=== PATIENT | male | born 1940 | race Caucasian/White ===

== ENCOUNTER 2024-01-08 09:10 | Inpatient (IN) | payer MEDICARE, SELFPAY ==
[2024-01-07] VITALS (9 sets, daily range): BP systolic 142–157; BP diastolic 58–81; BMI 20.1
[2024-01-07 18:37] LABS: % Basophils 0.2 % (0-2); % Eosinophils 1.5 % (0-6); % Immature Granulocytes 0.7 % (0-0.5); % Lymphocytes 7.7 % (20.5-51.1); % Monocytes 11.6 % (1.7-9.3); % Neutrophils 78.4 % (42.2-75.2); Absolute Eosinophils 0.1 10^3/uL (0-0.7); Absolute Immature Granulocytes 0.1 10^3/uL (0-0.05); Absolute Lymphocytes 0.8 10^3/uL (1.2-3.4); Absolute Monocytes 1.1 10^3/uL (0.1-0.6); Absolute Neutrophils 7.3 10^3/uL (1.4-6.5); Hematocrit 19.8 % (39.0-52.0); Hemoglobin 6.7 g/dL (13.0-18.0); Mean Corp Hgb Conc. 33.3 g/dL (33.0-37.0); Mean Corpuscular Hgb 31.6 pg (27.0-31.0); Mean Corpuscular Volume 94.7 fL (80.0-94.0); Mean Platelet Volume 10.1 fL (7.4-10.4); Nucleated Red Blood Cells % 0 % (-); Platelet Count 130 10^3/uL (130-400); Red Blood Cell Count 2.09 10^6/uL (4.70-6.10); Red Cell Dist. Width 14.8 % (11.5-14.5); White Blood Cell Count 9.3 10^3/uL (4.8-10.8)
[2024-01-07 18:43] LABS: ALT (SGPT) 14 U/L (0-50); AST (SGOT) 21 U/L (17-59); Albumin 2.9 g/dl (3.5-5.0); Alkaline Phosphatase 41 U/L (38-126); Blood Urea Nitrogen 87 mg/dl (9-20); Calcium 7.7 mg/dl (8.4-10.2); Carbon Dioxide 29 mmol/L (22-30); Chloride 90 mmol/L (98-107); Glucose 73 mg/dl (70-99); Potassium 4.1 mmol/L (3.5-5.1); Sodium 131 mmol/L (135-145); Total Bilirubin 0.3 mg/dl (0.2-1.3); Total Protein 4.8 g/dl (6.3-8.2); eGFR 5.31
--- NOTE | 2024-01-07 20:04 | ED.GENMED ---
History of Present Illness
General
Chief Complaint: Abnormal Lab Value
Time Seen by Provider: 01/07/24 19:42
History of Present Illness
History of Present Illness:
Patient is a 83-year-old male with history of peritoneal dialysis, CAD with stent, hypertension, hyperlipidemia presenting to the emergency department with low hemoglobin. Patient had routine blood work completed last week which showed a hemoglobin
of 6.6. 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 Patient denies any melena or hematochezia or hematemesis or hemoptysis. He does state that he had colon polyps 15 years ago seen on a colonoscopy. Last year he
had a Cologuard which was normal. He is only symptom has been more tired and he has been sleeping a lot more per his family. He has been taking all his medications as prescribed. He was recently at [facility] for pneumonia and syncope. He does
state that he has not syncopized since then. No lightheadedness dizziness. No nausea or vomiting. No abdominal pain.
Phy Exam
Physical Exam
Physical Exam:
GENERAL: in no acute distress
HEENT: normocephalic, extraocular movements intact, moist oral mucosa
NECK: normal inspection
RESPIRATORY: no respiratory distress, clear to auscultation bilaterally
CARDIOVASCULAR: regular rate and rhythm
ABDOMEN/: soft, non-distended, non-tender to palpation, no rebound or guarding
EXTREMITIES: non-tender, no edema/swelling
NEUROLOGIC: awake and alert, moves all extremities
SKIN: warm
Course
Orders/Labs/Results
Orders:
Orders
01/07/24 18:11
Electrocardiogram (*1) Urgent
Reason for Study: Other
Other Reason for Exam: low hgb
EKG- Treatment ONCE
01/07/24 18:15
Type+Screen Urgent
Complete Blood Count/With Diff Urgent
Comprehensive Metabolic Panel Urgent
01/07/24 19:06
ABO2 Urgent
BBK Wristband Number:
Associate notified that ABO2 has been ordered: [id number]
Date: 01/07/24
Time: 18:22
Head Resident ID: [id number]
01/07/24 20:02
* Blood Bank Products Urgent
Blood Bank Products: *Packed RBC Leuko(PRBC's)
Quantity: 1
Transfuse Today: Yes
Reason: Anemia
Abnormal Lab Results
01/07/24
18:15
RBC 2.09 L 10^6/uL
(4.70-6.10)
Hgb 6.7 L* g/dL
(13.0-18.0)
Hct 19.8 L* %
(39.0-52.0)
MCV 94.7 H fL
(80.0-94.0)
MCH 31.6 H pg
(27.0-31.0)
RDW 14.8 H %
(11.5-14.5)
Abs Immat Gran (auto) 0.1 H 10^3/uL
(0-0.05)
Absolute Neuts (auto) 7.3 H 10^3/uL
(1.4-6.5)
Absolute Lymphs (auto) 0.8 L 10^3/uL
(1.2-3.4)
Absolute Monos (auto) 1.1 H 10^3/uL
(0.1-0.6)
Immature Gran % 0.7 H %
(0-0.5)
Neutrophils % 78.4 H %
(42.2-75.2)
Lymphocytes % 7.7 L %
(20.5-51.1)
Monocytes % 11.6 H %
(1.7-9.3)
Sodium 131 L mmol/L
(135-145)
Chloride 90 L mmol/L
(98-107)
BUN 87 H mg/dl
(9-20)
Creatinine 9.0 H* mg/dL
(0.7-1.3)
Calcium 7.7 L mg/dl
(8.4-10.2)
Total Protein 4.8 L g/dl
(6.3-8.2)
Albumin 2.9 L g/dl
(3.5-5.0)
01/07/24 18:15
01/07/24 18:15
Vital Signs
Initial and Last Documented VS:
Initial Vital Signs
Temp Pulse Resp Pulse Ox
98.1 F 55 16 98
01/07/24 18:07 01/07/24 18:07 01/07/24 18:07 01/07/24 18:07
Last Documented Vital Signs
Temp Pulse Resp BP Pulse Ox
98.1 F 53 13 146/59 98
01/07/24 18:07 01/07/24 18:46 01/07/24 18:46 01/07/24 18:46 01/07/24 18:07
MDM/Problems Addressed
Differential Diagnosis Includes:
Patient is a 83-year-old male with history of peritoneal dialysis CAD with stents, hypertension, hyperlipidemia presenting to the emergency department with a low hemoglobin. Vitals unremarkable exam is reassuring. Unclear etiology of his anemia
however he does have chronic kidney disease as well as a prior history of polyps. His MCV is close to normal. Given his history of CAD his goal should be greater than 8. Will transfuse 1 unit while he is in the emergency department. Patient will
need admission for further evaluation. Discussed with hospitalist who accepted patient to their service.
*Critical Care Note
Total Time (30-74mins, 75-104mins- exclusive of procedures): Not Applicable
ED Attending Note
-
Portions of this chart may have been created with voice recognition software.� Occasional wrong word or��sound alike� substitutions may have occurred due to the inherent limitations of voice recognition software.
Discharge Plan
Departure
Patient Disposition: Admit
Date of Disposition: 01/07/24
Time of Disposition: 20:07
Presentation/result/management discussed w/ accepting MD/DO: Hospitalist
Discharge Problem:
Anemia
Prescriptions:
No Action
losartan 50 mg Tablet
50 mg PO BID
atenolol 100 mg tablet
100 mg PO DAILY
famotidine [Pepcid] 40 mg Tablet
40 mg PO QPM
Theragen Tablet
1 tab PO DAILY
aspirin 81 mg Tablet,Delayed Release (Dr/Ec)
81 mg PO DAILY
tamsulosin [Flomax] 0.4 mg Capsule
0.4 mg PO QPM
sodium bicarbonate 650 mg Tablet
650 mg PO TID
amlodipine 10 mg tablet
10 mg PO DAILY
docusate sodium [Colace] 100 mg Capsule
100 mg PO BID
hydralazine 50 mg Tablet
50 mg PO TID
calcitriol 0.25 mcg Capsule
0.25 mcg PO DAILY
finasteride 5 mg Tablet
5 mg PO QPM
Memory Formula Tablet
1 tab PO DAILY
melatonin 5 mg Tablet
5 mg PO HS PRN (Reason: sleep)
omega 2-qwz-zsb-fish oil [Fish Oil] 1,200 (144-216) mg Capsule
2 cap PO BID
coQ10 (ubiquinol) 200 mg Capsule
200 mg PO DAILY
Hair, Skin and Nails Advanced 3.3 mg iron-25 mcg Tablet
1 tab PO DAILY
Veltassa 8.4 gram Powder In Packet
8.4 g PO BID
atorvastatin [Lipitor] 40 mg Tablet
40 mg PO HS
sevelamer HCl 800 mg Tablet
2,400 mg PO MEALS
hydralazine 25 mg Tablet
25 mg PO DAILY
Referrals:
Pasha Manzanares MD [Family Provider] -
Interventions
Interventions:
*Risk Screen - Suicide Last Done: 01/07/24 18:07
*General Assessment Last Done: 01/07/24 18:57
*Neglect/Abuse Screening Last Done: 01/07/24 18:07
ED- Fall Risk Assessment Last Done: 01/07/24 18:57
*ED COVID-19 Vaccine History Last Done: 01/07/24 18:57
Discharge Date and Time
Print Language: ROMANIAN
--- NOTE | 2024-01-07 20:13 | HPS.HSE ---
Family Physician
-
Family Physician: Pasha Manzanares
Chief Complaint
-
abnormal labs
History of Present Illness
Patient is a 83-year-old male with past medical history significant for chronic kidney disease with peritoneal dialysis, hypertension, hyperlipidemia, CAD with stent and anemia who presented to [facility] for evaluation after abnormal blood work
outpatient. Patient had routine blood work last Sunday with [facility] Sadn[facility] and [facility], Dr. Shea Hernández , called today to follow up and requested patient present to ED for evaluation
of Hgb 6.6. Patient Hgb in ED 6.7, denies any melena, hematochezia, hematemesis or hemoptysis. He did recently have an episode of syncope and was admitted at [facility] following for PNA. Only complaint currently is feeling more tired and has
increased weakness.
Medical History
Past Medical History
Past Medical History: Reports Other
Additional Past Medical History:
chronic kidney disease with peritoneal
hypertension
hyperlipidemia
CAD with stent
anemia
BPH
Past Surgical History: Reports Other
Additional Past Surgical History:
right shoulder repair
hernia repair
dialysis port placement
Social History
Tobacco: Non-smoker
Alcohol: None
Drug: None
Personal:
Living: With Family
Employment: Retired
Family History
Family History: Not pertinent
Allergies / Home Medications
Allergies reflects when Allergies were last updated in [employer].
Home Medications with original date entered in [employer]
Allergy/Medication List:
Allergies
Allergy/AdvReac Type Severity Reaction Status Date / Time
Penicillins Allergy Unknown Verified 01/07/24 18:10
Sulfa (Sulfonamide Allergy Unknown Verified 01/07/24 18:10
Antibiotics)
Home Medications
amlodipine 10 mg tablet 10 mg PO HS 11/03/22
aspirin 81 mg tablet,delayed release 81 mg PO DAILY 12/29/21
atenolol 100 mg tablet 50 mg PO HS 12/29/21
atorvastatin 40 mg tablet (Lipitor) 40 mg PO MOTUWETHFR@2200 12/29/21
coQ10 (ubiquinol) 200 mg capsule 200 mg PO NOON 12/29/21
docusate sodium 100 mg capsule (Colace) 100 mg PO DAILY 12/29/21
famotidine 40 mg tablet (Pepcid) 20 mg PO DAILY 12/29/21
finasteride 5 mg tablet 5 mg PO HS 12/29/21
hydralazine 25 mg tablet 25 mg PO DAILY taken w/ 50mg = 75mg 12/29/21
hydralazine 50 mg tablet 50 mg PO DAILY taken w/ 25mg = 75mg 12/29/21
omega 8-nwd-qbg-fish oil 1,200 mg (144 mg-216 mg) capsule (Fish Oil) 1 cap PO NOON 12/29/21
sevelamer HCl 800 mg tablet 1,600 mg PO MEALS 12/29/21
tamsulosin 0.4 mg capsule (Flomax) 0.4 mg PO HS 12/29/21
cholecalciferol (vitamin D3) 25 mcg (1,000 unit) tablet 25 mcg PO NOON 01/07/24
losartan 100 mg tablet 100 mg PO DAILY@1000 01/07/24
vitamin B complex-vitamin C-folic acid 0.8 mg tablet (Shivani-Aminata) 1 tab PO DAILY 01/07/24
Review of Systems
-
History Source: Patient
Constitutional: Reports Fatigue and Other (generalized weakness)
EENT: Reports No Symptoms
Respiratory: Reports No Symptoms
Cardiac: Reports No Symptoms
Abdomen/GI: Reports No Symptoms
: Reports No Symptoms
Musculoskeletal: Reports No Symptoms
Skin: Reports No Symptoms
Neurological: Reports No Symptoms
Endocrine: Reports No Symptoms
Hematologic/Lymphatic: Reports No Symptoms
Psych: Reports No Symptoms
Physical Exam
Vital Signs
Vital Signs
Temp Pulse Resp BP Pulse Ox
98.1 F 53 13 146/59 98
01/07/24 18:07 01/07/24 18:46 01/07/24 18:46 01/07/24 18:46 01/07/24 18:07
Physical Exam
General: Well Developed, Well Nourished, No Apparent Distress, Comfortable and Conversant
HEENT: NormoCephalic, Moist mucous membranes, Atraumatic, PERRLA, Nose Appears Normal and Ears Appear Normal
Respiratory: Clear and Non Labored Respirations; No Wheezes, Rales, Rhonchi or Crackles
Cardiac: S1/S2 and Regular Rhythm; No Murmur, Rub or Gallop
Breast: Deferred by me
GI: Soft, Non Tender, Non Distended and Normal Bowel Sounds; No Organomegaly
Rectal: Deferred by Provider
Genito-urinary: Deferred by me
Musculoskeletal: No Clubbing, No Cyanosis and No Edema
Skin: Warm, Dry and IV/Catheter Site; No Rash
Neuro: Awake, Alert, AO x 3 and Nonfocal/grossly intact
Hematologic/Lymphatic: No Lymphadenopathy
Psych: Calm and Intact Judgment/Insight
Laboratory Results
-
01/07/24 18:15
01/07/24 18:15
Laboratory Results
Total Bilirubin 0.3 mg/dl (0.2-1.3) 01/07/24 18:15
AST 21 U/L (17-59) 01/07/24 18:15
ALT 14 U/L (0-50) 01/07/24 18:15
Alkaline Phosphatase 41 U/L (38-126) 01/07/24 18:15
Data Reviewed
-
Medical Tests (Nuc Med, Echo, EKG etc): Report Reviewed by me (EKG: SINUS BRADYCARDIA WITH 1ST DEGREE A-V BLOCK RIGHT BUNDLE BRANCH BLOCK)
Lab Data: Labs Reviewed by me (Hgb 6.7, Hct 19.8, Creat 9.0)
Impression/Plan
-
IMPRESSION/PLAN:
#Anemia/GI Bleed?
- Hgb 6.7/Hct 19.8
- hemetest stool: pending
- Admit to IMU for observation
- check B12, folate, ferritin and TSH
- Blood consent signed and
- T&S with 1 unit PRBCs
- monitor H/H
- obtain recent records from [facility]
#chronic kidney disease with peritoneal
- Consult Nephrology
- peritoneal dialysis nightly
#hypertension
- continue amlodipine, atenolol, losartan and hydralazine
#hyperlipidemia
- continue atorvastatin
#CAD with stent
- continue ASA
#BPH
- continue finasteride and tamsulosin
Full Code
DVT Px: Heparin Sq
--- NOTE | 2024-01-07 20:41 | W.PN.UPDATE ---
Update Note
Progress Note Update
This note serves as an addendum to the H&P by respiratory therapy assistant BEBETO Freda Fraga
HPI
83M HX ESRD on home peritoneal dialysis, CAD with stents, hypertension, hyperlipidemia seen at ER:
- Primary Learning Support Specialist sent to ER for evaluation of monthly routine blood work completed last week which showed a hemoglobin of 6.6.
- BM this AM - dark brown stool - no melena or hematochezia or hematemesis or hemoptysis.
- HX colon polyps 15 years ago seen on a colonoscopy.
- Last year Cologuard was reported normal.
- Per family : more tired and sleeping a lot more
Compliance with OP medications as prescribed.
Recently at [facility] for pneumonia and syncope for 1week
ROS:
No lightheadedness dizziness.
No nausea or vomiting.
No abdominal pain.
PHX; as above
Reviewed VS: Bradycardia low 50s BP 145/60
PE
Gen: thin , NAD
HEENT: Ione anicteric
Neck: supple
Lungs: CTA
Cor: RRR S1 S2
Abdomen: soft BS POS
HEAD OPERATOR SULFIDE: AAO3, NFND
MS: no edema
Psych: appropriate
Data
12/29/21 01/07/24
Hgb 10.8 L 6.7 L*
MCV 94.7 H
Sodium 131 L
Potassium 4.1
Chloride 90 L
Carbon Dioxide 29
BUN 87 H
Creatinine 9.0 H*
Glucose 73
Calcium 7.7 L
Albumin 2.9 L
ASSESSMENT & PLAN
Severe anemia with macrocytosis - somewhat symptomatic
HX ACDz with prior Hgb hi 10s as of Dec 2021
Stable HD status
P Learning Support Specialist @ [facility]
- check B12, Folate, TSH, Ferritin
- Stool for HoB
- T &S, blood consented
- agree with 1 unit of PRBC
- c/w FINANCIAL SERVICES ASSISTANT Famotidine
ESRD on Home PD
- cont. FINANCIAL SERVICES ASSISTANT calcidiol, Veltassa , Sevelamer and Na HCO3
- Renal consult
Benign HTN
- cont FINANCIAL SERVICES ASSISTANT Atenolol,Losartan and Hydralazine
BPH
- c/w Finasteride and Flomax
DVT Px: SQH
Full code
Obs TLM
[2024-01-07] MEDS: TENORMIN 50 MG PO (23:18)
[2024-01-07] MEDS: NORVASC 10 MG PO (23:19)
[2024-01-07] MEDS: PROSCAR 5 MG PO (23:19)
[2024-01-07] MEDS: FLOMAX 0.4 MG PO (23:19)
[2024-01-07] MEDS: HEPARIN 5000 UNITS SC (23:19)
[2024-01-07] MEDS: LIPITOR 40 MG PO (23:21)
[2024-01-08] VITALS (16 sets, daily range): BP systolic 126–169; BP diastolic 51–98; PULSE 49–50; O2SAT 96; BMI 18.8
[2024-01-08 04:37] LABS: % Basophils 0.6 % (0-2); % Eosinophils 2.3 % (0-6); % Immature Granulocytes 0.7 % (0-0.5); % Monocytes 14.5 % (1.7-9.3); % Neutrophils 70.9 % (42.2-75.2); Absolute Eosinophils 0.2 10^3/uL (0-0.7); Absolute Immature Granulocytes 0.1 10^3/uL (0-0.05); Absolute Lymphocytes 0.8 10^3/uL (1.2-3.4); Absolute Neutrophils 5.1 10^3/uL (1.4-6.5); Hematocrit 21.7 % (39.0-52.0); Hemoglobin 7.5 g/dL (13.0-18.0); Mean Corp Hgb Conc. 34.6 g/dL (33.0-37.0); Mean Corpuscular Hgb 31.5 pg (27.0-31.0); Mean Corpuscular Volume 91.2 fL (80.0-94.0); Mean Platelet Volume 9.9 fL (7.4-10.4); Nucleated Red Blood Cells % 0 % (-); Platelet Count 101 10^3/uL (130-400); Red Blood Cell Count 2.38 10^6/uL (4.70-6.10); White Blood Cell Count 7.1 10^3/uL (4.8-10.8)
[2024-01-08 04:51] LABS: Blood Urea Nitrogen 87 mg/dl (9-20); Calcium 7.5 mg/dl (8.4-10.2); Carbon Dioxide 27 mmol/L (22-30); Chloride 91 mmol/L (98-107); Estimated Creatinine Clearance 5 ml/min; Glucose 118 mg/dl (70-99); Iron 155 ug/dl (49-181); Potassium 3.6 mmol/L (3.5-5.1); Sodium 131 mmol/L (135-145); eGFR 5.31
[2024-01-08 05:00] LABS: Percent Saturation 77 % (20-50); Total Iron Binding Capacity 199 ug/dl (261-462)
[2024-01-08 05:21] LABS: TSH 0.33 uIU/ml (0.47-4.68)
[2024-01-08 05:40] LABS: Vitamin B12 > 1000 pg/ml (239-931)
--- NOTE | 2024-01-08 05:58 | PTCARENOTE ---
Received patient from the ED overnight. One unit PRBCs transfused. Am hgb 7.5. No signs of bleeding.
--- NOTE | 2024-01-08 06:19 | PTCARENOTE ---
Patient with positive heme test. AM hgb up to 7.5 from 6.7 post transfusion. wax blender provider made aware.
[2024-01-08] MEDS: COLACE 100 MG PO (07:52)
[2024-01-08] MEDS: ASPIR LOW (ENTERIC COATED) 81 MG PO (07:53)
[2024-01-08] MEDS: RENVELA 1600 MG PO ×3 (07:53→17:46)
[2024-01-08] MEDS: APRESOLINE 25 MG PO (07:53)
[2024-01-08] MEDS: HEPARIN 5000 UNITS SC ×3 (07:54→23:39)
[2024-01-08] MEDS: APRESOLINE 50 MG PO (07:54)
[2024-01-08] MEDS: NEPHROCAP 1 CAPSULE PO (08:07)
--- NOTE | 2024-01-08 09:37 | W.PN.HOSP.TC ---
Addendum entered and electronically signed by Kevyn Oconnor MD 01/08/24 16:24:
Patient in need of a Lightweight wheelchair due to ambulatory dysfunction
Original Note:
Today's Communication/Plan
-
see note
Assessment / Plan
Assessment / Plan
1. Normocytic anemia suspected of chronic renal disease
-Baseline hemoglobin unknown, obtain records request sent to [facility]
-Heme test stool pending
-Further 600, saturation 77%. B12 WNL.
-Some superficial bruising around periumbilical area, likely from DVT prophylaxis short. No blood draining from peritoneal dialysis catheter
-CT abdomen pelvis without IV contrast ordered to rule out any retroperitoneal bleed, clinically less likely
2. ESRD on peritoneal dialysis
-Nephrology following and will continue to do peritoneal dialysis
-No concern of peritonitis
3. Hyponatremia
-2/2 renal faliure. monitor.
4. Thrombocytopenia
-Minimal with platelet of 101. Continue monitor
-Okay to provide DVT prophylaxis
5. Sinus bradycardia
-On atenolol for hypertension, continue with holding parameter
6. Essential hypertension
- continue amlodipine, atenolol, losartan and hydralazine
7. yperlipidemia
- continue atorvastatin
8. CAD with stent
- continue ASA
9. BPH
- continue finasteride and tamsulosin
Full Code
DVT Px: Heparin Sq
Discussed with nephrology
Transfer to Telemetry
Total time spent : 54 mins
I personally saw and examined the patient.
I have reviewed all diagnostic interpretations and treatment plans as written.
Time includes patient management by me, time spent at the patients bedside, time to review lab and imaging results, discussing patient care, documentation in the medical record, and time spent with the family or caregiver and discussing care plan
with RN/Consultants.
Anticipated Discharge: 24 - 48 hours
Subjective/Interval History
-
Date of Service: January 08, 2024
Resting comfortably in chair
Denies any abdominal pain/nausea/vomiting
no other issues reported
Objective Data
-
Labs:
Laboratory Results
01/08/24
04:16
WBC 7.1
Hgb 7.5 L
Hct 21.7 L
Plt Count 101 L D
Sodium 131 L
Potassium 3.6
Chloride 91 L
Carbon Dioxide 27
BUN 87 H
Creatinine 9.0 H*
Glucose 118 H
Calcium 7.5 L
Vital Signs:
Vital Signs
Temp Pulse Resp BP Pulse Ox
97.7 F 50 13 126/98 94
01/08/24 03:14 01/08/24 08:52 01/08/24 08:52 01/08/24 08:52 01/08/24 04:00
I&O
01/07/24 01/08/24 01/09/24
06:59 06:59 06:59
Intake Total 750 / 750
Balance 750 / 750
Review of Systems
-
Respiratory: Reports No Symptoms
Cardiac: Reports No Symptoms
Abdomen/GI: Reports No Symptoms
Physical Exam
-
General: No Apparent Distress and Comfortable
HEENT: Negative Oxygen
Respiratory: Clear to Auscultation
Cardiac: Regular Rhythm and S1/S2; Negative Murmur or Rub
GI: Soft, Nontender, Nondistended, Normal Bowel Sounds and Other (Ecchymosis on periumbilical area. no drainage around peritoneal dialysis catheter)
Musculoskeletal: No Edema
Neuro: Awake, Alert, Oriented, No Motor Deficits and Nonfocal/Grossly Intact
Psych: Calm
--- NOTE | 2024-01-08 10:00 | W.CON.NEPH ---
Consultation
-
Date/Time Consultation Requested: 01/07/24 07
Date/Time Consultation Performed: 01/07/24 09
Requesting Provider: Dr Thornton
Performing Provider: Dr Rogers
Reason for Consultation: ESRD
Medical History
-
Chief Complaint: anemia
History of Present Illness:
This is an 83-year-old gentleman who has end-stage renal disease for the last 2 and half years now on peritoneal dialysis. He dialyzes through [facility] at [place]. He says that he does receive injections for anemia on a
monthly basis. He denies having any issues with peritoneal dialysis at home which is managed by him and his . It appears that he alternates solutions of 1.5 and a 2.5% with a 9-hour treatment time with exchanges every 1 hour 40 minutes. He
was sent to the emergency room because blood work had shown a hemoglobin of 6.6. This was confirmed in the emergency room. We are asked to assist in management of his peritoneal dialysis. He does have hypertension which is generally controlled
with a multidrug regimen as well as hyperlipidemia controlled with statin therapy.
Past Medical History
ESRD cause unknown according to the patient, hypertension, hyperlipidemia, coronary disease with 2 stents, anemia, BPH, right shoulder surgery, hernia repair, PD catheter placement
Social History
Tobacco: Non-Smoker
Alcohol: None
Family History
No known CKD
Allergies / Home Medications
Allergy/AdvReac Type Severity Reaction Status Date / Time
Penicillins Allergy Unknown Verified 01/07/24 18:10
Sulfa (Sulfonamide Allergy Unknown Verified 01/07/24 18:10
Antibiotics)
�Medication �Instructions �Recorded �Confirmed �Type
amlodipine 10 mg tablet 10 mg PO HS Blood Pressure 12/29/21 01/07/24 History
aspirin 81 mg tablet,delayed 81 mg PO DAILY Blood Clot 12/29/21 01/07/24 History
release Prevention/Tx
atenolol 100 mg tablet 50 mg PO HS Blood Pressure 12/29/21 01/07/24 History
atorvastatin 40 mg tablet (Lipitor) 40 mg PO MOTUWETHFR@2200 High 12/29/21 01/07/24 History
Cholesterol
coQ10 (ubiquinol) 200 mg capsule 200 mg PO NOON Supplement 12/29/21 01/07/24 History
docusate sodium 100 mg capsule 100 mg PO DAILY STOOL SOFTENER 12/29/21 01/07/24 History
(Colace)
famotidine 40 mg tablet (Pepcid) 20 mg PO DAILY Gastrointestinal 12/29/21 01/07/24 History
Issue
finasteride 5 mg tablet 5 mg PO HS BPH 12/29/21 01/07/24 History
hydralazine 25 mg tablet 25 mg PO DAILY taken w/ 50mg = 12/29/21 01/07/24 History
75mg/BP
hydralazine 50 mg tablet 50 mg PO DAILY taken w/ 25mg = 12/29/21 01/07/24 History
75mg/BP
omega 8-ujg-zun-fish oil 1,200 mg 1 cap PO NOON Supplement 12/29/21 01/07/24 History
(144 mg-216 mg) capsule (Fish Oil)
sevelamer HCl 800 mg tablet 1,600 mg PO MEALS RENAL 12/29/21 01/07/24 History
tamsulosin 0.4 mg capsule (Flomax) 0.4 mg PO HS Urinary Issue 12/29/21 01/07/24 History
cholecalciferol (vitamin D3) 25 25 mcg PO NOON Supplement 01/07/24 01/07/24 History
mcg (1,000 unit) tablet
losartan 100 mg tablet 100 mg PO DAILY@1000 Blood Pressure 01/07/24 01/07/24 History
vitamin B complex-vitamin C-folic 1 tab PO DAILY Supplement 01/07/24 01/07/24 History
acid 0.8 mg tablet (Shivani-Aminata)
Review of Systems
-
No chest pain or shortness of breath. No bright red blood per rectum. No issues with PD. Increased weakness only.
All other systems: Negative unless noted
Physical Exam
Vital Signs
Vital Signs
Temp Pulse Resp BP Pulse Ox
97.7 F 50 13 126/98 94
01/08/24 03:14 01/08/24 08:52 01/08/24 08:52 01/08/24 08:52 01/08/24 04:00
Lab Results
WBC 7.1 10^3/uL (4.8-10.8) 01/08/24 04:16
RBC 2.38 10^6/uL (4.70-6.10) L 01/08/24 04:16
Hgb 7.5 g/dL (13.0-18.0) L 01/08/24 04:16
Hct 21.7 % (39.0-52.0) L 01/08/24 04:16
Plt Count 101 10^3/uL (130-400) L D 01/08/24 04:16
Sodium 131 mmol/L (135-145) L 01/08/24 04:16
Potassium 3.6 mmol/L (3.5-5.1) 01/08/24 04:16
Chloride 91 mmol/L (98-107) L 01/08/24 04:16
Carbon Dioxide 27 mmol/L (22-30) 01/08/24 04:16
BUN 87 mg/dl (9-20) H 01/08/24 04:16
Creatinine 9.0 mg/dL (0.7-1.3) H* 01/08/24 04:16
eGFR 5.31 01/08/24 04:16
Glucose 118 mg/dl (70-99) H 01/08/24 04:16
Calcium 7.5 mg/dl (8.4-10.2) L 01/08/24 04:16
Albumin 2.9 g/dl (3.5-5.0) L 01/07/24 18:15
Laboratory Tests
12/29/21
14:15
Hgb 10.8 L
Physical Exam
Patient is awake alert oriented and in no distress. Mood and affect were pleasant, insight and judgment were good. Pupils are equal round and reactive to light, extraocular movements are intact, sclera were anicteric. Hearing was normal, ears and
nose are intact. Oropharynx was clear. Neck was supple with trachea midline and no thyromegaly. Heart was regular rate and rhythm without rubs. Lower extremities without edema. Lungs were clear to auscultation bilaterally and with normal
excursion. Abdomen was soft, nontender, with normal active bowel sounds, and no hepatosplenomegaly. Skin was without rash and with normal turgor. Ecchymosis was noted around the umbilicus. No flank ecchymosis noted PD catheter was clean dry and
intact
Data Reviewed
-
Medical Tests (Nuc Med, Echo etc): Image Personally Visualized and interpreted (EKG on 01/07/2024 by my reading shows sinus bradycardia first-degree AV block right bundle branch block)
Labs: Labs Reviewed by me
Old Records: Requested
Assessment/Plan
-
Assessment
ESRD on PD
Acute anemia
Hypertension
Hyperlipidemia
Coronary artery disease
Plan
PD will be continued, orders provided
Workup of anemia
CT abdomen and pelvis
Check iron studies
Will try and obtain old records particularly for last JORY dose
Outpatient medications may otherwise be continued from a renal perspective
[2024-01-08] MEDS: OMNIPAQUE 50 ML PO (11:22)
[2024-01-08] MEDS: COZAAR 100 MG PO (11:23)
--- NOTE | 2024-01-08 14:11 | PTCARENOTE ---
Assumed care of patient during the day, received report via RN. Pt AAOx3 drowsy at times. Pt NSR on tele with first degree heart block and BBB. Pt 96% on RA. PD performed as ordered see worklist. Moderate bruising on the abdomen present on
admission, no complaints of pain. PT/OT walked with pt in the hallway with rolling walker. Pt up into the chair for breakfast. Pt had CT of abdomen with oral contrast. Pt has call blair within reach. Spouse at the bedside.
--- NOTE | 2024-01-08 15:51 | CM ---
Patient with Hx ESRD on PD. Room air. PT/OT recommend HH.
Met with patient, Carla and daughter Janny;
the patient resides with his , daughter and 3 grandsons in a 2 story house with 2 + 1 BRIANNE, and chair lift to 2nd floor.
The patient has been assisted with ADLs by his .
He has only been able to ambulate short distances with supervision since early Nov 2023, and he is unsteady on his feet
assists with doing peritoneal dialysis.
No housing/food/utility/transport insecurity.
DME - RW, shower chair, PD supplies
VN - current with [facility] for SN/PT/OT - and daughter wish to resume service at d/c.
SNF - none
PCP - Pasha Manzanares
Pharmacy - [facility]
Discussed if feels she has enough caregiver help at home - she is considering. Provided DH Caregiver list.
Discussed possible need for w/c and feels lightweight w/c would be best ---> message to Dr Oconnor who agrees.
wants w/c delivered to patient's hospital room.
Referral to [facility] for resumption of service.
Spoke with Tracie Pulido; agree to fax referral. She will deliver to patient's room tomorrow.
Plan home with resumption [facility], with lightweight w/c.
[2024-01-08] MEDS: FLOMAX 0.4 MG PO (20:15)
[2024-01-08] MEDS: PROSCAR 5 MG PO (20:15)
[2024-01-08] MEDS: TENORMIN 50 MG PO (20:15)
[2024-01-08] MEDS: NORVASC 10 MG PO (20:15)
[2024-01-08] MEDS: LIPITOR 40 MG PO (20:17)
[2024-01-09] VITALS (13 sets, daily range): BP systolic 127–176; BP diastolic 55–100; BMI 19.3
[2024-01-09 04:13] LABS: % Basophils 0.4 % (0-2); % Immature Granulocytes 0.4 % (0-0.5); % Lymphocytes 11.7 % (20.5-51.1); % Monocytes 12.5 % (1.7-9.3); Absolute Eosinophils 0.2 10^3/uL (0-0.7); Absolute Lymphocytes 0.9 10^3/uL (1.2-3.4); Absolute Neutrophils 5.6 10^3/uL (1.4-6.5); Hemoglobin 8.2 g/dL (13.0-18.0); Mean Corp Hgb Conc. 34.2 g/dL (33.0-37.0); Mean Corpuscular Hgb 32.2 pg (27.0-31.0); Mean Corpuscular Volume 94.1 fL (80.0-94.0); Mean Platelet Volume 9.8 fL (7.4-10.4); Nucleated Red Blood Cells % 0 % (-); Platelet Count 128 10^3/uL (130-400); Red Blood Cell Count 2.55 10^6/uL (4.70-6.10); Red Cell Dist. Width 15.2 % (11.5-14.5); White Blood Cell Count 7.8 10^3/uL (4.8-10.8)
[2024-01-09 04:27] LABS: Blood Urea Nitrogen 73 mg/dl (9-20); Calcium 7.7 mg/dl (8.4-10.2); Carbon Dioxide 29 mmol/L (22-30); Chloride 90 mmol/L (98-107); Estimated Creatinine Clearance 6 ml/min; Glucose 102 mg/dl (70-99); Potassium 3.6 mmol/L (3.5-5.1); Sodium 130 mmol/L (135-145); eGFR 6.03
--- NOTE | 2024-01-09 06:33 | PTCARENOTE ---
NO acute events overnight. Confused at times. Assist x1 to the BR with rolling walker. PD completed every 4 hours.
--- NOTE | 2024-01-09 07:45 | PTCARENOTE ---
Pt with prolonged OR interval of 0.36, BBC, and prolonged QT of 0.[address] Oconnor notified; no further orders received.
[2024-01-09] MEDS: HEPARIN 5000 UNITS SC ×2 (08:19→17:28)
[2024-01-09] MEDS: APRESOLINE PO ×4 (08:19→09:59)
[2024-01-09] MEDS: ASPIR LOW (ENTERIC COATED) PO ×2 (08:20→09:59)
[2024-01-09] MEDS: RENVELA PO ×3 (08:20→13:05)
[2024-01-09] MEDS: PEPCID PO ×2 (08:20→10:00)
[2024-01-09] MEDS: COLACE PO ×2 (08:20→10:00)
[2024-01-09] MEDS: NEPHROCAP PO ×2 (08:20→10:00)
--- NOTE | 2024-01-09 08:28 | W.PN.NEPH.PH ---
Today's Communication / Plan
-
PD orders provided
Assessment/Plan
-
Assessment
ESRD on PD
Acute anemia
Hypertension
Hyperlipidemia
Coronary artery disease
Plan
PD will be continued, orders provided
Workup of anemia
CT abdomen and pelvis: concerning for omental caking in LUQ, moderate ascities, bilateral renal cystic disease
Check iron studies
Will try and obtain old records particularly for last JORY dose
Outpatient medications may otherwise be continued from a renal perspective
PD :
sbp 160
1.5% q4hr exchanges of 2L
-
-
Date of Service: January 09, 2024
CC / HPI / ROS
-
Chief Complaint:
ESRD/PD
History of Present Illness:
hemodynamically stable
hemoglobin up to 8.2 following transfusion
Review of Systems:
weight up
no fevers
lethargic
Labs
-
Labs:
WBC 7.8 10^3/uL (4.8-10.8) 01/09/24 03:50
RBC 2.55 10^6/uL (4.70-6.10) L 01/09/24 03:50
Hgb 8.2 g/dL (13.0-18.0) L 01/09/24 03:50
Hct 24.0 % (39.0-52.0) L 01/09/24 03:50
Plt Count 128 10^3/uL (130-400) L D 01/09/24 03:50
Sodium 130 mmol/L (135-145) L 01/09/24 03:50
Potassium 3.6 mmol/L (3.5-5.1) 01/09/24 03:50
Chloride 90 mmol/L (98-107) L 01/09/24 03:50
Carbon Dioxide 29 mmol/L (22-30) 01/09/24 03:50
BUN 73 mg/dl (9-20) H 01/09/24 03:50
Creatinine 8.1 mg/dL (0.7-1.3) H* 01/09/24 03:50
eGFR 6.03 01/09/24 03:50
Glucose 102 mg/dl (70-99) H 01/09/24 03:50
Calcium 7.7 mg/dl (8.4-10.2) L 01/09/24 03:50
Albumin 2.9 g/dl (3.5-5.0) L 01/07/24 18:15
Physical Exam
-
Vital Signs:
Vital Signs
Temp Pulse Resp BP Pulse Ox
97.4 F 59 16 153/87 97
01/09/24 07:55 01/09/24 06:00 01/09/24 06:00 01/09/24 06:00 01/09/24 00:00
Cardiovascular:: Regular rate and rhythm
Respiratory:: Bilateral: CTA
Lung Excursion:: Normal
Abdomen:: Nontender and Soft
Bowel Sounds:: Decreased
Rojas Catheter: No
--- NOTE | 2024-01-09 09:08 | W.PN.HOSP.TC ---
Today's Communication/Plan
-
see note
Assessment / Plan
Assessment / Plan
CT a/p
Possible omental caking in left upper quadrant and therefore metastatic disease. This could further be evaluated by PET scan if indicated clinically. Moderate a abdominopelvic ascites.
Findings concerning for mild postinflammatory/postinfectious change of both lower lobes. Age-indeterminate mild T12 compression fracture. Splenic calcifications suggesting prior benign granulomatous disease.
Cholesterol gallstones. Benign right adrenal adenoma. Bilateral simple renal cysts. Bilateral benign complex renal cysts. Nonobstructing renal stones. Diverticulosis. Mild extraluminal air in the abdomen probably due to the percutaneous drainage
catheter.
Severe prostate hypertrophy. Probable right hydrocele

1. Normocytic anemia suspected of chronic renal disease
-Baseline hemoglobin unknown, obtain records request sent to [facility]
-Ferritin 600, saturation 77%. B12 WNL.
-Some superficial bruising around periumbilical area, likely from DVT prophylaxis short. No blood draining from peritoneal dialysis catheter
-CT abdomen pelvis without IV contrast ruled out any retroperitoneal bleed
2. 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
-CT a/p incidentally showing omental caking, suspicious for metastatic disease
-Hemato/oncology consulted for further evaluation
3. Acute toxic metabolic encephalopathy
-Patient had apparent episodes of confusion/encephalopathy at [facility] as well.
-Neurologgy work-up at [place] was negative and was felt to be related to sertraline, which was discontinued
-Currently patient not on any sedative medication
-No clinical signs of any ongoing active infection. COVID neg.
-Required soft restraint and upper extremity
-Continue supportive care and will do re-evaluation if clinically not improved.
3. ESRD on peritoneal dialysis
-Nephrology following and will continue to do peritoneal dialysis
-No concern of peritonitis
4. Hyponatremia
-2/2 renal faliure. monitor.
5. Thrombocytopenia
-Fluctuating and was low as well during [facility] hospitalization
-Okay to provide DVT prophylaxis
6. Essential hypertension -Uncontrolled
-Patient declining to take oral medication, providing IV hydralazine for SBP greater than 160
7. Hyperlipidemia
- continue atorvastatin
8. CAD with stent
- continue ASA
9. BPH
- continue finasteride and tamsulosin
10. Sinus bradycardia
-On atenolol for hypertension, continue with holding parameter
Full Code
DVT Px: Heparin Sq
Care plan discussed with spouse/nephrology/RN
Total time spent : 52 mins
I personally saw and examined the patient.
I have reviewed all diagnostic interpretations and treatment plans as written.
Time includes patient management by me, time spent at the patients bedside, time to review lab and imaging results, discussing patient care, documentation in the medical record, and time spent with the family or caregiver and discussing care plan
with RN/Consultants.
Anticipated Discharge: > 48 hours
Subjective/Interval History
-
Date of Service: January 09, 2024
Patient confused/encephalopathic in the morning
Reported hallucination by RN
Patient agitated and was pulling of things
Objective Data
-
Labs:
Laboratory Results
01/09/24
03:50
WBC 7.8
Hgb 8.2 L
Hct 24.0 L
Plt Count 128 L D
Sodium 130 L
Potassium 3.6
Chloride 90 L
Carbon Dioxide 29
BUN 73 H
Creatinine 8.1 H*
Glucose 102 H
Calcium 7.7 L
Vital Signs:
Vital Signs
Temp Pulse Resp BP Pulse Ox
97.4 F 58 16 160/91 94
01/09/24 07:55 01/09/24 08:00 01/09/24 08:00 01/09/24 08:00 01/09/24 08:41
I&O
01/08/24 01/09/24 01/10/24
06:59 06:59 06:59
Intake Total 750 / 750 1000 / 1000
Output Total 2325 / 2325
Balance 750 / 750 -1325 / -1325
Review of Systems
-
Unable to obtain full review of systems at this time due to: Acuity
Physical Exam
-
General: Comfortable and Cachectic
HEENT: Negative Oxygen
Respiratory: Clear to Auscultation
Cardiac: Regular Rhythm and S1/S2; Negative Murmur or Rub
GI: Soft, Nontender and Nondistended
Musculoskeletal: No Edema
Neuro: Awake and Nonfocal/Grossly Intact; Negative Alert or Oriented
Psych: Calm
[2024-01-09] MEDS: COZAAR PO (10:04)
--- NOTE | 2024-01-09 10:04 | PTCARENOTE ---
Pt drowsy and uncooperative, refusing to take medications despite several attempts. Puling off monitor equipment and ripped out IV. Reports he sees '2 footballs on the ground.' Dr. Oconnor notified via TT.
[2024-01-09] MEDS: RISPERDAL M-TAB (ORALLY DISINTEGRATING) 0.5 MG PO (11:31)
--- NOTE | 2024-01-09 11:37 | CON.ONC ---
Impression
Impression
83-year-old male with history of ESRD on peritoneal dialysis, hypertension, hyperlipidemia presenting with anemia
# Anemia
- Likely chronic in the setting of chronic kidney disease, nephrology following
- Iron studies normal
- Vitamin B12 normal
- s/p 1 u PRBC, transfuse if hemoglobin less than 7
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
- CT abdomen showed omental caking suggestive of metastatic disease and moderate ascites
- IR consult appreciated for diagnostic paracentesis and if possible, biospy of omental thickening
- Check tumor markers CEA, CA 19-9
- Will follow along
# ESRD on PD - nephrology following
# Hypertension - continue home meds
# Hyperlipidemia - continue home meds
# BPH - continue home meds
Patient History
History of Present Illness
83-year-old male with past medical history of chronic kidney disease on peritoneal dialysis, hypertension, hyperlipidemia, BPH, coronary artery disease who presented with abnormal hemoglobin of 6.6 on outpatient blood work and increased weakness and
fatigue. On admission, hemoglobin was found to be 6.7 with MCV of 94 and creatinine 9.0. Iron studies are not suggestive of iron deficiency anemia and vitamin B12 is normal.
CT abdomen:
Possible omental caking in left upper quadrant which can be suggestive of metastatic disease, moderate abdominal pelvic ascites, mild postinfectious/postinflammatory changes of both lower lobes, splenic calcifications likely due to benign
granulomatous disease, benign right adrenal adenoma, severe prostate hypertrophy and right hydrocele.
Past-Medical/Surgical History
Past medical history:
ESRD on PD
Hypertension
Hyperlipidemia
BPH
Coronary artery disease
Past surgical history:
Right humeral fracture 2021
Patient Medication
�Medication �Instructions �Recorded �Confirmed �Last Taken �Type
amlodipine 10 mg tablet 10 mg PO HS Blood Pressure 12/29/21 01/07/24 01/06/24 History
aspirin 81 mg tablet,delayed 81 mg PO DAILY Blood Clot 12/29/21 01/07/24 01/07/24 History
release Prevention/Tx
atenolol 100 mg tablet 50 mg PO HS Blood Pressure 12/29/21 01/07/24 01/06/24 History
atorvastatin 40 mg tablet (Lipitor) 40 mg PO MOTUWETHFR@2200 High 12/29/21 01/07/24 01/04/24 History
Cholesterol
coQ10 (ubiquinol) 200 mg capsule 200 mg PO NOON Supplement 12/29/21 01/07/24 01/06/24 History
docusate sodium 100 mg capsule 100 mg PO DAILY STOOL SOFTENER 12/29/21 01/07/24 01/07/24 History
(Colace)
famotidine 40 mg tablet (Pepcid) 20 mg PO DAILY Gastrointestinal 12/29/21 01/07/24 01/07/24 History
Issue
finasteride 5 mg tablet 5 mg PO HS BPH 12/29/21 01/07/24 01/06/24 History
hydralazine 25 mg tablet 25 mg PO DAILY taken w/ 50mg = 12/29/21 01/07/24 01/07/24 History
75mg/BP
hydralazine 50 mg tablet 50 mg PO DAILY taken w/ 25mg = 12/29/21 01/07/24 01/07/24 History
75mg/BP
omega 9-qpo-bqo-fish oil 1,200 mg 1 cap PO NOON Supplement 12/29/21 01/07/24 01/06/24 History
(144 mg-216 mg) capsule (Fish Oil)
sevelamer HCl 800 mg tablet 1,600 mg PO MEALS RENAL 12/29/21 01/07/24 01/07/24 12:00 History
tamsulosin 0.4 mg capsule (Flomax) 0.4 mg PO HS Urinary Issue 12/29/21 01/07/24 01/06/24 History
cholecalciferol (vitamin D3) 25 25 mcg PO NOON Supplement 01/07/24 01/07/24 01/06/24 History
mcg (1,000 unit) tablet
losartan 100 mg tablet 100 mg PO DAILY@1000 Blood Pressure 01/07/24 01/07/24 01/07/24 History
vitamin B complex-vitamin C-folic 1 tab PO DAILY Supplement 01/07/24 01/07/24 01/07/24 History
acid 0.8 mg tablet (Shivani-Aminata)
Active Medications
Generic Name Dose Route Start Last Admin
Trade Name Freq PRN Reason Stop Dose Admin
Acetaminophen 650 mg 01/07/24 22:38
Acetaminophen 325 Mg Tablet PO 02/04/24 22:37
Q4HPRN PRN
mild pain/PAEZ/temp> 100.4F
Amlodipine Besylate 10 mg 01/07/24 22:38 01/08/24 20:15
Amlodipine 10 Mg Tablet PO 02/04/24 22:37 10 mg
HS EMMIE Administration
Aspirin 81 mg 01/08/24 08:00 01/09/24 09:59
Aspirin 81 Mg (Enteric Coated) Tablet PO 02/05/24 07:59 Not Given
DAILY EMMIE
Atenolol 50 mg 01/07/24 23:00 01/08/24 20:15
Atenolol 50 Mg Tablet PO 02/04/24 22:59 50 mg
HS EMMIE Administration
Atorvastatin Calcium 40 mg 01/07/24 22:38 01/08/24 20:17
Atorvastatin (Lipitor) 40 Mg Tablet PO 02/04/24 22:37 40 mg
MOTUWETHFR@2200 EMMIE Administration
Docusate Sodium 100 mg 01/08/24 08:00 01/09/24 10:00
Docusate Sodium 100 Mg Capsule PO 02/05/24 07:59 Not Given
DAILY EMMIE
Famotidine 20 mg 01/09/24 08:00 01/09/24 10:00
Famotidine 20 Mg Tablet PO 02/06/24 07:59 Not Given
Q48H EMMIE
Finasteride 5 mg 01/07/24 22:38 01/08/24 20:15
Finasteride 5 Mg Tablet PO 02/04/24 22:37 5 mg
HS EMMIE Administration
Heparin Sodium 5,000 units 01/08/24 00:00 01/09/24 08:19
Heparin 5,000 Units/Ml 1 Ml Vial SC 02/05/24 00:00 5,000 units
Q8 EMMIE Administration
Hydralazine HCl 25 mg 01/08/24 08:00 01/09/24 09:59
Hydralazine 25 Mg Tablet PO 02/05/24 07:59 Not Given
DAILY EMMIE
Hydralazine HCl 50 mg 01/08/24 08:00 01/09/24 09:59
Hydralazine 50 Mg Tablet PO 02/05/24 07:59 Not Given
DAILY EMMIE
Losartan Potassium 100 mg 01/08/24 10:00 01/09/24 10:04
Losartan 100 Mg Tablet PO 02/05/24 09:59 Not Given
DAILY@1000 EMMIE
Risperidone 0.5 mg 01/09/24 10:08 01/09/24 11:31
Risperidone 0.5 Mg Orally Disintegrating Tablet PO 02/06/24 19:59 0.5 mg
BID PRN Administration
Agitation
Sevelamer Carbonate 1,600 mg 01/08/24 08:00 01/09/24 10:00
Sevelamer Carbonate (Renvela) 800 Mg Tablet PO 02/05/24 07:59 Not Given
MEALS EMMIE
Sodium Chloride 0 flush 01/07/24 23:00
Sodium Chloride 0.9% (Flush) Syringe IV 02/04/24 22:59
PER PROTOCOL EMMIE
Tamsulosin HCl 0.4 mg 01/07/24 22:38 01/08/24 20:15
Tamsulosin 0.4 Mg Capsule PO 02/04/24 22:37 0.4 mg
HS EMMIE Administration
Vitamin B Complex/Vit C/Folic Acid 1 capsule 01/08/24 08:00 01/09/24 10:00
Renal Cap (Nephrocap) Capsule PO 02/05/24 07:59 Not Given
DAILY EMMIE
Review of Systems
-
Unable to obtain full review of systems at this time due to: Other (Patient does not communicate well)
History Source: Patient and Records
Constitutional: Reports No Symptoms
Physical Exam
-
General: Cachetic
Cardiology: Normal Sinus Rhythm, S1 and S2
GI: Other (PD catheter)
Musculoskeletal: No Clubbing, No Cyanosis and No Edema
Skin: Other (Ecchymosis on upper extremities and periumbilical)
Labs
Lab Results
WBC 7.8 10^3/uL (4.8-10.8) 01/09/24 03:50
RBC 2.55 10^6/uL (4.70-6.10) L 01/09/24 03:50
Hgb 8.2 g/dL (13.0-18.0) L 01/09/24 03:50
Hct 24.0 % (39.0-52.0) L 01/09/24 03:50
MCV 94.1 fL (80.0-94.0) H 01/09/24 03:50
MCH 32.2 pg (27.0-31.0) H 01/09/24 03:50
MCHC 34.2 g/dL (33.0-37.0) 01/09/24 03:50
RDW 15.2 % (11.5-14.5) H 01/09/24 03:50
Plt Count 128 10^3/uL (130-400) L D 01/09/24 03:50
MPV 9.8 fL (7.4-10.4) 01/09/24 03:50
Abs Immat Gran (auto) 0.0 10^3/uL (0-0.05) 01/09/24 03:50
Absolute Neuts (auto) 5.6 10^3/uL (1.4-6.5) 01/09/24 03:50
Absolute Lymphs (auto) 0.9 10^3/uL (1.2-3.4) L 01/09/24 03:50
Absolute Monos (auto) 1.0 10^3/uL (0.1-0.6) H 01/09/24 03:50
Absolute Eos (auto) 0.2 10^3/uL (0-0.7) 01/09/24 03:50
Absolute Basos (auto) 0.0 10^3/uL (0-0.2) 01/09/24 03:50
Immature Gran % 0.4 % (0-0.5) 01/09/24 03:50
Neutrophils % 72.0 % (42.2-75.2) 01/09/24 03:50
Lymphocytes % 11.7 % (20.5-51.1) L 01/09/24 03:50
Monocytes % 12.5 % (1.7-9.3) H 01/09/24 03:50
Eosinophils % 3.0 % (0-6) 01/09/24 03:50
Basophils % 0.4 % (0-2) 01/09/24 03:50
Creatinine 8.1 mg/dL (0.7-1.3) H* 01/09/24 03:50
Vital Signs
Vital Signs
Temp Pulse Resp BP Pulse Ox
97.4 F 53 18 160/91 94
01/09/24 07:55 01/09/24 10:00 01/09/24 10:00 01/09/24 08:00 01/09/24 08:41
--- NOTE | 2024-01-09 11:52 | PTCARENOTE ---
Pt with increasing agitation. Pulling off monitor equipment, attempting to climb OOB. Reaching for PD cath multiple times and requiring frequent reorientation. Dr. Oconnor notified via TT. Attempt at b/l mitts immediately unsuccessful, order received
for b/l soft wrist restraints- see intervention. PRN Risperdal administered, see APR.
--- NOTE | 2024-01-09 12:00 | PTCARENOTE ---
Day placed in pt's room.
[2024-01-09 13:27] LABS: COVID-19 Antigen Negative (Negative)
--- NOTE | 2024-01-09 14:06 | W.PN.UPDATE ---
Update Note
Progress Note Update
Attempted to call who wanted to speak with me about his peritoneal dialysis
No answer
[2024-01-09] MEDS: RENVELA 1600 MG PO ×2 (14:09→17:29)
[2024-01-09 15:45] LABS: CEA 2.23 ng/ml
--- NOTE | 2024-01-09 15:45 | PTCARENOTE ---
Addendum entered by Dianne Reyes 01/09/24 17:41:
Pt becoming increasingly uncooperative; at bedside. Pt reoriented to reality.
Original Note:
Pt's family at bedside, much calmer at this time. Restraints removed at this time. Medsitter and bed alarm remains in place.
--- NOTE | 2024-01-09 19:23 | W.PN.UPDATE ---
Update Note
Progress Note Update
I saw and examined the patient.
The resident's note was reviewed and I agree with the note.
Comment:
83-year-old male with history of ESRD on peritoneal dialysis, hypertension, hyperlipidemia presenting with anemia found to have ascites and peritoneal caking on CT
CT abdomen:
Possible omental caking in left upper quadrant which can be suggestive of metastatic disease, moderate abdominal pelvic ascites, mild postinfectious/postinflammatory changes of both lower lobes, splenic calcifications likely due to benign
granulomatous disease, benign right adrenal adenoma, severe prostate hypertrophy and right hydrocele.
Past-Medical/Surgical History
Past medical history:
ESRD on PD
Hypertension
Hyperlipidemia
BPH
Coronary artery disease
Past surgical history:
Right humeral fracture 2021
PE:
Confused, not answering questions
RRR
Clear
Distended, soft
IMP
# Anemia of chronic kidney disease,
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
# ESRD on PD - nephrology following
PLAN:
Transfuse PRBC for HgB 6.7
Per IR, no mass amenable to biopsy. For diagnostic paracentesis for cytology. Check tumor markers (CEA, & CA 19/9)
Await cytology
--- NOTE | 2024-01-09 21:09 | CON.MD ---
Consultation - Medical
-
83 yr old M w/ PMH of ESRD on peritoneal dialysis, thrombocytopenia, HTN, HLD, CAD w/ stent & BPH. Presenting initially with anemia and found on CT to have signs suspicious for possible metastatic disease. Psychiatry was consulted due to likely TME
with agitation.
Pt unable to participate in meaningful interview - is confused and mumbling to self at times. Intermittently becomes confused and tries to get out of bed, though was redirectable at the time.
Spoke to pts son via phone, he reported that this is not pts baseline at all and that this is a recent change in his mentation. Discussed delirium and provided psychoed. Discussed use of low dose risperidone to manage more acute agitation (when pt
may inadvertently hurt himself or others & is not redirectable) - discussed associated risks, including risk of sudden in this population and discontinuing use once mentation improves.
Pt does not have any significant psychiatric history.
Lives at home with his , daughter & son in law. Close relationship with son as well.
TME/delirium with intermittent agitation
MSE: no eye contact, unable to cooperate,speech is mute at times, mumbling to self quietly other times, affect is sleepy/confused/blunted. Unable to assess mood, thought process/content. Disoriented. Memory not formally tested. Insight poor.
Judgement poor
Trial of risperidone 0.5mg TIDPRN acute agitation, limit use to when agitation is not redirectable and can pose risk to pt and/or others
Psychiatry will follow
[2024-01-09] MEDS: TENORMIN 50 MG PO (22:25)
[2024-01-09] MEDS: NORVASC 10 MG PO (22:27)
[2024-01-09] MEDS: PROSCAR 5 MG PO (22:27)
[2024-01-09] MEDS: FLOMAX 0.4 MG PO (22:27)
[2024-01-09] MEDS: LIPITOR 40 MG PO (22:34)
[2024-01-10] VITALS (19 sets, daily range): BP systolic 52–173; BP diastolic 47–104; BMI 18.9
[2024-01-10] MEDS: HEPARIN 5000 UNITS SC ×4 (00:39→23:27)
[2024-01-10 01:07] LABS: Urine Albumin 2+ (Neg - Trace); Urine Bilirubin Negative (Negative); Urine Character Clear (Clear); Urine Color Yellow; Urine Glucose Negative (Negative); Urine Ketone Negative (Negative); Urine Leukocyte Negative (Negative); Urine Nitrite Negative (Negative); Urine Occult Blood 3+ (Negative); Urine Specific Gravity 1.005 (<1.030); Urine Urobilinogen Negative (Neg - 1+)
[2024-01-10 01:36] LABS: Urine Amorphous Seen
[2024-01-10 01:37] LABS: Urine Bacteria Many (Negative)
[2024-01-10 01:38] LABS: Urine Granular Cast 0-2 /LPF (0); Urine Red Blood Cell 70-80 /HPF (0-2)
[2024-01-10] MEDS: RISPERDAL M-TAB (ORALLY DISINTEGRATING) 0.5 MG PO (05:01)
[2024-01-10 05:41] LABS: Blood Urea Nitrogen 69 mg/dl (9-20); Calcium 7.9 mg/dl (8.4-10.2); Carbon Dioxide 34 mmol/L (22-30); Chloride 89 mmol/L (98-107); Estimated Creatinine Clearance 7 ml/min; Glucose 111 mg/dl (70-99); Potassium 3.7 mmol/L (3.5-5.1); Sodium 131 mmol/L (135-145); eGFR 6.95
--- NOTE | 2024-01-10 08:11 | W.PN.NEPH.PH ---
Today's Communication / Plan
-
PD orders provided
Assessment/Plan
-
Assessment
ESRD on PD
confusion
Acute anemia
Hypertension
Hyperlipidemia
Coronary artery disease
CT findings note omental massess
Plan
hgb up s/p blood products
remains withdrawn
PD will be continued, orders provided
Workup of anemia
CT abdomen and pelvis: concerning for omental caking in LUQ, moderate ascities, bilateral renal cystic disease
Checked iron studies: replete
Outpatient medications may otherwise be continued from a renal perspective
PD :
sbp 155
maintain 1.5% q4hr exchanges of 2L
weights stable
PD flow sheets reviewed
if weights increase and or i/o drain remains predominantly positive will then change to 2.5 and 1.5%
-
-
Date of Service: January 10, 2024
CC / HPI / ROS
-
Chief Complaint:
ESRD/PD
History of Present Illness:
hemodynamically stable
hemoglobin up to 8.2 following transfusion
Review of Systems:
weight stable
remains withdrawn and confused
no fevers
lethargic
Labs
-
Labs:
WBC 7.8 10^3/uL (4.8-10.8) 01/09/24 03:50
RBC 2.55 10^6/uL (4.70-6.10) L 01/09/24 03:50
Hgb 8.2 g/dL (13.0-18.0) L 01/09/24 03:50
Hct 24.0 % (39.0-52.0) L 01/09/24 03:50
Plt Count 128 10^3/uL (130-400) L D 01/09/24 03:50
Sodium 131 mmol/L (135-145) L 01/10/24 04:50
Potassium 3.7 mmol/L (3.5-5.1) 01/10/24 04:50
Chloride 89 mmol/L (98-107) L 01/10/24 04:50
Carbon Dioxide 34 mmol/L (22-30) H 01/10/24 04:50
BUN 69 mg/dl (9-20) H 01/10/24 04:50
Creatinine 7.2 mg/dL (0.7-1.3) H* 01/10/24 04:50
eGFR 6.95 01/10/24 04:50
Glucose 111 mg/dl (70-99) H 01/10/24 04:50
Calcium 7.9 mg/dl (8.4-10.2) L 01/10/24 04:50
Albumin 2.9 g/dl (3.5-5.0) L 01/07/24 18:15
Physical Exam
-
Vital Signs:
Vital Signs
Temp Pulse Resp BP Pulse Ox
98.1 F 65 16 155/53 99
01/10/24 07:33 01/10/24 06:00 01/10/24 06:00 01/10/24 06:00 01/10/24 04:11
--- NOTE | 2024-01-10 09:00 | W.PN.HOSP.TC ---
Today's Communication/Plan
-
f/u CBC in morning
PT/OT evaluation
peritoneal cytopathology collected
Assessment / Plan
Assessment / Plan
CT a/p
Possible omental caking in left upper quadrant and therefore metastatic disease. This could further be evaluated by PET scan if indicated clinically. Moderate a abdominopelvic ascites.
Findings concerning for mild postinflammatory/postinfectious change of both lower lobes. Age-indeterminate mild T12 compression fracture. Splenic calcifications suggesting prior benign granulomatous disease.
Cholesterol gallstones. Benign right adrenal adenoma. Bilateral simple renal cysts. Bilateral benign complex renal cysts. Nonobstructing renal stones. Diverticulosis. Mild extraluminal air in the abdomen probably due to the percutaneous drainage
catheter.
Severe prostate hypertrophy. Probable right hydrocele

1. Normocytic anemia suspected of chronic renal disease
-Baseline hemoglobin unknown, obtain records request sent to [facility]
-Ferritin 600, saturation 77%. B12 WNL.
-Some superficial bruising around periumbilical area, likely from DVT prophylaxis short. No blood draining from peritoneal dialysis catheter
-CT abdomen pelvis without IV contrast ruled out any retroperitoneal bleed
2. 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
-CT a/p incidentally showing omental caking, suspicious for metastatic disease
-CEA normal. CA 19-9 pending
-Hemato/oncology consulted and patient getting peritoneal fluid cytology evaluation today
3. Acute toxic metabolic encephalopathy - Improved
-Patient had apparent episodes of confusion/encephalopathy at [facility] as well.
-Neurologgy work-up at [place] was negative and was felt to be related to sertraline, which was discontinued
-Currently patient not on any sedative medication
-No clinical signs of any ongoing active infection. COVID neg.
-Required soft restraint and upper extremity yeseterday
-Continue supportive care
3. ESRD on peritoneal dialysis
-Nephrology following and will continue to do peritoneal dialysis
-No concern of peritonitis
4. Hyponatremia
-2/2 renal faliure. monitor.
5. Thrombocytopenia
-Fluctuating and was low as well during [facility] hospitalization
-Okay to provide DVT prophylaxis
6. Essential hypertension -Uncontrolled
-adjusting BP medication
7. Hyperlipidemia
- continue atorvastatin
8. CAD with stent
- continue ASA
9. BPH
- continue finasteride and tamsulosin
10. Sinus bradycardia
-On atenolol for hypertension, continue with holding parameter
Full Code
DVT Px: Heparin Sq
Care plan discussed with spouse at bedside
Anticipated Discharge: 24 - 48 hours
Subjective/Interval History
-
Date of Service: January 10, 2024
patient somnolent in morning.
more awake in afternoon
some reported abd pain to RN
Objective Data
-
Labs:
Laboratory Results
01/10/24
04:50
Sodium 131 L
Potassium 3.7
Chloride 89 L
Carbon Dioxide 34 H
BUN 69 H
Creatinine 7.2 H*
Glucose 111 H
Calcium 7.9 L
Vital Signs:
Vital Signs
Temp Pulse Resp BP Pulse Ox
98.1 F 65 16 155/53 99
01/10/24 07:33 01/10/24 06:00 01/10/24 06:00 01/10/24 06:00 01/10/24 04:11
I&O
01/09/24 01/10/24 01/11/24
06:59 06:59 06:59
Intake Total 1000 / 1000 600 / 600
Output Total 2325 / 2325 850 / 850
Balance -1325 / -1325 -250 / -250
Review of Systems
-
Respiratory: Reports No Symptoms
Cardiac: Reports No Symptoms
Abdomen/GI: Reports No Symptoms
Physical Exam
-
General: Comfortable and Cachectic
HEENT: Negative Oxygen
Respiratory: Clear to Auscultation
Cardiac: Regular Rhythm and S1/S2; Negative Murmur or Rub
GI: Soft, Nontender and Nondistended
Musculoskeletal: No Edema
Neuro: Awake, Alert, Oriented and Nonfocal/Grossly Intact
Psych: Calm
[2024-01-10] MEDS: APRESOLINE 25 MG PO (09:04)
[2024-01-10] MEDS: APRESOLINE 50 MG PO (09:04)
[2024-01-10] MEDS: ASPIR LOW (ENTERIC COATED) 81 MG PO (09:05)
[2024-01-10] MEDS: NEPHROCAP 1 CAPSULE PO (09:05)
[2024-01-10] MEDS: COLACE 100 MG PO (09:05)
[2024-01-10] MEDS: RENVELA 1600 MG PO ×3 (09:05→17:05)
--- NOTE | 2024-01-10 10:22 | W.PN.ONC ---
Today's Communication / Plan
-
Scheduled for diagnostic paracentesis by IR
Await cytology
Impression
Impression
83-year-old male with history of ESRD on peritoneal dialysis, hypertension, hyperlipidemia presenting with anemia
# Anemia
- Likely chronic in the setting of chronic kidney disease, nephrology following
- Iron studies normal
- Vitamin B12 normal
- s/p 1 u PRBC, transfuse if hemoglobin less than 7
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
- CT abdomen showed omental caking suggestive of metastatic disease and moderate ascites
- IR consult appreciated for diagnostic paracentesis and if possible, biopsy of omental thickening
- per IR, no mass amenable to biopsy, scheduled for diagnostic paracentesis and cytology later today after PD
- CEA negative
- CA 19-9 pending
- Will follow along
# ESRD on PD - nephrology following
# Hypertension - continue home meds
# Hyperlipidemia - continue home meds
# BPH - continue home meds
Subjective/Objective
Subjective/Objective
Vital Signs:
Vital Signs
Temp Pulse Resp BP Pulse Ox
98.1 F 50 16 120/47 99
01/10/24 07:33 01/10/24 09:04 01/10/24 06:00 01/10/24 09:04 01/10/24 04:11
Lab Results:
Laboratory Data
WBC 7.8 10^3/uL (4.8-10.8) 01/09/24 03:50
Hgb 8.2 g/dL (13.0-18.0) L 01/09/24 03:50
Plt Count 128 10^3/uL (130-400) L D 01/09/24 03:50
eGFR 6.95 01/10/24 04:50
Orders
Orders
Orders From Last 24 Hours
01/09/24 12:02
[facility] CONSULT Routine
01/09/24 12:08
[facility] Cytology Routine
01/09/24 12:56
CA 19-9 [S] Routine
CEA Routine
[2024-01-10] MEDS: COZAAR 100 MG PO (10:54)
[2024-01-10] MEDS: TYLENOL 325 MG PO (12:31)
[2024-01-10] MEDS: TYLENOL PO (12:31)
--- NOTE | 2024-01-10 14:37 | PTCARENOTE ---
Received report from nightshift RN. Pt AAOx3, but drowsy and lethargic. Pt sleeping most of the day. 98% on RA. Normal sinus on tele with first degree and BBB. Pt went down to [facility] for paracentesis see reports. Samples sent for analysis. Pt
currently sleeping. Bed alarm is on due to previous confusion and agitation. Medsitter remains. Call blair is within reach.
--- NOTE | 2024-01-10 14:44 | CM ---
Patient with Hx ESRD on PD. Paracentesis today. Room air. Restraints removed yesterday. Medsitter in place. PT/OT 01/07 recommend HH.
Spoke with patient's Carla; she confirms receipt of lightweight w/c in patient's room. She says she had a phone call from another [employer] company about delivering a transport chair to patient's home- order was placed by Earl Dickerson CM - she is
declining transport chair. aware patient is setup to resume [facility].
expressed concerns about patient's mobility and whether he is strong enough to transport home in their car. She is concerned about the stairs that he would have to do at any entrance to the house. Offered that patient can be set up with
private pay w/c van transport and she declines this for now, saying son will assist him with ride home or she will decide on w/c van tomorrow. Informed her that there are no w/c van transports on Sunday. Reviewed PT notes from 01/07 with her
indicating he ambulated 15 + 200 feet with supervision and she is still concerned - suggested she observe PT/OT working with him and she would like to do this ---> message sent to PT/OT in an effort to coordinate- he will not be seen today as he is
receiving PD at this time. He can be seen by PT/OT tomorrow after 11am - made aware and will come in for next therapy session.
Message from Dr Oconnor; possible d/c home Sat 01/11.
Spoke with Jw [employer] Analyst; there are no w/c vans on Sunday however they could possibly use ambulance as w/c van private pay. Provided patient's name and room #. Jw asks CM to contact her on Sunday to arrange w/c van.
Plan contact [facility] 01/10 to request w/c van for possible d/c Sat.
Plan follow up with tomorrow after patient seen by PT/OT, re; car vs w/c van transport home.
Plan home possibly Sat 01/11 with resumption [facility], with lightweight w/c, possibly with w/c van transport.
--- NOTE | 2024-01-10 17:30 | PTCARENOTE ---
Patient and patients spouse expresses anxiety surrounding discharge and planning. Case management on board and made aware.
[2024-01-10] MEDS: PROCARDIA XL (EXTENDED RELEASE) 30 MG PO (19:54)
--- NOTE | 2024-01-10 20:23 | PTCARENOTE ---
Pt received from previous RN. Pt AAOx3, with drowsiness and is frequently forgetful needing reorienting. Pt cooperative with care this evening. Awake watching the [employer] game told me he's been a birds fan 'since 1940'. Medsitter remains in use, bed
alarm on. Call light in reach. PD maintained per orders. NSR on monitor with BB and 1st degree, HR 55. Son at bedside.
[2024-01-10] MEDS: TENORMIN 50 MG PO (21:14)
[2024-01-10] MEDS: FLOMAX 0.4 MG PO (21:14)
[2024-01-10] MEDS: PROSCAR 5 MG PO (21:16)
[2024-01-10] MEDS: LIPITOR 40 MG PO (21:20)
--- NOTE | 2024-01-10 23:59 | W.PN.UPDATE ---
Update Note
Progress Note Update
Pt seen at bedside, chart reviewed. Remains confused and disoriented, unable to participate in meaningful interview. Spoke to pts who was present, she reported that although still delirious pt has had some more lucid moments and has been less
agitated since the day prior. Received one dose of PRN risperidone 0.5mg. She expressed anxiety about his going home and falling, reassured her that these concerns will be addressed when he is more clear and close to discharge.
Continue risperidone 0.5mg prn, no changes indicated at this time
Psychiatry will follow
[2024-01-11] VITALS (13 sets, daily range): BP systolic 121–158; BP diastolic 49–81; BMI 19.1
[2024-01-11 06:08] LABS: Hematocrit 23.3 % (39.0-52.0); Hemoglobin 7.8 g/dL (13.0-18.0); Mean Corp Hgb Conc. 33.5 g/dL (33.0-37.0); Mean Corpuscular Hgb 31.8 pg (27.0-31.0); Mean Corpuscular Volume 95.1 fL (80.0-94.0); Mean Platelet Volume 8.9 fL (7.4-10.4); Platelet Count 132 10^3/uL (130-400); Red Blood Cell Count 2.45 10^6/uL (4.70-6.10); Red Cell Dist. Width 15.2 % (11.5-14.5); White Blood Cell Count 7.6 10^3/uL (4.8-10.8)
[2024-01-11 06:27] LABS: Blood Urea Nitrogen 56 mg/dl (9-20); Calcium 7.7 mg/dl (8.4-10.2); Carbon Dioxide 32 mmol/L (22-30); Chloride 90 mmol/L (98-107); Estimated Creatinine Clearance 7 ml/min; Glucose 111 mg/dl (70-99); Potassium 3.1 mmol/L (3.5-5.1); Sodium 129 mmol/L (135-145); eGFR 8.15
[2024-01-11] MEDS: COLACE 100 MG PO (07:34)
[2024-01-11] MEDS: APRESOLINE 50 MG PO (07:34)
[2024-01-11] MEDS: RENVELA 1600 MG PO ×3 (07:34→16:52)
[2024-01-11] MEDS: PROCARDIA XL (EXTENDED RELEASE) 30 MG PO ×2 (07:35→22:22)
[2024-01-11] MEDS: PEPCID 20 MG PO (07:35)
[2024-01-11] MEDS: HEPARIN 5000 UNITS SC ×3 (07:35→23:12)
[2024-01-11] MEDS: NEPHROCAP 1 CAPSULE PO (07:35)
[2024-01-11] MEDS: ASPIR LOW (ENTERIC COATED) 81 MG PO (07:35)
[2024-01-11] MEDS: APRESOLINE 25 MG PO (07:35)
--- NOTE | 2024-01-11 08:45 | PTCARENOTE ---
Patient received from shift mgr. Patient resting comfortably in bed. AAO mostly to self and place, VSS. No events noted overnight. No complaints of pain at this time. Currently on Room Air and doing well. Patient did take out another IV
overnight. Continuing with 1.5% PD. No test scheduled for today. Call blair in reach.
--- NOTE | 2024-01-11 09:01 | W.PN.NEPH.PH ---
Today's Communication / Plan
-
PD ordered
Assessment/Plan
-
Assessment
ESRD on PD
confusion
Acute anemia
Hypertension
Hyperlipidemia
Coronary artery disease
CT findings note omental massess
Plan
transfuse prn
PD ordered. all 1.5% solution, 2L dwell, 4hrs each
ascites is likely PD FLUID/dialysate, yield on diagnostic paracentesis will be low
drainage catheter on CT was PD CATHETER (should not be misconstrued as a drainage catheter for persistent ascites)
-
-
Date of Service: January 11, 2024
CC / HPI / ROS
-
Chief Complaint:
ESRD/PD
History of Present Illness:
hemodynamically stable
hemoglobin low stable at 7.8
PD in progress
Review of Systems:
weight stable
no fevers
thinks he is going home today
Labs
-
Labs:
WBC 7.6 10^3/uL (4.8-10.8) 01/11/24 05:51
RBC 2.45 10^6/uL (4.70-6.10) L 01/11/24 05:51
Hgb 7.8 g/dL (13.0-18.0) L 01/11/24 05:51
Hct 23.3 % (39.0-52.0) L 01/11/24 05:51
Plt Count 132 10^3/uL (130-400) 01/11/24 05:51
Sodium 129 mmol/L (135-145) L 01/11/24 05:51
Potassium 3.1 mmol/L (3.5-5.1) L 01/11/24 05:51
Chloride 90 mmol/L (98-107) L 01/11/24 05:51
Carbon Dioxide 32 mmol/L (22-30) H 01/11/24 05:51
BUN 56 mg/dl (9-20) H 01/11/24 05:51
Creatinine 6.3 mg/dL (0.7-1.3) H* 01/11/24 05:51
eGFR 8.15 01/11/24 05:51
Glucose 111 mg/dl (70-99) H 01/11/24 05:51
Calcium 7.7 mg/dl (8.4-10.2) L 01/11/24 05:51
Albumin 2.9 g/dl (3.5-5.0) L 01/07/24 18:15
Physical Exam
-
Vital Signs:
Vital Signs
Temp Pulse Resp BP Pulse Ox
97.8 F 58 19 155/72 93
01/11/24 07:30 01/11/24 07:34 01/11/24 06:00 01/11/24 07:34 01/11/24 06:00
Cardiovascular:: Regular rate and rhythm
Respiratory:: Bilateral: Coarse
Lung Excursion:: Normal
Abdomen:: Nontender and Soft
Bowel Sounds:: Normal
Extremity Edema:: None: Bilateral:
--- NOTE | 2024-01-11 09:43 | W.PN.ONC ---
Documented by User: Tiana Bhatt MD, Resident 01/11/24 13:45
Today's Communication / Plan
-
Await fluid analysis and cytology results
Outpatient f/u with oncology office for discussing treatment plans
Impression
Impression
83-year-old male with history of ESRD on peritoneal dialysis, hypertension, hyperlipidemia presenting with anemia. Patient is less confused than the past two days
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
- CT abdomen showed omental caking suggestive of metastatic disease and moderate ascites
- s/p diagnostic and therapeutic paracentesis by IR - 600 cc clear, pale yellow ascitic fluid evacuated
- Awaiting fluid analysis and cytology
- Outpatient f/u with oncology office after discharge
- CEA negative
- CA 19-9 pending
- Will follow along
# Anemia
- Likely chronic in the setting of chronic kidney disease, nephrology following
- Iron studies normal
- Vitamin B12 normal
- s/p 1 unit PRBC, transfuse if hemoglobin less than 7
# ESRD on PD - nephrology following
# Hypertension - continue home meds
# Hyperlipidemia - continue home meds
# BPH - continue home meds
Subjective/Objective
Subjective/Objective
Vital Signs:
Vital Signs
Temp Pulse Resp BP Pulse Ox
97.8 F 58 19 155/72 93
01/11/24 07:30 01/11/24 07:34 01/11/24 06:00 01/11/24 07:34 01/11/24 06:00
Lab Results:
Laboratory Data
WBC 7.6 10^3/uL (4.8-10.8) 01/11/24 05:51
Hgb 7.8 g/dL (13.0-18.0) L 01/11/24 05:51
Plt Count 132 10^3/uL (130-400) 01/11/24 05:51
eGFR 8.15 01/11/24 05:51

Documented by User: Eusebio Powell MD 01/11/24 15:03
Plan
Plan
Oncology Addendum:
Patient seen and evaluated w/ resident
-concern for peritoneal malignancy w/ omental caking
-await cytology from paracentesis
will continue to follow with you
[2024-01-11] MEDS: COZAAR 100 MG PO (09:56)
[2024-01-11] MEDS: POLYSPORIN OINTMENT 1 APPLIC TOPICAL (11:41)
--- NOTE | 2024-01-11 15:26 | CM ---
Addendum entered by Sarah Rich 01/11/24 15:39:
Transport scheduled for 11:00 a.m. for Sunday.
Original Note:
Patient seen bedside, on medsitter. , daughter, and son in law present. CM discussed discharge plan over weekend, plan for discharge home on Sunday with Reena MALDONADO. reports her daughter and son in law will be home on Sunday and available to
assist with patient discharging home, concerned about transporting patient home self. CM discussed with Jw from [facility], can schedule ambulance for Friday 01/12 but honor wheel chair van cost as no wheel chair vans are available
over weekend- information provided to transport, transport forms placed on chart. CM will update Reena MALDONADO in [facility]. CM will continue to follow for all discharge planning needs.
Plan; home with family, Reena MALDONADO, Friday 01/12 by ambulance (as no wheelchair van over weekend)
Please fax
Reena MALDONADO: [phone]
--- NOTE | 2024-01-11 16:32 | W.PN.HOSP.TC ---
Today's Communication/Plan
-
d/c planning
Assessment / Plan
Assessment / Plan
CT a/p
Possible omental caking in left upper quadrant and therefore metastatic disease. This could further be evaluated by PET scan if indicated clinically. Moderate a abdominopelvic ascites.
Findings concerning for mild postinflammatory/postinfectious change of both lower lobes. Age-indeterminate mild T12 compression fracture. Splenic calcifications suggesting prior benign granulomatous disease.
Cholesterol gallstones. Benign right adrenal adenoma. Bilateral simple renal cysts. Bilateral benign complex renal cysts. Nonobstructing renal stones. Diverticulosis. Mild extraluminal air in the abdomen probably due to the percutaneous drainage
catheter.
Severe prostate hypertrophy. Probable right hydrocele

1. Normocytic anemia suspected of chronic renal disease
-Baseline hemoglobin unknown, obtain records request sent to [facility]
-Ferritin 600, saturation 77%. B12 WNL.
-Some superficial bruising around periumbilical area, likely from DVT prophylaxis short. No blood draining from peritoneal dialysis catheter
-CT abdomen pelvis without IV contrast ruled out any retroperitoneal bleed
2. 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
-CT a/p incidentally showing omental caking, suspicious for metastatic disease
-CEA normal. CA 19-9 pending
-Hemato/oncology evaluated. Peritoneal fluid cytology pending.
3. Acute toxic metabolic encephalopathy - Improved
-Patient had apparent episodes of confusion/encephalopathy at [facility] as well.
-Neurology work-up at [facility] was negative and was felt to be related to sertraline, which was discontinued
-Currently patient not on any sedative medication
-No clinical signs of any ongoing active infection. COVID neg.
-Required soft restraint and upper extremity yeseterday
-Continue supportive care
3. ESRD on peritoneal dialysis
-Nephrology following and will continue to do peritoneal dialysis
-No concern of peritonitis
4. Hyponatremia
-2/2 renal faliure. monitor.
5. Thrombocytopenia
-Fluctuating and was low as well during [facility] hospitalization
-Okay to provide DVT prophylaxis
6. Essential hypertension -Uncontrolled
-adjusting BP medication
7. Hyperlipidemia
- continue atorvastatin
8. CAD with stent
- continue ASA
9. BPH
- continue finasteride and tamsulosin
10. Sinus bradycardia
-On atenolol for hypertension, continue with holding parameter
Full Code
DVT Px: Heparin Sq
Care plan discussed with spouse at bedside
Anticipated Discharge: 24 - 48 hours
Subjective/Interval History
-
Date of Service: January 11, 2024
No issues overnight
mentation better
Objective Data
-
Labs:
Laboratory Results
01/11/24
05:51
WBC 7.6
Hgb 7.8 L
Hct 23.3 L
Plt Count 132
Sodium 129 L
Potassium 3.1 L
Chloride 90 L
Carbon Dioxide 32 H
BUN 56 H
Creatinine 6.3 H*
Glucose 111 H
Calcium 7.7 L
Vital Signs:
Vital Signs
Temp Pulse Resp BP Pulse Ox
97.6 F 55 19 137/59 95
01/11/24 15:09 01/11/24 09:56 01/11/24 06:00 01/11/24 09:56 01/11/24 11:18
I&O
01/10/24 01/11/24 01/12/24
06:59 06:59 06:59
Intake Total 600 / 600 1550 / 1550 250 / 250
Output Total 850 / 850 100 / 100 100 / 100
Balance -250 / -250 1450 / 1450 150 / 150
Review of Systems
-
Respiratory: Reports No Symptoms
Cardiac: Reports No Symptoms
Abdomen/GI: Reports No Symptoms
Physical Exam
-
General: Comfortable and Cachectic
HEENT: Negative Oxygen
Respiratory: Clear to Auscultation
Cardiac: Regular Rhythm and S1/S2; Negative Murmur or Rub
GI: Soft, Nontender and Nondistended
Musculoskeletal: No Edema
Neuro: Awake, Alert, Oriented and Nonfocal/Grossly Intact
Psych: Calm
[2024-01-11] MEDS: FLOMAX 0.4 MG PO (23:08)
[2024-01-11] MEDS: PROSCAR 5 MG PO (23:09)
[2024-01-11] MEDS: TENORMIN 50 MG PO (23:11)
[2024-01-11] MEDS: LIPITOR 40 MG PO (23:11)
--- NOTE | 2024-01-12 02:59 | PTCARENOTE ---
Pt received from previous RN. Pt pleasant, awake, however still remains confused to time and situation. Pt attempts to exit bed independently frequently. when asked where he is says 'in the basement'. Pt can answer questions about his past and
family. this RN attempts to reorient Pt to situation. Medsitter in use. bed alarm on. Pt med surg level of care. VSS. PD maintained as ordered. Safe environment maintained.
[2024-01-12 07:30] VITALS: BP 155/106
[2024-01-12 08:02] VITALS: BP 155/106
[2024-01-12] MEDS: HEPARIN 5000 UNITS SC ×3 (08:12→23:22)
[2024-01-12] MEDS: APRESOLINE 50 MG PO (08:13)
[2024-01-12] MEDS: APRESOLINE 25 MG PO (08:13)
[2024-01-12] MEDS: COLACE 100 MG PO (08:13)
[2024-01-12] MEDS: RENVELA 1600 MG PO ×3 (08:13→17:18)
[2024-01-12] MEDS: NEPHROCAP 1 CAPSULE PO (08:13)
[2024-01-12] MEDS: PROCARDIA XL (EXTENDED RELEASE) 30 MG PO ×2 (08:13→19:58)
[2024-01-12] MEDS: ASPIR LOW (ENTERIC COATED) 81 MG PO (08:13)
[2024-01-12 08:31] VITALS: BMI 19.5
--- NOTE | 2024-01-12 09:15 | W.PN.HOSP.TC ---
Today's Communication/Plan
-
recheck hbg
possible transfusion if needed
discharge tomorrow
Assessment / Plan
Assessment / Plan
CT a/p
Possible omental caking in left upper quadrant and therefore metastatic disease. This could further be evaluated by PET scan if indicated clinically. Moderate a abdominopelvic ascites.
Findings concerning for mild postinflammatory/postinfectious change of both lower lobes. Age-indeterminate mild T12 compression fracture. Splenic calcifications suggesting prior benign granulomatous disease.
Cholesterol gallstones. Benign right adrenal adenoma. Bilateral simple renal cysts. Bilateral benign complex renal cysts. Nonobstructing renal stones. Diverticulosis. Mild extraluminal air in the abdomen probably due to the percutaneous drainage
catheter.
Severe prostate hypertrophy. Probable right hydrocele

1. Normocytic anemia suspected of chronic renal disease
-Baseline hemoglobin unknown, obtain records request sent to [facility]
-Ferritin 600, saturation 77%. B12 WNL.
-Some superficial bruising around periumbilical area, likely from DVT prophylaxis short. No blood draining from peritoneal dialysis catheter
-CT abdomen pelvis without IV contrast ruled out any retroperitoneal bleed
-Repeat hemoglobin check and possible transfusion if hemoglobin close to 7
2. 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
-CT a/p incidentally showing omental caking, suspicious for metastatic disease
-CEA normal. CA 19-9 pending
-Hemato/oncology evaluated. Peritoneal fluid cytology pending.
3. Acute toxic metabolic encephalopathy - Improved
-Patient had apparent episodes of confusion/encephalopathy at [facility] as well.
-Neurology work-up at [facility] was negative and was felt to be related to sertraline, which was discontinued
-Currently patient not on any sedative medication
-No clinical signs of any ongoing active infection. COVID neg.
-Required soft restraint and upper extremity yesterday
-Continue supportive care
3. ESRD on peritoneal dialysis
-Nephrology following and will continue to do peritoneal dialysis
-No concern of peritonitis
4. Hyponatremia
-2/2 renal failure. monitor.
5. Thrombocytopenia
-Fluctuating and was low as well during [facility] hospitalization
-Okay to provide DVT prophylaxis
6. Essential hypertension - Uncontrolled
-adjusting BP medication
7. Hyperlipidemia
- continue atorvastatin
8. CAD with stent
- continue ASA
9. BPH
- continue finasteride and tamsulosin
10. Sinus bradycardia
-On atenolol for hypertension, continue with holding parameter
Full Code
DVT Px: Heparin Sq
01/09 15 Care plan discussed with spouse at bedside
Anticipated Discharge: Within 24 hours
Subjective/Interval History
-
Date of Service: January 12, 2024
seen and examined
Resting comfortably in bed
Denies of having any issues overnight
Objective Data
-
Labs:
Laboratory Results
01/12/24
08:48
WBC Pending
Hgb Pending
Hct Pending
Plt Count Pending
Sodium Pending
Potassium Pending
Chloride Pending
Carbon Dioxide Pending
BUN Pending
Creatinine Pending
Glucose Pending
Calcium Pending
Vital Signs:
Vital Signs
Temp Pulse Resp BP Pulse Ox
97.6 F 62 16 155/106 96
01/12/24 07:30 01/12/24 07:30 01/12/24 07:30 01/12/24 08:02 01/12/24 08:41
I&O
01/11/24 01/12/24 01/13/24
06:59 06:59 06:59
Intake Total 1550 / 1550 750 / 750
Output Total 100 / 100 600 / 600 200 / 200
Balance 1450 / 1450 150 / 150 -200 / -200
Review of Systems
-
Respiratory: Reports No Symptoms
Cardiac: Reports No Symptoms
Abdomen/GI: Reports No Symptoms
Physical Exam
-
General: Comfortable and Cachectic
HEENT: Negative Oxygen
Respiratory: Clear to Auscultation
Cardiac: Regular Rhythm and S1/S2; Negative Murmur or Rub
GI: Soft, Nontender and Nondistended
Musculoskeletal: No Edema
Neuro: Awake, Alert, Oriented and Nonfocal/Grossly Intact
Psych: Calm
--- NOTE | 2024-01-12 11:05 | W.PN.NEPH.PH ---
Today's Communication / Plan
-
retacrit
Assessment/Plan
-
Assessment
ESRD on PD
confusion
Acute anemia
Hypertension
Hyperlipidemia
Coronary artery disease
CT findings note omental massess
Plan
transfuse prn
PD ordered. all 1.5% solution, 2L dwell, 4hrs each
ascites is likely PD FLUID/dialysate, yield on diagnostic paracentesis will be low
drainage catheter on CT was PD CATHETER (should not be misconstrued as a drainage catheter for persistent ascites)
retacrit today
-
-
Date of Service: January 12, 2024
CC / HPI / ROS
-
Chief Complaint:
ESRD/PD
History of Present Illness:
hemodynamically stable
hemoglobin low stable at 7.8 yesterday
PD in progress
Review of Systems:
weight stable
no fevers
Labs
-
Labs:
eGFR 8.15 01/11/24 05:51
Albumin 2.9 g/dl (3.5-5.0) L 01/07/24 18:15
Physical Exam
-
Vital Signs:
Vital Signs
Temp Pulse Resp BP Pulse Ox
97.6 F 62 16 155/106 96
01/12/24 07:30 01/12/24 07:30 01/12/24 07:30 01/12/24 08:02 01/12/24 08:41
Cardiovascular:: Regular rate and rhythm
Respiratory:: Bilateral: Coarse
Lung Excursion:: Normal
Abdomen:: Nontender and Soft
Bowel Sounds:: Normal
Extremity Edema:: None: Bilateral:
[2024-01-12 11:28] LABS: Hematocrit 25.9 % (39.0-52.0); Hemoglobin 8.4 g/dL (13.0-18.0); Mean Corp Hgb Conc. 32.4 g/dL (33.0-37.0); Mean Corpuscular Hgb 31.7 pg (27.0-31.0); Mean Corpuscular Volume 97.7 fL (80.0-94.0); Mean Platelet Volume 9.1 fL (7.4-10.4); Platelet Count 129 10^3/uL (130-400); Red Blood Cell Count 2.65 10^6/uL (4.70-6.10); Red Cell Dist. Width 15.6 % (11.5-14.5); White Blood Cell Count 7.6 10^3/uL (4.8-10.8)
[2024-01-12] MEDS: COZAAR 100 MG PO (11:33)
[2024-01-12] MEDS: RETACRIT 20000 UNITS SC (12:47)
--- NOTE | 2024-01-12 13:21 | PTCARENOTE ---
Pt presents assessed. Able to correctly answer orientation questions but remains confused to situation. Pt setting off bed alarm multiple times, requiring redirection and reorientation. Medsitter and bed alarm in place for safety.
[2024-01-12 13:58] VITALS: BP 107/61
[2024-01-12 14:01] LABS: Blood Urea Nitrogen 49 mg/dl (9-20); Carbon Dioxide 33 mmol/L (22-30); Chloride 89 mmol/L (98-107); Estimated Creatinine Clearance 8 ml/min; Glucose 102 mg/dl (70-99); Potassium 3.2 mmol/L (3.5-5.1); Sodium 129 mmol/L (135-145); eGFR 8.64
[2024-01-12 15:26] VITALS: BP 107/61
--- NOTE | 2024-01-12 16:20 | CM ---
Chart reviewed and telephonic nurse case manager spoke with patient's spouse several times today, plan is for patient to return to home with spouse and continue with PD in home, patient just got a delivery on Sunday, patient has been set up with a w./c and Reena
ERICA. W/c van transport will be $110 at discharge. Patient's spouse is aware.
Plan; Home with Reena MALDONADO
Please fax
Reena VN: [phone]
[2024-01-12] MEDS: TENORMIN 50 MG PO (19:59)
[2024-01-12] MEDS: PROSCAR 5 MG PO (19:59)
[2024-01-12] MEDS: FLOMAX 0.4 MG PO (19:59)
[2024-01-12 20:00] VITALS: BP 152/56
[2024-01-12 21:18] LABS: CA 19-9 4 U/mL (<=35)
[2024-01-13] VITALS (15 sets, daily range): BP systolic 67–155; BP diastolic 42–89; BMI 19.8
[2024-01-13 04:33] LABS: Hemoglobin 8.4 g/dL (13.0-18.0); Mean Corp Hgb Conc. 33.6 g/dL (33.0-37.0); Mean Corpuscular Hgb 32.8 pg (27.0-31.0); Mean Corpuscular Volume 97.7 fL (80.0-94.0); Mean Platelet Volume 8.8 fL (7.4-10.4); Platelet Count 124 10^3/uL (130-400); Red Blood Cell Count 2.56 10^6/uL (4.70-6.10); Red Cell Dist. Width 15.9 % (11.5-14.5); White Blood Cell Count 8.4 10^3/uL (4.8-10.8)
[2024-01-13 05:01] LABS: Blood Urea Nitrogen 47 mg/dl (9-20); Calcium 7.8 mg/dl (8.4-10.2); Carbon Dioxide 33 mmol/L (22-30); Chloride 90 mmol/L (98-107); Estimated Creatinine Clearance 9 ml/min; Glucose 179 mg/dl (70-99); Potassium 2.9 mmol/L (3.5-5.1); Sodium 132 mmol/L (135-145); eGFR 9.39
--- NOTE | 2024-01-13 05:23 | PTCARENOTE ---
Patient is very forgetful but pleasant and able to be re-oriented. Tolerating PD Q4 hours per PD orders. PD dressing changed using sterile technique; site cleansed with ChloraPrep. Voided x1 in urinal. Turns self while in bed. Med-sitter at bedside
for safety. Pt woke up hungry and asking for breakfast. Bed alarm set. Call blair within reach. Re-enforced the use of calling for assistance prior to attempting to get OOB.
Low potassium this AM; Reported to AGUILA Batista.
[2024-01-13] MEDS: KCL 40 MEQ PO (06:01)
[2024-01-13] MEDS: TYLENOL 650 MG PO (07:49)
[2024-01-13] MEDS: PEPCID 20 MG PO (07:51)
[2024-01-13] MEDS: NEPHROCAP 1 CAPSULE PO (07:51)
[2024-01-13] MEDS: APRESOLINE 25 MG PO (07:51)
[2024-01-13] MEDS: RENVELA 1600 MG PO (07:51)
[2024-01-13] MEDS: COLACE 100 MG PO (07:54)
[2024-01-13] MEDS: APRESOLINE 50 MG PO (07:54)
[2024-01-13] MEDS: PROCARDIA XL (EXTENDED RELEASE) 30 MG PO (07:54)
[2024-01-13] MEDS: ASPIR LOW (ENTERIC COATED) 81 MG PO (07:54)
[2024-01-13] MEDS: HEPARIN 5000 UNITS SC (07:54)
--- NOTE | 2024-01-13 09:11 | W.PN.HOSP.TC ---
Today's Communication/Plan
-
d/c home
Assessment / Plan
Assessment / Plan
CT a/p
Possible omental caking in left upper quadrant and therefore metastatic disease. This could further be evaluated by PET scan if indicated clinically. Moderate a abdominopelvic ascites.
Findings concerning for mild postinflammatory/postinfectious change of both lower lobes. Age-indeterminate mild T12 compression fracture. Splenic calcifications suggesting prior benign granulomatous disease.
Cholesterol gallstones. Benign right adrenal adenoma. Bilateral simple renal cysts. Bilateral benign complex renal cysts. Nonobstructing renal stones. Diverticulosis. Mild extraluminal air in the abdomen probably due to the percutaneous drainage
catheter.
Severe prostate hypertrophy. Probable right hydrocele

1. Normocytic anemia suspected of chronic renal disease
-Baseline hemoglobin unknown, obtain records request sent to [facility]
-Ferritin 600, saturation 77%. B12 WNL.
-Some superficial bruising around periumbilical area, likely from DVT prophylaxis short. No blood draining from peritoneal dialysis catheter
-CT abdomen pelvis without IV contrast ruled out any retroperitoneal bleed
-Patient got dose of EPO yesterday
-Hbg stable around 8.5
2. 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
-CT a/p incidentally showing omental caking, suspicious for metastatic disease
-CEA normal. CA 19-9 pending
-Hemato/oncology evaluated. Peritoneal fluid cytology pending.
3. Acute toxic metabolic encephalopathy - Improved
-Patient had apparent episodes of confusion/encephalopathy at [facility] as well.
-Neurology work-up at [place] was negative and was felt to be related to sertraline, which was discontinued
-Currently patient not on any sedative medication
-No clinical signs of any ongoing active infection. COVID neg.
-Required soft restraint and upper extremity yesterday
-Continue supportive care
3. ESRD on peritoneal dialysis
-Nephrology following and will continue to do peritoneal dialysis
-No concern of peritonitis
4. Hyponatremia
-2/2 renal failure. monitor.
5. Thrombocytopenia
-Fluctuating and was low as well during [place] hospitalization
-Okay to provide DVT prophylaxis
6. Essential hypertension - Uncontrolled
-adjusting BP medication
7. Hyperlipidemia
- continue atorvastatin
8. CAD with stent
- continue ASA
9. BPH
-CT abdomen pelvis showing very large prostatomegaly
-Patient to follow-up with urology in office
-continue finasteride and tamsulosin
10. Sinus bradycardia
-On atenolol for hypertension, continue with holding parameter
Full Code
DVT Px: Heparin Sq
01/09 15 Care plan discussed with spouse at bedside
Anticipated Discharge: Today
Subjective/Interval History
-
Date of Service: January 13, 2024
Complaining of some reflux symptoms
No abdominal pain/nausea/vomiting overnight
No other issues reported
Objective Data
-
Labs:
Laboratory Results
01/13/24
04:21
WBC 8.4
Hgb 8.4 L
Hct 25.0 L
Plt Count 124 L
Sodium 132 L
Potassium 2.9 L
Chloride 90 L
Carbon Dioxide 33 H
BUN 47 H
Creatinine 5.6 H*
Glucose 179 H
Calcium 7.8 L
Vital Signs:
Vital Signs
Temp Pulse Resp BP Pulse Ox
97.4 F 60 18 119/54 95
01/13/24 07:20 01/13/24 07:51 01/13/24 03:15 01/13/24 07:51 01/13/24 03:15
I&O
01/12/24 01/13/24 01/14/24
06:59 06:59 06:59
Intake Total 750 / 750 240 / 240
Output Total 600 / 600 1025 / 1025
Balance 150 / 150 -785 / -785
Review of Systems
-
Respiratory: Reports No Symptoms
Cardiac: Reports No Symptoms
Abdomen/GI: Reports GERD and Indigestion; Denies Nausea or Vomiting
Physical Exam
-
General: Comfortable and Cachectic
HEENT: Negative Oxygen
Respiratory: Clear to Auscultation
Cardiac: Regular Rhythm and S1/S2; Negative Murmur or Rub
GI: Soft, Nontender, Nondistended and Other (PD catheter in place)
Musculoskeletal: No Edema
Neuro: Awake, Alert, Oriented and Nonfocal/Grossly Intact
Psych: Calm
[2024-01-13] MEDS: COZAAR 100 MG PO (09:25)
[2024-01-13] MEDS: TUMS CHEWABLE TABLET 400 MG PO ×2 (09:25→13:36)
--- NOTE | 2024-01-13 10:09 | PTCARENOTE ---
Addendum entered by Tye Joe RN 01/13/24 14:51:
Upon review of medications with family, medication question relayed to MD. New med ordered. DC packet reprinted out and reviewed in detail with , patient and children. All questions answered. VSS. EKG and troponin reviewed by doctor. Heartburn
resolving. Patient resting. Ambulance took patient by stretcher. Patient drained at scheduled time and sent home empty so family can continue PD at home, okayed with Dr. Rogers.
Addendum entered by Tye Joe RN 01/13/24 11:35:
Pickup time moved to 1430. Changes made by MD to DC meds. New packet printed, will review in detail with and patient. Will closely monitor until DC.
Addendum entered by Tye Joe RN 01/13/24 10:38:
Manual BP 90/50, reported to MD. Full set of VS entered for DC. at bedside. Reviewing DC packet now. MD at bedside to talk to and daughter.
Original Note:
Patient AAOx3, occasional forgetfulness. C/o indigestion, given tums with relief. VSS. DC pickup time 1100. Patient currently dwelling, patient notified of time dwell began so he can continue his PD at home. DC packet reviewed with patient. Will
continue to monitor.
--- NOTE | 2024-01-13 10:42 | CM ---
Chart reviewed and patient is for discharge today, home with spouse and [facility]. client development manager spoke with Zeyad at [facility] and they have referral on patient and will follow with patient at home. Patient will return to home by w/c cost will
be $110 spouse is aware of cost and has number to pay bill.
[facility]
[phone]
--- NOTE | 2024-01-13 10:43 | W.PN.NEPH.PH ---
Today's Communication / Plan
-
Replete potassium
Assessment/Plan
-
Assessment
ESRD on PD
confusion
Acute anemia
Hypertension
Hyperlipidemia
Coronary artery disease
CT findings note omental massess
Plan
transfuse prn
PD ordered. all 1.5% solution, 2L dwell, 4hrs each
ascites is likely PD FLUID/dialysate, yield on diagnostic paracentesis will be low
drainage catheter on CT was PD CATHETER (should not be misconstrued as a drainage catheter for persistent ascites)
retacrit 20,000 units given 01/12/2024
For discharge, additional potassium prior to leaving
-
-
Date of Service: January 13, 2024
CC / HPI / ROS
-
Chief Complaint:
ESRD/PD
History of Present Illness:
hemodynamically stable
hemoglobin low stable at 8.4
PD in progress
Sodium low 132
potassium low 2.9
Review of Systems:
weight stable
no fevers
Labs
-
Labs:
WBC 8.4 10^3/uL (4.8-10.8) 01/13/24 04:21
RBC 2.56 10^6/uL (4.70-6.10) L 01/13/24 04:21
Hgb 8.4 g/dL (13.0-18.0) L 01/13/24 04:21
Hct 25.0 % (39.0-52.0) L 01/13/24 04:21
Plt Count 124 10^3/uL (130-400) L 01/13/24 04:21
Sodium 132 mmol/L (135-145) L 01/13/24 04:21
Potassium 2.9 mmol/L (3.5-5.1) L 01/13/24 04:21
Chloride 90 mmol/L (98-107) L 01/13/24 04:21
Carbon Dioxide 33 mmol/L (22-30) H 01/13/24 04:21
BUN 47 mg/dl (9-20) H 01/13/24 04:21
Creatinine 5.6 mg/dL (0.7-1.3) H* 01/13/24 04:21
eGFR 9.39 01/13/24 04:21
Glucose 179 mg/dl (70-99) H 01/13/24 04:21
Calcium 7.8 mg/dl (8.4-10.2) L 01/13/24 04:21
Albumin 2.9 g/dl (3.5-5.0) L 01/07/24 18:15
Physical Exam
-
Vital Signs:
Vital Signs
Temp Pulse Resp BP Pulse Ox
97.4 F 69 20 90/50 99
01/13/24 07:20 01/13/24 09:35 01/13/24 09:35 01/13/24 10:36 01/13/24 09:35
Cardiovascular:: Regular rate and rhythm
Respiratory:: Bilateral: Coarse
Lung Excursion:: Normal
Abdomen:: Nontender and Soft
Bowel Sounds:: Normal
Extremity Edema:: None: Bilateral:
[2024-01-13] MEDS: KCL 20 MEQ PO (10:54)
[2024-01-13] MEDS: MAALOX 30 ML PO (10:54)
[2024-01-13 13:00] LABS: Troponin I < 0.012 ng/ml
[2024-01-13] MEDS: RENVELA PO (13:24)
--- NOTE | 2024-01-15 08:08 | W.DCSUMMARY ---
Discharge Summary
Discharge Data
Date of Admission: 01/08/24
Date of Discharge: 01/13/24
-
Pending Results: Yes
Additional Pending Results:
Peritoneal fluid cytopathology
Hospital Course
Discharging Physician : Dr Kevyn Oconnor
Disposition : Home with home care
Primary care physician : Dr Pasha Manzanares
Principal Discharge diagnosis :
Normocytic anemia suspected of chronic renal disease
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
Acute toxic metabolic encephalopathy/delirium
End-stage renal disease on peritoneal dialysis
Hyponatremia
Massive prostatomegaly
Thrombocytopenia
Chronic Discharge diagnosis :
Coronary artery disease with history of stent
Sinus bradycardia
Hyperlipidemia
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
Hospital Course :
Patient is 83-year-old male with worsening past medical history who was sent to [facility] after noted to having abnormal blood work on outpatient basis. At admission patient was denying any acute symptoms.
Patient was noted to having normocytic anemia with hemoglobin of 6.7. Patient required 1 unit of blood transfusion with which patient had appropriate response. Patient did not have any occult GI blood loss. Further Workup pointing toward likely
anemia of chronic renal disease. Patient was given injection of Procrit and would benefit with further dosing as needed by primary nephrology.
Patient had a CT abdomen pelvis as part of workup and was incidentally noted to having left upper quadrant omental caking. Tumor markers CEA/CA 19-9 were within normal limit. Patient noted to having significantly enlarged prostate on imaging, a
PSA was elevated at 11.2. Patient ended up getting a peritoneal fluid cytopathology evaluation result of which is pending at discharge. Patient was evaluated by oncology as well and plan to be followed by urology and oncology postdischarge.
Patient also had episode of acute delirium and requiring restraints/support of Risperdal. Patient have already undergone extensive workup at [facility] for similar episodes of delirium/encephalopathy was felt to be related to sertraline.
Patient in [place] was not on any psychoactive/sedating medication. Patient had spontaneous recovery without any recurrence of further issues. On family request patient was provided a prescription of as needed Risperdal to be used at home.
Post medical stabilization patient was discharged to home.
Important imaging findings :
None
Procedure findings :
None
Discharge Plan
-
Patient Disposition: Home with Home Care
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
Condition: Fair
Diet: 2 Gram Sodium
Activity: As tolerated
Driving Restrictions: No driving
Bathing Restrictions: OK to Shower
Activity Restrictions/Additional Instructions:
Follow up with Dr Hernandez's office to discuss peritoneal fluid cytology report and abnormal findings of CT abdomen.
Follow up with Dr Kaplan to discuss enlarged prostate found on CT abdomen.
Follow up with Dr Hernández to continue getting care regarding Peritoneal dialysis and further management of anemia related to kidney disease.
Referrals:
Pasha Manzanares MD [Family Provider] - in one week
Bonifacio Hernández MD [Non-Admitting Privileges] -
Brody Kaplan Jr., MD [Active] - in two to four weeks
Bhavin Hernandez MD [Active] - in one to two weeks
Additional Discharge Medication Instructions: STOP amlodpine, changed to procardia XL
Prescriptions:
New
acetaminophen 325 mg Tablet
650 mg PO Q4HPRN PRN (Reason: mild pain/PAEZ/temp> 100.4F) Qty: 30 0RF
nifedipine 30 mg Tablet Extended Release
30 mg PO BID Qty: 30 2RF
pantoprazole [Protonix] 40 mg tablet,delayed release (DR/EC)
40 mg PO BID Qty: 45 0RF
Rx Instructions:
Take 1 tablet twice daily for 14 days THEN
Take 1 tablet once daily
risperidone 0.5 mg tablet,disintegrating
0.5 mg PO BID Qty: 30 0RF
Continued
atenolol 100 mg tablet
50 mg PO HS
aspirin 81 mg Tablet,Delayed Release (Dr/Ec)
81 mg PO DAILY
tamsulosin [Flomax] 0.4 mg Capsule
0.4 mg PO HS
docusate sodium [Colace] 100 mg Capsule
100 mg PO DAILY
hydralazine 50 mg Tablet
50 mg PO DAILY
finasteride 5 mg Tablet
5 mg PO HS
omega 1-hnn-pdp-fish oil [Fish Oil] 1,200 (144-216) mg Capsule
1 cap PO NOON
coQ10 (ubiquinol) 200 mg Capsule
200 mg PO NOON
atorvastatin [Lipitor] 40 mg Tablet
40 mg PO MOTUWETHFR@2200
sevelamer HCl 800 mg Tablet
1,600 mg PO MEALS
hydralazine 25 mg Tablet
25 mg PO DAILY
Shivani-Aminata 0.8 mg tablet
1 tab PO DAILY
losartan 100 mg tablet
100 mg PO DAILY@1000
Discontinued
famotidine [Pepcid] 40 mg Tablet
20 mg PO DAILY
amlodipine 10 mg tablet
10 mg PO HS
cholecalciferol (vitamin D3) 25 mcg (1,000 unit) Tablet
25 mcg PO NOON
Discharge Orders:
Discharge Patient (As Directed); Ordered 01/13/24
Ordered By: Kevyn Oconnor
Discharge Date and Time
Discharge Date/Time: 01/13/24 15:00
Print Language: BULGARIAN
== END 2024-01-13 15:00 | disposition home health service (06) | DRG 682 ==
LOC: IMU 09:10
PROVIDERS: Emergency Medicine; Nurse Practitioner Family; Radiology Vascular & Interventional Radiology; Specialist; ADMITTING PHYSICIAN Internal Medicine; ATTENDING PHYSICIAN Hospitalist; CONSULT PHYSICIAN Internal Medicine Hematology & Oncology; CONSULT PHYSICIAN Psychiatry & Neurology Psychiatry; CONSULT PHYSICIAN Specialist; EMERGENCY PHYSICIAN Student in an Organized Health Care Education/Training Program; FAMILY PHYSICIAN Family Medicine
PROC: 30233N1 Transfusion of Nonautologous Red Blood Cells into Peripheral Vein, Percutaneous Approach (ICD-10-PCS; 2024-01-07)
PROC: 0W9G3ZZ Drainage of Peritoneal Cavity, Percutaneous Approach (ICD-10-PCS; 2024-01-10)
DX: I12.0 Hypertensive chronic kidney disease with stage 5 chronic kidney disease or end stage renal disease (principal); G92.8 Other toxic encephalopathy; N18.6 End stage renal disease; E87.1 Hypo-osmolality and hyponatremia; R64 Cachexia; Z68.1 Body mass index [BMI] 19.9 or less, adult; C78.6 Secondary malignant neoplasm of retroperitoneum and peritoneum; R18.8 Other ascites; D63.1 Anemia in chronic kidney disease; N40.0 Benign prostatic hyperplasia without lower urinary tract symptoms; D69.6 Thrombocytopenia, unspecified; I25.10 Atherosclerotic heart disease of native coronary artery without angina pectoris; Z95.5 Presence of coronary angioplasty implant and graft; R00.1 Bradycardia, unspecified; E78.5 Hyperlipidemia, unspecified; R41.0 Disorientation, unspecified; Z99.2 Dependence on renal dialysis; Z88.2 Allergy status to sulfonamides; Z88.0 Allergy status to penicillin; Z79.899 Other long term (current) drug therapy; Z79.82 Long term (current) use of aspirin; Z78.1 Physical restraint status; Z11.52 Encounter for screening for COVID-19
CPT/HCPCS: 88305; 49083; 74176; 80048; 80053; 81003; 81015; 82378; 82607; 82728; 83540; 83550; 84153; 84443; 84484; 85025; 85027; 86301; 86850; 86900; 86901; 86920; 87086; 87811; 88112; 88341; 88342; 93005; 97163; 97166; 97530; 97535; 99285; P9016; Q5106

== ENCOUNTER 2024-03-31 18:20 | Inpatient (IN) | payer MEDICARE, SELFPAY ==
[2024-03-31] VITALS (8 sets, daily range): BP systolic 118–166; BP diastolic 48–75; BMI 21.8; BMI 22.6
--- NOTE | 2024-03-31 13:42 | ED.GENMED ---
History of Present Illness
General
Chief Complaint: Fall
Source: patient, spouse and family
Exam Limitations: none
Time Seen by Provider: 03/31/24 13:34
History of Present Illness
History of Present Illness:
84-year-old male fell backwards yesterday after losing his balance. Hit the back of his head. No LOC. No syncope. Presents today primarily for ecchymosis to the anterior neck that they are concerned about. No trouble breathing or swallowing.
No unusual headache or vomiting. No numbness tingling or weakness. Patient is generally weak however which is chronic. Is on peritoneal dialysis.
Past History
Past History
ED Past Medical History: HTN and Other (Renal failure/peritoneal dialysis)
ED Past Surgical History: Orthopedic and Other (Peritoneal shunt/hernia repair)
Review of Systems
Review of Systems
All Other Systems: Not applicable
Respiratory: Reports no symptoms
Cardiac: Reports no symptoms
ABD/GI: Reports no symptoms
Phy Exam
Physical Exam
Physical Exam:
TRAUMA EXAM:
VITAL SIGNS: Vital signs reviewed, cooperative
DISTRESS: No active disease
EYES: Pupils reactive, no orbital trauma
NOSE: No deformity or epistaxis
FACE AND SCALP: Small area of ecchymosis and hematoma to the superior midline parietal scalp.
NECK: Supple nontender. Areas of ecchymosis fresh to the anterior neck diffusely that radiates slightly into the upper chest. However no clavicle tenderness no upper chest wall tenderness.
BACK: Back nontender, pelvis stable to compression
RESPIRATORY: No distress, breath sounds normal, no tender chest wall
CARDIAC: No murmur, pulses equal and strong
ABDOMEN: Soft nontender bowel sounds normal
SKIN: Skin intact no bleeding, color normal
EXTREMITIES: Nontender
NEUROLOGICAL: Alert, oriented, no motor deficits
PSYCH: Mood affect normal
Course
Orders/Labs/Results
Orders:
Orders
03/31/24 13:41
Electrocardiogram (*1) Urgent
Reason for Study: Other
Other Reason for Exam: trauma
CT Cervical Spine W/o Iv Contr Urgent
Comment:
Reason For Exam: trauma. ant neck ecchymosis
CT Facial Bones W/o Iv Contras Urgent
Comment:
Reason For Exam: trauma
CT Head W/o Iv Contrast Urgent
Comment:
Reason For Exam: trauma
EKG- Treatment ONCE
03/31/24 14:09
Albumin Urgent
Comment: ADD ON
Basic Metabolic Panel Urgent
Complete Blood Count/With Diff Urgent
Free T4 Urgent
Magnesium Urgent
Comment: ADD ON
Phosphorus Urgent
Comment: ADD ON
TSH Reflex To Free T4 Urgent
Comment: ADD ON
03/31/24 Dinner
Cholesterol Lowering
At Your Request: Full Participation
Fluid Restriction: 1200 mL/day (40 oz)
03/31/24 15:38
Add On- LAB Urgent
Tests Added?: tsh reflex t4
03/31/24 16:00
Add On- LAB Urgent
Tests Added?: mag , phos, albumin
03/31/24 17:02
NEPHROLOGY CONSULT Routine
Consulting Provider: Ari Coello V.
Was physician already notified: Yes
Reason for consult: esrd on peritoneal dialysis, plt 46, anemia
03/31/24 17:03
Code Status As Directed
Resuscitation Status: Full Code
Activity As Directed
Activity Level: With Assistance
Comment: uses walker
Intake/ Output As Directed
Frequency: Per unit guidelines
Precautions As Directed
Type of Precautions: Other
Comment: fall secondary to thrombocytopenia
Vital Signs As Directed
Frequency: Per unit guidelines
Weight As Directed
Frequency: Daily
Ot Eval And Treat Routine
Pt Eval And Treat Routine
Activity Level: With Assistance
03/31/24 17:04
Pneumatic Compression Sleeves As Directed
Type: Knee high
DX Deep Vein Thrombosis Video Routine
03/31/24 17:09
Peritoneal Dialysis As Directed
Use same dialysate for all exchanges or alternate dialysate?: Same for all exchanges
Deflex Low Ca/Low Mag for all exchanges % Dextrose:: 1.5% Dextrose
Volume in liters per exchange (liters):: 2
Exchange Dwell time in hours:: 4
03/31/24 17:21
Admit/Transfer Patient As Directed
Co-Sign Provider:
Level of Care: Inpatient admission
Assign to:: Telemetry
Physician / Group: ajit kirk
Diagnosis: Mechan fall neck chest ecchymosis, anemia, ESRD, thrombocytopenia, hypoNa
Reason for Telemetry: Arrhythmia
Date to Stop Telemetry: 04/03/24
Time to Stop Telemetry: 11:00
Reason for Hospitalization: Mechan fall neck chest ecchymosis, anemia, ESRD, thrombocytopenia, hypoNa
Expected length of stay greater than two midnights?: Yes
ELOS- Estimated Length of Stay in days: 4
I certify the patient meets the requirements for IP care: Yes
03/31/24 17:22
PRN Pain Medication Management As Directed
May give lesser potent ordered pain med per pt: Yes
preference::
Protocol:: Medication orders for pain may be administered in a
manner that supports deferring to patient preference
when the pt is:
- Requesting an ordered lesser potent pain medication.
Least to most potent pain medications are defined
as: acetaminophen < NSAID < tramadol < opioids
(morphine, oxycodone, hydromorphone).
- Requesting a lesser dose of the same medication IF
ORDERED.
- Requesting a less intrusive route of administration
if both routes are prescribed by the provider (PO <
IV).
03/31/24 18:52
Type+Screen Urgent
04/01/24 06:00
Complete Blood Count/With Diff IN AM
Comprehensive Metabolic Panel IN AM
04/02/24 06:00
Complete Blood Count/With Diff IN AM
Comprehensive Metabolic Panel IN AM
04/03/24 06:00
Complete Blood Count/With Diff IN AM
Comprehensive Metabolic Panel IN AM
04/03/24 11:00
DC Protocol for Telemetry ONCE
04/04/24 06:00
Complete Blood Count/With Diff IN AM
Comprehensive Metabolic Panel IN AM
Abnormal Lab Results
03/31/24
14:09
WBC 4.2 L 10^3/uL
(4.8-10.8)
RBC 2.42 L 10^6/uL
(4.70-6.10)
Hgb 7.6 L g/dL
(13.0-18.0)
Hct 24.3 L %
(39.0-52.0)
MCV 100.4 H fL
(80.0-94.0)
MCH 31.4 H pg
(27.0-31.0)
MCHC 31.3 L g/dL
(33.0-37.0)
RDW 17.6 H %
(11.5-14.5)
Plt Count 47 L 10^3/uL
(130-400)
MPV 11.0 H fL
(7.4-10.4)
Absolute Lymphs (auto) 0.4 L 10^3/uL
(1.2-3.4)
Lymphocytes % 10.0 L %
(20.5-51.1)
Monocytes % 11.2 H %
(1.7-9.3)
Sodium 124 L mmol/L
(135-145)
Chloride 85 L mmol/L
(98-107)
BUN 75 H mg/dl
(9-20)
Creatinine 7.4 H* mg/dL
(0.7-1.3)
Glucose 135 H mg/dl
(70-99)
Calcium 7.7 L mg/dl
(8.4-10.2)
Phosphorus 7.0 H mg/dl
(2.5-4.5)
Magnesium 2.5 H mg/dl
(1.6-2.3)
Albumin 2.9 L g/dl
(3.5-5.0)
TSH (Reflex) 0.28 L uIU/ml
(0.47-4.68)
03/31/24 14:09
03/31/24 14:09
Vital Signs
Initial and Last Documented VS:
Initial Vital Signs
Temp Pulse Resp BP Pulse Ox
98.0 F 57 16 134/59 98
03/31/24 12:37 03/31/24 12:37 03/31/24 12:37 03/31/24 12:37 03/31/24 12:37
Last Documented Vital Signs
Temp Pulse Resp BP Pulse Ox
98.0 F 58 14 138/50 93
03/31/24 12:37 03/31/24 18:45 03/31/24 18:45 03/31/24 18:44 03/31/24 18:45
MDM/Problems Addressed
Differential Diagnosis Includes:
2 aspects to the patient's current condition. 1 is the general weakness. This based on the patient is unchanged. However given that he has had a fall in 2 days in a row we will check his hemoglobin and electrolyte status potassium etc. Also get
an EKG. Not describing syncope. As for the trauma he has some anterior neck ecchymosis but no posterior spinal tenderness. His teeth are stable. TMJs are stable. No facial trauma. We will CT head facial and cervical spine.
*Radiology
Radiology exam reviewed: radiology read reviewed (Stable CT scans. Thyroid nodule. Copy of report given to family.)
*Pulse Oximetry
Patient hypoxic: no
*EKG
Interpretation: abnormal
Comparison EKG: changes noted
Heart Rate: 55
Rate: bradycardiac
Rhythm: sinus
[place]: normal axis
Interval: normal interval
QRS Pattern: right bundle branch block
Ischemia: T-wave inversion
*Critical Care Note
Total Time (30-74mins, 75-104mins- exclusive of procedures): Not Applicable
Data Reviewed
Review of Other/Old Records Reveals: Labs, Records and Testing
Update Note
Update Note:
Patient with chronic anemia slightly worse. However stable. However his sodium is 124. May explain his weakness frequent falls. Warrants inpatient management.
ED Attending Note
-
Portions of this chart may have been created with voice recognition software.� Occasional wrong word or��sound alike� substitutions may have occurred due to the inherent limitations of voice recognition software.
Discharge Plan
Departure
Patient Disposition: Admit
Date of Disposition: 03/31/24
Time of Disposition: 15:37
Presentation/result/management discussed w/ accepting MD/DO: Hospitalist
Discharge Problem:
Symptomatic hyponatremia, Chronic anemia, Chronic renal failure, thyroid nodule
Interventions
Interventions:
*Risk Screen - Suicide Last Done: 03/31/24 12:37
*General Assessment Last Done: 03/31/24 18:51
*Neglect/Abuse Screening Last Done: 03/31/24 12:37
ED-Musculoskeletal Assessment Last Done: 03/31/24 15:20
ED- Neurological Assessment Last Done: 03/31/24 15:20
ED-Skin Assessment Last Done: 03/31/24 15:20
[2024-03-31 14:35] LABS: % Basophils 0.2 % (0-2); % Monocytes 11.2 % (1.7-9.3); % Neutrophils 74.6 % (42.2-75.2); Absolute Eosinophils 0.2 10^3/uL (0-0.7); Absolute Lymphocytes 0.4 10^3/uL (1.2-3.4); Absolute Monocytes 0.5 10^3/uL (0.1-0.6); Absolute Neutrophils 3.1 10^3/uL (1.4-6.5); Hematocrit 24.3 % (39.0-52.0); Hemoglobin 7.6 g/dL (13.0-18.0); Mean Corp Hgb Conc. 31.3 g/dL (33.0-37.0); Mean Corpuscular Hgb 31.4 pg (27.0-31.0); Mean Corpuscular Volume 100.4 fL (80.0-94.0); Nucleated Red Blood Cells % 0 % (-); Red Blood Cell Count 2.42 10^6/uL (4.70-6.10); Red Cell Dist. Width 17.6 % (11.5-14.5); White Blood Cell Count 4.2 10^3/uL (4.8-10.8)
[2024-03-31 14:42] LABS: Blood Urea Nitrogen 75 mg/dl (9-20); Calcium 7.7 mg/dl (8.4-10.2); Carbon Dioxide 27 mmol/L (22-30); Chloride 85 mmol/L (98-107); Glucose 135 mg/dl (70-99); Potassium 3.5 mmol/L (3.5-5.1); Sodium 124 mmol/L (135-145); eGFR 6.68
[2024-03-31 15:05] LABS: Platelet Count 47 10^3/uL (130-400)
--- NOTE | 2024-03-31 16:03 | HPS.HSE ---
Addendum entered and electronically signed by Sara Talley DO 03/31/24 18:54:
I have seen and examined the patient, with family at bedside. The patient has been feeling more weak and sleepy lately, and fell yesterday after getting out of the tub while his was helping dry him off, and he fell backwards, likely straining
neck. He also fell onto his side today. No LOC, no PAEZ, no CP, no SOB, no n/v/d, no lightlheadedness, nor dizziness. He's been having weakness that is generalized. No fever, no cough, no sputum production.
VSS/AF at this time
Pt is pleasant, NAD
CV RRR, no m/r/g
Lungs CTA b/l
Neuro no focal deficits
Skin-he has hematoma left SCM muscle anterior chest wall, right neck
I agree with assessment and plan of care as per below with following additions:
Falls at home, likely multifactorial, due to anemia and hyponatremia
Hyponatremia -Nephrology consultation appreciated-they wrote PD orders starting tonight, fluid restriction 1200 cc daily, Retacrit prn anemia, monitor for need for blood transfusion, repeat CBC in am and monitor hemoglobin
-Incidental finding on CT of thyroid nodule-discussed OP US with the family, and will get TSH
-Ground glass opacities on CT-- Noted on CT in December 'tree in bud' in the left lower and right lower lobe concerning for post-inflammatory changes; no evidence for acute lung infection at this time, will get CXR 2 V and monitor symptoms
Original Note:
Family Physician
-
Family Physician: Pasha Manzanares
Chief Complaint
-
Fall yesterday, ecchymosis to neck and chest today
History of Present Illness
84-year-old male who lives at home with his Carla who states yesterday she got him out of the stand-up shower she then has him sit on a tile surround wall she was turning around to move the shower chair while he was holding onto a walker. She
reports he fell backwards landing onto his full back. Denies LOC. No headache no neck pain back or buttocks pain, however patient has anterior large neck ecchymosis with ecchymosis to the upper chest wall bilaterally he has no crepitus, no airway
difficulty, he is able to swallow own secretions and eat food he denies any tenderness in the area. He had his peritoneal dialysis port repositioned with local anesthesia by his surgeon Dr. Sapp or at [place] on 03/27/2024 due to weight loss.
He uses a mini Type of catheter that his family will provide the tip in order for him to have dialysis while inpatient here at the hospital. He gets Mircera 300 mcg infusion every 2 weeks with his recent infusion on 03/27. I spoke with the
patient's dialysis nurse who states his hemoglobin is typically around eights with platelets 140s and in the beginning of the month she noticed his sodium starting to drop with a sodium of 128. Patient denies headache, blurred vision, fever,
chills, chest pain, cough, shortness of breath, abdominal pain, nausea, vomiting, diarrhea, urinary symptoms. He still voids approximately 2-3 times a day very scant amounts
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
of delirium that respond to Risperdal, ESRD on peritoneal dialysis, CAD status post stent, sinus bradycardia, HLD, cachexia chronic, chronic ambulatory dysfunction uses walker at baseline.
Medical History
Past Medical History
Past Medical History: Reports Other
Additional Past Medical History:
ESRD on home peritoneal dialysis
hypertension
hyperlipidemia
CAD with stent
Sinus bradycardia
BPH
massive prostatomegaly
normocytic anemia, anemia of chronic renal disease
Chronic thrombocytopenia
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
episode of delirium that respond to Risperdal December 2024 admission,
sinus bradycardia
HLD
cachexia chronic-BMI improved 21.8
chronic ambulatory dysfunction uses walker at baseline.
Past Surgical History: Reports Other
Additional Past Surgical History:
right shoulder repair
hernia repair
dialysis port placement
Social History
Tobacco: Non-smoker
Alcohol: None
Drug: None
Personal:
Living: With Family
Employment: Retired
Family History
Family History: Not pertinent
Allergies / Home Medications
Allergies reflects when Allergies were last updated in [facility].
Home Medications with original date entered in [facility] [facility] [employer]
Allergy/Medication List:
Allergies
Allergy/AdvReac Type Severity Reaction Status Date / Time
Penicillins Allergy Unknown Verified 03/31/24 12:39
Sulfa (Sulfonamide Allergy Unknown Verified 03/31/24 12:39
Antibiotics)
Home Medications
aspirin 81 mg tablet,delayed release 81 mg PO DAILY Blood Clot Prevention/Tx 12/29/21
atorvastatin 40 mg tablet (Lipitor) 40 mg PO MOTUWETHFR@2200 High Cholesterol 12/29/21
coQ10 (ubiquinol) 200 mg capsule 200 mg PO NOON Supplement 12/29/21
docusate sodium 100 mg capsule (Colace) 100 mg PO DAILY STOOL SOFTENER 12/29/21
finasteride 5 mg tablet 5 mg PO QPM BPH 12/29/21
hydralazine 25 mg tablet 25 mg PO DAILY taken w/ 50mg = 75mg/BP 12/29/21
sevelamer HCl 800 mg tablet 1,600 mg PO MEALS RENAL 12/29/21
tamsulosin 0.4 mg capsule (Flomax) 0.4 mg PO QPM Urinary Issue 12/29/21
vitamin B complex-vitamin C-folic acid 0.8 mg tablet (Shivani-Aminata) 1 tab PO DAILY Supplement 01/07/24
acetaminophen 325 mg tablet 650 mg (2 x 325 mg) PO Q4HPRN PRN mild pain/PAEZ/temp> 100.4F #30 tabs 01/13/24
atenolol 25 mg tablet 25 mg PO HS 03/31/24
azelastine 137 mcg (0.1 %) nasal spray 2 spray intranasal DAILY 03/31/24
cetirizine 10 mg tablet 10 mg PO DAILY 03/31/24
cholecalciferol (vitamin D3) 25 mcg (1,000 unit) tablet (Vitamin D3) 25 mcg PO DAILY 03/31/24
losartan 50 mg tablet 50 mg PO DAILY 03/31/24
pantoprazole 40 mg tablet,delayed release (Protonix) 40 mg PO DAILY@0600 03/31/24
Review of Systems
-
History Source: Patient and Family ( Carla at bedside)
A 12 point ROS was completed and negative except as noted: Yes
Constitutional: Denies Fever, Weight Gain, Weight Loss, Fatigue or Chills
EENT: Reports Other (Ecchymosis to anterior neck extending to upper chest); Denies Sore Throat, Mouth Swelling or Runny Nose
Respiratory: Denies Cough or Trouble Breathing
Cardiac: Denies Chest Pain, Diaphoresis, Palpitations or Syncope
Abdomen/GI: Denies Abdominal Pain, Nausea, Vomiting, Diarrhea, Constipated, Bloody Stools or Black Stools
: Reports Other (Has peritoneal dialysis tube present patient does void scant amounts 2-3 times a day)
Musculoskeletal: Denies Joint Pain or Edema
Skin: Reports Other (Multiple bruises to arms current bruise to anterior neck and upper chest from fall yesterday 03/30/2024); Denies Itching
Neurological: Denies Dizzy, Headache or Weakness
Endocrine: Reports No Symptoms
Hematologic/Lymphatic: Reports No Symptoms
Psych: Reports Calm
Physical Exam
Vital Signs
Vital Signs
Temp Pulse Resp BP Pulse Ox
98.0 F 54 18 166/75 94
03/31/24 12:37 03/31/24 15:20 03/31/24 15:20 03/31/24 15:20 03/31/24 15:20
Physical Exam
General: Comfortable and Conversant; No Pain, Fever or Chills
HEENT: NormoCephalic, Anicteric, Moist mucous membranes, PERRLA, [place] Conjunctivae, No Ptosis, Neck Nontender and Other (Multiple bruises to arms current bruise to anterior neck and upper chest from fall yesterday 03/30/2024)
Respiratory: Clear; No Wheezes, Rales or Rhonchi
Cardiac: S1/S2 and Bradycardia (Sinus); No Murmur, Rub, Gallop or Peripheral Edema
Breast: Deferred by me
GI: Soft, Non Tender, Non Distended, Normal Bowel Sounds, No Hepatosplenomegaly and Other (Peritoneal dialysis catheter present)
Rectal: Deferred by Provider
Genito-urinary: Other (Peritoneal dialysis catheter present)
Musculoskeletal: No Clubbing, No Cyanosis and No Edema
Skin: Warm, Dry and Other (Multiple bruises to arms current bruise to anterior neck and upper chest from fall yester03/30/2024)
Neuro: AO x 3, No Motor Deficits, Nonfocal/grossly intact, Cranial Nerves Intact and No Sensory Deficits; No Slurred Speech, Facial Droop, Tremors or Sedated
Psych: Calm
Laboratory Results
-
03/31/24 14:09
03/31/24 14:09
Data Reviewed
-
Diagnostic Radiology: Report Reviewed by me
CT Scan: Report Reviewed by me
Lab Data: Labs Reviewed by me
Impression/Plan
-
Impression/plan:
Admit to telemetry
#Acute on chronic anemia-macrocytic
#Hx chronic microcytic anemia
#Anemia of chronic renal disease
Patient did receive 1 unit PRBC and Procrit injection for hemoglobin 6.7 during December 2023 admission by nephro recommendation
Hgb 7.6 <8.4 on 01/13/2024 appears more near baseline
Had Mircera 300 mcg infusion q. 2 weeks most recent infusion was , 03/27/2024
-Type and screen
-Obtain blood consent will hold on any current transfusion but will monitor hemoglobin
#Mechanical fall 03/30/2024 onto back yet Neck/Upper chest contusion
#Chronic ambulatory dysfunction uses walker at baseline
-No difficulty swallowing, airway intact
-Monitor hemoglobin
-Consult PT/OT
CT head: No acute intracranial abnormality.
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
Mild to moderate atrophy which is slightly progressed since previous exam
CT facial bones: No evidence for facial bone fracture
CT cervical spine: No evidence of acute fracture or dislocation
Bilateral thyroid calcifications with nodule in the right lobe measuring up to 2.4 cm diameter consider further evaluation thyroid ultrasound
#Incidental thyroid nodule right lobe 2.4 cm-recommend outpatient thyroid ultrasound
#Acute on chronic thrombocytopenia
Plt 47 baseline 140s according to patient's nephrology nurse
-Follow CBC
-Fall precautions
-Follows at [facility]
#Acute on chronic hyponatremia hypervolemic
NA 124 baseline appears 129�131
-Fluid restrict 1200 cc daily per nephrology
-Monitor BMP
#ESRD on peritoneal dialysis
Creat 7.4/bun 75 patient does dialysis in the evenings Peritoneal starts at 8:30 PM x 9 hours
Peritoneal dialysis catheter had repositioning done on 03/[address] Sapp at [facility]
-Patient follows with [facility] nephrology
-Had Mircera 300 mcg infusion q. 2 weeks most recent infusion was , 03/27/2024
-Consult Nephro
-Follow CMP
-Continue Shivani-Aminata
-Patient will start dialysis tonight 03/31/2024 per nephrology
#BPH
#Massive prostatomegaly
-continue finasteride and tamsulosin
-Follows with urology Dr Garvey at [facility] no plans for any surgical intervention as of now
# Abnormal CT abdomen omentum December 2023 admit-however fluid cytology peritoneal was negative
-CT a/p incidentally showing omental , suspicious for metastatic disease fluid cytology peritoneal was negative
-CEA normal. CA 19-9 pending
-Hemato/oncology evaluated.
01/15/2024: Peritoneal fluid, paracentesis
Negative for malignant cells.
Occasional benign reactive mesothelial cells and macrophages present in a background of mixed
inflammatory cells.
#Episodes of delirium
History of delirium x 1 per many that responded to Risperdal
She reports he is no longer on this medication
#Essential hypertension - Uncontrolled
BP 166/95
-Continue atenolol 25 mg at bedtime, hydralazine 75 mg daily, losartan 50 mg daily
#GERD
-Continue Protonix 40 mg daily
#Hyperlipidemia
- continue atorvastatin
# CAD with stent
- continue ASA 81 mg daily monitor hemoglobin
#Chronic sinus bradycardia
HR 54 bpm
On atenolol for hypertension, continue with holding parameter
DVT prophylaxis
SCDs given platelets are 46
Full code per patient with Carla present at bedside
--- NOTE | 2024-03-31 16:26 | W.CON.NEPH ---
Consultation
-
Date/Time Consultation Requested: 03/31/2024 4:15 PM
Date/Time Consultation Performed: 03/31/2024 4:30 PM
Requesting Provider: Dr. Gordon
Performing Provider: Dr. Coello
Reason for Consultation: ESRD/PD
Medical History
-
Chief Complaint: ESRD/PD
History of Present Illness:
This is an 84-year-old gentleman who has end-stage renal disease for the last 2 and half years now on peritoneal dialysis. He dialyzes through [facility] at [place]. He says that he does receive injections for anemia on a
monthly basis for his anemia of ESRD. He denies having any issues with peritoneal dialysis at home which is managed by him and his . It appears that he alternates solutions of 1.5 and a 2.5% with a 9-hour treatment time with exchanges every 1
hour 40 minutes. 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 He has a prior history of coronary artery disease with stenting. . He does have hypertension which is generally controlled with a multidrug
regimen as well as hyperlipidemia controlled with statin therapy. He presented to the emergency room after falling backwards yesterday following losing his balance. He did strike his head but there was no loss of consciousness. CT scan of head
face and cervical spine have not indicated fracture. He presented with bruising along the anterior neck. Initial lab work revealed significant anemia with a hemoglobin of 7.6 and a platelet count of 47. Nephrology was asked to see the patient for
end-stage renal disease with peritoneal dialysis requirement as well as hyponatremia.
Past Medical History
ESRD cause unknown according to the patient, hypertension, hyperlipidemia, coronary disease with 2 stents, anemia, BPH, right shoulder surgery, hernia repair, PD catheter placement, hyperphosphatemia
Social History
Tobacco: Non-Smoker
Alcohol: None
Family History
No known CKD
Allergies / Home Medications
Allergy/AdvReac Type Severity Reaction Status Date / Time
Penicillins Allergy Unknown Verified 03/31/24 12:39
Sulfa (Sulfonamide Allergy Unknown Verified 03/31/24 12:39
Antibiotics)
�Medication �Instructions �Recorded �Confirmed �Type
aspirin 81 mg tablet,delayed 81 mg PO DAILY Blood Clot 12/29/21 03/31/24 History
release Prevention/Tx
atorvastatin 40 mg tablet (Lipitor) 40 mg PO MOTUWETHFR@2200 High 12/29/21 03/31/24 History
Cholesterol
coQ10 (ubiquinol) 200 mg capsule 200 mg PO NOON Supplement 12/29/21 03/31/24 History
docusate sodium 100 mg capsule 100 mg PO DAILY STOOL SOFTENER 12/29/21 03/31/24 History
(Colace)
finasteride 5 mg tablet 5 mg PO QPM BPH 12/29/21 03/31/24 History
hydralazine 25 mg tablet 25 mg PO DAILY taken w/ 50mg = 12/29/21 03/31/24 History
75mg/BP
sevelamer HCl 800 mg tablet 1,600 mg PO MEALS RENAL 12/29/21 03/31/24 History
tamsulosin 0.4 mg capsule (Flomax) 0.4 mg PO QPM Urinary Issue 12/29/21 03/31/24 History
vitamin B complex-vitamin C-folic 1 tab PO DAILY Supplement 01/07/24 03/31/24 History
acid 0.8 mg tablet (Shivani-Aminata)
acetaminophen 325 mg tablet 650 mg (2 x 325 mg) PO Q4HPRN PRN 01/13/24 03/31/24 Rx
mild pain/PAEZ/temp> 100.4F #30 tabs
atenolol 25 mg tablet 25 mg PO HS 03/31/24 03/31/24 History
azelastine 137 mcg (0.1 %) nasal 2 spray intranasal DAILY 03/31/24 03/31/24 History
spray
cetirizine 10 mg tablet 10 mg PO DAILY 03/31/24 03/31/24 History
cholecalciferol (vitamin D3) 25 25 mcg PO DAILY 03/31/24 03/31/24 History
mcg (1,000 unit) tablet (Vitamin
D3)
losartan 50 mg tablet 50 mg PO DAILY 03/31/24 03/31/24 History
pantoprazole 40 mg tablet,delayed 40 mg PO DAILY@0600 03/31/24 03/31/24 History
release (Protonix)
Review of Systems
-
History Source: Patient
All other systems: Negative unless noted
Constitutional: Other (Frequent falls)
Respiratory: Other (Mild dyspnea on exertion)
Cardiac: No Symptoms
Abdomen/GI: No Symptoms
: No Symptoms and Other (essentially anuric)
Skin: Other (ecchymosis along anterior neck and chest wall)
Endocrine: No Symptoms
Hematologic/Lymphatic: Bruising
Physical Exam
Vital Signs
Vital Signs
Temp Pulse Resp BP Pulse Ox
98.0 F 54 18 166/75 94
03/31/24 12:37 03/31/24 15:20 03/31/24 15:20 03/31/24 15:20 03/31/24 15:20
Lab Results
WBC 4.2 10^3/uL (4.8-10.8) L 03/31/24 14:09
RBC 2.42 10^6/uL (4.70-6.10) L 03/31/24 14:09
Hgb 7.6 g/dL (13.0-18.0) L 03/31/24 14:09
Hct 24.3 % (39.0-52.0) L 03/31/24 14:09
Plt Count 47 10^3/uL (130-400) L 03/31/24 14:09
Sodium 124 mmol/L (135-145) L 03/31/24 14:09
Potassium 3.5 mmol/L (3.5-5.1) 03/31/24 14:09
Chloride 85 mmol/L (98-107) L 03/31/24 14:09
Carbon Dioxide 27 mmol/L (22-30) 03/31/24 14:09
BUN 75 mg/dl (9-20) H 03/31/24 14:09
Creatinine 7.4 mg/dL (0.7-1.3) H* 03/31/24 14:09
eGFR 6.68 03/31/24 14:09
Glucose 135 mg/dl (70-99) H 03/31/24 14:09
Calcium 7.7 mg/dl (8.4-10.2) L 03/31/24 14:09
Physical Exam
General: AOx3, Nontoxic , NAD
HEENT: PERRL, EOMI, Anicteric, Conjunctivae Clear, Ear/Nose Intact, Hearing Normal, Oropharynx Clear/Moist, Dentition Intact, Facial Symmetry, Neck Supple, Neck: Trachea Midline, No JVD and No Thyromegaly, no Bruits
Respiratory: Coarse to auscultation bilaterally with normal lung excursion
Cardiac: S1/S2 and Regular Rate/Rhythm
Breast: Deferred by me
Abdomen: Soft, Nontender, Nondistended, Normal Bowel Sounds and No Hepatosplenomegaly, PD catheter noted with clean exit site
Rectal: Deferred by Provider
Genito-urinary: No Costovertebral Tenderness
Extremities: No Clubbing, No Cyanosis and pretibial edema
Skin: No Rash or open lesions, noted ecchymosis along anterior of neck and chest wall
Neuro: Nonfocal/Grossly Intact, CN II-XII (Intact) and Strength (Musculoskeletal exam 5 out of 5 both upper and lower extremities)
Hematologic/Lymphatic: No Cervical Lymphadenopathy, No Submandibular Lymphadenopathy and No Supraclavicular Lymphadenopathy
Psych: Mood/affect pleasant, Insight/judgement good and Appropriate
Vascular: plus 1 pedal and radial pulses
Data Reviewed
-
Radiology: Image Personally Visualized and interpreted
CT Scan: Report Reviewed by me (CT of head neck and face without acute fracture)
Medical Tests (Nuc Med, Echo etc): Other (EKG report reviewed sinus bradycardia with first-degree AV block right bundle branch block left posterior fascicular block inferior infarct at 55 beats per minutes)
Labs: Labs Reviewed by me (JAIME CBC)
Old Records: Reviewed (Reviewed previous renal consultation from December, for ESRD)
Assessment/Plan
-
Assessment
ESRD on PD
Status post loss of balance with fall
Anterior neck and chest wall ecchymosis
Hyponatremia (124)
Acute anemia (7.6)
Thrombocytopenia (47)
Hypertension
Hyperlipidemia
Coronary artery disease with history of stent
Hyperphosphatemia
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
Plan
transfuse prn, follow h/h
PD orders provided. all 1.5% solution, 2L dwell, 4hrs each
Fluid restriction 1200 cc daily in setting of hyponatremia
Will provide Retacrit as needed for anemia (usually receives mycera 300 mcg at 2-week intervals last given on 03/27/2024)
Maintain phosphorus binders with meals re: hyperphosphatemia
Maintain oral antihypertensives atenolol hydralazine, and losartan for blood pressure control
I suspect falls may be related to hyponatremia in the setting of volume overload,will attempt to reduced EDW
[2024-03-31 16:49] LABS: Albumin 2.9 g/dl (3.5-5.0); Magnesium 2.5 mg/dl (1.6-2.3)
[2024-03-31 17:03] LABS: TSH Reflex To Free T4 0.28 uIU/ml (0.47-4.68)
[2024-03-31 17:32] LABS: Free T4 1.29 ng/dl (0.78-2.19)
[2024-03-31] MEDS: RENVELA 1600 MG PO (20:28)
[2024-03-31] MEDS: FLOMAX 0.4 MG PO (21:59)
[2024-03-31] MEDS: TENORMIN 25 MG PO (21:59)
[2024-03-31] MEDS: PROSCAR PO (23:28)
[2024-03-31] MEDS: LIPITOR 40 MG PO (23:29)
[2024-04-01] VITALS (10 sets, daily range): BP systolic 121–157; BP diastolic 47–73; BMI 22.0
--- NOTE | 2024-04-01 04:42 | PTCARENOTE ---
Pt admitted ~2229. Pt belongings w/ pt. SR/SB w/ 1st degree AV block + PVCs +BBB. PD delayed due to not having access to all parts for set up. SPD no longer on site, part found and PD initiated 312. SpO2 dipped down to 87% on RA when pt dozing off
- 2 L NC, SpO2 98%.
Pt confused at times but easily redirected.
[2024-04-01] MEDS: PROTONIX 40 MG PO (05:09)
--- NOTE | 2024-04-01 07:03 | W.PN.HOSP.TC ---
Today's Communication/Plan
-
Peritoneal dialysis
Assessment / Plan
Assessment / Plan
Physical Exam
General: Comfortable and Conversant; No Pain, Fever or Chills
HEENT: NormoCephalic, Anicteric, Moist mucous membranes, PERRLA, [place] Conjunctivae, No Ptosis, Neck Nontender and Other (Multiple bruises to arms current bruise to anterior neck and upper chest from fall yesterday 03/30/2024)
Respiratory: No Wheezes, Rales or Rhonchi
Cardiac: S1/S2
GI: Soft, Non Tender, Non Distended, Normal Bowel Sounds. (Peritoneal dialysis catheter present)
Rectal: No bleeding
Musculoskeletal: No Edema
Skin: Warm, Dry and Other (Multiple bruises to arms current bruise to anterior neck and upper chest from fall yesterday 03/30/2024)
Neuro: AO x 3, No Motor Deficits, Nonfocal/grossly intact,; No Slurred Speech, Facial Droop, Tremors or Sedated
Psych: Calm
A/P
Acute on chronic anemia-macrocytic
#Hx chronic microcytic anemia
#Anemia of chronic renal disease
Patient did receive 1 unit PRBC and Procrit injection for hemoglobin 6.7 during December 2023 admission by nephro recommendation
Hgb 7.6 <8.4 on 01/13/2024 appears more near baseline
Had Mircera 300 mcg infusion q. 2 weeks most recent infusion was , 03/27/2024
-Type and screen
-Obtain blood consent will hold on any current transfusion but will monitor hemoglobin
#Mechanical fall 03/30/2024 onto back yet Neck/Upper chest contusion
#Chronic ambulatory dysfunction uses walker at baseline
-No difficulty swallowing, airway intact
-Monitor hemoglobin
-Consult PT/OT
CT head: No acute intracranial abnormality.
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
Mild to moderate atrophy which is slightly progressed since previous exam
CT facial bones: No evidence for facial bone fracture
CT cervical spine: No evidence of acute fracture or dislocation
Bilateral thyroid calcifications with nodule in the right lobe measuring up to 2.4 cm diameter consider further evaluation thyroid ultrasound
#Incidental thyroid nodule right lobe 2.4 cm-recommend outpatient thyroid ultrasound
#Acute on chronic thrombocytopenia
Plt 47 baseline 140s according to patient's nephrology nurse
-Follow CBC
-Fall precautions
-Follows at [facility]
#Acute on chronic hyponatremia hypervolemic
NA 124 baseline appears 129�131
-Fluid restrict 1200 cc daily per nephrology
-Monitor BMP
#ESRD on peritoneal dialysis
Creat 7.4/bun 75 patient does dialysis in the evenings Peritoneal starts at 8:30 PM x 9 hours
Peritoneal dialysis catheter had repositioning done on 03/[address] Sapp at [place]
-Patient follows with [place] nephrology
-Had Mircera 300 mcg infusion q. 2 weeks most recent infusion was , 03/27/2024
-Consulted Nephro
-Continue Shivani-Aminata
#BPH
#Massive prostatomegaly
-continue finasteride and tamsulosin
-Follows with urology Dr Garvey at [place] no plans for any surgical intervention as of now
# Abnormal CT abdomen omentum December 2023 admit-however fluid cytology peritoneal was negative
-CT a/p incidentally showing omental , suspicious for metastatic disease fluid cytology peritoneal was negative
-CEA normal. CA 19-9 pending
-Hemato/oncology evaluated.
01/15/2024: Peritoneal fluid, paracentesis
Negative for malignant cells.
Occasional benign reactive mesothelial cells and macrophages present in a background of mixed
inflammatory cells.
#Episodes of delirium
History of delirium x 1 per many that responded to Risperdal
She reports he is no longer on this medication
#Essential hypertension - Uncontrolled
BP 166/95
-Continue atenolol 25 mg at bedtime, hydralazine 75 mg daily, losartan 50 mg daily
#GERD
-Continue Protonix 40 mg daily
#Hyperlipidemia
- continue atorvastatin
# CAD with stent
- continue ASA 81 mg daily monitor hemoglobin
#Chronic sinus bradycardia
HR 54 bpm
On atenolol for hypertension, continue with holding parameter
DVT prophylaxis
SCDs given platelets are 46
Full code per patient with Carla present at bedside
Total time spent to see the patient, examine the patient, review data and lab results, discuss treatment plan with patient and nursing staff around 55 minutes
Anticipated Discharge: 24 - 48 hours
Subjective/Interval History
-
Date of Service: April 01, 2024
No chest pain
No abdominal pain
Objective Data
-
Labs:
Laboratory Results
04/01/24
06:00
WBC Pending
Hgb Pending
Hct Pending
Plt Count Pending
Sodium Pending
Potassium Pending
Chloride Pending
Carbon Dioxide Pending
BUN Pending
Creatinine Pending
Glucose Pending
Calcium Pending
Total Bilirubin Pending
AST Pending
ALT Pending
Alkaline Phosphatase Pending
Vital Signs:
Vital Signs
Temp Pulse Resp BP Pulse Ox
97.4 F 53 22 133/47 98
04/01/24 03:30 04/01/24 06:45 04/01/24 06:45 04/01/24 04:00 04/01/24 00:47
I&O
03/31/24 04/01/24 04/02/24
06:59 06:59 06:59
Intake Total 240 / 240
Output Total 20 / 20
Balance 220 / 220
[2024-04-01] MEDS: NEPHROCAP 1 CAPSULE PO (08:54)
[2024-04-01] MEDS: VITAMIN D3 (cholecalciferol) 25 MCG PO (08:55)
[2024-04-01] MEDS: APRESOLINE PO (08:55)
[2024-04-01] MEDS: RENVELA 1600 MG PO ×3 (08:55→17:39)
[2024-04-01] MEDS: ASPIR LOW (ENTERIC COATED) 81 MG PO (08:55)
[2024-04-01] MEDS: COLACE 100 MG PO (08:55)
[2024-04-01] MEDS: ZYRTEC 10 MG PO (08:55)
[2024-04-01] MEDS: COZAAR PO (08:55)
[2024-04-01 09:07] LABS: % Basophils 0.4 % (0-2); % Eosinophils 6.5 % (0-6); % Immature Granulocytes 0.4 % (0-0.5); % Lymphocytes 11.5 % (20.5-51.1); % Monocytes 10.6 % (1.7-9.3); % Neutrophils 70.6 % (42.2-75.2); Absolute Eosinophils 0.3 10^3/uL (0-0.7); Absolute Lymphocytes 0.6 10^3/uL (1.2-3.4); Absolute Monocytes 0.5 10^3/uL (0.1-0.6); Absolute Neutrophils 3.4 10^3/uL (1.4-6.5); Hematocrit 26.6 % (39.0-52.0); Hemoglobin 8.3 g/dL (13.0-18.0); Mean Corp Hgb Conc. 31.2 g/dL (33.0-37.0); Mean Corpuscular Hgb 32.3 pg (27.0-31.0); Mean Corpuscular Volume 103.5 fL (80.0-94.0); Mean Platelet Volume 11.1 fL (7.4-10.4); Nucleated Red Blood Cells % 0 % (-); Platelet Count 67 10^3/uL (130-400); Red Blood Cell Count 2.57 10^6/uL (4.70-6.10); Red Cell Dist. Width 17.4 % (11.5-14.5); White Blood Cell Count 4.8 10^3/uL (4.8-10.8)
[2024-04-01 09:31] LABS: ALT (SGPT) 28 U/L (0-50); AST (SGOT) 29 U/L (17-59); Albumin 3.2 g/dl (3.5-5.0); Alkaline Phosphatase 63 U/L (38-126); Blood Urea Nitrogen 80 mg/dl (9-20); Calcium 8.3 mg/dl (8.4-10.2); Carbon Dioxide 28 mmol/L (22-30); Chloride 86 mmol/L (98-107); Estimated Creatinine Clearance 7 ml/min; Glucose 99 mg/dl (70-99); Potassium 3.5 mmol/L (3.5-5.1); Sodium 124 mmol/L (135-145); Total Bilirubin 0.6 mg/dl (0.2-1.3); Total Protein 4.9 g/dl (6.3-8.2); eGFR 6.79
--- NOTE | 2024-04-01 09:34 | W.PN.NEPH.PH ---
Today's Communication / Plan
-
PD orders provided
Will change diet annealed from 1.5 to 2.5% acute 4-hour exchanges 2 L volume
Assessment/Plan
-
Assessment
ESRD on PD
Status post loss of balance with fall
Anterior neck and chest wall ecchymosis
Hyponatremia (124)
Acute anemia (7.6)
Thrombocytopenia (47)
Hypertension
Hyperlipidemia
Coronary artery disease with history of stent
Hyperphosphatemia
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
Plan
transfuse prn, follow h/h, hgb at 8.3
PD orders provided. Will change to 2.5% solution, 2L dwell, 4hrs each as sodium remains low at 124, CHF on CXR,
Flowsheets reviewed positive balance noted after one exchange
Fluid restriction 1200 cc daily in setting of hyponatremia
Will provide Retacrit as needed for anemia (usually receives mycera 300 mcg at 2-week intervals last given on 03/27/2024)
Maintain phosphorus binders with meals re: hyperphosphatemia
Maintain oral antihypertensives atenolol hydralazine, and losartan for blood pressure control
I suspect falls may be related to hyponatremia in the setting of volume overload,will attempt to reduced EDW, chest x-ray notes mild CHF
-
-
Date of Service: April 01, 2024
CC / HPI / ROS
-
Chief Complaint:
End-stage renal disease
History of Present Illness:
ESRD on PD
Hemodynamically stable on antihypertensives
Hemoglobin stable at 8.3
Review of Systems:
Weight up
Essentially anuric
No fevers or chills
Ecchymosis along the neck and chest wall
Denies shortness of breath at rest
Labs
-
Labs:
WBC 4.8 10^3/uL (4.8-10.8) 04/01/24 08:42
RBC 2.57 10^6/uL (4.70-6.10) L 04/01/24 08:42
Hgb 8.3 g/dL (13.0-18.0) L 04/01/24 08:42
Hct 26.6 % (39.0-52.0) L 04/01/24 08:42
Plt Count 67 10^3/uL (130-400) L D 04/01/24 08:42
Sodium 124 mmol/L (135-145) L 04/01/24 08:42
Potassium 3.5 mmol/L (3.5-5.1) 04/01/24 08:42
Chloride 86 mmol/L (98-107) L 04/01/24 08:42
Carbon Dioxide 28 mmol/L (22-30) 04/01/24 08:42
BUN 80 mg/dl (9-20) H 04/01/24 08:42
Creatinine 7.3 mg/dL (0.7-1.3) H* 04/01/24 08:42
eGFR 6.79 04/01/24 08:42
Glucose 99 mg/dl (70-99) 04/01/24 08:42
Calcium 8.3 mg/dl (8.4-10.2) L 04/01/24 08:42
Phosphorus 7.0 mg/dl (2.5-4.5) H 03/31/24 14:09
Albumin 3.2 g/dl (3.5-5.0) L 04/01/24 08:42
Physical Exam
-
Vital Signs:
Vital Signs
Temp Pulse Resp BP Pulse Ox
97.4 F 53 22 133/47 98
04/01/24 07:30 04/01/24 08:55 04/01/24 06:45 04/01/24 04:00 04/01/24 08:58
Cardiovascular:: Regular rate and rhythm
Respiratory:: Bilateral: Coarse
Lung Excursion:: Normal
Abdomen:: Nontender and Soft
Bowel Sounds:: Normal
Extremity Edema:: +1: Bilateral:
Rojas Catheter: No
--- NOTE | 2024-04-01 12:17 | CM ---
CM following re: discharge planning.
Reviewed pt's chart, met with pt.
Pt is an 84 year old male, admitted with primary dx of Acute on chronic thrombocytopenia. On Peritoneal dialysis.
Pt reports he lives with spouse and a daughter with her family in a 2SH, 2 steps to enter, has 2 supportive children. Pt reports he ambulates with a walker, has a wheelchair, shower chair, spouse helps with Peritoneal dialysis. Pt repprts he is
known to Reena MALDONADO. pt expressed his desire to return back home with Reena MALDONADO and family support.
PT and OT will evaluate the pt to determine a level of care at discharge.
PCP: Pasha Manzanares
Pharmacy: [facility]
D/C plan: most likely home with Reena MALDONADO, resumptions of Peritoneal dialysis and family support.
CM will follow with discharge plan updates as hospitalization progresses
[2024-04-01] MEDS: RENVELA PO (12:18)
[2024-04-01] MEDS: FLOMAX 0.4 MG PO (17:38)
[2024-04-01] MEDS: PROSCAR 5 MG PO (17:39)
[2024-04-01] MEDS: TENORMIN PO (21:00)
[2024-04-01] MEDS: LIPITOR 40 MG PO (21:01)
--- NOTE | 2024-04-01 22:55 | PTCARENOTE ---
Rec'd pt as transfer from ICU. Pt drowsy, confused at times. Pt woke with episode of confusion and removed IV site, pulling at cardiac leads. Pt reoriented, new IV site placed by VAT. PD continues, see worklist documentation. Denies complaints at
this time. Pt removed 2L O2, dropped to 86% on RA, 2L O2 replaced. This RN able to titrate O2 to 1L, sat 100% at this time. This RN held atenolol d/t admin parameters. Call blair within reach. Bed alarm in place for pt safety. Care ongoing.
[2024-04-02] VITALS (27 sets, daily range): BP systolic 114–160; BP diastolic 42–139; PULSE 56; O2SAT 98; BMI 20.2
[2024-04-02] MEDS: PROTONIX 40 MG PO (05:54)
[2024-04-02 06:09] LABS: % Basophils 0.3 % (0-2); % Eosinophils 5.2 % (0-6); % Immature Granulocytes 0.5 % (0-0.5); % Monocytes 12.5 % (1.7-9.3); % Neutrophils 74.5 % (42.2-75.2); Absolute Eosinophils 0.3 10^3/uL (0-0.7); Absolute Lymphocytes 0.4 10^3/uL (1.2-3.4); Absolute Monocytes 0.8 10^3/uL (0.1-0.6); Absolute Neutrophils 4.5 10^3/uL (1.4-6.5); Mean Corpuscular Hgb 32.7 pg (27.0-31.0); Mean Platelet Volume 10.1 fL (7.4-10.4); Nucleated Red Blood Cells % 0 % (-); Platelet Count 68 10^3/uL (130-400); Red Blood Cell Count 2.45 10^6/uL (4.70-6.10); White Blood Cell Count 6.1 10^3/uL (4.8-10.8)
[2024-04-02 06:30] LABS: ALT (SGPT) 25 U/L (0-50); AST (SGOT) 23 U/L (17-59); Albumin 3.3 g/dl (3.5-5.0); Alkaline Phosphatase 66 U/L (38-126); Blood Urea Nitrogen 78 mg/dl (9-20); Carbon Dioxide 28 mmol/L (22-30); Chloride 87 mmol/L (98-107); Estimated Creatinine Clearance 7 ml/min; Glucose 116 mg/dl (70-99); Potassium 3.2 mmol/L (3.5-5.1); Sodium 127 mmol/L (135-145); Total Bilirubin 0.5 mg/dl (0.2-1.3); Total Protein 5.3 g/dl (6.3-8.2); eGFR 7.02
--- NOTE | 2024-04-02 06:37 | W.PN.HOSP.TC ---
Today's Communication/Plan
-
Patient wants to go home
Replace K
f/w nephrology recommendations
PT/ OT before discharge
Assessment / Plan
Assessment / Plan
Physical Exam
General: Comfortable and Conversant; No Pain, Fever or Chills
HEENT: NormoCephalic, Anicteric, Moist mucous membranes, PERRLA, [place] Conjunctivae, No Ptosis, Neck Nontender and Other (Multiple bruises to arms current bruise to anterior neck and upper chest from fall yesterday 03/30/2024)
Respiratory: No Wheezes, Rales or Rhonchi
Cardiac: S1/S2
GI: Soft, Non Tender, Non Distended, Normal Bowel Sounds. (Peritoneal dialysis catheter present)
Rectal: No bleeding
Musculoskeletal: No Edema
Skin: Warm, Dry and Other (Multiple bruises to arms current bruise to anterior neck and upper chest from fall yesterday 03/30/2024)
Neuro: AO x 3, No Motor Deficits, Nonfocal/grossly intact,; No Slurred Speech, Facial Droop, Tremors or Sedated
Psych: Calm
A/P
Acute on chronic anemia-macrocytic
#Hx chronic microcytic anemia
#Anemia of chronic renal disease
Patient did receive 1 unit PRBC and Procrit injection for hemoglobin 6.7 during December 2023 admission by nephro recommendation
Hgb 7.6 <8.4 on 01/13/2024 appears more near baseline
Had Mircera 300 mcg infusion q. 2 weeks most recent infusion was , 03/27/2024
-Type and screen
-Obtain blood consent will hold on any current transfusion but will monitor hemoglobin
#Mechanical fall 03/30/2024 onto back yet Neck/Upper chest contusion
#Chronic ambulatory dysfunction uses walker at baseline
-No difficulty swallowing, airway intact
-Monitor hemoglobin
-Consult PT/OT
CT head: No acute intracranial abnormality.
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
Mild to moderate atrophy which is slightly progressed since previous exam
CT facial bones: No evidence for facial bone fracture
CT cervical spine: No evidence of acute fracture or dislocation
Bilateral thyroid calcifications with nodule in the right lobe measuring up to 2.4 cm diameter consider further evaluation thyroid ultrasound
# Hypokalemia, replace
#Incidental thyroid nodule right lobe 2.4 cm-recommend outpatient thyroid ultrasound
#Acute on chronic thrombocytopenia
Plt 68, improving. Baseline 124 in 12/2024.
-Fall precautions
-Follows at [facility]
#Acute on chronic hyponatremia hypervolemic
NA 127 baseline appears 129�131
-Fluid restrict 1200 cc daily per nephrology
-Monitored BMP
#ESRD on peritoneal dialysis
Creat 7.4/bun 75 patient does dialysis in the evenings Peritoneal starts at 8:30 PM x 9 hours
Peritoneal dialysis catheter had repositioning done on 03/[address] Sapp at [place]
-Patient follows with [place] nephrology
-Had Mircera 300 mcg infusion q. 2 weeks most recent infusion was , 03/27/2024
-Consulted Nephro
-Continue Shivani-Aminata
#BPH
#Massive prostatomegaly
-continue finasteride and tamsulosin
-Follows with urology Dr Garvey at [place] no plans for any surgical intervention as of now
# Abnormal CT abdomen omentum December 2023 admit-however fluid cytology peritoneal was negative
-CT a/p incidentally showing omental , suspicious for metastatic disease fluid cytology peritoneal was negative
-CEA normal. CA 19-9 pending
-Hemato/oncology evaluated.
01/15/2024: Peritoneal fluid, paracentesis
Negative for malignant cells.
Occasional benign reactive mesothelial cells and macrophages present in a background of mixed
inflammatory cells.
#Episodes of delirium
History of delirium x 1 per many that responded to Risperdal
She reports he is no longer on this medication
#Essential hypertension - Uncontrolled
-Continue atenolol 25 mg at bedtime, hydralazine 75 mg daily, losartan 50 mg daily
#GERD
-Continue Protonix 40 mg daily
#Hyperlipidemia
- continue atorvastatin
# CAD with stent
- continue ASA 81 mg daily monitor hemoglobin
#Chronic sinus bradycardia
HR 62 this morning. On atenolol for hypertension, continue with holding parameter
DVT prophylaxis
SCDs given platelets are 46
Full code per patient with Carla present at bedside
Total dc time spent to see the patient, examine the patient, review data and lab results, discuss discharge treatment plan with patient and nursing staff around 65 minutes
Anticipated Discharge: Today
Subjective/Interval History
-
Date of Service: April 02, 2024
No chest pain or sob or abdominal pain
Objective Data
-
Labs:
Laboratory Results
04/02/24
05:23
WBC 6.1
Hgb 8.0 L
Hct 25.0 L
Plt Count 68 L
Sodium 127 L
Potassium 3.2 L
Chloride 87 L
Carbon Dioxide 28
BUN 78 H
Creatinine 7.1 H*
Glucose 116 H
Calcium 8.0 L
Total Bilirubin 0.5
AST 23
ALT 25
Alkaline Phosphatase 66
Vital Signs:
Vital Signs
Temp Pulse Resp BP Pulse Ox
97.6 F 61 19 130/72 96
04/02/24 02:55 04/02/24 06:00 04/02/24 05:00 04/02/24 06:00 04/02/24 06:00
I&O
03/31/24 04/01/24 04/02/24
06:59 06:59 06:59
Intake Total 240 / 240 1200 / 1200
Output Total 20 / 20 1100 / 1100
Balance 220 / 100 / 100
[2024-04-02] MEDS: RENVELA 1600 MG PO ×3 (08:16→17:15)
[2024-04-02] MEDS: KCL 40 MEQ PO (08:16)
[2024-04-02] MEDS: NEPHROCAP 1 CAPSULE PO (10:08)
[2024-04-02] MEDS: ASPIR LOW (ENTERIC COATED) 81 MG PO (10:08)
[2024-04-02] MEDS: COZAAR PO (10:09)
[2024-04-02] MEDS: COLACE 100 MG PO (10:09)
[2024-04-02] MEDS: VITAMIN D3 (cholecalciferol) 25 MCG PO (10:10)
[2024-04-02] MEDS: ZYRTEC 10 MG PO (10:10)
--- NOTE | 2024-04-02 13:26 | W.PN.NEPH.PH ---
Today's Communication / Plan
-
cont PD
Assessment/Plan
-
Assessment
ESRD on PD
Status post loss of balance with fall
Anterior neck and chest wall ecchymosis
Hyponatremia (124)
Acute anemia (7.6)
Thrombocytopenia (47)
Hypertension
Hyperlipidemia
Coronary artery disease with history of stent
Hyperphosphatemia
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
Plan
COnt PD all 2.5% solution, 2L dwell, 4hrs still
hypervolemic hyponatremia improving slowly and still with edema
Flowsheets reviewed net neg balance
Fluid restriction 1200 cc daily in setting of hyponatremia
Will provide Retacrit today as needed for anemia (usually receives mycera 300 mcg at 2-week intervals last given on 03/27/2024)
Maintain phosphorus binders with meals re: hyperphosphatemia
Maintain oral antihypertensives atenolol hydralazine, and losartan for blood pressure control
replace k
d/c plan
-
-
Date of Service: April 02, 2024
CC / HPI / ROS
-
Chief Complaint:
End-stage renal disease
History of Present Illness:
ESRD on PD
Hemodynamically stable on antihypertensives
Hemoglobin stable at 8
Review of Systems:
Weight down
Essentially anuric
No fevers or chills
Ecchymosis along the neck and chest wall
Denies shortness of breath at rest
Labs
-
Labs:
WBC 6.1 10^3/uL (4.8-10.8) 04/02/24 05:23
RBC 2.45 10^6/uL (4.70-6.10) L 04/02/24 05:23
Hgb 8.0 g/dL (13.0-18.0) L 04/02/24 05:23
Hct 25.0 % (39.0-52.0) L 04/02/24 05:23
Plt Count 68 10^3/uL (130-400) L 04/02/24 05:23
Sodium 127 mmol/L (135-145) L 04/02/24 05:23
Potassium 3.2 mmol/L (3.5-5.1) L 04/02/24 05:23
Chloride 87 mmol/L (98-107) L 04/02/24 05:23
Carbon Dioxide 28 mmol/L (22-30) 04/02/24 05:23
BUN 78 mg/dl (9-20) H 04/02/24 05:23
Creatinine 7.1 mg/dL (0.7-1.3) H* 04/02/24 05:23
eGFR 7.02 04/02/24 05:23
Glucose 116 mg/dl (70-99) H 04/02/24 05:23
Calcium 8.0 mg/dl (8.4-10.2) L 04/02/24 05:23
Phosphorus 7.0 mg/dl (2.5-4.5) H 03/31/24 14:09
Albumin 3.3 g/dl (3.5-5.0) L 04/02/24 05:23
Physical Exam
-
Vital Signs:
Vital Signs
Temp Pulse Resp BP Pulse Ox
97.4 F 55 18 143/59 100
04/02/24 11:26 04/02/24 11:00 04/02/24 11:00 04/02/24 11:00 04/02/24 11:00
Cardiovascular:: Regular rate and rhythm
Lung Excursion:: Normal (clear anteriorly )
Abdomen:: Nontender and Soft
Bowel Sounds:: Normal
Extremity Edema:: +1: Bilateral:
Rojas Catheter: No
[2024-04-02] MEDS: APRESOLINE PO (14:00)
[2024-04-02] MEDS: RETACRIT 10000 UNITS SC (16:15)
[2024-04-02] MEDS: PROSCAR 5 MG PO (17:14)
[2024-04-02] MEDS: FLOMAX 0.4 MG PO (17:14)
--- NOTE | 2024-04-02 19:41 | PTCARENOTE ---
Patient out of bed to chair with assistance x1 and rolling walker. Patient fall risk bed/chair alarm in use. Patient AAOX2-3. He can be confused to time and he is MASHPEE bilaterally, wears hearing aides. PD patient with Q4HR exchanges managed by
Nephrology. Tolerating without difficulty. Skin with multiple areas of bruising from falls. Patient denies any pain or discomfort.
[2024-04-02] MEDS: LIPITOR 40 MG PO (21:03)
[2024-04-02] MEDS: TENORMIN PO (21:04)
[2024-04-03] VITALS (13 sets, daily range): BP systolic 109–146; BP diastolic 50–89; BMI 21.5
--- NOTE | 2024-04-03 00:59 | PTCARENOTE ---
Assumed care of Pt from previous RN. Pt SQUAXIN B/L aides at bedside. Pt can answer name and . bed alarm in use due to intermittent forgetfulness. PD implemented per orders. Pt using urinal. Assessment as document
[2024-04-03] MEDS: PROTONIX 40 MG PO (05:45)
--- NOTE | 2024-04-03 06:37 | W.PN.HOSP.TC ---
Assessment / Plan
Assessment / Plan
Physical Exam
General: Comfortable and Conversant; No Pain, Fever or Chills
HEENT: NormoCephalic, Anicteric, Moist mucous membranes, PERRLA, [place] Conjunctivae, No Ptosis, Neck Nontender and Other (Multiple bruises to arms current bruise to anterior neck and upper chest from fall yesterday 03/30/2024)
Respiratory: No Wheezes, Rales or Rhonchi
Cardiac: S1/S2
GI: Soft, Non Tender, Non Distended, Normal Bowel Sounds. (Peritoneal dialysis catheter present)
Rectal: No bleeding
Musculoskeletal: No Edema
Skin: Warm, Dry and Other (Multiple bruises to arms current bruise to anterior neck and upper chest from fall yesterday 03/30/2024)
Neuro: AO x 3, No Motor Deficits, Nonfocal/grossly intact,; No Slurred Speech, Facial Droop, Tremors or Sedated
Psych: Calm
A/P
Acute on chronic anemia-macrocytic
#Hx chronic microcytic anemia
#Anemia of chronic renal disease
Patient did receive 1 unit PRBC and Procrit injection for hemoglobin 6.7 during December 2023 admission by nephro recommendation
Hgb 7.6 <8.4 on 01/13/2024 appears more near baseline
Had Mircera 300 mcg infusion q. 2 weeks most recent infusion was , 03/27/2024
-Type and screen
-Obtain blood consent will hold on any current transfusion but will monitor hemoglobin
#Mechanical fall 03/30/2024 onto back yet Neck/Upper chest contusion
#Chronic ambulatory dysfunction uses walker at baseline
-No difficulty swallowing, airway intact
-Monitor hemoglobin
-Consult PT/OT
CT head: No acute intracranial abnormality.
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
Mild to moderate atrophy which is slightly progressed since previous exam
CT facial bones: No evidence for facial bone fracture
CT cervical spine: No evidence of acute fracture or dislocation
Bilateral thyroid calcifications with nodule in the right lobe measuring up to 2.4 cm diameter consider further evaluation thyroid ultrasound
# Hypokalemia, replace
#Incidental thyroid nodule right lobe 2.4 cm-recommend outpatient thyroid ultrasound
#Acute on chronic thrombocytopenia
Plt 68, improving. Baseline 124 in 12/2024.
-Fall precautions
-Follows at [facility]
#Acute on chronic hyponatremia hypervolemic
NA 127 baseline appears 129�131
-Fluid restrict 1200 cc daily per nephrology
-Monitored BMP
#ESRD on peritoneal dialysis
Creat 7.4/bun 75 patient does dialysis in the evenings Peritoneal starts at 8:30 PM x 9 hours
Peritoneal dialysis catheter had repositioning done on 03/[address] Sapp at [place]
-Patient follows with [place] nephrology
-Had Mircera 300 mcg infusion q. 2 weeks most recent infusion was , 03/27/2024
-Consulted Nephro
-Continue Shivani-Aminata
#BPH
#Massive prostatomegaly
-continue finasteride and tamsulosin
-Follows with urology Dr Garvey at [place] no plans for any surgical intervention as of now
# Abnormal CT abdomen omentum December 2023 admit-however fluid cytology peritoneal was negative
-CT a/p incidentally showing omental , suspicious for metastatic disease fluid cytology peritoneal was negative
-CEA normal. CA 19-9 pending
-Hemato/oncology evaluated.
01/15/2024: Peritoneal fluid, paracentesis
Negative for malignant cells.
Occasional benign reactive mesothelial cells and macrophages present in a background of mixed
inflammatory cells.
#Episodes of delirium
History of delirium x 1 per many that responded to Risperdal
She reports he is no longer on this medication
#Essential hypertension - Uncontrolled
-Continue atenolol 25 mg at bedtime, hydralazine 75 mg daily, losartan 50 mg daily
#GERD
-Continue Protonix 40 mg daily
#Hyperlipidemia
- continue atorvastatin
# CAD with stent
- continue ASA 81 mg daily monitor hemoglobin
#Chronic sinus bradycardia
HR 62 this morning. On atenolol for hypertension, continue with holding parameter
DVT prophylaxis
SCDs given platelets are 46
Full code per patient with Carla present at bedside
Total dc time spent to see the patient, examine the patient, review data and lab results, discuss discharge treatment plan with patient and nursing staff around 65 minutes
Subjective/Interval History
-
Date of Service: April 03, 2024
Objective Data
-
Labs:
Laboratory Results
04/03/24
05:51
Sodium Pending
Potassium Pending
Chloride Pending
Carbon Dioxide Pending
BUN Pending
Creatinine Pending
Glucose Pending
Calcium Pending
Total Bilirubin Pending
AST Pending
ALT Pending
Alkaline Phosphatase Pending
Vital Signs:
Vital Signs
Temp Pulse Resp BP Pulse Ox
97.4 F 58 17 128/84 100
04/03/24 03:37 04/03/24 06:00 04/03/24 06:00 04/03/24 03:00 04/03/24 06:00
I&O
04/01/24 04/02/24 04/03/24
06:59 06:59 06:59
Intake Total 240 / 240 1200 / 1200 1080 / 1080
Output Total 20 / 20 1100 / 1100 1775 / 1775
Balance 220 / 220 100 / 100 -695 / -695
--- NOTE | 2024-04-03 06:38 | W.PN.HOSP.TC ---
Today's Communication/Plan
-
discharge on Sunday
Assessment / Plan
Assessment / Plan
Physical Exam
General: Comfortable and Conversant; No Pain, Fever or Chills
HEENT: NormoCephalic, Anicteric, Moist mucous membranes, PERRLA, [place] Conjunctivae, No Ptosis, Neck Nontender and Other (Multiple bruises to arms current bruise to anterior neck and upper chest from fall yesterday 03/30/2024)
Respiratory: No Wheezes, Rales or Rhonchi
Cardiac: S1/S2
GI: Soft, Non Tender, Non Distended, Normal Bowel Sounds. (Peritoneal dialysis catheter present)
Rectal: No bleeding
Musculoskeletal: No Edema
Skin: Warm, Dry and Other (Multiple bruises to arms current bruise to anterior neck and upper chest from fall yesterday 03/30/2024)
Neuro: AO x 3, No Motor Deficits, Nonfocal/grossly intact,; No Slurred Speech, Facial Droop, Tremors or Sedated
Psych: Calm
A/P
Acute on chronic anemia-macrocytic
#Hx chronic microcytic anemia
#Anemia of chronic renal disease
Patient did receive 1 unit PRBC and Procrit injection for hemoglobin 6.7 during December 2023 admission by nephro recommendation
Hgb 7.6 <8.4 on 01/13/2024 appears more near baseline
Had Mircera 300 mcg infusion q. 2 weeks most recent infusion was , 03/27/2024
-Type and screen
-Obtain blood consent will hold on any current transfusion but will monitor hemoglobin
#Mechanical fall 03/30/2024 onto back yet Neck/Upper chest contusion
#Chronic ambulatory dysfunction uses walker at baseline
-No difficulty swallowing, airway intact
-Monitor hemoglobin
-Consult PT/OT
CT head: No acute intracranial abnormality.
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
Mild to moderate atrophy which is slightly progressed since previous exam
CT facial bones: No evidence for facial bone fracture
CT cervical spine: No evidence of acute fracture or dislocation
Bilateral thyroid calcifications with nodule in the right lobe measuring up to 2.4 cm diameter consider further evaluation thyroid ultrasound
# Hypokalemia, replaced
#Incidental thyroid nodule right lobe 2.4 cm-recommend outpatient thyroid ultrasound
#Acute on chronic thrombocytopenia
Plt 68, improving. Baseline 124 in 12/2024.
-Fall precautions
-Follows at [facility]
#Acute on chronic hyponatremia hypervolemic
NA 126 baseline appears 129�131
-Fluid restrict 1200 cc daily per nephrology
-Monitored BMP
#ESRD on peritoneal dialysis
Creat 7.4/bun 75 patient does dialysis in the evenings Peritoneal starts at 8:30 PM x 9 hours
Peritoneal dialysis catheter had repositioning done on 03/[address] Sapp at [place]
-Patient follows with [place] nephrology
-Had Mircera 300 mcg infusion q. 2 weeks most recent infusion was , 03/27/2024
-Consulted Nephro
-Continue Shivani-Aminata
#BPH
#Massive prostatomegaly
-continue finasteride and tamsulosin
-Follows with urology Dr Garvey at [place] no plans for any surgical intervention as of now
# Abnormal CT abdomen omentum December 2023 admit-however fluid cytology peritoneal was negative
-CT a/p incidentally showing omental , suspicious for metastatic disease fluid cytology peritoneal was negative
-CEA normal. CA 19-9 pending
-Hemato/oncology evaluated.
01/15/2024: Peritoneal fluid, paracentesis
Negative for malignant cells.
Occasional benign reactive mesothelial cells and macrophages present in a background of mixed
inflammatory cells.
#Episodes of delirium
History of delirium x 1 per many that responded to Risperdal
She reports he is no longer on this medication
#Essential hypertension - Uncontrolled
-Continue atenolol 25 mg at bedtime, hydralazine 75 mg daily, losartan 50 mg daily
#GERD
-Continue Protonix 40 mg daily
#Hyperlipidemia
- continue atorvastatin
# CAD with stent
- continue ASA 81 mg daily monitor hemoglobin
#Chronic sinus bradycardia
HR 62 this morning. On atenolol for hypertension, continue with holding parameter
DVT prophylaxis
SCDs given platelets are 46
Full code per patient with Carla present at bedside
Total time spent to see the patient, examine the patient, review data and lab results, discuss treatment plan with patient, his and nursing staff around 55 minutes
Anticipated Discharge: Within 24 hours
Subjective/Interval History
-
Date of Service: April 03, 2024
No chest pain
No sob
Objective Data
-
Labs:
Laboratory Results
04/03/24
05:51
Sodium Pending
Potassium Pending
Chloride Pending
Carbon Dioxide Pending
BUN Pending
Creatinine Pending
Glucose Pending
Calcium Pending
Total Bilirubin Pending
AST Pending
ALT Pending
Alkaline Phosphatase Pending
Vital Signs:
Vital Signs
Temp Pulse Resp BP Pulse Ox
97.4 F 58 17 128/84 100
04/03/24 03:37 04/03/24 06:00 04/03/24 06:00 04/03/24 03:00 04/03/24 06:00
I&O
04/01/24 04/02/24 04/03/24
06:59 06:59 06:59
Intake Total 240 / 240 1200 / 1200 1080 / 1080
Output Total 20 / 20 1100 / 1100 1775 / 1775
Balance 220 / 220 100 / 100 -695 / -695
[2024-04-03 06:41] LABS: ALT (SGPT) 24 U/L (0-50); AST (SGOT) 20 U/L (17-59); Albumin 2.8 g/dl (3.5-5.0); Alkaline Phosphatase 62 U/L (38-126); Blood Urea Nitrogen 75 mg/dl (9-20); Calcium 8.3 mg/dl (8.4-10.2); Carbon Dioxide 30 mmol/L (22-30); Chloride 87 mmol/L (98-107); Estimated Creatinine Clearance 8 ml/min; Glucose 112 mg/dl (70-99); Potassium 3.7 mmol/L (3.5-5.1); Sodium 126 mmol/L (135-145); Total Bilirubin 0.6 mg/dl (0.2-1.3); Total Protein 4.6 g/dl (6.3-8.2); eGFR 7.66
[2024-04-03] MEDS: RENVELA 1600 MG PO ×3 (07:55→18:13)
[2024-04-03] MEDS: VITAMIN D3 (cholecalciferol) 25 MCG PO (07:55)
[2024-04-03] MEDS: NEPHROCAP 1 CAPSULE PO (07:55)
[2024-04-03] MEDS: COZAAR 50 MG PO (07:56)
[2024-04-03] MEDS: COLACE 100 MG PO (07:56)
[2024-04-03] MEDS: ASPIR LOW (ENTERIC COATED) 81 MG PO (07:56)
[2024-04-03] MEDS: APRESOLINE 25 MG PO (07:57)
[2024-04-03] MEDS: ZYRTEC 10 MG PO (07:57)
[2024-04-03] MEDS: TYLENOL 650 MG PO (08:18)
--- NOTE | 2024-04-03 12:10 | W.PN.NEPH.PH ---
Today's Communication / Plan
-
cotn PD same
Assessment/Plan
-
Assessment
ESRD on PD
Status post loss of balance with fall
Anterior neck and chest wall ecchymosis
Hyponatremia (124)
Acute anemia (7.6)
Thrombocytopenia (47)
Hypertension
Hyperlipidemia
Coronary artery disease with history of stent
Hyperphosphatemia
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
Plan
COnt PD all 2.5% solution, 2L dwell, 4hrs still
hypervolemic hyponatremia no change and still with edema
Flowsheets reviewed net neg balance
Fluid restriction 1200 cc daily in setting of hyponatremia
s/p Retacrit 2/5 for anemia (usually receives mycera 300 mcg at 2-week intervals last given on 03/27/2024)
Maintain phosphorus binders with meals re: hyperphosphatemia
Maintain oral antihypertensives atenolol hydralazine, and losartan for blood pressure control
d/c plan
-
-
Date of Service: April 03, 2024
CC / HPI / ROS
-
Chief Complaint:
End-stage renal disease
History of Present Illness:
ESRD on PD
Hemodynamically stable on antihypertensives
Hemoglobin stable at 8
sodium still no change at 126, wts not accurate, overall decreasing
Review of Systems:
Essentially anuric
No fevers or chills
Ecchymosis along the neck and chest wall
sound asleep and unable to wake him up
Labs
-
Labs:
WBC 6.1 10^3/uL (4.8-10.8) 04/02/24 05:23
RBC 2.45 10^6/uL (4.70-6.10) L 04/02/24 05:23
Hgb 8.0 g/dL (13.0-18.0) L 04/02/24 05:23
Hct 25.0 % (39.0-52.0) L 04/02/24 05:23
Plt Count 68 10^3/uL (130-400) L 04/02/24 05:23
Sodium 126 mmol/L (135-145) L 04/03/24 05:51
Potassium 3.7 mmol/L (3.5-5.1) 04/03/24 05:51
Chloride 87 mmol/L (98-107) L 04/03/24 05:51
Carbon Dioxide 30 mmol/L (22-30) 04/03/24 05:51
BUN 75 mg/dl (9-20) H 04/03/24 05:51
Creatinine 6.6 mg/dL (0.7-1.3) H* 04/03/24 05:51
eGFR 7.66 04/03/24 05:51
Glucose 112 mg/dl (70-99) H 04/03/24 05:51
Calcium 8.3 mg/dl (8.4-10.2) L 04/03/24 05:51
Phosphorus 7.0 mg/dl (2.5-4.5) H 03/31/24 14:09
Albumin 2.8 g/dl (3.5-5.0) L 04/03/24 05:51
Physical Exam
-
Vital Signs:
Vital Signs
Temp Pulse Resp BP Pulse Ox
97.8 F 62 17 133/64 96
04/03/24 11:24 04/03/24 07:57 04/03/24 06:00 04/03/24 07:57 04/03/24 08:21
Cardiovascular:: Regular rate and rhythm
Lung Excursion:: Normal (clear anteriorly )
Abdomen:: Nontender and Soft
Bowel Sounds:: Normal
Extremity Edema:: +1: Bilateral:
Rojas Catheter: No
--- NOTE | 2024-04-03 16:56 | CM ---
Patient with Hx ESRD on peritoneal dialysis, mechanical fall 2/2 here with anemia, thrombocytopenia, hyponatremia. O2 2L. PT/OT recommends HH.
Patient was accepted by [facility] (fax [phone]).
Spoke with Carla, patient's ; provided update that [facility] will see him again at home.
Plan watch for home O2 needs.
Plan home with [facility].
[2024-04-03] MEDS: FLOMAX 0.4 MG PO (18:13)
[2024-04-03] MEDS: PROSCAR 5 MG PO (18:13)
--- NOTE | 2024-04-03 19:58 | PTCARENOTE ---
Pt received from previous RN. pt alert and arousable. pleasant and agreeable to care. on 1L o2, satting 98%. PD implemented as ordered. Assessment as documented. call light in reach.
[2024-04-03] MEDS: LIPITOR 40 MG PO (22:00)
[2024-04-03] MEDS: TENORMIN PO (22:01)
--- NOTE | 2024-04-03 23:50 | PTCARENOTE ---
this RN entered room to find pt gown covered in blood and iv sit sitting on bedside table. site inspected to ensure no more bleeding was present, cleaned and dressed. Pt cleaned as well with bath and bed change. BUILDING DISMANTLER made aware of Pt removing another
IV site.
[2024-04-04] VITALS (24 sets, daily range): BP systolic 95–169; BP diastolic 42–92; PULSE 56; O2SAT 97; BMI 21.4
[2024-04-04 04:57] LABS: ALT (SGPT) 23 U/L (0-50); AST (SGOT) 24 U/L (17-59); Albumin 2.7 g/dl (3.5-5.0); Alkaline Phosphatase 62 U/L (38-126); Blood Urea Nitrogen 76 mg/dl (9-20); Calcium 8.3 mg/dl (8.4-10.2); Carbon Dioxide 33 mmol/L (22-30); Chloride 89 mmol/L (98-107); Estimated Creatinine Clearance 8 ml/min; Glucose 102 mg/dl (70-99); Potassium 3.7 mmol/L (3.5-5.1); Sodium 128 mmol/L (135-145); Total Bilirubin 0.4 mg/dl (0.2-1.3); Total Protein 4.6 g/dl (6.3-8.2); eGFR 7.66
[2024-04-04] MEDS: PROTONIX 40 MG PO (05:08)
--- NOTE | 2024-04-04 06:53 | W.PN.HOSP.TC ---
Today's Communication/Plan
-
DC planning
Assessment / Plan
Assessment / Plan
Physical Exam
General: Comfortable and Conversant; No Pain, Fever or Chills
HEENT: NormoCephalic, Anicteric, Moist mucous membranes, PERRLA, [place] Conjunctivae, No Ptosis, Neck Nontender and Other (Multiple bruises to arms current bruise to anterior neck and upper chest from fall yesterday 03/30/2024)
Respiratory: No Wheezes, Rales or Rhonchi
Cardiac: S1/S2
GI: Soft, Non Tender, Non Distended, Normal Bowel Sounds. (Peritoneal dialysis catheter present)
Rectal: No bleeding
Musculoskeletal: No Edema
Skin: Warm, Dry and Other (Multiple bruises to arms current bruise to anterior neck and upper chest from fall yesterday 03/30/2024)
Neuro: AO to self and surroundings, he follows commands. No Slurred Speech, Facial Droop, Tremors or Sedated
Psych: Calm
A/P
Acute on chronic anemia-macrocytic
#Hx chronic microcytic anemia
#Anemia of chronic renal disease
Patient did receive 1 unit PRBC and Procrit injection for hemoglobin 6.7 during December 2023 admission by nephro recommendation
Hgb 7.6 <8.4 on 01/13/2024 appears more near baseline
Had Mircera 300 mcg infusion q. 2 weeks most recent infusion was , 03/27/2024
-Type and screen
-Obtain blood consent will hold on any current transfusion but will monitor hemoglobin
#Mechanical fall 03/30/2024 onto back yet Neck/Upper chest contusion
#Chronic ambulatory dysfunction uses walker at baseline
-No difficulty swallowing, airway intact
-Monitor hemoglobin
-Consult PT/OT
CT head: No acute intracranial abnormality.
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
Mild to moderate atrophy which is slightly progressed since previous exam
CT facial bones: No evidence for facial bone fracture
CT cervical spine: No evidence of acute fracture or dislocation
Bilateral thyroid calcifications with nodule in the right lobe measuring up to 2.4 cm diameter consider further evaluation thyroid ultrasound
# Hypokalemia, replaced
#Incidental thyroid nodule right lobe 2.4 cm-recommend outpatient thyroid ultrasound
#Acute on chronic thrombocytopenia
Plt 68, improving. Baseline 124 in 12/2024.
-Fall precautions
-Follows at [facility]
#Acute on chronic hyponatremia hypervolemic
NA 126 baseline appears 129�131
-Fluid restrict 1200 cc daily per nephrology
-Monitored BMP
#ESRD on peritoneal dialysis
Creat 7.4/bun 75 patient does dialysis in the evenings Peritoneal starts at 8:30 PM x 9 hours
Peritoneal dialysis catheter had repositioning done on 03/[address] Sapp at [place]
-Patient follows with [place] nephrology
-Had Mircera 300 mcg infusion q. 2 weeks most recent infusion was , 03/27/2024
-Consulted Nephro
-Continue Shivani-Aminata
#BPH
#Massive prostatomegaly
-continue finasteride and tamsulosin
-Follows with urology Dr Garvey at [place] no plans for any surgical intervention as of now
# Abnormal CT abdomen omentum December 2023 admit-however fluid cytology peritoneal was negative
-CT a/p incidentally showing omental , suspicious for metastatic disease fluid cytology peritoneal was negative
-CEA normal. CA 19-9 pending
-Hemato/oncology evaluated.
01/15/2024: Peritoneal fluid, paracentesis
Negative for malignant cells.
Occasional benign reactive mesothelial cells and macrophages present in a background of mixed
inflammatory cells.
#Episodes of delirium
History of delirium x 1 per many that responded to Risperdal
She reports he is no longer on this medication
#Essential hypertension - Uncontrolled
-Continue atenolol 25 mg at bedtime, hydralazine 75 mg daily, losartan 50 mg daily
#GERD
-Continue Protonix 40 mg daily
#Hyperlipidemia
- continue atorvastatin
# CAD with stent
- continue ASA 81 mg daily monitor hemoglobin
#Chronic sinus bradycardia
HR 62 this morning. On atenolol for hypertension, continue with holding parameter
DVT prophylaxis
SCDs given platelets are 46
Full code per patient with Carla present at bedside
Total time spent to see the patient, examine the patient, review data and lab results, discuss treatment plan with patient, his and nursing staff around 45 minutes
Anticipated Discharge: Today
Subjective/Interval History
-
Date of Service: April 04, 2024
No complaints
Anxious to go home
Objective Data
-
Labs:
Laboratory Results
04/04/24
04:03
Sodium 128 L
Potassium 3.7
Chloride 89 L
Carbon Dioxide 33 H
BUN 76 H
Creatinine 6.6 H*
Glucose 102 H
Calcium 8.3 L
Total Bilirubin 0.4
AST 24
ALT 23
Alkaline Phosphatase 62
Vital Signs:
Vital Signs
Temp Pulse Resp BP Pulse Ox
98.6 F 55 19 142/64 98
04/04/24 02:55 04/04/24 06:00 04/04/24 06:00 04/04/24 06:00 04/04/24 05:00
I&O
04/02/24 04/03/24 04/04/24
06:59 06:59 06:59
Intake Total 1200 / 1200 1080 / 1080 720 / 720
Output Total 1100 / 1100 1775 / 1775 2100 / 2100
Balance 100 / 100 -695 / -695 -1380 / -1380
--- NOTE | 2024-04-04 08:11 | W.PN.NEPH.PH ---
Today's Communication / Plan
-
PD orders provided
Assessment/Plan
-
Assessment
ESRD on PD
Status post loss of balance with fall
Anterior neck and chest wall ecchymosis
Hyponatremia (124)
Acute anemia (7.6)
Thrombocytopenia (47)
Hypertension
Hyperlipidemia
Coronary artery disease with history of stent
Hyperphosphatemia
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
Plan
continue PD all 2.5% solution, 2L dwell, 4hrs still
sodium up to 128
hypervolemic hyponatremia no change and still with edema
Flowsheets reviewed net neg balance
Fluid restriction daily in setting of hyponatremia
s/p Retacrit 2/5 for anemia (usually receives mycera 300 mcg at 2-week intervals last given on 03/27/2024)
Maintain phosphorus binders with meals re: hyperphosphatemia
Maintain oral antihypertensives atenolol hydralazine, and losartan for blood pressure control
d/c plan
-
-
Date of Service: April 04, 2024
CC / HPI / ROS
-
Chief Complaint:
End-stage renal disease
History of Present Illness:
ESRD on PD
Hemodynamically stable on antihypertensives
Hemoglobin stable at 8
sodium still no change at 126, wts not accurate, overall decreasing
Review of Systems:
Essentially anuric
No fevers or chills
Ecchymosis along the neck and chest wall
weights down
Labs
-
Labs:
WBC 6.1 10^3/uL (4.8-10.8) 04/02/24 05:23
RBC 2.45 10^6/uL (4.70-6.10) L 04/02/24 05:23
Hgb 8.0 g/dL (13.0-18.0) L 04/02/24 05:23
Hct 25.0 % (39.0-52.0) L 04/02/24 05:23
Plt Count 68 10^3/uL (130-400) L 04/02/24 05:23
Sodium 128 mmol/L (135-145) L 04/04/24 04:03
Potassium 3.7 mmol/L (3.5-5.1) 04/04/24 04:03
Chloride 89 mmol/L (98-107) L 04/04/24 04:03
Carbon Dioxide 33 mmol/L (22-30) H 04/04/24 04:03
BUN 76 mg/dl (9-20) H 04/04/24 04:03
Creatinine 6.6 mg/dL (0.7-1.3) H* 04/04/24 04:03
eGFR 7.66 04/04/24 04:03
Glucose 102 mg/dl (70-99) H 04/04/24 04:03
Calcium 8.3 mg/dl (8.4-10.2) L 04/04/24 04:03
Phosphorus 7.0 mg/dl (2.5-4.5) H 03/31/24 14:09
Albumin 2.7 g/dl (3.5-5.0) L 04/04/24 04:03
Physical Exam
-
Vital Signs:
Vital Signs
Temp Pulse Resp BP Pulse Ox
98.6 F 55 19 142/64 98
04/04/24 02:55 04/04/24 06:00 04/04/24 06:00 04/04/24 06:00 04/04/24 05:00
Cardiovascular:: Irregular rate and rhythm
Lung Excursion:: Normal (clear anteriorly )
Abdomen:: Nontender and Soft
Bowel Sounds:: Normal
Extremity Edema:: +1: Bilateral: (trace)
Rojas Catheter: No
[2024-04-04] MEDS: NEPHROCAP 1 CAPSULE PO (08:39)
[2024-04-04] MEDS: VITAMIN D3 (cholecalciferol) 25 MCG PO (08:39)
[2024-04-04] MEDS: RENVELA 1600 MG PO ×3 (08:39→17:27)
[2024-04-04] MEDS: ASPIR LOW (ENTERIC COATED) 81 MG PO (08:40)
[2024-04-04] MEDS: COLACE 100 MG PO (08:40)
[2024-04-04] MEDS: ZYRTEC 10 MG PO (08:40)
[2024-04-04] MEDS: COZAAR PO (08:41)
[2024-04-04] MEDS: APRESOLINE PO (08:41)
--- NOTE | 2024-04-04 10:59 | CM ---
Addendum entered by Nydia Michael 04/04/24 13:28:
CM sent SNF referrals and called [facility], [facility], [facility], [facility]; none of these sites support Peritoneal Dialysis (PD)
Also called [facility] and [facility]; neither sites support PD
Left a voice mail for Mary Alice Dong to call CM with bed availability and ability to support PD
Addendum entered by Nydia Michael 04/04/24 11:23:
IMM benefit form explained to patient; form signed @ 1120
Original Note:
Per Attending, patient is stable for discharge
Met with patient at bedside and spoke with his , Carla, via phone
CM explained that PT recommended short term stay @ SNF for Rehab. Patient prefers to go home; is agreeable to SNF
Patient needs a facility that can support Peritoneal Dialysis treatments
List of sites left at patient's bedside for to review and identify preferences for referral when she visits today
Plan: discharge to SNF vs. Home w/ Home Health services
--- NOTE | 2024-04-04 15:07 | PTCARENOTE ---
Assessment and care as documented. OOB to chair throughout the day. PD as documented. at bedside, updated on POC. Pt's brought in home med, barcoded by pharmacy. Able to make needs known, call blair within reach. Bed alarm in place for
safety.
--- NOTE | 2024-04-04 15:55 | PN.CDI ---
Addendum entered and electronically signed by Melisa Sears MD 04/04/24 16:11:
DTI (Deep tissue injury) coccyx pressure injury, POA.'
Original Note:
CDI
- -
CDI:
Physician Documentation Request
Admit Date: 03/31/24 18:20
Dear Doctor Renu,
Patient admitted with acute on chronic anemia.
2/3 Nursing skin assessment, 'DTI (Deep tissue injury) coccyx pressure injury, POA.'
Physician documentation of the type and location of wounds is required for compliant documentation. Based on the above clinical findings and your assessment, please provide the following in your progress note:
Type (etiology) of ulcer/wound:
- Pressure (decubitus) ulcer
- Other
- Unable to determine
For a pressure ulcer, please also include the stage* of the ulcer:
- Stage 1 - Skin intact, non-blanchable redness
- Stage 2 - Partial thickness loss of dermis, includes intact or open blister
- Stage 3 - Full thickness tissue not including bone, tendon or muscle
- Stage 4 - Full thickness tissue loss, including exposed bone, tendon or muscle
- Unstageable - Full thickness loss in which the base of the ulcer is covered by slough (yellow, boyle, pedroza, green or brown) and/or eschar (boyle, brown or black) in the wound bed.
- Unable to determine
Use of terms such as suspected, likely, concern for, or probable (associated with a specific diagnosis that is being evaluated, monitored, or treated as if it exists) are acceptable and can be coded in the inpatient setting, when documented at the
time of discharge.
Thank you,
Ifeoma MICHAEL,RN,CCDS
CDI Specialist
Available via [place] text
Please use your independent medical judgment in providing your response.
*Source: National Pressure Ulcer Advisory Panel (NPUAP)
[2024-04-04] MEDS: FLOMAX 0.4 MG PO (17:27)
[2024-04-04] MEDS: PROSCAR 5 MG PO (17:27)
[2024-04-04] MEDS: TYLENOL 650 MG PO (19:54)
[2024-04-04] MEDS: LIPITOR PO (19:58)
[2024-04-04] MEDS: TENORMIN PO (19:58)
[2024-04-04] MEDS: TENORMIN 25 MG PO (20:14)
[2024-04-04] MEDS: LIPITOR 40 MG PO (20:15)
[2024-04-05] VITALS (19 sets, daily range): BP systolic 99–160; BP diastolic 46–84; BMI 20.8
[2024-04-05 05:05] LABS: Blood Urea Nitrogen 74 mg/dl (9-20); Calcium 8.2 mg/dl (8.4-10.2); Carbon Dioxide 29 mmol/L (22-30); Chloride 90 mmol/L (98-107); Estimated Creatinine Clearance 8 ml/min; Glucose 107 mg/dl (70-99); Potassium 3.4 mmol/L (3.5-5.1); Sodium 126 mmol/L (135-145); eGFR 8.42
--- NOTE | 2024-04-05 05:06 | PTCARENOTE ---
Patient confused overnight and attempting to get OOB without assistance. Bed alarm on. PD every 4 hours- next due around 0715.
[2024-04-05] MEDS: PROTONIX 40 MG PO (05:14)
--- NOTE | 2024-04-05 06:45 | W.PN.HOSP.TC ---
Today's Communication/Plan
-
Chronic hyponatremia,
Unable to find rehab place that would take peritoneal dialysis
Will encourage PT and home discharge with home services
Assessment / Plan
Assessment / Plan
Physical Exam
General: Comfortable and Conversant; No Pain, Fever or Chills
HEENT: NormoCephalic, Anicteric, Moist mucous membranes, PERRLA, [place] Conjunctivae, No Ptosis, Neck Nontender and Other (Multiple bruises to arms current bruise to anterior neck and upper chest from fall yesterday 03/30/2024)
Respiratory: No Wheezes, Rales or Rhonchi
Cardiac: S1/S2
GI: Soft, Non Tender, Non Distended, Normal Bowel Sounds. (Peritoneal dialysis catheter present)
Rectal: No bleeding
Musculoskeletal: No Edema
Skin: Warm, Dry and Other (Multiple bruises to arms current bruise to anterior neck and upper chest from fall yesterday 03/30/2024)
Neuro: AO to self and surroundings, he follows commands. No Slurred Speech, Facial Droop, Tremors or Sedated
Psych: Calm
A/P
Acute on chronic anemia-macrocytic
#Hx chronic microcytic anemia
#Anemia of chronic renal disease
Patient did receive 1 unit PRBC and Procrit injection for hemoglobin 6.7 during December 2023 admission by nephro recommendation
Hgb 7.6 <8.4 on 01/13/2024 appears more near baseline
Had Mircera 300 mcg infusion q. 2 weeks most recent infusion was , 03/27/2024
-Type and screen
-Obtain blood consent will hold on any current transfusion but will monitor hemoglobin
#Mechanical fall 03/30/2024 onto back yet Neck/Upper chest contusion
#Chronic ambulatory dysfunction uses walker at baseline
-No difficulty swallowing, airway intact
-Monitor hemoglobin
-Consult PT/OT
CT head: No acute intracranial abnormality.
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
Mild to moderate atrophy which is slightly progressed since previous exam
CT facial bones: No evidence for facial bone fracture
CT cervical spine: No evidence of acute fracture or dislocation
Bilateral thyroid calcifications with nodule in the right lobe measuring up to 2.4 cm diameter consider further evaluation thyroid ultrasound
# Hypokalemia, give oral KCl
#Incidental thyroid nodule right lobe 2.4 cm-recommend outpatient thyroid ultrasound
#Acute on chronic thrombocytopenia
Plt 68, improving. Baseline 124 in 12/2024.
-Fall precautions
-Follows at [facility]
#Acute on chronic hyponatremia hypervolemic
NA 126 baseline appears 129�131
-Fluid restrict 1200 cc daily per nephrology
-Monitored BMP
#ESRD on peritoneal dialysis
Creat 7.4/bun 75 patient does dialysis in the evenings Peritoneal starts at 8:30 PM x 9 hours
Peritoneal dialysis catheter had repositioning done on 03/[address] Sapp at [place]
-Patient follows with [place] nephrology
-Had Mircera 300 mcg infusion q. 2 weeks most recent infusion was , 03/27/2024
-Consulted Nephro
-Continue Shivani-Aminata
#BPH
#Massive prostatomegaly
-continue finasteride and tamsulosin
-Follows with urology Dr Garvey at [place] no plans for any surgical intervention as of now
# Abnormal CT abdomen omentum December 2023 admit-however fluid cytology peritoneal was negative
-CT a/p incidentally showing omental , suspicious for metastatic disease fluid cytology peritoneal was negative
-CEA normal. CA 19-9 pending
-Hemato/oncology evaluated.
01/15/2024: Peritoneal fluid, paracentesis
Negative for malignant cells.
Occasional benign reactive mesothelial cells and macrophages present in a background of mixed
inflammatory cells.
#Episodes of delirium
History of delirium x 1 per many that responded to Risperdal
She reports he is no longer on this medication
#Essential hypertension - Uncontrolled
-Continue atenolol 25 mg at bedtime, hydralazine 75 mg daily, losartan 50 mg daily
#GERD
-Continue Protonix 40 mg daily
#Hyperlipidemia
- continue atorvastatin
# CAD with stent
- continue ASA 81 mg daily monitor hemoglobin
#Chronic sinus bradycardia
HR 62 this morning. On atenolol for hypertension, continue with holding parameter
DVT prophylaxis
SCDs given platelets are 46
Full code per patient with Carla present at bedside
Total time spent to see the patient, examine the patient, review data and lab results, discuss treatment plan with patient, his and nursing staff around 55 minutes
Anticipated Discharge: Today
Subjective/Interval History
-
Date of Service: April 05, 2024
Objective Data
-
Labs:
Laboratory Results
04/05/24
03:58
Sodium 126 L
Potassium 3.4 L
Chloride 90 L
Carbon Dioxide 29
BUN 74 H
Creatinine 6.1 H*
Glucose 107 H
Calcium 8.2 L
Vital Signs:
Vital Signs
Temp Pulse Resp BP Pulse Ox
97.2 F 60 17 133/70 91
04/05/24 05:09 04/05/24 06:00 04/05/24 06:00 04/05/24 06:00 04/05/24 06:00
I&O
04/03/24 04/04/24 04/05/24
06:59 06:59 06:59
Intake Total 1080 / 1080 720 / 720 600 / 600
Output Total 1775 / 1775 2100 / 2100 2375 / 2375
Balance -695 / -695 -1380 / -1380 -1775 / -1775
--- NOTE | 2024-04-05 08:27 | W.PN.NEPH.PH ---
Today's Communication / Plan
-
PT orders provided
Follow BMP
Assessment/Plan
-
Assessment
ESRD on PD
Status post loss of balance with fall
Anterior neck and chest wall ecchymosis
Hyponatremia (124)
Acute anemia (7.6)
Thrombocytopenia (47)
Hypertension
Hyperlipidemia
Coronary artery disease with history of stent
Hyperphosphatemia
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
Plan
continue PD all 2.5% solution, 2L dwell, 4hrs still
sodium up to 126, maintain FR
hypervolemic hyponatremia
Flowsheets reviewed net neg balance
s/p Retacrit 2/5 for anemia (usually receives mycera 300 mcg at 2-week intervals last given on 03/27/2024)
Maintain phosphorus binders with meals re: hyperphosphatemia
Maintain oral antihypertensives atenolol hydralazine, and losartan for blood pressure control
d/c plan to rehab but PD complicating transfer
-
-
Date of Service: April 05, 2024
CC / HPI / ROS
-
Chief Complaint:
End-stage renal disease
History of Present Illness:
ESRD on PD
Hemodynamically stable on antihypertensives
Hemoglobin stable at 8
sodium still no change at 126, weights down
Review of Systems:
Essentially anuric
No fevers or chills
Ecchymosis along the neck and chest wall
weights down
Labs
-
Labs:
WBC 6.1 10^3/uL (4.8-10.8) 04/02/24 05:23
RBC 2.45 10^6/uL (4.70-6.10) L 04/02/24 05:23
Hgb 8.0 g/dL (13.0-18.0) L 04/02/24 05:23
Hct 25.0 % (39.0-52.0) L 04/02/24 05:23
Plt Count 68 10^3/uL (130-400) L 04/02/24 05:23
Sodium 126 mmol/L (135-145) L 04/05/24 03:58
Potassium 3.4 mmol/L (3.5-5.1) L 04/05/24 03:58
Chloride 90 mmol/L (98-107) L 04/05/24 03:58
Carbon Dioxide 29 mmol/L (22-30) 04/05/24 03:58
BUN 74 mg/dl (9-20) H 04/05/24 03:58
Creatinine 6.1 mg/dL (0.7-1.3) H* 04/05/24 03:58
eGFR 8.42 04/05/24 03:58
Glucose 107 mg/dl (70-99) H 04/05/24 03:58
Calcium 8.2 mg/dl (8.4-10.2) L 04/05/24 03:58
Phosphorus 7.0 mg/dl (2.5-4.5) H 03/31/24 14:09
Albumin 2.7 g/dl (3.5-5.0) L 04/04/24 04:03
Physical Exam
-
Vital Signs:
Vital Signs
Temp Pulse Resp BP Pulse Ox
97.5 F 60 17 133/70 91
04/05/24 07:19 04/05/24 06:00 04/05/24 06:00 04/05/24 06:00 04/05/24 06:00
Cardiovascular:: Irregular rate and rhythm
Lung Excursion:: Normal (clear anteriorly )
Abdomen:: Nontender and Soft
Bowel Sounds:: Normal
Extremity Edema:: +1: Bilateral: (trace)
Rojas Catheter: No
[2024-04-05] MEDS: KCL ELIXIR 40 MEQ PO (08:59)
[2024-04-05] MEDS: APRESOLINE 25 MG PO (08:59)
[2024-04-05] MEDS: ASPIR LOW (ENTERIC COATED) 81 MG PO (08:59)
[2024-04-05] MEDS: COZAAR 50 MG PO (09:00)
[2024-04-05] MEDS: COLACE 100 MG PO (09:00)
[2024-04-05] MEDS: RENVELA PO ×2 (09:00→11:24)
[2024-04-05] MEDS: NEPHROCAP 1 CAPSULE PO (09:00)
[2024-04-05] MEDS: ZYRTEC 10 MG PO (09:00)
[2024-04-05] MEDS: VITAMIN D3 (cholecalciferol) 25 MCG PO (09:00)
--- NOTE | 2024-04-05 10:37 | CM ---
Patient with Hx ESRD on peritoneal dialysis, mechanical fall 2/2 here with anemia, thrombocytopenia, hyponatremia. PT recommends skilled rehab. OT recommends HH.
Spoke with patient's Carla; feels she is not ready to take the patient home today. She feels his sodium needs to be better, he needs to be ambulating better and she cannot take him home without having additional help to care for him.
Carla says she reached out to [facility] and is waiting for callback from them. She has our caregiver list- reviewed other caregiver agencies, cost of hiring a caregiver, and suggested she contact a few other agencies today to put a caregiver
in place for discharge. She then says she needs to discuss the cost with her son.
I spoke with patient's daughter Janny, who lives with the patient; she will call her brother and they will also assist their mom with arranging caregiver services.
Plan follow up with tomorrow re; taking patient home.
Plan home with [facility] and possibly with caregiver services.
[2024-04-05] MEDS: RENVELA 1600 MG PO ×2 (11:24→17:30)
[2024-04-05] MEDS: TYLENOL 650 MG PO (12:40)
[2024-04-05] MEDS: SENOKOT 17.2 MG PO (16:24)
[2024-04-05] MEDS: FLOMAX 0.4 MG PO (17:30)
[2024-04-05] MEDS: PROSCAR 5 MG PO (17:30)
--- NOTE | 2024-04-05 18:05 | PTCARENOTE ---
Assumed care of pt this morning and he was a confused, uncooperative and restless. Pulling tele and clothing off self in am but as the day progressed this patient's cognition remained a bit drowsy but he became oriented to surroundings, treatment
plan and was cooperative in care. He was no longer pulling monitor or clothing off self. He was 2 assist OOB to chair and rolling walker. He was minimal assist, PT arrived and ambulated pt in room with present and provided with guidance to
improve mobility and transfers. plans to take pt home tomorrow and will drive him in the afternoon, as there are icy roads predicted in the morning. Daughter and son in law to help get pt into home. Peritoneal Dialysis continues with pt, midday
drain was slow. reports he slows down when he has not had a BM. p.o. [place] given to support BM. No BM yet today. Pt tolerated OOB i chair for a number of hours and without complaint. He is alert and feeding self dinner. Bed alarm
[2024-04-05] MEDS: TENORMIN PO (20:04)
[2024-04-06] VITALS: BP 154/51
[2024-04-06 02:00] VITALS: BP 140/73
[2024-04-06 04:00] VITALS: BP 154/61
[2024-04-06 05:28] VITALS: BMI 20.9
[2024-04-06] MEDS: PROTONIX 40 MG PO (05:47)
[2024-04-06 06:00] VITALS: BP 156/69
--- NOTE | 2024-04-06 06:25 | PTCARENOTE ---
Patient restless and confused overnight. Continuously requesting breakfast every 30 min since midnight. Snack offered and emotional support provided. Plan for d/c today.
--- NOTE | 2024-04-06 06:57 | W.PN.HOSP.TC ---
Today's Communication/Plan
-
dc
Assessment / Plan
Assessment / Plan
Physical Exam
General: Comfortable and Conversant; No Pain, Fever or Chills
HEENT: NormoCephalic, Anicteric, Moist mucous membranes, PERRLA, Park Conjunctivae, No Ptosis, Neck Nontender and Other (Multiple bruises to arms current bruise to anterior neck and upper chest from fall yesterday 03/30/2024)
Respiratory: No Wheezes, Rales or Rhonchi
Cardiac: S1/S2
GI: Soft, Non Tender, Non Distended, Normal Bowel Sounds. (Peritoneal dialysis catheter present)
Rectal: No bleeding
Musculoskeletal: No Edema
Skin: Warm, Dry and Other (Multiple bruises to arms current bruise to anterior neck and upper chest from fall yesterday 03/30/2024)
Neuro: AO to self and surroundings, he follows commands. No Slurred Speech, Facial Droop, Tremors or Sedated
Psych: Calm
A/P
Acute on chronic anemia-macrocytic
#Hx chronic microcytic anemia
#Anemia of chronic renal disease
Patient did receive 1 unit PRBC and Procrit injection for hemoglobin 6.7 during December 2023 admission by nephro recommendation
Hgb 7.6 <8.4 on 01/13/2024 appears more near baseline
Had Mircera 300 mcg infusion q. 2 weeks most recent infusion was , 03/27/2024
#Mechanical fall 03/30/2024 onto back yet Neck/Upper chest contusion
#Chronic ambulatory dysfunction uses walker at baseline
-No difficulty swallowing, airway intact
-Consulted PT/O, recommended SNF Vs Home health. case reviewer followed the case, no SNF available to provide PD in places desired by family, plan to dc home with services. Did PT in hospital.
CT head: No acute intracranial abnormality.
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
Mild to moderate atrophy which is slightly progressed since previous exam
CT facial bones: No evidence for facial bone fracture
CT cervical spine: No evidence of acute fracture or dislocation
Bilateral thyroid calcifications with nodule in the right lobe measuring up to 2.4 cm diameter consider further evaluation thyroid ultrasound
# Hypokalemia, given oral KCl
#Incidental thyroid nodule right lobe 2.4 cm-recommend outpatient thyroid ultrasound
#Acute on chronic thrombocytopenia
Plt 68, improving. Baseline 124 in 12/2024.
-Fall precautions
-Follows at [facility]
#Acute on chronic hyponatremia hypervolemic
NA 126 baseline appears 129�131
-Fluid restrict 1200 cc daily per nephrology
-Monitored BMP
#ESRD on peritoneal dialysis
Creat 7.4/bun 75 patient does dialysis in the evenings Peritoneal starts at 8:30 PM x 9 hours
Peritoneal dialysis catheter had repositioning done on 03/[address] Sapp at [facility]
-Patient follows with [facility] nephrology
-Had Mircera 300 mcg infusion q. 2 weeks most recent infusion was , 03/27/2024
-Consulted Nephro
-Continue Shivani-Aminata
#BPH
#Massive prostatomegaly
-continue finasteride and tamsulosin
-Follows with urology Dr Garvey at [facility] no plans for any surgical intervention as of now
# Abnormal CT abdomen omentum December 2023 admit-however fluid cytology peritoneal was negative
-CT a/p incidentally showing omental , suspicious for metastatic disease fluid cytology peritoneal was negative
-CEA normal. CA 19-9 pending
-Hemato/oncology evaluated.
01/15/2024: Peritoneal fluid, paracentesis
Negative for malignant cells.
Occasional benign reactive mesothelial cells and macrophages present in a background of mixed
inflammatory cells.
#Episodes of delirium
History of delirium x 1 per many that responded to Risperdal
She reports he is no longer on this medication
#Essential hypertension - Uncontrolled
-Continue atenolol 25 mg at bedtime, hydralazine 75 mg daily, losartan 50 mg daily
#GERD
-Continue Protonix 40 mg daily
#Hyperlipidemia
- continue atorvastatin
# CAD with stent
- continue ASA 81 mg daily monitor hemoglobin
#Chronic sinus bradycardia
HR 62 this morning. On atenolol for hypertension, continue with holding parameter
DVT prophylaxis
SCDs given platelets are 46
Full code per patient with Carla present at bedside
Total discharge time spent to see the patient, examine the patient, review data and lab results, discuss discharge plan with patient, his and nursing staff around 65 minutes
Anticipated Discharge: Today
Subjective/Interval History
-
Date of Service: April 06, 2024
No chest pain
No fevers
Objective Data
-
Vital Signs:
Vital Signs
Temp Pulse Resp BP Pulse Ox
97.6 F 57 22 156/69 93
04/06/24 03:00 04/06/24 06:00 04/06/24 06:00 04/06/24 06:00 04/06/24 04:00
I&O
04/04/24 04/05/24 04/06/24
06:59 06:59 06:59
Intake Total 720 / 720 600 / 600 780 / 780
Output Total 2100 / 2100 2375 / 2375 2500 / 2500
Balance -1380 / -1380 -1775 / -1775 -1720 / -1720
[2024-04-06] MEDS: TYLENOL 650 MG PO (07:58)
[2024-04-06 08:00] VITALS: BP 155/64
[2024-04-06] MEDS: RENVELA 1600 MG PO ×2 (08:00→12:15)
[2024-04-06] MEDS: ASPIR LOW (ENTERIC COATED) 81 MG PO (08:00)
[2024-04-06] MEDS: NEPHROCAP 1 CAPSULE PO (08:01)
[2024-04-06] MEDS: VITAMIN D3 (cholecalciferol) 25 MCG PO (08:01)
[2024-04-06] MEDS: APRESOLINE 25 MG PO (08:01)
[2024-04-06] MEDS: COLACE 100 MG PO (08:01)
[2024-04-06] MEDS: ZYRTEC 10 MG PO (08:01)
[2024-04-06] MEDS: COZAAR 50 MG PO (08:02)
--- NOTE | 2024-04-06 09:09 | CM ---
Patient with Hx ESRD on peritoneal dialysis, mechanical fall 2/2 here with anemia, thrombocytopenia, hyponatremia. PT recommends skilled rehab. OT recommends HH.
Met with patient and spoke with Carla; both agree with d/c home today. IMM completed. They are aware that [facility] is setup. has contacted some additional caregiver agencies and is waiting to hear back from them. She agrees to
transport patient home today around 1pm.
[facility] (fax [phone]) notified of d/c today.
Plan home today with [facility], with caregiver list.
--- NOTE | 2024-04-06 10:02 | W.PN.NEPH.PH ---
Today's Communication / Plan
-
Stable for discharge
Assessment/Plan
-
Assessment
ESRD on PD
Status post loss of balance with fall
Anterior neck and chest wall ecchymosis
Hyponatremia (124)
Acute anemia (7.6)
Thrombocytopenia (47)
Hypertension
Hyperlipidemia
Coronary artery disease with history of stent
Hyperphosphatemia
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
Plan
continue PD all 2.5% solution, 2L dwell, 4hrs still
sodium was 126, maintain FR
hypervolemic hyponatremia
Flowsheets reviewed net neg balance
s/p Retacrit 2/5 for anemia (usually receives mycera 300 mcg at 2-week intervals last given on 03/27/2024)
Maintain phosphorus binders with meals re: hyperphosphatemia
Maintain oral antihypertensives atenolol hydralazine, and losartan for blood pressure control
d/c plan today
-
-
Date of Service: April 06, 2024
CC / HPI / ROS
-
Chief Complaint:
End-stage renal disease
History of Present Illness:
ESRD on PD
Hemodynamically stable on antihypertensives
Hemoglobin stable at 8
sodium still no change at 126, weights down
Review of Systems:
Essentially anuric
No fevers or chills
Ecchymosis along the neck and chest wall
weights down
Labs
-
Labs:
WBC 6.1 10^3/uL (4.8-10.8) 04/02/24 05:23
RBC 2.45 10^6/uL (4.70-6.10) L 04/02/24 05:23
Hgb 8.0 g/dL (13.0-18.0) L 04/02/24 05:23
Hct 25.0 % (39.0-52.0) L 04/02/24 05:23
Plt Count 68 10^3/uL (130-400) L 04/02/24 05:23
Sodium 126 mmol/L (135-145) L 04/05/24 03:58
Potassium 3.4 mmol/L (3.5-5.1) L 04/05/24 03:58
Chloride 90 mmol/L (98-107) L 04/05/24 03:58
Carbon Dioxide 29 mmol/L (22-30) 04/05/24 03:58
BUN 74 mg/dl (9-20) H 04/05/24 03:58
Creatinine 6.1 mg/dL (0.7-1.3) H* 04/05/24 03:58
eGFR 8.42 04/05/24 03:58
Glucose 107 mg/dl (70-99) H 04/05/24 03:58
Calcium 8.2 mg/dl (8.4-10.2) L 04/05/24 03:58
Phosphorus 7.0 mg/dl (2.5-4.5) H 03/31/24 14:09
Albumin 2.7 g/dl (3.5-5.0) L 04/04/24 04:03
Physical Exam
-
Vital Signs:
Vital Signs
Temp Pulse Resp BP Pulse Ox
97.4 F 57 22 156/69 93
04/06/24 07:31 04/06/24 06:00 04/06/24 06:00 04/06/24 06:00 04/06/24 04:00
Cardiovascular:: Irregular rate and rhythm
Lung Excursion:: Normal (clear anteriorly )
Abdomen:: Nontender and Soft
Bowel Sounds:: Normal
Extremity Edema:: +1: Bilateral: (trace)
Rojas Catheter: No
--- NOTE | 2024-04-06 14:02 | W.DCSUMMARY ---
Discharge Summary
Discharge Data
Date of Admission: 03/31/24
Date of Discharge: 04/06/24
-
Pending Results: No
Hospital Course
84 years old male presented to the emergency room after falling backwards. Patient lost his balance. He did not have head trauma or loss of consciousness. Scan of the head and cervical spine did not show acute fractures. He had bruising along
the anterior neck and upper chest. Chest x-ray did not show acute fracture or pneumothorax. Hemoglobin on admission around 7.6. Patient did not receive blood transfusion. He gets Mircera 300 mcg infusion q. 2 weeks most recent infusion was
, 03/27/2024. Patient was admitted to the hospital. Baseline hemoglobin around 8. Repeat blood work showed stabilizing for hemoglobin around 8. Patient tolerated oral diet. Patient was evaluated by fudge candy maker. He underwent peritoneal
dialysis as scheduled. He was noted to have hyponatremia and fudge candy maker recommended fluid restriction. He had hypokalemia and was given replacement. Patient was evaluated by physical therapy and recommended home health services versus skilled
nursing facility. Case management was consulted. Patient started to ambulate with physical therapy and upon discussion with the family, recommended to go home with home health services. Case management reported that it was very difficult to find
a alf facility that could provide peritoneal dialysis. Patient remained hemodynamically stable and was discharged in a stable condition.
Discharge Plan
-
Patient Disposition: Home with Home Care
Discharge Diagnosis/Procedures: Status post fall with Anterior neck and chest wall ecchymosis
hypervolemic hyponatremia improving slowly and still with edema
Fluid restriction 1200 cc daily in setting of hyponatremia
Maintain phosphorus binders with meals re: hyperphosphatemia
Maintain oral antihypertensives atenolol hydralazine, and losartan for blood pressure control
Referrals:
Pasha Manzanares MD [Family Provider] -
Prescriptions:
Continued
aspirin 81 mg Tablet,Delayed Release (Dr/Ec)
81 mg PO DAILY
tamsulosin [Flomax] 0.4 mg Capsule
0.4 mg PO QPM
docusate sodium [Colace] 100 mg Capsule
100 mg PO DAILY
finasteride 5 mg Tablet
5 mg PO QPM
coQ10 (ubiquinol) 200 mg Capsule
200 mg PO NOON
atorvastatin [Lipitor] 40 mg Tablet
40 mg PO MOTUWETHFR@2200
sevelamer HCl 800 mg Tablet
1,600 mg PO MEALS
hydralazine 25 mg Tablet
25 mg PO DAILY
Shivani-Aminata 0.8 mg tablet
1 tab PO DAILY
acetaminophen 325 mg Tablet
650 mg PO Q4HPRN PRN (Reason: mild pain/PAEZ/temp> 100.4F) Qty: 30 0RF
losartan 50 mg tablet
50 mg PO DAILY
cetirizine 10 mg Tablet
10 mg PO DAILY
atenolol 25 mg tablet
25 mg PO HS
azelastine 137 mcg (0.1 %) spray,non-aerosol
2 spray INTRANASAL DAILY
cholecalciferol (vitamin D3) [Vitamin D3] 25 mcg (1,000 unit) Tablet
25 mcg PO DAILY
pantoprazole [Protonix] 40 mg tablet,delayed release (DR/EC)
40 mg PO DAILY@0600
Rx Instructions:
Take 1 tablet twice daily for 14 days THEN
Take 1 tablet once daily
Discharge Orders:
Discharge Patient (As Directed); Ordered 04/04/24
Ordered By: Meilsa Sears
Discharge Date and Time
Discharge Date/Time: 04/06/24 15:44
Print Language: UKRAINIAN
== END 2024-04-06 15:44 | disposition home health service (06) | DRG 682 ==
LOC: IMU 18:20
PROVIDERS: Clinical Nurse Specialist Family Health; Internal Medicine; ADMITTING PHYSICIAN Internal Medicine; ATTENDING PHYSICIAN Internal Medicine; CONSULT PHYSICIAN Specialist; EMERGENCY PHYSICIAN Emergency Medicine; FAMILY PHYSICIAN Family Medicine
PROC: 3E1M39Z Irrigation of Peritoneal Cavity using Dialysate, Percutaneous Approach (ICD-10-PCS; 2024-04-02)
DX: I12.0 Hypertensive chronic kidney disease with stage 5 chronic kidney disease or end stage renal disease (principal); N18.6 End stage renal disease; R64 Cachexia; D63.1 Anemia in chronic kidney disease; S10.83XA Contusion of other specified part of neck, initial encounter; W19.XXXA Unspecified fall, initial encounter; Z99.2 Dependence on renal dialysis; D69.6 Thrombocytopenia, unspecified; E78.5 Hyperlipidemia, unspecified; Z95.5 Presence of coronary angioplasty implant and graft; I25.10 Atherosclerotic heart disease of native coronary artery without angina pectoris; E83.39 Other disorders of phosphorus metabolism; E86.1 Hypovolemia; E04.1 Nontoxic single thyroid nodule; N40.0 Benign prostatic hyperplasia without lower urinary tract symptoms; Z88.0 Allergy status to penicillin; Z88.2 Allergy status to sulfonamides; Z79.82 Long term (current) use of aspirin; Z79.899 Other long term (current) drug therapy; E87.6 Hypokalemia; I45.10 Unspecified right bundle-branch block; K21.9 Gastro-esophageal reflux disease without esophagitis; S20.219A Contusion of unspecified front wall of thorax, initial encounter; L89.156 Pressure-induced deep tissue damage of sacral region
CPT/HCPCS: 70450; 70486; 71045; 72125; 80048; 80053; 82040; 83735; 84100; 84439; 84443; 85025; 86850; 86900; 86901; 93005; 97112; 97116; 97163; 97167; 97530; 99285; Q5106

== ENCOUNTER 2024-05-01 19:20 | Inpatient (IN) | payer MEDICARE, SELFPAY ==
[2024-05-01] VITALS (16 sets, daily range): BP systolic 98–156; BP diastolic 59–74; PULSE 2–65; BMI 25.2; BMI 24.5
--- NOTE | 2024-05-01 15:48 | ED.GENMED ---
History of Present Illness
General
Chief Complaint: Breathing Problem
Time Seen by Provider: 05/01/24 15:13
History of Present Illness
History of Present Illness:
84-year-old male presents the emergency department family for evaluation of lethargy and hypoxia. Patient has had visiting nurses who have noted oxygen saturations in the mid 80% range. On arrival the patient is somnolent, arouses to voice but is
not able to provide any meaningful history. No reported coughing or fevers. He undergoes peritoneal dialysis at home
Past History
Past History
ED Past Medical History: HTN and Other (Renal failure/peritoneal dialysis)
ED Past Surgical History: Orthopedic and Other (Peritoneal shunt/hernia repair)
Review of Systems
Review of Systems
Allergies reviewed?: Yes
All Other Systems: ROS reviewed and negative except as documented in HPI and ROS
Phy Exam
Physical Exam
Physical Exam:
GEN: Somnolent and ill-appearing
HEENT: Oral mucosa moist, no scleral icterus
Cardiac: Regular rate and rhythm
Lung: Hypoventilating, poor air exchange bilaterally
MSK: No gross deformity or injuries
Skin: Good color, no pallor or jaundice, no rashes
Neuro: Somnolent, arouses to voice, able to answer all orientation questions but falls asleep easily
Psych: Calm, cooperative
Scores
Heart Failure Risk
Heart Failure Risk Score: Not Applicable
Course
Orders/Labs/Results
Orders:
Orders
05/01/24 15:24
Electrocardiogram (*1) Urgent
Reason for Study: Shortness of Breath
EKG- Treatment ONCE
CR Chest Portable - 1 View Urgent
Comment:
Reason For Exam: SOB
Reason Study Needs to be Portable: Other
05/01/24 16:27
Type+Screen Urgent
Complete Blood Count/With Diff Urgent
Comprehensive Metabolic Panel Urgent
Lactic Acid Q4H
Comment: CANCEL 2nd LACTIC ACID IF 1st LACTIC ACID IS LESS THAN 2
NT-proBNP Urgent
Troponin I Urgent
Venous Blood Gas Urgent
%Oxygen/Room Air: 88
05/01/24 16:49
Bipap [RESP] Urgent
Patient to use own unit?: No
Inspiratory Pressure (cm H2O): 12
Expiratory Pressure (cm H2O): 6
05/01/24 17:36
Peritoneal Dialysis As Directed
Use same dialysate for all exchanges or alternate dialysate?: Same for all exchanges
Deflex Low Ca/Low Mag for all exchanges % Dextrose:: 2.5% Dextrose
Volume in liters per exchange (liters):: 2
Exchange Dwell time in hours:: 4
Additives:: No
05/01/24 18:27
Admit/Transfer Patient As Directed
Co-Sign Provider:
Level of Care: Inpatient admission
Assign to:: IMU- Intermediate Care
Physician / Group: Shaun Gordon
Diagnosis: respiratory acidosis, acute hypercarbic respiratory failure, fluid overload
Reason for Hospitalization: respiratory acidosis, acute hypercarbic respiratory failure, fluid overload from
ESRD
Expected length of stay greater than two midnights?: Yes
ELOS- Estimated Length of Stay in days: 3
I certify the patient meets the requirements for IP care: Yes
PRN Pain Medication Management As Directed
May give lesser potent ordered pain med per pt: Yes
preference::
Protocol:: Medication orders for pain may be administered in a
manner that supports deferring to patient preference
when the pt is:
- Requesting an ordered lesser potent pain medication.
Least to most potent pain medications are defined
as: acetaminophen < NSAID < tramadol < opioids
(morphine, oxycodone, hydromorphone).
- Requesting a lesser dose of the same medication IF
ORDERED.
- Requesting a less intrusive route of administration
if both routes are prescribed by the provider (PO <
IV).
05/01/24 18:29
Code Status As Directed
Resuscitation Status: Full Code
05/01/24 20:02
Acetaminophen [Tylenol] 650 mg PO Q4HPRN PRN
05/01/24 20:02
CARDIOLOGY CONSULT Routine
Consulting Provider: Dee Pedro
Was physician already notified: Yes
Activity As Directed
Activity Level: With Assistance
Pneumatic Compression Sleeves As Directed
Type: Knee high
Vital Signs As Directed
Frequency: Per unit guidelines
Weight As Directed
Frequency: Daily
O2 Therapy [RESP] Routine
Titrate/Wean O2 to maintain O2 sat greater than (%): 93
Ot Eval And Treat Routine
Pt Eval And Treat Routine
Activity Level: With Assistance
DX Deep Vein Thrombosis Video Routine
05/01/24 22:00
Atenolol [Tenormin] 25 mg PO HS
Atorvastatin [Lipitor] 40 mg PO MOTUWETHFR@2200
05/02/24 06:00
Echo 2D MMode Color/Doppler IN AM
Reason for Study: HF
Basic Metabolic Panel IN AM
Complete Blood Count/No Diff IN AM
Pantoprazole [Protonix] 40 mg PO DAILY@0600
05/02/24 08:00
Aspirin Low Dose EC [Aspir Low (Enteric Coated)] 81 mg PO DAILY
Cetirizine HCl [Zyrtec] 10 mg PO DAILY
Docusate Sodium [Colace] 100 mg PO DAILY
Losartan [Cozaar] 50 mg PO DAILY
Renal Cap [Nephrocap] 1 capsule PO DAILY
Sevelamer Carbonate [Renvela] 1,600 mg PO MEALS
05/02/24 12:00
Cholecalciferol (Vitamin D3) [VITAMIN D3 (cholecalciferol)] 25 mcg PO NOON
05/02/24 18:00
Finasteride [Proscar] 5 mg PO QPM
Tamsulosin [Flomax] 0.4 mg PO QPM
Abnormal Lab Results
05/01/24
16:27
RBC 3.22 L 10^6/uL
(4.70-6.10)
Hgb 10.2 L g/dL
(13.0-18.0)
Hct 32.5 L %
(39.0-52.0)
MCV 100.9 H fL
(80.0-94.0)
MCH 31.7 H pg
(27.0-31.0)
MCHC 31.4 L g/dL
(33.0-37.0)
Plt Count 82 L 10^3/uL
(130-400)
MPV 11.2 H fL
(7.4-10.4)
Abs Immat Gran (auto) 0.1 H 10^3/uL
(0-0.05)
Absolute Lymphs (auto) 0.3 L 10^3/uL
(1.2-3.4)
Immature Gran % 0.8 H %
(0-0.5)
Neutrophils % 83.7 H %
(42.2-75.2)
Lymphocytes % 4.9 L %
(20.5-51.1)
Monocytes % 9.4 H %
(1.7-9.3)
VBG pH 7.16 L*
(7.32-7.43)
VBG pCO2 77 H* mmHg
(35-48)
VBG pO2 54 H mmHg
(30-50)
VBG HCO3 27.4 H mmol/L
(22-27)
Sodium 125 L mmol/L
(135-145)
Chloride 84 L mmol/L
(98-107)
BUN 89 H mg/dl
(9-20)
Creatinine 7.6 H* mg/dL
(0.7-1.3)
Lactic Acid 0.6 L mmol/L
(0.7-2.0)
Total Protein 5.0 L g/dl
(6.3-8.2)
Albumin 3.4 L g/dl
(3.5-5.0)
05/01/24 16:27
05/01/24 16:27
Vital Signs
Initial and Last Documented VS:
Initial Vital Signs
Temp Pulse Resp BP Pulse Ox
98.0 F 64 16 124/67 88
05/01/24 15:07 05/01/24 15:07 05/01/24 15:07 05/01/24 15:07 05/01/24 15:07
Last Documented Vital Signs
Temp Pulse Resp BP Pulse Ox
97.6 F 54 15 151/69 92
05/01/24 20:25 05/01/24 19:13 05/01/24 19:13 05/01/24 19:13 05/01/24 19:13
MDM/Problems Addressed
MDM/Problems Addressed:
Respiratory acidosis, uncertain trigger as the patient does not have COPD and no evidence for sepsis, do not suspect this is a primary metabolic cause. Placed and placed on BiPAP and will admit to the hospitalist service, no indication for
antibiotics
*Critical Care Note
Total Time (30-74mins, 75-104mins- exclusive of procedures): Not Applicable
ED Attending Note
-
Portions of this chart may have been created with voice recognition software.� Occasional wrong word or��sound alike� substitutions may have occurred due to the inherent limitations of voice recognition software.
Discharge Plan
Departure
Patient Disposition: Admit
Date of Disposition: 05/01/24
Time of Disposition: 17:15
Admit to: IMU
Presentation/result/management discussed w/ accepting MD/DO: Hospitalist
Discharge Problem:
Acute hypercapnic respiratory failure, Acute respiratory acidosis
Interventions
Interventions:
*Risk Screen - Suicide Last Done: 05/01/24 15:07
*General Assessment Last Done: 05/01/24 16:23
*Neglect/Abuse Screening Last Done: 05/01/24 15:07
*ED- Fall Risk Assessment Last Done: 05/01/24 16:23
*ED COVID-19 Vaccine History Last Done: 05/01/24 16:23
*Nursing Disposition Last Done: 05/01/24 20:09
ED- Cardiac Assessment Last Done: 05/01/24 16:21
ED- Pulmonary Assessment Last Done: 05/01/24 16:22
Discharge Date and Time
Discharge Date/Time: 05/01/24 20:09
[2024-05-01 16:40] LABS: Venous Blood Gas B.E. -2.5 mmol/L (-4 to +4); Venous Blood Gas HCO3 27.4 mmol/L (22-27); Venous Blood Gas O2 Sat % 76.3 %; Venous Blood Gas pO2 54 mmHg (30-50)
[2024-05-01 16:41] LABS: % Basophils 0.2 % (0-2); % Immature Granulocytes 0.8 % (0-0.5); % Lymphocytes 4.9 % (20.5-51.1); % Monocytes 9.4 % (1.7-9.3); % Neutrophils 83.7 % (42.2-75.2); Absolute Eosinophils 0.1 10^3/uL (0-0.7); Absolute Immature Granulocytes 0.1 10^3/uL (0-0.05); Absolute Lymphocytes 0.3 10^3/uL (1.2-3.4); Absolute Monocytes 0.6 10^3/uL (0.1-0.6); Absolute Neutrophils 5.1 10^3/uL (1.4-6.5); Hematocrit 32.5 % (39.0-52.0); Hemoglobin 10.2 g/dL (13.0-18.0); Mean Corp Hgb Conc. 31.4 g/dL (33.0-37.0); Mean Corpuscular Hgb 31.7 pg (27.0-31.0); Mean Corpuscular Volume 100.9 fL (80.0-94.0); Mean Platelet Volume 11.2 fL (7.4-10.4); Nucleated Red Blood Cells % 0 % (-); Platelet Count 82 10^3/uL (130-400); Red Blood Cell Count 3.22 10^6/uL (4.70-6.10); Red Cell Dist. Width 14.3 % (11.5-14.5); Venous Blood Gas pCO2 77 mmHg (35-48); Venous Blood Gas pH 7.16 (7.32-7.43); White Blood Cell Count 6.1 10^3/uL (4.8-10.8)
[2024-05-01 16:55] LABS: Lactic Acid 0.6 mmol/L (0.7-2.0)
[2024-05-01 17:00] LABS: ALT (SGPT) 28 U/L (0-50); AST (SGOT) 21 U/L (17-59); Albumin 3.4 g/dl (3.5-5.0); Alkaline Phosphatase 65 U/L (38-126); Blood Urea Nitrogen 89 mg/dl (9-20); Calcium 8.4 mg/dl (8.4-10.2); Carbon Dioxide 26 mmol/L (22-30); Chloride 84 mmol/L (98-107); Estimated Creatinine Clearance 6 ml/min; Glucose 99 mg/dl (70-99); Potassium 3.7 mmol/L (3.5-5.1); Sodium 125 mmol/L (135-145); Total Bilirubin 0.6 mg/dl (0.2-1.3); eGFR 6.47
[2024-05-01 17:07] LABS: NT-proBNP > 27000 pg/ml; Troponin I 0.016 ng/ml
--- NOTE | 2024-05-01 17:25 | HPS.HSE ---
Family Physician
-
Family Physician:
Chief Complaint
-
increased lethargy
History of Present Illness
Patient is a 84-year-old male with past medical history significant for ESRD on home peritoneal dialysis, hypertension, hyperlipidemia, CAD with stent, sinus bradycardia and BPH who presented to [facility] ED for evaluation of increased
lethargy and low SpO2 with home nurse. Family at bedside state that over past 2 days patient has been lethargic and falling asleep no matter where he was even sitting at kitchen table, he has had difficulty bearing weight and needed increased
assistance and has had noted visual hallucinations. They deny any recent fever, chills, nausea, vomiting, constipation or diarrhea.
Medical History
Past Medical History
Past Medical History: Reports Other
Additional Past Medical History:
ESRD on home peritoneal dialysis
hypertension
hyperlipidemia
CAD with stent
Sinus bradycardia
BPH
massive prostatomegaly
normocytic anemia, anemia of chronic renal disease
Chronic thrombocytopenia
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
episode of delirium that respond to Risperdal December 2024 admission,
sinus bradycardia
HLD
cachexia chronic-BMI improved 21.8
chronic ambulatory dysfunction uses walker at baseline.
Past Surgical History: Reports Other
Additional Past Surgical History:
right shoulder repair
hernia repair
dialysis port placement
Social History
Tobacco: Non-smoker
Alcohol: None
Drug: None
Personal:
Living: With Family
Employment: Retired
Family History
Family History: Not pertinent
Allergies / Home Medications
Allergies reflects when Allergies were last updated in [employer].
Home Medications with original date entered in [employer]
Allergy/Medication List:
Allergies
Allergy/AdvReac Type Severity Reaction Status Date / Time
Penicillins Allergy Unknown Verified 05/01/24 15:10
Sulfa (Sulfonamide Allergy Unknown Verified 05/01/24 15:10
Antibiotics)
Home Medications
aspirin 81 mg tablet,delayed release 81 mg PO DAILY Blood Clot Prevention/Tx 12/29/21
atorvastatin 40 mg tablet (Lipitor) 40 mg PO MOTUWETHFR@2200 High Cholesterol 12/29/21
coQ10 (ubiquinol) 200 mg capsule 200 mg PO NOON Supplement 12/29/21
docusate sodium 100 mg capsule (Colace) 100 mg PO DAILY STOOL SOFTENER 12/29/21
finasteride 5 mg tablet 5 mg PO QPM BPH 12/29/21
sevelamer HCl 800 mg tablet 1,600 mg PO MEALS RENAL 12/29/21
tamsulosin 0.4 mg capsule (Flomax) 0.4 mg PO QPM Urinary Issue 12/29/21
vitamin B complex-vitamin C-folic acid 0.8 mg tablet (Shivani-Aminata) 1 tab PO DAILY Supplement 01/07/24
acetaminophen 325 mg tablet 650 mg (2 x 325 mg) PO Q4HPRN PRN mild pain/PAEZ/temp> 100.4F #30 tabs 01/13/24
atenolol 25 mg tablet 25 mg PO HS Blood Pressure 03/31/24
azelastine 137 mcg (0.1 %) nasal spray 2 spray intranasal DAILYPRN PRN allergies 03/31/24
cetirizine 10 mg tablet 10 mg PO DAILY Allergies 03/31/24
cholecalciferol (vitamin D3) 25 mcg (1,000 unit) tablet (Vitamin D3) 25 mcg PO NOON Supplement 03/31/24
losartan 50 mg tablet 50 mg PO DAILY Blood Pressure 03/31/24
pantoprazole 40 mg tablet,delayed release (Protonix) 40 mg PO DAILY@0600 Gastrointestinal Issue 03/31/24
biotin 1 mg tablet 1 mg PO NOON 05/01/24
Review of Systems
-
History Source: Family
Constitutional: Reports Fatigue
EENT: Reports No Symptoms
Respiratory: Reports Trouble Breathing (some shortness of breath observed )
Cardiac: Reports No Symptoms
Abdomen/GI: Reports No Symptoms
: Reports No Symptoms
Musculoskeletal: Reports No Symptoms
Skin: Reports No Symptoms
Neurological: Reports Weakness
Endocrine: Reports No Symptoms
Hematologic/Lymphatic: Reports No Symptoms
Psych: Reports No Symptoms
Physical Exam
Vital Signs
Vital Signs
Temp Pulse Resp BP Pulse Ox
98.0 F 57 18 135/66 96
05/01/24 15:07 05/01/24 16:15 05/01/24 16:15 05/01/24 16:01 05/01/24 16:22
Physical Exam
General: Well Developed and Well Nourished
HEENT: NormoCephalic, Moist mucous membranes, Atraumatic, [place] Conjunctivae, Nose Appears Normal and Ears Appear Normal
Respiratory: Rhonchi and Decreased Breath Sounds
Cardiac: S1/S2 and Regular Rhythm; No Murmur, Rub or Gallop
Breast: Deferred by me
GI: Soft, Non Tender, Non Distended and Normal Bowel Sounds; No Organomegaly
Rectal: Deferred by Provider
Genito-urinary: Deferred by me
Musculoskeletal: No Clubbing, No Cyanosis, Edema, Left Lower Extremity and Edema, Right Lower Extremity
Skin: Warm and IV/Catheter Site; No Rash
Neuro: Sedated
Laboratory Results
-
05/01/24 16:27
05/01/24 16:27
Laboratory Results
Lactic Acid 0.6 mmol/L (0.7-2.0) L 05/01/24 16:27
Total Bilirubin 0.6 mg/dl (0.2-1.3) 05/01/24 16:27
AST 21 U/L (17-59) 05/01/24 16:27
ALT 28 U/L (0-50) 05/01/24 16:27
Alkaline Phosphatase 65 U/L (38-126) 05/01/24 16:27
Troponin I 0.016 ng/ml 05/01/24 16:27
Data Reviewed
-
Diagnostic Radiology: Report Reviewed by me (CXR: Mild to moderate elevation of the left hemidiaphragm. Cardiomegaly. Subtle findings suggesting interstitial edema, which could be from volume overload and/or congestive heart failure. Probable
minimal right pleural effusion.)
Medical Tests (Nuc Med, Echo, EKG etc): Report Reviewed by me (EKG: SINUS BRADYCARDIA WITH 1ST DEGREE A-V BLOCK RIGHT BUNDLE BRANCH BLOCK T WAVE ABNORMALITY, CONSIDER LATERAL ISCHEMIA)
Lab Data: Labs Reviewed by me (hgb 10.2, hct 32.5, Na 125, BUN 89, Creat 7.6, BNP >60645, )
Impression/Plan
-
IMPRESSION/PLAN:
#respiratory acidosis
#acute hypercarbic respiratory failure 2/2 fluid overload from ESRD
BNP >87705
VBG: pH: 7.16
pCO2: 77
pO2: 54
HCO3: 27.4
- Admit to IMU
- continuous BiPap
- Consult Cardiology
- ECHO
#ESRD on home peritoneal dialysis
- consult nephrology for PD
#hypertension
- continue atenolol and losartan
#hyperlipidemia
#CAD with stent
- continue aspirin and atorvastatin
#BPH
- continue finasteride and tamsulosin
#GERD
- continue pantoprazole
Code status: full code
DVT Prophylaxis: SCDs
--- NOTE | 2024-05-01 17:30 | W.CON.NEPH ---
Consultation
-
Date/Time Consultation Requested: 05/01/2024 3 PM
Date/Time Consultation Performed: 05/01/2024 5 PM
Requesting Provider: Dr. Marti
Performing Provider: Dr. Rogers
Reason for Consultation: ESRD
Medical History
-
Chief Complaint: ESRD/PD
History of Present Illness:
This is an 84-year-old gentleman who has end-stage renal disease for the last 2 and half years now on peritoneal dialysis. He dialyzes through [facility] at [place]. He receives peritoneal dialysis at home which is managed by
him and his . It appears that he alternates solutions of 1.5 and a 2.5% with a 9-hour treatment time with exchanges every 1 hour 40 minutes. The says that recently it was changed to 2.5% solutions with 4 exchanges per night. Instillation
volume is 2300 mL. He has a prior history of coronary artery disease with stenting. It is unknown if he has valvular heart disease. He does have hypertension which is generally controlled with a multidrug regimen as well as hyperlipidemia
controlled with statin therapy. He presented to the emergency room after lethargy over the last day. According to his family his clinical status has been declining over the last 6 months. He has been particularly weaker in the last 24 hours. Use
to make urine this had also declined in the last 24 hours. He has persistent hyponatremia. In the emergency room he was noted to be significantly hypoxic and was placed on CPAP.
Past Medical History
ESRD cause unknown according to the patient, hypertension, hyperlipidemia, coronary disease with 2 stents, anemia, BPH, right shoulder surgery, hernia repair, PD catheter placement, hyperphosphatemia
Social History
Tobacco: Non-Smoker
Alcohol: None
Family History
No known CKD
Allergies / Home Medications
Allergy/AdvReac Type Severity Reaction Status Date / Time
Penicillins Allergy Unknown Verified 05/01/24 15:10
Sulfa (Sulfonamide Allergy Unknown Verified 05/01/24 15:10
Antibiotics)
�Medication �Instructions �Recorded �Confirmed �Type
aspirin 81 mg tablet,delayed 81 mg PO DAILY Blood Clot 12/29/21 05/01/24 History
release Prevention/Tx
atorvastatin 40 mg tablet (Lipitor) 40 mg PO MOTUWETHFR@2200 High 12/29/21 05/01/24 History
Cholesterol
coQ10 (ubiquinol) 200 mg capsule 200 mg PO NOON Supplement 12/29/21 05/01/24 History
docusate sodium 100 mg capsule 100 mg PO DAILY STOOL SOFTENER 12/29/21 05/01/24 History
(Colace)
finasteride 5 mg tablet 5 mg PO QPM BPH 12/29/21 05/01/24 History
sevelamer HCl 800 mg tablet 1,600 mg PO MEALS RENAL 12/29/21 03/31/24 History
tamsulosin 0.4 mg capsule (Flomax) 0.4 mg PO QPM Urinary Issue 12/29/21 03/31/24 History
vitamin B complex-vitamin C-folic 1 tab PO DAILY Supplement 01/07/24 05/01/24 History
acid 0.8 mg tablet (Shivani-Aminata)
acetaminophen 325 mg tablet 650 mg (2 x 325 mg) PO Q4HPRN PRN 01/13/24 05/01/24 Rx
mild pain/PAEZ/temp> 100.4F #30 tabs
atenolol 25 mg tablet 25 mg PO HS Blood Pressure 03/31/24 05/01/24 History
azelastine 137 mcg (0.1 %) nasal 2 spray intranasal DAILYPRN PRN 03/31/24 05/01/24 History
spray allergies
cetirizine 10 mg tablet 10 mg PO DAILY Allergies 03/31/24 05/01/24 History
cholecalciferol (vitamin D3) 25 25 mcg PO DAILY Supplement 03/31/24 05/01/24 History
mcg (1,000 unit) tablet (Vitamin
D3)
losartan 50 mg tablet 50 mg PO DAILY Blood Pressure 03/31/24 05/01/24 History
pantoprazole 40 mg tablet,delayed 40 mg PO DAILY@0600 03/31/24 05/01/24 History
release (Protonix) Gastrointestinal Issue
Review of Systems
-
Lethargic
History Source: Family
All other systems: Negative unless noted
Physical Exam
Vital Signs
Vital Signs
Temp Pulse Resp BP Pulse Ox
98.0 F 57 18 135/66 96
05/01/24 15:07 05/01/24 16:15 05/01/24 16:15 05/01/24 16:01 05/01/24 16:22
Lab Results
WBC 6.1 10^3/uL (4.8-10.8) 05/01/24 16:27
RBC 3.22 10^6/uL (4.70-6.10) L 05/01/24 16:27
Hgb 10.2 g/dL (13.0-18.0) L 05/01/24 16:
Hct 32.5 % (39.0-52.0) L 05/01/24 16:27
Plt Count 82 10^3/uL (130-400) L 05/01/24 16:27
Sodium 125 mmol/L (135-145) L 05/01/24 16:27
Potassium 3.7 mmol/L (3.5-5.1) 05/01/24 16:
Chloride 84 mmol/L (98-107) L 05/01/24 16:27
Carbon Dioxide 26 mmol/L (22-30) 05/01/24 16:27
BUN 89 mg/dl (9-20) H 05/01/24 16:27
Creatinine 7.6 mg/dL (0.7-1.3) H* 05/01/24 16:
eGFR 6.47 05/01/24 16:27
Glucose 99 mg/dl (70-99) 05/01/24 16:27
Calcium 8.4 mg/dl (8.4-10.2) 05/01/24 16:27
Gto-A-Icwvmqtrouq Pept > 29910 pg/ml 05/01/24 16:27
Albumin 3.4 g/dl (3.5-5.0) L 05/01/24 16:27
Laboratory Tests
04/02/24 04/05/24 05/01/24
05:23 03:58 16:27
Hgb 8.0 L
Sodium 126 L
Creatinine 6.1 H*
Troponin I 0.016
Aib-K-Dwhzmntnqnb Pept > 02057
Physical Exam
Patient is awake alert oriented and in no distress. Mood and affect were pleasant, insight and judgment were good. Pupils are equal round and reactive to light, extraocular movements are intact, sclera were anicteric. Hearing was normal, ears and
nose are intact. Oropharynx was clear. Neck was supple with trachea midline and no thyromegaly. Heart was regular rate and rhythm without rubs. There was a faint murmur at the base. Lower extremities with 1+ edema. Lungs were coarse with faint
rales to auscultation bilaterally and with normal excursion. Abdomen was soft, nontender, with normal active bowel sounds, and no hepatosplenomegaly. Skin was without rash and with normal turgor.
Data Reviewed
-
Radiology: Image Personally Visualized and interpreted (Chest x-ray 05/01/2024 by my reading shows elevation left hemidiaphragm cardiomegaly vascular prominence. Unchanged from prior x-ray)
Medical Tests (Nuc Med, Echo etc): Image Personally Visualized and interpreted (EKG 05/01/2024 by my reading sinus bradycardia first-degree AV block right bundle branch block lateral T wave abnormality)
Labs: Labs Reviewed by me
Old Records: Reviewed
Assessment/Plan
-
Assessment
ESRD on PD
Hyponatremia
anemia
Thrombocytopenia
Hypertension
Hyperlipidemia
Coronary artery disease with history of stent
Hyperphosphatemia
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
Hypoxia
Volume overload
Plan
continue PD all 2.5% solution, 2L dwell, 4hrs dwell
maintain FR
hypervolemic hyponatremia
Cardiology evaluation
Will need recent echocardiogram report or new echocardiogram
Discussed with family at bedside
--- NOTE | 2024-05-01 18:20 | W.PN.UPDATE ---
Update Note
Progress Note Update
This is an addendum to H&P written by Marichuy Fraga on 05/01/2024.� Patient seen and examined independently with COPYRIGHT CLERK.
84-year-old male past medical history of chronic anemia, chronic ambulatory dysfunction, chronic thrombocytopenia, hyponatremia, ESRD on peritoneal dialysis, BPH, hypertension, GERD, hyperlipidemia, CAD with stent, chronic sinus bradycardia,
presenting for
VBG shows pH of 7.16, CO2 of 77, bicarb of 27 indicating acute hypercarbic respiratory failure.
Cardiac BNP of than 27,000.� Patient with chronic hyponatremia sodium 125 close to baseline.
Chest x-ray shows cardiomegaly, subtle findings suggesting interstitial edema.
Patient with acute hypercarbic respite failure secondary to volume overload secondary to CHF exacerbation/ESRD.� Patient on BIPAP.�Nephrology consulted to continue peritoneal dialysis.� Check echocardiogram.� Cardiology consulted.
[2024-05-01] MEDS: LIPITOR PO (21:15)
[2024-05-02] VITALS (14 sets, daily range): BP systolic 91–157; BP diastolic 51–90; PULSE 2–50; BMI 24.5
--- NOTE | 2024-05-02 00:08 | PTCARENOTE ---
pt admitted from the ED with and daughter at bedside to help with admission questions. bipap in place, pt trying to pull at mask a few times, notified covering TOP ICER, orders placed for bilateral mitts, sitter in place as patient in on bipap mask
at this time. PD initiated, initial output was only 100ml, notified Dr. Coello, no new orders. PD followed as ordered q4hrs. bed alarm on patient. remains at 97% on bipap. [place]. repeat ABG's ordered for the morning. care ongoing.
--- NOTE | 2024-05-02 02:06 | PTCARENOTE ---
pt continues to try to pull off bipap mask, pulling off pulse ox, and pulling off cardiac leads. bilateral mitts remain in place, 1:1 at bedside.
[2024-05-02 04:10] LABS: HCO3 24.9 mmol/L (21-28); O2 Saturation % 92.9 % (94-98); O2 Therapy bipap; PCO2 58 mmHg (35-48); PO2 74 mmHg (83-108); pH 7.24 (7.35-7.45)
[2024-05-02] MEDS: PROTONIX PO (05:39)
--- NOTE | 2024-05-02 06:23 | PTCARENOTE ---
pt waxes and wanes between being lethargic and pulling off wires and bipap mask. VSS. 1:1 remains at bedside.
[2024-05-02 06:30] LABS: Blood Urea Nitrogen 85 mg/dl (9-20); Calcium 8.6 mg/dl (8.4-10.2); Carbon Dioxide 25 mmol/L (22-30); Chloride 86 mmol/L (98-107); Estimated Creatinine Clearance 6 ml/min; Glucose 136 mg/dl (70-99); Potassium 3.2 mmol/L (3.5-5.1); Sodium 126 mmol/L (135-145); eGFR 6.47
[2024-05-02 06:33] LABS: Hemoglobin 10.5 g/dL (13.0-18.0); Mean Corp Hgb Conc. 31.8 g/dL (33.0-37.0); Mean Corpuscular Hgb 31.7 pg (27.0-31.0); Mean Corpuscular Volume 99.7 fL (80.0-94.0); Platelet Count 93 10^3/uL (130-400); Red Blood Cell Count 3.31 10^6/uL (4.70-6.10); Red Cell Dist. Width 14.2 % (11.5-14.5); White Blood Cell Count 5.9 10^3/uL (4.8-10.8)
[2024-05-02] MEDS: KCL 270 MEQ IV (07:12)
[2024-05-02] MEDS: ASPIR LOW (ENTERIC COATED) PO (08:30)
[2024-05-02] MEDS: COZAAR PO (08:30)
[2024-05-02] MEDS: RENVELA PO ×2 (08:30→12:17)
[2024-05-02] MEDS: NEPHROCAP PO (08:30)
[2024-05-02] MEDS: COLACE PO (08:30)
[2024-05-02] MEDS: VITAMIN D3 (cholecalciferol) PO (08:30)
[2024-05-02] MEDS: ZYRTEC PO (08:30)
--- NOTE | 2024-05-02 09:06 | CARDSERVDEF ---
Echocardiogram with Definity completed after protocol screening completed. Allergies verified.
Patent IV site: _Left IV antecubital site _clear___
IV site flushed with 0.9% NaCl pre and post administration.
Diluted bolus method utilized to enhance visualization of ventricular fuentes.
Total volume given: ___2_ mL
Patient tolerated all procedures well without complications.
--- NOTE | 2024-05-02 09:08 | PTOTSP ---
Received order for PT and reviewed chart. S/w RN who reports pt is not appropriate to participate today due to needing to be kept on Bipap and in restraints to keep mask on. Agreed to follow up over weekend.
--- NOTE | 2024-05-02 10:30 | CON.CAR ---
Addendum entered and electronically signed by Farzad Bridges MD 05/02/24 14:15:
Patient seen and examined in collaboration with HADOOP DEVELOPER; agree with below.
-84-year-old male with CAD with prior PCI, end-stage renal disease on PD, hypertension, hyperlipidemia, and chronic hyponatremia being admitted with weakness/lethargy; cardiology consulted for acute CHF.
-Transthoracic echocardiogram today revealed an LVEF of 35-40% with global hypokinesis, enlarged right ventricular size with mildly reduced right ventricular systolic function, mild to moderate mitral regurgitation, mild to moderate aortic stenosis,
and mild tricuspid regurgitation with PASP of 45-50 mmHg; this is likely not acute and appears to be more chronic given multiple abnormalities.
-Patient most likely has acute on chronic HFrEF.
-Recommend conservative management from a cardiac standpoint given comorbidities and advanced age; poor candidate for any aggressive workup.
-Will change from atenolol 25 mg daily to Toprol-XL 25 mg daily for GDMT.
-Continue current dose of losartan.
-Further GDMT limited due to CKD on dialysis.
-Recommend volume management via PD as per Nephrology.
-No further cardiac recommendations from a cardiac standpoint at this time; can follow-up with Cardiology as an outpatient.
Original Note:
Consultation
Consultation Request
Date/Time Consultation Requested: 05/01/24 8p
Date/Time Consultation Performed: 05/02/24 9a
Requesting Provider: AGUILA Reynolds
Performing Provider: AGUILA Brandt for Dr. Bridges
Reason for Consultation: CHF
Medical History
-
Chief Complaint: lethargy/weakness
History of Present Illness:
Mr. Cohen is an 84 yo male with ESRD on PD per [facility], CAD prior PCI, HTN, HLD, and chronic hyponatremia, who presents from home brought in by family for progressive weakness and lethargy. He is admitted to the hospitalist service
and we are consulted for acute CHF. He is sleeping on CPAP during exam and has 1:1 supervision due to agitation last night, wearing mitten restraints currently. He is unable to provide adequate history, which was obtained from his medical chart.
Past Medical History
Past Medical History: Other (as above)
Social History
Tobacco: Non-Smoker
Personal:
Living: With Family
Family History
Family History: Unable to Obtain
Allergies / Home Medications
Allergy/AdvReac Type Severity Reaction Status Date / Time
Penicillins Allergy Unknown Verified 05/01/24 15:10
Sulfa (Sulfonamide Allergy Unknown Verified 05/01/24 15:10
Antibiotics)
�Medication �Instructions �Recorded �Confirmed �Type
aspirin 81 mg tablet,delayed 81 mg PO DAILY Blood Clot 12/29/21 05/01/24 History
release Prevention/Tx
atorvastatin 40 mg tablet (Lipitor) 40 mg PO MOTUWETHFR@2200 High 12/29/21 05/01/24 History
Cholesterol
coQ10 (ubiquinol) 200 mg capsule 200 mg PO NOON Supplement 12/29/21 05/01/24 History
docusate sodium 100 mg capsule 100 mg PO DAILY STOOL SOFTENER 12/29/21 05/01/24 History
(Colace)
finasteride 5 mg tablet 5 mg PO QPM BPH 12/29/21 05/01/24 History
sevelamer HCl 800 mg tablet 1,600 mg PO MEALS RENAL 12/29/21 05/01/24 History
tamsulosin 0.4 mg capsule (Flomax) 0.4 mg PO QPM Urinary Issue 12/29/21 05/01/24 History
vitamin B complex-vitamin C-folic 1 tab PO DAILY Supplement 01/07/24 05/01/24 History
acid 0.8 mg tablet (Shivani-Aminata)
acetaminophen 325 mg tablet 650 mg (2 x 325 mg) PO Q4HPRN PRN 01/13/24 05/01/24 Rx
mild pain/PAEZ/temp> 100.4F #30 tabs
atenolol 25 mg tablet 25 mg PO HS Blood Pressure 03/31/24 05/01/24 History
azelastine 137 mcg (0.1 %) nasal 2 spray intranasal DAILYPRN PRN 03/31/24 05/01/24 History
spray allergies
cetirizine 10 mg tablet 10 mg PO DAILY Allergies 03/31/24 05/01/24 History
cholecalciferol (vitamin D3) 25 25 mcg PO NOON Supplement 03/31/24 05/01/24 History
mcg (1,000 unit) tablet (Vitamin
D3)
losartan 50 mg tablet 50 mg PO DAILY Blood Pressure 03/31/24 05/01/24 History
pantoprazole 40 mg tablet,delayed 40 mg PO DAILY@0600 03/31/24 05/01/24 History
release (Protonix) Gastrointestinal Issue
biotin 1 mg tablet 1 mg PO NOON 05/01/24 05/01/24 History
Review of Systems
-
History Source: Patient
All other systems: Negative unless noted
Physical Exam
Vital Signs
Temp Pulse Resp BP Pulse Ox
96.8 F L 41 13 114/59 98
05/02/24 07:35 05/02/24 06:00 05/02/24 06:00 05/02/24 06:00 05/02/24 06:00
Lab Results
05/02/24 05:50
05/02/24 05:50
Troponin I 0.016 ng/ml 05/01/24 16:27
Koz-U-Usttolcqchq Pept > 08636 pg/ml 05/01/24 16:27
Physical Exam
General: Other (elderly, frail )
HEENT: Normocephalic
Respiratory: Other (diminished b/l )
Cardiac: S1/S2 and Other (bradycardia)
Breast: Deferred by me
GI: Soft, Non Tender, Non Distended and Normal Bowel Sounds
Rectal: Deferred by Provider
Musculoskeletal: No Edema
Skin: Warm and Dry
Neuro: Other (sleeping on CPAP)
Psych: Calm
Impression / Plan
-
CHF - acute, unknown EF.
- check echo.
- volume status managed with PD per nephrology.
CAD - prior stents.
- continue medical therapy.
HTN - stable on meds.
- monitor.
HLD - stable on Lipitor, continue.
Agitation - requiring 1:1 supervision.
- reports sundowning at home.
- baseline dementia.
Data Reviewed
-
EKG: Tracing Personally Visualized and interpreted (sinus bradycardia 55 bpm, 1st degree AVB, RBBB)
Radiology: Report Reviewed by me (cxr: Mild to moderate elevation of the left hemidiaphragm. Cardiomegaly. Subtle findings suggesting interstitial edema, could be from volume overload and/or congestive heart failure. Probable minimal right pleural
effusion. )
Labs: Labs Reviewed by me
--- NOTE | 2024-05-02 12:01 | W.PN.HOSP.TC ---
Addendum entered and electronically signed by Boom Bhardwaj MD 05/02/24 16:27:
CODE STATUS now DNR
Addendum entered and electronically signed by Boom Bhardwaj MD 05/02/24 16:19:
Pulmonary also discussed prognosis with patient's family. Hospice is consulted for more information. I discussed with spouse and son again regarding goals of care. They will discuss with hospice and will let us know if CODE STATUS needs to be
changed. Patient now appears to be mentating better and plan is to wean BiPAP and be started on diet.
Addendum entered and electronically signed by Boom Bhardwaj MD 05/02/24 13:43:
Suspect some baseline cognitive impairment
CT in 2021 with atrophy
Monitor
Addendum entered and electronically signed by Boom Bhardwaj MD 05/02/24 12:48:
Suspect acute CHF, unknown EF
Original Note:
Today's Communication/Plan
-
Monitor vitals
See plan
Repeat ABG, if improving and patient is mentating better then can see if can take BiPAP off
Continue with dialysis per nephrology
Echo
Wean oxygen as tolerated
Discussed with spouse in length 05/02. Patient is critically ill. Spouse is aware of patient clinical status and will speak to the other family member regarding goals of care. Currently full code.
Pulmonary evaluation
Assessment / Plan
Assessment / Plan
General: Well Developed, In acute distress
HEENT: NormoCephalic, Moist mucous membranes, Atraumatic
Respiratory: Rhonchi and Decreased Breath Sounds, on bipap
Cardiac: S1/S2 and Regular Rhythm; No Murmur, Rub or Gallop
GI: Soft, Non Tender, Non Distended and Normal Bowel Sounds
Musculoskeletal: Edema, Left Lower Extremity and Edema, Right Lower Extremity
Skin: Warm and IV/Catheter Site; No Rash
Neuro: AAox2
Acute hypercarbic hypoxic respiratory failure likely secondary to fluid overload with underlying end-stage renal disease
suspect TME 2/2 hypercarbia and CHF
BNP elevated
Blood gas with severe respiratory acidosis, repeat blood gas
Continue with BiPAP for now; on 10/08
N.p.o.; ok for PO meds if awake
Cardiology following
Peritoneal dialysis per nephrology
echo pending
per spouse; has been on PD for 3 years and has been doing well.
sees cardiology from [facility]
consult pulmonary
Hypokalemia
also manage with PD
Acute on chronic hyponatremia
Continue to monitor
ESRD on peritoneal dialysis
been on 3 years
Follows up at [facility]
Nephrology following
hx of delirium in past
currently not agitated; if agitated then can try risperadol
GERD
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
Coronary artery disease with history of stent
2 stents per spouse a while ago
HTN
HLD
DVTppx
heparin
Full code
Discussed with spouse in length 05/02. Patient is critically ill. Spouse is aware of patient clinical status and will speak to the other family member regarding goals of care. Currently full code.
Total Critical Care Time__52___ minutes. I was immediately available to the patient and staff. I personally examined, reviewed labs, diagnostic images/reports, interpretations, treatment plans, discussed patient care with other providers and
family or caregivers (if patient is unable to make decisions), entered orders as appropriate and documented the medical record.
Anticipated Discharge: > 48 hours
Subjective/Interval History
-
Date of Service: May 02, 2024
reports feeling better with bipap
Objective Data
-
Labs:
Laboratory Results
05/02/24 05/02/24 05/02/24
03:30 05:50 10:44
WBC 5.9
Hgb 10.5 L
Hct 33.0 L
Plt Count 93 L
HCO3 24.9 Pending
Sodium 126 L
Potassium 3.2 L
Chloride 86 L
Carbon Dioxide 25
BUN 85 H
Creatinine 7.6 H*
Glucose 136 H
Calcium 8.6
Vital Signs:
Vital Signs
Temp Pulse Resp BP Pulse Ox
97.5 F 53 13 152/87 99
05/02/24 11:49 05/02/24 10:01 05/02/24 10:01 05/02/24 10:01 05/02/24 10:55
I&O
05/01/24 05/02/24 05/03/24
06:59 06:59 06:59
Output Total 500 / 500 500 / 500
Balance -500 / -500 -500 / -500
[2024-05-02 12:37] LABS: B.E. -2.5 mmol/L; HCO3 25.1 mmol/L (21-28); O2 Saturation % 97.9 % (94-98); PCO2 56 mmHg (35-48); PO2 136 mmHg (83-108); pH 7.26 (7.35-7.45)
--- NOTE | 2024-05-02 13:11 | CM ---
Addendum entered by Naina Osuna RN 05/02/24 16:47:
Message from [facility]: Liane spoke to dr. Bhardwaj and family- family provided info on inpatient hospice- now a dnr/dni, per dr. holm PD/Bipap tonight, reeevaulate labs in am and make some decisions- he might be placed on comfort-
[facility] will reach out to hospice foot and ankle surgeon tomorrow if hospice is warranted/needed
Addendum entered by Naina Osuna RN 05/02/24 16:10:
CM Consult: Hospice
Unable to reach Carla on her cell or home phone.
Spoke with daughter Tye; she said her brother Filibetro spoke with MD about hospice. The , son & Dtr are all coming in this afternoon and hoping to speak with hospice nurse.
Informed Tye would let hospice nurse know.
Spoke with [facility] re; referral.
Plan follow up after seen by Hospice.
Addendum entered by Naina Osuna RN 05/02/24 13:35:
NPO at present.
Plan follow up after seen by PT/OT, follow O2 needs, diet and mentation.
Plan TBD.
Original Note:
Patient with Hx ESRD on PD. O2 4L, BiPAP. ABGs today. Per nurse assessment; confused, drowsy. 1:1 Observation. PT/OT Evals pending.
Met with patient while ABGs were being drawn, patient appeared to be drowsy or sleeping, & wearing BiPAP.
Spoke with patient's Carla;
the patient resides with his , daughter and 3 grandsons in a 2 story house with 2 + 1 BRIANNE, and chair lift to 2nd floor.
describes patient's mentation at home as sleepy, saying that is not new for him.
The patient has been assisted with ADLs by his but was able to dress himself recently.
He has only been able to ambulate short distances with his RW.
assists with doing peritoneal dialysis.
was considering hiring a caregiver but never put that in place - she has the Caregiver list. She contacted [facility] and a few other agencies.
DME - RW, shower chair, PD supplies, w/c
VN - current with [facility] for SN/PT/OT
SNF - none
PCP - P[facility] Manzanares
Pharmacy - [facility]
Plan TBD.
--- NOTE | 2024-05-02 14:28 | CON.PUL ---
Consultation
Consultation Request
Date/Time Consultation Requested: 05/02/24
Date/Time Consultation Performed: 05/02/24
Performing Provider: Scout
Reason for Consultation: SOB
Medical History
-
History of Present Illness:
Patient is a 84-year-old male with past medical history significant for ESRD on home peritoneal dialysis, hypertension, hyperlipidemia, CAD with stent, sinus bradycardia and BPH who presented to [facility] ED for evaluation of increased
lethargy and low SpO2 with home nurse. Family at bedside state that over past 2 days patient has been lethargic and falling asleep no matter where he was even sitting at kitchen table, he has had difficulty bearing weight and needed increased
assistance and has had noted visual hallucinations. ABG showing acute CO2 retention 7, placed on BIPAP.
In review of his history, he has ECHO showing reduced function 35-40%. Family states he had had signs of dementia at home and confusion/encephalopathy has been noted on prior admissions.
He is full code.
Past Medical History
Past Medical History: Other (see list below)
Social History
Tobacco: Non-smoker
Alcohol: None
Drug: None
Family History
Family History: Reviewed & Not Pertinent
Allergies / Home Medications
Allergies
Allergy/AdvReac Type Severity Reaction Status Date / Time
Penicillins Allergy Unknown Verified 05/01/24 15:10
Sulfa (Sulfonamide Allergy Unknown Verified 05/01/24 15:10
Antibiotics)
Home Medications
�Medication �Instructions �Recorded �Confirmed �Last Taken �Type
aspirin 81 mg tablet,delayed 81 mg PO DAILY Blood Clot 12/29/21 05/01/24 05/01/24 History
release Prevention/Tx
atorvastatin 40 mg tablet (Lipitor) 40 mg PO MOTUWETHFR@2200 High 12/29/21 05/01/24 04/30/24 History
Cholesterol
coQ10 (ubiquinol) 200 mg capsule 200 mg PO NOON Supplement 12/29/21 05/01/24 04/30/24 History
docusate sodium 100 mg capsule 100 mg PO DAILY STOOL SOFTENER 12/29/21 05/01/24 05/01/24 History
(Colace)
finasteride 5 mg tablet 5 mg PO QPM BPH 12/29/21 05/01/24 04/30/24 History
sevelamer HCl 800 mg tablet 1,600 mg PO MEALS RENAL 12/29/21 05/01/24 05/01/24 History
tamsulosin 0.4 mg capsule (Flomax) 0.4 mg PO QPM Urinary Issue 12/29/21 05/01/24 05/01/24 History
vitamin B complex-vitamin C-folic 1 tab PO DAILY Supplement 01/07/24 05/01/24 05/01/24 History
acid 0.8 mg tablet (Shivani-Aminata)
acetaminophen 325 mg tablet 650 mg (2 x 325 mg) PO Q4HPRN PRN 01/13/24 05/01/24 Unknown Rx
mild pain/PAEZ/temp> 100.4F #30 tabs
atenolol 25 mg tablet 25 mg PO HS Blood Pressure 03/31/24 05/01/24 04/30/24 History
azelastine 137 mcg (0.1 %) nasal 2 spray intranasal DAILYPRN PRN 03/31/24 05/01/24 Unknown History
spray allergies
cetirizine 10 mg tablet 10 mg PO DAILY Allergies 03/31/24 05/01/24 05/01/24 History
cholecalciferol (vitamin D3) 25 25 mcg PO NOON Supplement 03/31/24 05/01/24 04/30/24 History
mcg (1,000 unit) tablet (Vitamin
D3)
losartan 50 mg tablet 50 mg PO DAILY Blood Pressure 03/31/24 05/01/24 05/01/24 History
pantoprazole 40 mg tablet,delayed 40 mg PO DAILY@0600 03/31/24 05/01/24 05/01/24 History
release (Protonix) Gastrointestinal Issue
biotin 1 mg tablet 1 mg PO NOON Supplement 05/01/24 05/01/2425 History
Review of Systems
-
History Source: Patient
All other systems: Negative unless noted
Vitals / Labs / Diagnostic Testing
Vital Signs
Temp Pulse Resp BP Pulse Ox
97.5 F 53 13 152/87 99
05/02/24 11:49 05/02/24 10:01 05/02/24 10:01 05/02/24 10:01 05/02/24 10:55
Lab Data
05/02/24 05:50
05/02/24 05:50
Laboratory Results
05/02/24 05/02/24
03: 12:13
pH 7.24 L 7.26 L
pCO2 58 H 56 H
pO2 74 L 136 H
HCO3 24.9 25.1
O2 Delivery Level bipap Not Reportable
Diagnostic Testing:
Physical Exam
-
HEENT: Normocephalic, Anicteric and Moist Mucous Membranes
Cardiovascular: S1/S2 and Regular Rhythm
Respiratory: Clear (decreased BS bilaterally), Non-Labored Respirations and Other (on BIPAP)
GI: Soft, Non Distended and Non Tender
Neurology: Awake and No Motor Deficits
Skin: Warm and Dry
General: Respiratory Distress (mild-moderate) and Other
Assessment
-
Patient is a 84-year-old male with past medical history significant for ESRD on home peritoneal dialysis, hypertension, hyperlipidemia, CAD with stent, sinus bradycardia and BPH who presented to [facility] ED for evaluation of increased
lethargy and low SpO2 with home nurse. Family at bedside state that over past 2 days patient has been lethargic and falling asleep no matter where he was even sitting at kitchen table, he has had difficulty bearing weight and needed increased
assistance and has had noted visual hallucinations. ABG showing acute CO2 retention 7.16/77, placed on BIPAP. In review of his history, he has ECHO showing reduced function 35-40%. Family states he had had signs of dementia at home and
confusion/encephalopathy has been noted on prior admissions. We are consulted for evaluation.
Acute hypercarbic respiratory failure, now BIPAP dependant
Acute new NICM EF 35-40% with global HK and RV dysfunction
Acute volume overload, CHF overlap, proBNP >02929
Hyponatremia
Hypokalemia
Hyperglycemia
Recurrent re-admissions in the past year
Thrombocytopenia
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
Dementia, acute delirium on prior admissions/encephalopathy noted
Massive prostatomegaly
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
ESRD on PD
HTN
HLD
CAD s/p stent x 2
Sinus bradycardia
BPH
Diabetes
GERD
Chronic Anemia
Hernia repair
Plan
Hypoxemia noted on arrival, maintained on BIPAP continuously
ABG(s) reviewed: initial --> repeat
Not known to be on home O2 or BIPAP
Has not been able to come off BIPAP yet, family asking about PO intake
Would continue strict NPO as he is high aspiration risk
Family denies prior history of lung disease, possible sleep apnea
Suspect patient has acute hypercarbia due to presence of potential ERIC, NICM, volume overload
NO prior PFTs for review
CXR/CT obtained indicating CHF, small volumes
Other imaging reviewed--CT AP showing possible malignancy as well but this has not been investigated due to recurrent readmissions
ECHO results reviewed from this admission indicating new likely NICM, EF 35-40%
Has ESRD on PD, proBNP >36493
Renal following
Prior admission records reviewed, has confusion/TME
Background history of dementia per family
Given current multiorgan disfunction, I had david discussion wtih family regarding his prognosis
They are aware his prognosis is poor, waiting for 1 daughter to arrive for family discussions
He is currently full code, I reviewed this with them about intermediate accountant prognosis if intubated and high risk for vent dependency
He has advanced directives indicating no prolongation of life on devices
They were agreeable to hospice eval, consult placed
Will follow up on discussions, notified care team of plan
We will follow
Diagnostic Data
Chest X-Ray: 05/01/24- Mild to moderate elevation of the left hemidiaphragm. Cardiomegaly. Subtle findings suggesting interstitial edema, which could be from volume overload and/or congestive heart failure. Probable minimal right pleural effusion.
04/29/24-Suspect mild CHF. Cannot rule out superimposed right lung pneumonia.
CT Scan: AP 01/08/24- Possible omental caking in left upper quadrant and therefore metastatic disease. This could further be evaluated by PET scan if indicated clinically. Moderate abdominopelvic ascites. Findings concerning for mild
postinflammatory/postinfectious change of both lower lobes. Age-indeterminate mild T12 compression fracture. Splenic calcifications suggesting prior benign granulomatous disease. Cholesterol gallstones. Benign right adrenal adenoma. Bilateral
simple renal cysts. Bilateral benign complex renal cysts. Nonobstructing renal stones. Diverticulosis. Mild extraluminal air in the abdomen probably due to the percutaneous drainage catheter. Severe prostate hypertrophy. Probable right hydrocele
Echo: 05/02/24- LV ejection fraction is 35-40%. Global hypokinesis. Enlarged right ventricular size. Mildly reduced right ventricular systolic function. Severely dilated left atrium. Dilated right atrium. Mild to moderate mitral regurgitation. Mild to
moderate aortic stenosis; peak/mean gradients 20/10 mmHg, calculated TONA is 1.2 cm2. Mild aortic regurgitation. Mild tricuspid regurgitation. Estimated pulmonary artery pressure of 45-50 mmHg. Pleural effusion present. The IVC is dilated and does
not collapse.
PFT's:
Reports and relevant images were personally reviewed.
Total time spent on this consultation __85__ minutes which includes review of history, physical exam, medications, laboratory data, personal review of imaging, extensive review of outpatient records, discussion with care team and respiratory therapy.
--- NOTE | 2024-05-02 15:33 | HOSPNOTE ---
Addendum entered by Cora Ch RN 05/02/24 16:40:
Liane went and met with patient and family. She reviewed hospice and the philosophy. Attending updated. Plan is for patient to receive PD/Bipap tonight, reassess lab/status tomorrow and make further decisions. Patient has been made a DNR/DNI.
Attending will reach out to hospice global professional this weekend if inpatient hospice is warranted. CM also updated.
Original Note:
Pulmonary texted me but after reading the notes patient is current with [facility] and we did not receive any referral so will await CM input if they choose [facility] we will reach out to family.
--- NOTE | 2024-05-02 15:39 | W.PN.NEPH.PH ---
Today's Communication / Plan
-
cont PD , 4.25% if needed
Assessment/Plan
-
Assessment
ESRD on PD
Hyponatremia
anemia
Thrombocytopenia
Hypertension
Hyperlipidemia
Coronary artery disease with history of stent
Hyperphosphatemia
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
Hypoxia
Volume overload
Plan
continue PD all 2.5% solution, 2L dwell, 4hrs dwell
wt is down?, UF 1lit so far today
he has no intake so far
suspect could try to wean BIPAP, if not will try 4.2% PD solution
BPs are labile
echo noted low EF 35%, CXR reviewed
hypervolemic hyponatremia
replace k
Discussed with family at bedside and nursing
-
-
Date of Service: May 02, 2024
CC / HPI / ROS
-
Chief Complaint:
ESRD
History of Present Illness:
soidum low 126
k low 3.2
wt slightly down?
bp labile
remains on BIPAP on 4lit of O2
Review of Systems:
no cp ro sob at rest
no fever
Labs
-
Labs:
WBC 5.9 10^3/uL (4.8-10.8) 05/02/24 05:50
RBC 3.31 10^6/uL (4.70-6.10) L 05/02/24 05:50
Hgb 10.5 g/dL (13.0-18.0) L 05/02/24 05:50
Hct 33.0 % (39.0-52.0) L 05/02/24 05:50
Plt Count 93 10^3/uL (130-400) L 05/02/24 05:50
Sodium 126 mmol/L (135-145) L 05/02/24 05:50
Potassium 3.2 mmol/L (3.5-5.1) L 05/02/24 05:50
Chloride 86 mmol/L (98-107) L 05/02/24 05:50
Carbon Dioxide 25 mmol/L (22-30) 05/02/24 05:50
BUN 85 mg/dl (9-20) H 05/02/24 05:50
Creatinine 7.6 mg/dL (0.7-1.3) H* 05/02/24 05:50
eGFR 6.47 05/02/24 05:50
Glucose 136 mg/dl (70-99) H 05/02/24 05:50
Calcium 8.6 mg/dl (8.4-10.2) 05/02/24 05:50
Rxi-H-Fypisehiumg Pept > 65518 pg/ml 05/01/24 16:27
Albumin 3.4 g/dl (3.5-5.0) L 05/01/24 16:27
Physical Exam
-
Vital Signs:
Vital Signs
Temp Pulse Resp BP Pulse Ox
97.5 F 53 13 152/87 99
05/02/24 11:49 05/02/24 10:01 05/02/24 10:01 05/02/24 10:01 05/02/24 10:55
Cardiovascular:: Irregular rate and rhythm
Lung Excursion:: Normal (clear anteriorly )
Abdomen:: Nontender and Soft
Bowel Sounds:: Normal
Extremity Edema:: +1: Bilateral: (trace)
Rojas Catheter: No
[2024-05-02] MEDS: FLOMAX 0.4 MG PO (17:37)
[2024-05-02] MEDS: RENVELA 1600 MG PO (17:37)
[2024-05-02] MEDS: PROSCAR 5 MG PO (17:37)
[2024-05-02] MEDS: TOPROL XL 25 MG PO (17:37)
[2024-05-02 20:56] LABS: Venous Blood Gas B.E. -1.1 mmol/L (-4 to +4); Venous Blood Gas HCO3 28.7 mmol/L (22-27); Venous Blood Gas O2 Sat % 97.7 %; Venous Blood Gas pO2 187 mmHg (30-50)
[2024-05-02 21:01] LABS: Venous Blood Gas pCO2 77 mmHg (35-48); Venous Blood Gas pH 7.18 (7.32-7.43)
[2024-05-02] MEDS: LIPITOR PO ×2 (21:06→21:08)
[2024-05-02] MEDS: HEPARIN 5000 UNITS SC (21:06)
[2024-05-03] VITALS (17 sets, daily range): BP systolic 83–129; BP diastolic 43–88; PULSE 2–68; BMI 23.8
[2024-05-03 04:01] LABS: % Basophils 0.1 % (0-2); % Eosinophils 2.2 % (0-6); % Immature Granulocytes 0.6 % (0-0.5); % Lymphocytes 6.3 % (20.5-51.1); % Monocytes 13.1 % (1.7-9.3); % Neutrophils 77.7 % (42.2-75.2); Absolute Eosinophils 0.2 10^3/uL (0-0.7); Absolute Immature Granulocytes 0.1 10^3/uL (0-0.05); Absolute Lymphocytes 0.5 10^3/uL (1.2-3.4); Absolute Monocytes 1.1 10^3/uL (0.1-0.6); Absolute Neutrophils 6.4 10^3/uL (1.4-6.5); Hematocrit 34.8 % (39.0-52.0); Hemoglobin 10.6 g/dL (13.0-18.0); Mean Corp Hgb Conc. 30.5 g/dL (33.0-37.0); Mean Corpuscular Hgb 30.9 pg (27.0-31.0); Mean Corpuscular Volume 101.5 fL (80.0-94.0); Mean Platelet Volume 10.5 fL (7.4-10.4); Nucleated Red Blood Cells % 0 % (-); Platelet Count 100 10^3/uL (130-400); Red Blood Cell Count 3.43 10^6/uL (4.70-6.10); Red Cell Dist. Width 14.4 % (11.5-14.5); White Blood Cell Count 8.2 10^3/uL (4.8-10.8)
[2024-05-03 04:23] LABS: Blood Urea Nitrogen 83 mg/dl (9-20); Calcium 8.1 mg/dl (8.4-10.2); Carbon Dioxide 27 mmol/L (22-30); Chloride 92 mmol/L (98-107); Estimated Creatinine Clearance 6 ml/min; Glucose 119 mg/dl (70-99); Potassium 3.3 mmol/L (3.5-5.1); Sodium 129 mmol/L (135-145); eGFR 6.68
[2024-05-03 04:31] LABS: B.E. -2.1 mmol/L; HCO3 24.6 mmol/L (21-28); O2 Saturation % 96.7 % (94-98); PCO2 50 mmHg (35-48); PO2 96 mmHg (83-108)
[2024-05-03 04:36] LABS: O2 Therapy current o2
--- NOTE | 2024-05-03 05:03 | PTCARENOTE ---
Addendum entered by Treasure Bennett RN 05/03/24 06:42:
Mitts removed this am. Remains a 1:1.
Original Note:
No acute events overnight. B/l mitts and 1:1 in [address]- remained on BIPAP. Am k 3.3- healthcare market consultant provider made aware and ordered repletion.
[2024-05-03] MEDS: KCL 270 MEQ IV (06:20)
[2024-05-03] MEDS: PROTONIX PO ×2 (06:23→06:24)
[2024-05-03] MEDS: PROTONIX 40 MG PO (06:31)
[2024-05-03] MEDS: COLACE 100 MG PO (08:06)
[2024-05-03] MEDS: NEPHROCAP 1 CAPSULE PO (08:06)
[2024-05-03] MEDS: ZYRTEC 10 MG PO (08:06)
[2024-05-03] MEDS: HEPARIN 5000 UNITS SC ×2 (08:06→19:29)
[2024-05-03] MEDS: ASPIR LOW (ENTERIC COATED) 81 MG PO (08:06)
[2024-05-03] MEDS: RENVELA 1600 MG PO ×3 (08:06→17:37)
[2024-05-03] MEDS: COZAAR 50 MG PO (08:10)
--- NOTE | 2024-05-03 12:40 | W.PN.NEPH.PH ---
Today's Communication / Plan
-
cotn PD same
Assessment/Plan
-
Assessment
ESRD on PD
Hyponatremia
anemia
Thrombocytopenia
Hypertension
Hyperlipidemia
Coronary artery disease with history of stent
Hyperphosphatemia
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
Hypoxia
Volume overload
Plan
continue PD all 2.5% solution, 2L dwell, 4hrs dwell
wt is down, net neg UF and off BIPAP this am
BPs are labile
echo noted low EF 35%
hypervolemic hyponatremia improving
replace k
need strict renal diet and FR -reviewed with pt
-
-
Date of Service: May 03, 2024
CC / HPI / ROS
-
Chief Complaint:
ESRD
History of Present Illness:
soidum better at 129
k low 3.2
wt slightly down
bp labile
off BIPAP on 2lit of O2
Review of Systems:
no cp ro sob at rest , close to baseline
no fever
Labs
-
Labs:
WBC 8.2 10^3/uL (4.8-10.8) 05/03/24 03:27
RBC 3.43 10^6/uL (4.70-6.10) L 05/03/24 03:27
Hgb 10.6 g/dL (13.0-18.0) L 05/03/24 03:27
Hct 34.8 % (39.0-52.0) L 05/03/24 03:27
Plt Count 100 10^3/uL (130-400) L 05/03/24 03:27
Sodium 129 mmol/L (135-145) L 05/03/24 03:27
Potassium 3.3 mmol/L (3.5-5.1) L 05/03/24 03:27
Chloride 92 mmol/L (98-107) L 05/03/24 03:27
Carbon Dioxide 27 mmol/L (22-30) 05/03/24 03:27
BUN 83 mg/dl (9-20) H 05/03/24 03:27
Creatinine 7.4 mg/dL (0.7-1.3) H* 05/03/24 03:27
eGFR 6.68 05/03/24 03:27
Glucose 119 mg/dl (70-99) H 05/03/24 03:27
Calcium 8.1 mg/dl (8.4-10.2) L 05/03/24 03:27
Yph-F-Lyxnrilqanb Pept > 91289 pg/ml 05/01/24 16:27
Albumin 3.4 g/dl (3.5-5.0) L 05/01/24 16:27
Physical Exam
-
Vital Signs:
Vital Signs
Temp Pulse Resp BP Pulse Ox
97.4 F 49 15 113/63 98
05/03/24 07:10 05/03/24 10:05 05/03/24 10:05 05/03/24 10:05 05/03/24 10:05
Cardiovascular:: Irregular rate and rhythm
Lung Excursion:: Normal (decreased bilat )
Abdomen:: Nontender and Soft
Bowel Sounds:: Normal
Extremity Edema:: None: Bilateral:
Rojas Catheter: No
[2024-05-03] MEDS: VITAMIN D3 (cholecalciferol) 25 MCG PO (13:16)
--- NOTE | 2024-05-03 15:28 | W.PN.PUL3 ---
Today's Communication / Plan
-
- Follow-up chest x-ray to evaluate pulmonary edema and left hemidiaphragm elevation
-Continue BiPAP nightly, during daytime we can have him on BiPAP for 4 hours alternating with 2 hours break
-Follow-up ABG or VBG in a.m.
Assessment
-
Patient is a 84-year-old male with past medical history significant for ESRD on home peritoneal dialysis, hypertension, hyperlipidemia, CAD with stent, sinus bradycardia and BPH who presented to [facility] ED for evaluation of increased
lethargy and low SpO2 with home nurse. Family at bedside state that over past 2 days patient has been lethargic and falling asleep no matter where he was even sitting at kitchen table, he has had difficulty bearing weight and needed increased
assistance and has had noted visual hallucinations. ABG showing acute CO2 retention 7., placed on BIPAP. In review of his history, he has ECHO showing reduced function 35-40%. Family states he had had signs of dementia at home and
confusion/encephalopathy has been noted on prior admissions. We are consulted for evaluation.
Acute hypercarbic respiratory failure, now BIPAP dependant
Acute new NICM EF 35-40% with global HK and RV dysfunction
Acute volume overload, CHF overlap, proBNP >30157
Hyponatremia
Hypokalemia
Hyperglycemia
Recurrent re-admissions in the past year
Thrombocytopenia
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
Dementia, acute delirium on prior admissions/encephalopathy noted
Massive prostatomegaly
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
ESRD on PD
HTN
HLD
CAD s/p stent x 2
Sinus bradycardia
BPH
Diabetes
GERD
Chronic Anemia
Hernia repair
Plan
#1. Acute hypoxic and hypercapnic respiratory failure. Improving with BiPAP therapy, pCO2 50 this morning. No prior known history of COPD/emphysema. I suspect this is in the setting of significant volume overload, probably underlying obstructive
sleep apnea, suspect restriction related to left hemidiaphragm elevation.
-Patient had been taken off BiPAP and was mentating well during my evaluation, blood gas improved to 7.3, pCO2 50
-Continue BiPAP at night and during daytime keep BiPAP on for 4 hours and then off for 2 hours
-Continue to remove excessive volume with peritoneal dialysis
-Follow-up chest x-ray today to assess volume
-Continue goals of care, hospice evaluation, DNR/DNI now
-Depending upon patient and family's goals of care and clinical course, once patient is euvolemic can pursue sleep study and pulmonary function testing as outpatient evaluate for any restriction related to left hemidiaphragm elevation
NO prior PFTs for review
CXR/CT obtained indicating CHF, small volumes
Other imaging reviewed--CT AP showing possible malignancy as well but this has not been investigated due to recurrent readmissions
ECHO results reviewed from this admission indicating new likely NICM, EF 35-40%
Has ESRD on PD, proBNP >56873
Renal following
Prior admission records reviewed, has confusion/TME
Background history of dementia per family
We will follow
Diagnostic Data
Chest X-Ray: 05/01/24- Mild to moderate elevation of the left hemidiaphragm. Cardiomegaly. Subtle findings suggesting interstitial edema, which could be from volume overload and/or congestive heart failure. Probable minimal right pleural effusion.
04/29/24-Suspect mild CHF. Cannot rule out superimposed right lung pneumonia.
CT Scan: AP 01/08/24- Possible omental caking in left upper quadrant and therefore metastatic disease. This could further be evaluated by PET scan if indicated clinically. Moderate abdominopelvic ascites. Findings concerning for mild
postinflammatory/postinfectious change of both lower lobes. Age-indeterminate mild T12 compression fracture. Splenic calcifications suggesting prior benign granulomatous disease. Cholesterol gallstones. Benign right adrenal adenoma. Bilateral
simple renal cysts. Bilateral benign complex renal cysts. Nonobstructing renal stones. Diverticulosis. Mild extraluminal air in the abdomen probably due to the percutaneous drainage catheter. Severe prostate hypertrophy. Probable right hydrocele
Echo: 05/02/24- LV ejection fraction is 35-40%. Global hypokinesis. Enlarged right ventricular size. Mildly reduced right ventricular systolic function. Severely dilated left atrium. Dilated right atrium. Mild to moderate mitral regurgitation. Mild to
moderate aortic stenosis; peak/mean gradients 20/10 mmHg, calculated TONA is 1.2 cm2. Mild aortic regurgitation. Mild tricuspid regurgitation. Estimated pulmonary artery pressure of 45-50 mmHg. Pleural effusion present. The IVC is dilated and does
not collapse.
PFT's:
Reports and relevant images were personally reviewed.
Total time spent on this consultation _25___ minutes which includes review of history, physical exam, medications, laboratory data, personal review of imaging, extensive review of outpatient records, discussion with care team and respiratory therapy.
Subjective Data
-
Date of Service:
Date of Service: May 03, 2024
Subjective:
Patient sitting in bed in no acute distress, on supplemental oxygen, one-to-one sitter at bedside
Objective Data
Data Reviewed
Vital Signs / I&O / Oxygen:
Vital Signs
Temp Pulse Resp BP Pulse Ox
97.3 F 47 11 120/54 99
05/03/24 12:17 05/03/24 14:00 05/03/24 14:00 05/03/24 12:00 05/03/24 14:00
Intake and Output
05/02/24 05/03/24 05/04/24
06:59 06:59 07:59
Intake Total 480 / 480
Output Total 500 / 500 2250 / 2250 500 / 500
Balance -500 / -500 -1770 / -1770 -500 / -500
SaO2 99
Nasal Cannula flow liters per 2
minute
Physical Exam
General: Comfortable
HEENT: Normocephalic
Cardiovascular: S1-S2
Respiratory: Clear
GI: Soft and Non Distended
Neurology: Awake
Skin: Warm and Dry
Labs/Micro/Reports
Lab Data
05/03/24 03:27
05/03/24 03:27
Laboratory Results
05/03/24
04:02
pH 7.30 L
pCO2 50 H
pO2 96
HCO3 24.6
O2 Delivery Level current o2
--- NOTE | 2024-05-03 15:45 | PTCARENOTE ---
Assumed care of patient at beginning of this shift from previous RN with 1:[address] as patient reported to be restless, picking at monitor and drain when awake. PD completed as ordered. See worklist for full assessment, vital signs and PD
intervention. See MAR for med administration.
[2024-05-03] MEDS: FLOMAX 0.4 MG PO (17:37)
[2024-05-03] MEDS: PROSCAR 5 MG PO (17:37)
--- NOTE | 2024-05-03 17:43 | W.PN.HOSP.TC ---
Today's Communication/Plan
-
BIPAP prn and HS
wean O2 as tolerated
PT/OT
PD as per nephro
monitor morning VBGs
Max hugger prn
prognosis remains guarded but patient overall improving at this time
Assessment / Plan
Assessment / Plan
General: no acute distress, appears comfortable
HEENT: NormoCephalic, Moist mucous membranes, Atraumatic
Respiratory: clear to auscultation b/l
Cardiac: S1/S2 and Regular Rhythm; No Murmur, Rub or Gallop
GI: Soft, Non Tender, Non Distended and Normal Bowel Sounds
Musculoskeletal: No edema
Skin: Warm and IV/Catheter Site; No Rash
Neuro: AAox2
84M ESRD PD HTN HLD CAD stents BPH here with hypercarbic resp failure 2/2 Acute on Chronic HFrEF
Acute hypercarbic hypoxic respiratory failure likely secondary to fluid overload with underlying end-stage renal disease
TME 2/2 hypercarbia and acute on chronic HFrEF
BNP elevated
Blood gas with severe respiratory acidosis, since improved
Continue with BiPAP 15/6 prn and HS
Cardio eval appreciated
Peritoneal dialysis per nephrology
ECHO appreciated EF 35-40%
per spouse; has been on PD for 3 years and has been doing well.
sees cardiology from [place] [facility]
consult pulmonary appreciated
Cold stress (temp 35 to 37 C or 95 to 98.6 F)
Max hugger prn
Hypokalemia
managed with PD
Acute on chronic hyponatremia
Improving with PD
ESRD on peritoneal dialysis
been on 3 years
Follows up at [place]
Nephrology eval appreciated
hx of delirium in past
currently not agitated; if agitated then can try risperdol
GERD
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
Coronary artery disease with history of stent
2 stents per spouse a while ago
HTN
HLD
PT/OT
DVTppx
heparin
DNR
Discussed with patient's family ( Carla, daughter, Janny, and son Filiberto) prognosis remains guarded though overall patient is improving at this time. Remains a candidate for hospice, though if patient continues to improve, potentially may be
able to go home with palliative services, if not hospice.
I spent a total of 50 minutes with the patient or on the floor. More than 50% of this time involved counseling and coordination of care.
Anticipated Discharge: 24 - 48 hours
Subjective/Interval History
-
Date of Service: May 03, 2024
AOx3 appears comfortable at this time. Hard of hearing but conversant coherent. Noted fluctuating mental status throughout the day.
Objective Data
-
Vital Signs:
Vital Signs
Temp Pulse Resp BP Pulse Ox
97.3 F 47 14 121/68 94
05/03/24 12:17 05/03/24 16:00 05/03/24 16:00 05/03/24 16:00 05/03/24 16:00
I&O
05/02/24 05/03/24 05/04/24
06:59 06:59 07:59
Intake Total 480 / 480
Output Total 500 / 500 2250 / 2250 1100 / 1100
Balance -500 / -500 -1770 / -1770 -1100 / -1100
[2024-05-03] MEDS: TOPROL XL PO (18:09)
--- NOTE | 2024-05-03 18:10 | PTCARENOTE ---
HR 49-50s, currently 49; patient due for toprol xl 25mg. Reviewed with Dr Vasquez; instructed to hold.
Unable to obtain temp axillary or orally. Rectal reading 95.3; however, some stool noted in rectum. Dr Vasquez made aware; up to see patient. Instructed to start vicky hugger. Message left for central supply to bring to room. Warm blankets placed on
patient.
--- NOTE | 2024-05-03 18:12 | PTCARENOTE ---
Patient due for PD; however warmer was noted to be turned off. Dialysate not warm. TT sent to Dr Bloom who responded PD can be held off for an hour til warm.
--- NOTE | 2024-05-03 18:22 | PTCARENOTE ---
Max dahl started; temp connected to monitor.
--- NOTE | 2024-05-03 18:27 | PTCARENOTE ---
BP read low, recycled for 108/88; however captured 83/43 in error.
--- NOTE | 2024-05-03 18:28 | PTCARENOTE ---
Patient had a lot of family visitors late afternoon. Currently sleeping. This nurse spoke with Dr Bloom who was on unit regarding PD and dialysate not warm at this time; also reviewed patient's temp. Ok to hold on PD until dialysate warm.
[2024-05-04] VITALS (14 sets, daily range): BP systolic 109–136; BP diastolic 49–97; PULSE 2–70; BMI 25.3; BMI 23.4
[2024-05-04 04:05] LABS: Venous Blood Gas B.E. 0.7 mmol/L (-4 to +4); Venous Blood Gas HCO3 29.7 mmol/L (22-27); Venous Blood Gas O2 Sat % 97.7 %; Venous Blood Gas pH 7.23 (7.32-7.43); Venous Blood Gas pO2 142 mmHg (30-50)
[2024-05-04 04:09] LABS: Venous Blood Gas pCO2 71 mmHg (35-48)
[2024-05-04 04:32] LABS: Hematocrit 34.1 % (39.0-52.0); Hemoglobin 10.7 g/dL (13.0-18.0); Mean Corp Hgb Conc. 31.4 g/dL (33.0-37.0); Mean Corpuscular Hgb 31.5 pg (27.0-31.0); Mean Corpuscular Volume 100.3 fL (80.0-94.0); Mean Platelet Volume 9.4 fL (7.4-10.4); Platelet Count 109 10^3/uL (130-400); Red Cell Dist. Width 14.4 % (11.5-14.5); White Blood Cell Count 8.1 10^3/uL (4.8-10.8)
--- NOTE | 2024-05-04 04:35 | PTCARENOTE ---
No acute events overnight. Patient confused and attempting to rip off bipap. Mitts reordered and 1:[address]
[2024-05-04 04:48] LABS: Blood Urea Nitrogen 71 mg/dl (9-20); Calcium 8.1 mg/dl (8.4-10.2); Carbon Dioxide 28 mmol/L (22-30); Chloride 94 mmol/L (98-107); Estimated Creatinine Clearance 7 ml/min; Glucose 155 mg/dl (70-99); Potassium 3.5 mmol/L (3.5-5.1); Sodium 130 mmol/L (135-145); eGFR 7.53
[2024-05-04] MEDS: PROTONIX 40 MG PO (05:10)
--- NOTE | 2024-05-04 07:11 | W.PN.HOSP.TC ---
Today's Communication/Plan
-
BIPAP as per Pulm
wean O2 as tolerated
PT/OT
PD as per nephro
monitor morning VBGs
Vicky hugger prn
prognosis remains guarded but patient overall improving at this time
Assessment / Plan
Assessment / Plan
Physical Exam
General: no acute distress, appears comfortable
HEENT: NormoCephalic, Moist mucous membranes, Atraumatic Hard of Hearing
Respiratory: clear to auscultation b/l
Cardiac: S1/S2 and Regular Rhythm; No Murmur, Rub or Gallop
GI: Soft, Non Tender, Non Distended and Normal Bowel Sounds
Musculoskeletal: No edema
Skin: Warm and IV/Catheter Site; No Rash
Neuro: AOx3, mentation seems slow
Psych: Calm
84M ESRD PD HTN HLD CAD stents BPH here with hypercarbic resp failure 2/2 Acute on Chronic HFrEF
Acute hypercarbic hypoxic respiratory failure likely secondary to fluid overload with underlying end-stage renal disease
TME 2/2 hypercarbia and acute on chronic HFrEF
BNP elevated
Blood gas with severe respiratory acidosis, since improved
Continue with BiPAP 15/6 prn and HS
Cardio eval appreciated
Peritoneal dialysis per nephrology
ECHO appreciated EF 35-40%
per spouse; has been on PD for 3 years and has been doing well.
sees cardiology from [place] [facility]
consult pulmonary appreciated
Cold stress (temp 35 to 37 C or 95 to 98.6 F)
Vicky hugger prn
TSH wnl
Random Cortisol non-deficient
Hypokalemia
managed with PD
Acute on chronic hyponatremia
Improving with PD
ESRD on peritoneal dialysis
been on 3 years
Follows up at [place]
Nephrology eval appreciated
hx of delirium in past
currently not agitated; if agitated then can try Risperdal
GERD
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
Coronary artery disease with history of stent
2 stents per spouse a while ago
HTN
HLD
PT/OT
DVTppx
heparin
DNR
Discussed with patient's family ( Carla, daughter, Janny, and son Filiberto) prognosis remains guarded though overall patient is improving at this time. Remains a candidate for hospice, though if patient continues to improve, potentially may be
able to go home with palliative services, if not hospice.
I spent a total of 50 minutes with the patient or on the floor. More than 50% of this time involved counseling and coordination of care.
Anticipated Discharge: 24 - 48 hours
Subjective/Interval History
-
Date of Service: May 04, 2024
AOx3 at time of evaluation. Mentation seems slow. No acute distress appears comfortable at this time. Fluctuating mental status throughout day. Requiring vicky hugger but less frequently.
Objective Data
-
Labs:
Laboratory Results
05/04/24
03:57
WBC 8.1
Hgb 10.7 L
Hct 34.1 L
Plt Count 109 L
Sodium 130 L
Potassium 3.5
Chloride 94 L
Carbon Dioxide 28
BUN 71 H
Creatinine 6.7 H*
Glucose 155 H
Calcium 8.1 L
Vital Signs:
Vital Signs
Temp Pulse Resp BP Pulse Ox
97.1 F 54 15 110/60 97
05/04/24 03:52 05/04/24 04:00 05/04/24 04:00 05/04/24 04:00 05/04/24 03:00
I&O
05/03/24 05/04/24 05/05/24
05:59 06:59 06:59
Intake Total
Output Total
Balance
[2024-05-04] MEDS: ZYRTEC 10 MG PO (09:04)
[2024-05-04] MEDS: ASPIR LOW (ENTERIC COATED) 81 MG PO (09:04)
[2024-05-04] MEDS: RENVELA 1600 MG PO ×3 (09:04→17:59)
[2024-05-04] MEDS: HEPARIN 5000 UNITS SC ×2 (09:04→19:24)
[2024-05-04] MEDS: COLACE 100 MG PO (09:04)
[2024-05-04] MEDS: NEPHROCAP 1 CAPSULE PO (09:04)
[2024-05-04] MEDS: COZAAR 50 MG PO (09:05)
[2024-05-04] MEDS: GENTAMICIN 0.1% CREAM 1 APPLIC TOPICAL (10:19)
[2024-05-04 10:55] LABS: Cortisol, Random 23.7 ug/dl; TSH Reflex To Free T4 0.78 uIU/ml (0.47-4.68)
--- NOTE | 2024-05-04 11:41 | PTCARENOTE ---
Assumed care of patient at beginning of this shift from previous RN with b/l mitts in use. Max dahl initiated for T 96.5R; remained in place til approximately 09:30. Current T98.3R; Max joeer remains off. PD done per order; Dr Bloom in to see
patient during drain. No changes given for PD order. Patient confused, pulling at monitor wires; occasionally stating he wants to get OOB. POx 96-98% on 2l n/c. Per pulmonary, patient to wear bipap when asleep.
--- NOTE | 2024-05-04 12:02 | W.PN.NEPH.PH ---
Today's Communication / Plan
-
cotn PD
Assessment/Plan
-
Assessment
ESRD on PD
Hyponatremia
anemia
Thrombocytopenia
Hypertension
Hyperlipidemia
Coronary artery disease with history of stent
Hyperphosphatemia
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
Hypoxia
Volume overload
Plan
continue PD all 2.5% solution, 2L dwell, 4hrs dwell
wt is down significantly, net neg UF
BPs are stable
echo noted low EF 35%, CXR improving pulm edema
hypervolemic hyponatremia stable
replace k
po intake is poor -encourage
if needed may need to change to 1.5/2.5 alternate
need renal diet and FR
-
-
Date of Service: May 04, 2024
CC / HPI / ROS
-
Chief Complaint:
ESRD
History of Present Illness:
soidum better at 130
k low 3.5-better
wt down
bp stable
night BIPAP per pulm, on 2lit of O2
Review of Systems:
no cp ro sob at rest
no fever
poor appetite
Labs
-
Labs:
WBC 8.1 10^3/uL (4.8-10.8) 05/04/24 03:57
RBC 3.40 10^6/uL (4.70-6.10) L 05/04/24 03:57
Hgb 10.7 g/dL (13.0-18.0) L 05/04/24 03:57
Hct 34.1 % (39.0-52.0) L 05/04/24 03:57
Plt Count 109 10^3/uL (130-400) L 05/04/24 03:57
Sodium 130 mmol/L (135-145) L 05/04/24 03:57
Potassium 3.5 mmol/L (3.5-5.1) 05/04/24 03:57
Chloride 94 mmol/L (98-107) L 05/04/24 03:57
Carbon Dioxide 28 mmol/L (22-30) 05/04/24 03:57
BUN 71 mg/dl (9-20) H 05/04/24 03:57
Creatinine 6.7 mg/dL (0.7-1.3) H* 05/04/24 03:57
eGFR 7.53 05/04/24 03:57
Glucose 155 mg/dl (70-99) H 05/04/24 03:57
Calcium 8.1 mg/dl (8.4-10.2) L 05/04/24 03:57
Zrn-X-Veqithkkmoj Pept > 31528 pg/ml 05/01/24 16:27
Albumin 3.4 g/dl (3.5-5.0) L 05/01/24 16:27
Physical Exam
-
Vital Signs:
Vital Signs
Temp Pulse Resp BP Pulse Ox
98.3 F 52 20 119/95 98
05/04/24 11:38 05/04/24 10:00 05/04/24 10:00 05/04/24 10:00 05/04/24 10:43
Cardiovascular:: Irregular rate and rhythm
Lung Excursion:: Normal (decreased bilat )
Abdomen:: Nontender and Soft
Bowel Sounds:: Normal
Extremity Edema:: None: Bilateral:
Rojas Catheter: No
[2024-05-04] MEDS: VITAMIN D3 (cholecalciferol) 25 MCG PO (12:35)
--- NOTE | 2024-05-04 12:57 | W.PN.PUL3 ---
Today's Communication / Plan
-
-Please use BIPAP all night and when napping.
-During day time, place it on for 2 hours then give patient 4 hrs break, alternating with 2 hrs BIPAP
-VBG in AM
Assessment
-
Patient is a 84-year-old male with past medical history significant for ESRD on home peritoneal dialysis, hypertension, hyperlipidemia, CAD with stent, sinus bradycardia and BPH who presented to [facility] ED for evaluation of increased
lethargy and low SpO2 with home nurse. Family at bedside state that over past 2 days patient has been lethargic and falling asleep no matter where he was even sitting at kitchen table, he has had difficulty bearing weight and needed increased
assistance and has had noted visual hallucinations. ABG showing acute CO2 retention 7.16/, placed on BIPAP. In review of his history, he has ECHO showing reduced function 35-40%. Family states he had had signs of dementia at home and
confusion/encephalopathy has been noted on prior admissions. We are consulted for evaluation.
Acute hypercarbic respiratory failure, now BIPAP dependant
Acute new NICM EF 35-40% with global HK and RV dysfunction
Acute volume overload, CHF overlap, proBNP >88819
Hyponatremia
Hypokalemia
Hyperglycemia
Recurrent re-admissions in the past year
Thrombocytopenia
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
Dementia, acute delirium on prior admissions/encephalopathy noted
Massive prostatomegaly
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
ESRD on PD
HTN
HLD
CAD s/p stent x 2
Sinus bradycardia
BPH
Diabetes
GERD
Chronic Anemia
Hernia repair
Plan
#1. Acute hypoxic and hypercapnic respiratory failure. Improving with BiPAP therapy, pCO2 50 this morning. No prior known history of COPD/emphysema. I suspect this is in the setting of significant volume overload, probably underlying obstructive
sleep apnea, suspect restriction related to left hemidiaphragm elevation.
-VBG this AM showed CO2 of 70, this was on Nasal cannula and not BIPAP
-Continue BiPAP at night/when napping, and during daytime keep BiPAP on for 4 hours and then off for 2 hours.
-Continue to remove excessive volume with peritoneal dialysis
-Follow-up chest x-ray improving
-Continue goals of care, hospice evaluation, DNR/DNI now
-Depending upon patient and family's goals of care and clinical course, once patient is euvolemic can pursue sleep study and pulmonary function testing as outpatient to evaluate for any restrictive lung disease
NO prior PFTs for review
CXR/CT obtained indicating CHF, small volumes
Other imaging reviewed--CT AP showing possible malignancy as well but this has not been investigated due to recurrent readmissions
ECHO results reviewed from this admission indicating new likely NICM, EF 35-40%
Has ESRD on PD, proBNP >78302
Renal following
Prior admission records reviewed, has confusion/TME
Background history of dementia per family
We will follow
Diagnostic Data
Chest X-Ray: 05/01/24- Mild to moderate elevation of the left hemidiaphragm. Cardiomegaly. Subtle findings suggesting interstitial edema, which could be from volume overload and/or congestive heart failure. Probable minimal right pleural effusion.
04/29/24-Suspect mild CHF. Cannot rule out superimposed right lung pneumonia.
CT Scan: AP 01/08/24- Possible omental caking in left upper quadrant and therefore metastatic disease. This could further be evaluated by PET scan if indicated clinically. Moderate abdominopelvic ascites. Findings concerning for mild
postinflammatory/postinfectious change of both lower lobes. Age-indeterminate mild T12 compression fracture. Splenic calcifications suggesting prior benign granulomatous disease. Cholesterol gallstones. Benign right adrenal adenoma. Bilateral
simple renal cysts. Bilateral benign complex renal cysts. Nonobstructing renal stones. Diverticulosis. Mild extraluminal air in the abdomen probably due to the percutaneous drainage catheter. Severe prostate hypertrophy. Probable right hydrocele
Echo: 05/02/24- LV ejection fraction is 35-40%. Global hypokinesis. Enlarged right ventricular size. Mildly reduced right ventricular systolic function. Severely dilated left atrium. Dilated right atrium. Mild to moderate mitral regurgitation. Mild to
moderate aortic stenosis; peak/mean gradients 20/10 mmHg, calculated TONA is 1.2 cm2. Mild aortic regurgitation. Mild tricuspid regurgitation. Estimated pulmonary artery pressure of 45-50 mmHg. Pleural effusion present. The IVC is dilated and does
not collapse.
PFT's:
Reports and relevant images were personally reviewed.
Total time spent on this consultation _25___ minutes which includes review of history, physical exam, medications, laboratory data, personal review of imaging, extensive review of outpatient records, discussion with care team and respiratory therapy.
Subjective Data
-
Date of Service:
Date of Service: May 04, 2024
Subjective:
Patient lying in bed during my evaluation, was sleeping but was easy to wake up
Review of Systems
General: Other (Unable to obtain due to cognitive deficit)
Objective Data
Data Reviewed
Vital Signs / I&O / Oxygen:
Vital Signs
Temp Pulse Resp BP Pulse Ox
98.3 F 52 18 109/49 93
05/04/24 12:40 05/04/24 12:00 05/04/24 12:00 05/04/24 12:00 05/04/24 12:00
Intake and Output
05/03/24 05/04/24 05/05/24
05:59 06:59 06:59
Intake Total
Output Total
Balance
SaO2 93
Nasal Cannula flow liters per 2
minute
Physical Exam
General: Comfortable
HEENT: Normocephalic
Cardiovascular: S1-S2
Respiratory: Clear
GI: Soft and Non Distended
Neurology: Awake
Skin: Warm and Dry
Labs/Micro/Reports
Lab Data
05/04/24 03:57
05/04/24 03:57
--- NOTE | 2024-05-04 16:08 | PTCARENOTE ---
Patient placed on bipap by RT. 1:1 at bedside as patient has made multiple attempts to pull at tubes, etc. Mitts off as 1:1 in room. Family at bedside.
[2024-05-04] MEDS: RENVELA PO (17:37)
[2024-05-04] MEDS: FLOMAX PO (17:37)
[2024-05-04] MEDS: TOPROL XL PO ×2 (17:38→17:59)
[2024-05-04] MEDS: PROSCAR PO (17:38)
[2024-05-04] MEDS: FLOMAX 0.4 MG PO (17:59)
[2024-05-04] MEDS: PROSCAR 5 MG PO (17:59)
--- NOTE | 2024-05-04 18:04 | PTCARENOTE ---
Patient now awake and off bipap; able to take po meds. Toprol held as per Dr Vasquez; HR 50s.
[2024-05-05] VITALS (17 sets, daily range): BP systolic 56–148; BP diastolic 42–120; PULSE 2–80; BMI 24.1
--- NOTE | 2024-05-05 03:14 | PTCARENOTE ---
Patient wore the BIPAP all night. Continuously attempted to rip it off. Remains a 1:1 to keep [address]IPAP in place. PD completed as ordered.
[2024-05-05 03:43] LABS: Venous Blood Gas B.E. 1.2 mmol/L (-4 to +4); Venous Blood Gas HCO3 30.2 mmol/L (22-27); Venous Blood Gas O2 Sat % 91.5 %; Venous Blood Gas pH 7.23 (7.32-7.43); Venous Blood Gas pO2 68 mmHg (30-50)
[2024-05-05 03:45] LABS: Venous Blood Gas pCO2 72 mmHg (35-48)
[2024-05-05 04:06] LABS: Hematocrit 33.6 % (39.0-52.0); Hemoglobin 10.7 g/dL (13.0-18.0); Mean Corp Hgb Conc. 31.8 g/dL (33.0-37.0); Mean Corpuscular Hgb 31.9 pg (27.0-31.0); Mean Corpuscular Volume 100.3 fL (80.0-94.0); Red Blood Cell Count 3.35 10^6/uL (4.70-6.10); Red Cell Dist. Width 14.3 % (11.5-14.5); White Blood Cell Count 7.6 10^3/uL (4.8-10.8)
[2024-05-05 04:07] LABS: Mean Platelet Volume 9.7 fL (7.4-10.4); Platelet Count 116 10^3/uL (130-400)
[2024-05-05 04:30] LABS: Blood Urea Nitrogen 64 mg/dl (9-20); Calcium 8.1 mg/dl (8.4-10.2); Carbon Dioxide 28 mmol/L (22-30); Chloride 91 mmol/L (98-107); Estimated Creatinine Clearance 8 ml/min; Glucose 114 mg/dl (70-99); Potassium 3.2 mmol/L (3.5-5.1); Sodium 128 mmol/L (135-145); eGFR 8.59
[2024-05-05] MEDS: PROTONIX 40 MG PO (04:42)
--- NOTE | 2024-05-05 04:46 | PTCARENOTE ---
Am k 3.2- contract programmer provider made aware and ordered IV repletion.
[2024-05-05] MEDS: KCL 270 MEQ IV (05:13)
[2024-05-05] MEDS: COZAAR 50 MG PO (09:20)
[2024-05-05] MEDS: ASPIR LOW (ENTERIC COATED) 81 MG PO (09:20)
[2024-05-05] MEDS: NEPHROCAP 1 CAPSULE PO (09:20)
[2024-05-05] MEDS: COLACE 100 MG PO (09:20)
[2024-05-05] MEDS: ZYRTEC 10 MG PO (09:20)
[2024-05-05] MEDS: HEPARIN 5000 UNITS SC ×2 (09:21→21:14)
[2024-05-05] MEDS: RENVELA 1600 MG PO ×3 (09:21→17:59)
[2024-05-05] MEDS: GENTAMICIN 0.1% CREAM 1 APPLIC TOPICAL (09:22)
--- NOTE | 2024-05-05 09:44 | W.PN.PUL.V3 ---
Today's Communication / Plan
-
BiPAP as tolerated.
Wean FiO2.
Aspiration precautions.
Comfort a primary
Assessment
-
Patient is a 84-year-old male with past medical history significant for ESRD on home peritoneal dialysis, hypertension, hyperlipidemia, CAD with stent, sinus bradycardia and BPH who presented to [facility] ED for evaluation of increased
lethargy and low SpO2 with home nurse. Family at bedside state that over past 2 days patient has been lethargic and falling asleep no matter where he was even sitting at kitchen table, he has had difficulty bearing weight and needed increased
assistance and has had noted visual hallucinations. ABG showing acute CO2 retention , placed on BIPAP. In review of his history, he has ECHO showing reduced function 35-40%. Family states he had had signs of dementia at home and
confusion/encephalopathy has been noted on prior admissions. We are consulted for evaluation.
Acute hypercarbic respiratory failure, now BIPAP dependant
Acute new NICM EF 35-40% with global HK and RV dysfunction
Acute volume overload, CHF overlap, proBNP >74115
Hyponatremia
Hypokalemia
Hyperglycemia
Recurrent re-admissions in the past year
Thrombocytopenia
DNR
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
Dementia, acute delirium on prior admissions/encephalopathy noted
Massive prostatomegaly
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
ESRD on PD
HTN
HLD
CAD s/p stent x 2
Sinus bradycardia
BPH
Diabetes
GERD
Chronic Anemia
Hernia repair
Plan
Respiratory status improving.
Supplemental oxygen as needed-attempt to wean.
VBG 05/05/24-/7.23
Follow VBG
BiPAP 12/6 cm continues-attempt to liberate.
Nebulizers if needed
Diuresis as tolerated.
Nephrology following.
Peritoneal dialysis as needed.
Monitor mental status/toxic metabolic encephalopathy.
Baseline dementia according to family
DVT prophylaxis-on subcutaneous heparin
GI prophylaxis-on pantoprazole.
Nutrition
Early mobilization.
Diagnostic Data
Chest X-Ray: 05/01/24- Mild to moderate elevation of the left hemidiaphragm. Cardiomegaly. Subtle findings suggesting interstitial edema, which could be from volume overload and/or congestive heart failure. Probable minimal right pleural effusion.
04/29/24-Suspect mild CHF. Cannot rule out superimposed right lung pneumonia.
CT Scan: AP 01/08/24- Possible omental caking in left upper quadrant and therefore metastatic disease. This could further be evaluated by PET scan if indicated clinically. Moderate abdominopelvic ascites. Findings concerning for mild
postinflammatory/postinfectious change of both lower lobes. Age-indeterminate mild T12 compression fracture. Splenic calcifications suggesting prior benign granulomatous disease. Cholesterol gallstones. Benign right adrenal adenoma. Bilateral
simple renal cysts. Bilateral benign complex renal cysts. Nonobstructing renal stones. Diverticulosis. Mild extraluminal air in the abdomen probably due to the percutaneous drainage catheter. Severe prostate hypertrophy. Probable right hydrocele
Echo: 05/02/24- LV ejection fraction is 35-40%. Global hypokinesis. Enlarged right ventricular size. Mildly reduced right ventricular systolic function. Severely dilated left atrium. Dilated right atrium. Mild to moderate mitral regurgitation. Mild to
moderate aortic stenosis; peak/mean gradients 20/10 mmHg, calculated TONA is 1.2 cm2. Mild aortic regurgitation. Mild tricuspid regurgitation. Estimated pulmonary artery pressure of 45-50 mmHg. Pleural effusion present. The IVC is dilated and does
not collapse.
Subjective Data
-
Date of Service:
Date of Service: May 05, 2024
Chief Complaint: Pulmonary Follow Up and Dyspnea Follow Up
Subjective:
No increased respiratory distress, no complaints shortness breath, chest pain or abdominal pain
Review of Systems
General: Other (per HPI)
Objective Data
Data Reviewed
Vital Signs / I&O:
Vital Signs
Temp Pulse Resp BP Pulse Ox
97.6 F 65 21 100/62 100
05/05/24 04:23 05/05/24 06:16 05/05/24 06:16 05/05/24 06:16 05/04/24 20:16
Intake and Output
05/04/24 05/05/24 05/06/24
06:59 06:59 06:59
Intake Total 510 / 510
Output Total 2100 / 2099
Balance -1590 / -1590
SaO2: 100
Nasal Cannula flow liters per minute: 2
Physical Exam
General: Comfortable
HEENT: Normocephalic
Cardiovascular: S1-S2
Respiratory: Clear
GI: Soft and Non Distended
Neurology: Awake
Skin: Warm and Dry
Labs/Micro/Reports
Lab Data
05/05/24 03:36
05/05/24 03:36
--- NOTE | 2024-05-05 10:04 | W.PN.NEPH.PH ---
Today's Communication / Plan
-
PD
Assessment/Plan
-
Assessment
ESRD on PD
Hyponatremia
anemia
Thrombocytopenia
Hypertension
Hyperlipidemia
Coronary artery disease with history of stent
Hyperphosphatemia
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
Hypoxia
Volume overload
Plan
continue PD
all 2.5% solution, 2L dwell, 4hrs dwell
wt is down significantly, net neg UF
BPs stable
replace k prn
-
-
Date of Service: May 05, 2024
CC / HPI / ROS
-
Chief Complaint:
ESRD
History of Present Illness:
soidum better at 128
k low 3.2
BP stable
weights improving
Review of Systems:
sleeping, lethargic
Labs
-
Labs:
WBC 7.6 10^3/uL (4.8-10.8) 05/05/24 03:36
RBC 3.35 10^6/uL (4.70-6.10) L 05/05/24 03:36
Hgb 10.7 g/dL (13.0-18.0) L 05/05/24 03:36
Hct 33.6 % (39.0-52.0) L 05/05/24 03:36
Plt Count 116 10^3/uL (130-400) L 05/05/24 03:36
Sodium 128 mmol/L (135-145) L 05/05/24 03:36
Potassium 3.2 mmol/L (3.5-5.1) L 05/05/24 03:36
Chloride 91 mmol/L (98-107) L 05/05/24 03:36
Carbon Dioxide 28 mmol/L (22-30) 05/05/24 03:36
BUN 64 mg/dl (9-20) H 05/05/24 03:36
Creatinine 6.0 mg/dL (0.7-1.3) H* 05/05/24 03:36
eGFR 8.59 05/05/24 03:36
Glucose 114 mg/dl (70-99) H 05/05/24 03:36
Calcium 8.1 mg/dl (8.4-10.2) L 05/05/24 03:36
Zpp-N-Uavxcawiqvt Pept > 16776 pg/ml 05/01/24 16:27
Albumin 3.4 g/dl (3.5-5.0) L 05/01/24 16:27
Physical Exam
-
Vital Signs:
Vital Signs
Temp Pulse Resp BP Pulse Ox
97.6 F 65 21 100/62 100
05/05/24 04:23 05/05/24 06:16 05/05/24 06:16 05/05/24 06:16 05/05/24 09:44
Cardiovascular:: Regular rate and rhythm
Respiratory:: Bilateral: Coarse
Lung Excursion:: Normal
Abdomen:: Nontender and Soft
Bowel Sounds:: Normal
Extremity Edema:: None: Bilateral:
--- NOTE | 2024-05-05 13:56 | W.PN.HOSP.TC ---
Today's Communication/Plan
-
Monitor vitals
See plan
Prognosis guarded, discussed with spouse over the phone. If patient continues to be dependent on BiPAP then likely palliative/hospice will be appropriate
Continue PD per nephrology
Wean BiPAP as tolerated
DNR
Assessment / Plan
Assessment / Plan
Physical Exam
General: no acute distress, appears comfortable
HEENT: NormoCephalic, Moist mucous membranes, Atraumatic Hard of Hearing
Respiratory: clear to auscultation b/l
Cardiac: S1/S2 and Regular Rhythm; No Murmur, Rub or Gallop
GI: Soft, Non Tender, Non Distended and Normal Bowel Sounds
Musculoskeletal: No edema
Skin: Warm and IV/Catheter Site; No Rash
Neuro: AOx3, mentation seems slow
Psych: Calm
84M ESRD PD HTN HLD CAD stents BPH here with hypercarbic resp failure 2/2 Acute on Chronic HFrEF
Acute hypercarbic hypoxic respiratory failure likely secondary to fluid overload with underlying end-stage renal disease
TME 2/2 hypercarbia and acute on chronic HFrEF
BNP elevated
Blood gas with severe respiratory acidosis, since improved
Continue with BiPAP 15/6 prn and HS
Cardio eval appreciated
Peritoneal dialysis per nephrology
ECHO appreciated EF 35-40%
per spouse; has been on PD for 3 years and has been doing well.
sees cardiology from [facility]
Pulmonary following
If patient requires frequent BiPAP then palliative/hospice likely will be appropriate
Acute on Chronic HFrEF
managed with HD
cardiology signed off
Cold stress (temp 35 to 37 C or 95 to 98.6 F)
Max hugger prn
TSH wnl
Random Cortisol non-deficient
Hypokalemia
managed with PD
Acute on chronic hyponatremia
Improving with PD
ESRD on peritoneal dialysis
been on 3 years
Follows up at [place]
Nephrology eval appreciated
hx of delirium in past
currently not agitated; if agitated then can try Risperdal
GERD
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
Coronary artery disease with history of stent
2 stents per spouse a while ago
HTN
HLD
PT/OT
DVTppx
heparin
DNR
Discussed with patient's family prognosis remains guarded though overall patient is improving at this time. Remains a candidate for hospice, though if patient continues to improve, potentially may be able to go home with palliative services, if
not hospice.
I spent a total of 52 minutes with the patient or on the floor. More than 50% of this time involved counseling and coordination of care.
Anticipated Discharge: > 48 hours
Subjective/Interval History
-
Date of Service: May 05, 2024
waxes and wane
Objective Data
-
Labs:
Laboratory Results
05/05/24
03:36
WBC 7.6
Hgb 10.7 L
Hct 33.6 L
Plt Count 116 L
Sodium 128 L
Potassium 3.2 L
Chloride 91 L
Carbon Dioxide 28
BUN 64 H
Creatinine 6.0 H*
Glucose 114 H
Calcium 8.1 L
Vital Signs:
Vital Signs
Temp Pulse Resp BP Pulse Ox
98.6 F 60 18 120/55 100
05/05/24 11:05 05/05/24 10:00 05/05/24 10:00 05/05/24 10:00 05/05/24 11:55
I&O
05/04/24 05/05/24 05/06/24
06:59 06:59 06:59
Intake Total 510 / 510
Output Total 2100 / 2100 400 / 400
Balance -1590 / -1590 -400 / -400
[2024-05-05] MEDS: VITAMIN D3 (cholecalciferol) 25 MCG PO (14:21)
--- NOTE | 2024-05-05 14:50 | HOSPNOTE ---
Per attendings note we will continue with trying to wean off of bipap and make some decisions about goals of care. Will continue to follow.
--- NOTE | 2024-05-05 17:27 | CM ---
Patient with Hx ESRD on PD. O2 2L, BiPAP. Per nurse assessment; confused, drowsy. 1:1 Observation. PT/OT Evals on hold.
Hospice continuing to follow.
Per MD notes, ongoing GOC discussion with family.
Plan TBD.
[2024-05-05] MEDS: PROSCAR 5 MG PO (17:59)
[2024-05-05] MEDS: TOPROL XL 25 MG PO (17:59)
[2024-05-05] MEDS: TYLENOL 650 MG PO (17:59)
[2024-05-05] MEDS: FLOMAX 0.4 MG PO (17:59)
[2024-05-05] MEDS: LIPITOR 40 MG PO (21:14)
[2024-05-06] VITALS (16 sets, daily range): BP systolic 113–163; BP diastolic 53–83; PULSE 2–67; O2SAT 97–99; BMI 23.7
--- NOTE | 2024-05-06 03:06 | PTCARENOTE ---
Patient placed on bipap at 2300 with 1:1 present. Patient still pulling at mask . educated patient on importance of mask and if continuing to pull at it then mitts will need to be placed. Patient is now sleeping and is calm. continuing to monitor.
[2024-05-06 05:38] LABS: Hematocrit 35.3 % (39.0-52.0); Hemoglobin 10.9 g/dL (13.0-18.0); Mean Corp Hgb Conc. 30.9 g/dL (33.0-37.0); Mean Corpuscular Hgb 31.2 pg (27.0-31.0); Mean Corpuscular Volume 101.1 fL (80.0-94.0); Mean Platelet Volume 9.5 fL (7.4-10.4); Platelet Count 114 10^3/uL (130-400); Red Blood Cell Count 3.49 10^6/uL (4.70-6.10); Red Cell Dist. Width 14.6 % (11.5-14.5); White Blood Cell Count 6.5 10^3/uL (4.8-10.8)
[2024-05-06 05:53] LABS: Blood Urea Nitrogen 60 mg/dl (9-20); Calcium 8.2 mg/dl (8.4-10.2); Carbon Dioxide 32 mmol/L (22-30); Chloride 93 mmol/L (98-107); Estimated Creatinine Clearance 9 ml/min; Glucose 126 mg/dl (70-99); Potassium 3.6 mmol/L (3.5-5.1); Sodium 128 mmol/L (135-145); eGFR 9.97
[2024-05-06] MEDS: PROTONIX PO (06:08)
[2024-05-06] MEDS: RENVELA 1600 MG PO ×3 (08:27→17:19)
[2024-05-06] MEDS: COZAAR 50 MG PO (08:28)
[2024-05-06] MEDS: NEPHROCAP 1 CAPSULE PO (08:28)
[2024-05-06] MEDS: ZYRTEC 10 MG PO (08:28)
[2024-05-06] MEDS: HEPARIN 5000 UNITS SC ×2 (08:28→20:40)
[2024-05-06] MEDS: ASPIR LOW (ENTERIC COATED) 81 MG PO (08:28)
[2024-05-06] MEDS: COLACE 100 MG PO (08:28)
[2024-05-06] MEDS: GENTAMICIN 0.1% CREAM 1 APPLIC TOPICAL (08:29)
--- NOTE | 2024-05-06 10:02 | W.PN.PUL.V3 ---
Today's Communication / Plan
-
Wean oxygen
BiPAP as tolerated-liberate during the daytime-use as needed during the daytime and at nighttime as tolerated
Comfort a priority
Hospice discussions ongoing
Peritoneal dialysis per nephrology
Assessment
-
Patient is a 84-year-old male with past medical history significant for ESRD on home peritoneal dialysis, hypertension, hyperlipidemia, CAD with stent, sinus bradycardia and BPH who presented to [facility] ED for evaluation of increased
lethargy and low SpO2 with home nurse. Family at bedside state that over past 2 days patient has been lethargic and falling asleep no matter where he was even sitting at kitchen table, he has had difficulty bearing weight and needed increased
assistance and has had noted visual hallucinations. ABG showing acute CO2 retention 7., placed on BIPAP. In review of his history, he has ECHO showing reduced function 35-40%. Family states he had had signs of dementia at home and
confusion/encephalopathy has been noted on prior admissions. We are consulted for evaluation.
Acute hypercarbic respiratory failure, now BIPAP dependant
Acute new NICM EF 35-40% with global HK and RV dysfunction
Acute volume overload, CHF overlap, proBNP >71511
Hyponatremia
Hypokalemia
Hyperglycemia
Recurrent re-admissions in the past year
Thrombocytopenia
DNR
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
Dementia, acute delirium on prior admissions/encephalopathy noted
Massive prostatomegaly
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
ESRD on PD
HTN
HLD
CAD s/p stent x 2
Sinus bradycardia
BPH
Diabetes
GERD
Chronic Anemia
Hernia repair
Plan
Respiratory status continues to improve
Supplemental oxygen as needed-attempt to wean-98% on room air
VBG 05/05/24-72/68/7.23
Follow VBG on occasion
BiPAP 12/6 cm continues-attempt to liberate during the daytime and continue at nighttime if tolerating
Nebulizers if needed
Diuresis as tolerated.
Nephrology following-correspondence reviewed
Peritoneal dialysis continues per nephrology
Monitor mental status/toxic metabolic encephalopathy.
Baseline dementia according to family
DVT prophylaxis-on subcutaneous heparin
GI prophylaxis-on pantoprazole.
Nutrition
Physical therapy
Reviewed with nursing
Reviewed with case management-hospice decisions and comfort care have not been decided yet-if willing to take BiPAP at night then can continue and will arrange as an outpatient to help with ventilation/pCO2 reduction/mental status
However if patient decides on hospice then would likely not pursue BiPAP at home
Diagnostic Data
Chest X-Ray: 05/01/24- Mild to moderate elevation of the left hemidiaphragm. Cardiomegaly. Subtle findings suggesting interstitial edema, which could be from volume overload and/or congestive heart failure. Probable minimal right pleural effusion.
04/29/24-Suspect mild CHF. Cannot rule out superimposed right lung pneumonia.
CT Scan: AP 01/08/24- Possible omental caking in left upper quadrant and therefore metastatic disease. This could further be evaluated by PET scan if indicated clinically. Moderate abdominopelvic ascites. Findings concerning for mild
postinflammatory/postinfectious change of both lower lobes. Age-indeterminate mild T12 compression fracture. Splenic calcifications suggesting prior benign granulomatous disease. Cholesterol gallstones. Benign right adrenal adenoma. Bilateral
simple renal cysts. Bilateral benign complex renal cysts. Nonobstructing renal stones. Diverticulosis. Mild extraluminal air in the abdomen probably due to the percutaneous drainage catheter. Severe prostate hypertrophy. Probable right hydrocele
Echo: 05/02/24- LV ejection fraction is 35-40%. Global hypokinesis. Enlarged right ventricular size. Mildly reduced right ventricular systolic function. Severely dilated left atrium. Dilated right atrium. Mild to moderate mitral regurgitation. Mild to
moderate aortic stenosis; peak/mean gradients 20/10 mmHg, calculated TONA is 1.2 cm2. Mild aortic regurgitation. Mild tricuspid regurgitation. Estimated pulmonary artery pressure of 45-50 mmHg. Pleural effusion present. The IVC is dilated and does
not collapse.
Subjective Data
-
Date of Service:
Date of Service: May 06, 2024
Chief Complaint: Pulmonary Follow Up and Dyspnea Follow Up
Subjective:
Much more alert, oriented to place, person and time-no complaints of shortness of breath at rest, intermittently tolerating BiPAP at night, no chest pain or abdominal pain
Review of Systems
General: Other (Per HPI)
Objective Data
Data Reviewed
Vital Signs / I&O:
Vital Signs
Temp Pulse Resp BP Pulse Ox
97.3 F 56 21 156/83 98
05/06/24 07:38 05/06/24 06:00 05/06/24 06:00 05/06/24 08:28 05/05/24 21:58
Intake and Output
05/05/24 05/06/24 05/07/24
06:59 06:59 06:59
Intake Total 510 / 510 200 / 200
Output Total 2100 / 2100 1150 / 1150
Balance -1590 / -1590 -950 / -950
SaO2: 98
Nasal Cannula flow liters per minute: 2
Physical Exam
General: Respiratory Distress (n) and Comfortable
HEENT: Normocephalic
Cardiovascular: Regular Rhythm and Murmur
Respiratory: Clear, Crackles, Non-Labored Respirations, Accessory Resp Muscle Use (n) and Stridor
GI: Soft and Non Distended
Neurology: Awake, Alert and No Motor Deficits
Skin: Warm, Good Color, Cyanosis and Jaundice
Labs/Micro/Reports
Lab Data
05/06/24 04:47
05/06/24 04:47
--- NOTE | 2024-05-06 10:35 | W.PN.NEPH.PH ---
Today's Communication / Plan
-
PD
Assessment/Plan
-
Assessment
ESRD on PD
Hyponatremia
anemia
Thrombocytopenia
Hypertension
Hyperlipidemia
Coronary artery disease with history of stent
Hyperphosphatemia
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
Hypoxia
Volume overload
Plan
continue PD as is. losing volume steadily
all 2.5% solution, 2L dwell, 4hrs dwell
BPs stable
replace k prn
-
-
Date of Service: May 06, 2024
CC / HPI / ROS
-
Chief Complaint:
ESRD
History of Present Illness:
sodium stable at 128
k up to 3.6
BP stable
weights improving
PD in progress
Review of Systems:
awake, no CP/SOB
Labs
-
Labs:
WBC 6.5 10^3/uL (4.8-10.8) 05/06/24 04:47
RBC 3.49 10^6/uL (4.70-6.10) L 05/06/24 04:47
Hgb 10.9 g/dL (13.0-18.0) L 05/06/24 04:47
Hct 35.3 % (39.0-52.0) L 05/06/24 04:47
Plt Count 114 10^3/uL (130-400) L 05/06/24 04:47
Sodium 128 mmol/L (135-145) L 05/06/24 04:47
Potassium 3.6 mmol/L (3.5-5.1) 05/06/24 04:47
Chloride 93 mmol/L (98-107) L 05/06/24 04:47
Carbon Dioxide 32 mmol/L (22-30) H 05/06/24 04:47
BUN 60 mg/dl (9-20) H 05/06/24 04:47
Creatinine 5.3 mg/dL (0.7-1.3) H* 05/06/24 04:47
eGFR 9.97 05/06/24 04:47
Glucose 126 mg/dl (70-99) H 05/06/24 04:47
Calcium 8.2 mg/dl (8.4-10.2) L 05/06/24 04:47
Gpd-D-Paogprfzquv Pept > 97450 pg/ml 05/01/24 16:27
Albumin 3.4 g/dl (3.5-5.0) L 05/01/24 16:27
Physical Exam
-
Vital Signs:
Vital Signs
Temp Pulse Resp BP Pulse Ox
97.3 F 56 21 156/83 98
05/06/24 07:38 05/06/24 06:00 05/06/24 06:00 05/06/24 08:28 05/06/24 10:02
Cardiovascular:: Regular rate and rhythm
Respiratory:: Bilateral: Coarse
Lung Excursion:: Normal
Abdomen:: Nontender and Soft
Bowel Sounds:: Normal
Extremity Edema:: None: Bilateral:
--- NOTE | 2024-05-06 11:51 | W.PN.UPDATE ---
Update Note
Progress Note Update
Attempting to arrange BiPAP
Patient has with hypercapnic respiratory failure with multiple emergency room and hospitalizations with chief complaint of shortness of breath and respiratory failure. The patient has a pCO2 of greater than 60 on room air and needs nocturnal BiPAP
supplementation to help with ventilation and CO2 removal as without it he has significant mental status changes and hypercapnia. Patient reports shortness of breath with minimal activity and reports significant reduction in activities of daily
living. Due to the patient's chronic hypoventilation patient is at risk of worsening chronic respiratory failure. I have considered bilevel, bilevel ST and bilevel VAPS therapy and they have been ruled out due to the patient's worsening condition.
The patient now requires a unique mode of ventilation not offered by less costly options. The patient requires a device that will not fail in the event of power failure and also portable for mobility within the home when needed. Due to the
patient's worsening condition I am prescribing BiPAP to decrease the chance of continued unplanned expensive medical encounters including physician office visits, emergency/urgent care treatments and hospital readmissions.
[2024-05-06] MEDS: VITAMIN D3 (cholecalciferol) 25 MCG PO (11:55)
--- NOTE | 2024-05-06 12:22 | CM ---
Addendum entered by Naina Osuna RN 05/06/24 16:25:
Spoke with Dr Bhardwaj and [facility]; per Dr Bhardwaj updated plan is to wait for patient's brother to arrive tomorrow, then plan to stop PD and BiPAP and transition patient to comfort care. Will see how patient does in the next day or so and
evaluate if he needs to stay inpatient or if able to be discharged with hospice.
Plan comfort care tomorrow after family arrives.
Original Note:
Patient with Hx ESRD on PD. Room air. BiPAP HS with 1:[address] Welch; if patient gets discharged to home without hospice, he would like the patient to be on BiPAP. He signed [facility] BiPAP form and provided updated notes for medical necessity for BiPAP.
Spoke with Tracie Pulido; completed BiPAP form faxed with clinical info. Tess aware that final decision on need for home BiPAP has not been determined- she will check with CM tomorrow.
Met with patient and spoke with Carla by phone; stated that she wants her to stay here in hospital with hospice. She says based on the information that the doctor provided she is not willing to take him home to . has not
lined up caregivers to assist her at home (worries about cost). She is meeting with an oceanographer geological and working on getting POA forms signed today. Carla says she is getting his affairs in order including his life insurance and contacting
homes.
Case [facility]; Dr Bhardwaj plans on continuing to evaluate patient today and will speak with patient's later today about possible consideration of palliative care. feels patient does not meet GIP criteria
at this time.
Plan follow up with Tracie tomorrow about decision re; BiPAP.
Plan follow up tomorrow about hospice vs palliative care.
--- NOTE | 2024-05-06 13:13 | W.PN.HOSP.TC ---
Addendum entered and electronically signed by Boom Bhardwaj MD 05/06/24 15:44:
Spoke with Liane from hospice and patient's spouse and her daughter. Family is awaiting for patient's brother to come tomorrow to visit. After that they will decide on possible transition to comfort measures including stopping dialysis and
BiPAP. If condition deteriorates further then patient will be admitted to inpatient hospice.
Original Note:
Today's Communication/Plan
-
Monitor vital signs see plan
slowly improving; better mentation
cw bipap
pulmonary following
PD per nephro
Discussed with spouse the patient at this time does not meet inpatient hospice criteria. Patient however can be outpatient hospice or palliative.
Cm for dispo
Assessment / Plan
Assessment / Plan
Physical Exam
General: no acute distress, appears comfortable
HEENT: NormoCephalic, Moist mucous membranes, Atraumatic Hard of Hearing
Respiratory: clear to auscultation b/l
Cardiac: S1/S2 and Regular Rhythm; No Murmur, Rub or Gallop
GI: Soft, Non Tender, Non Distended and Normal Bowel Sounds
Musculoskeletal: No edema
Skin: Warm and IV/Catheter Site; No Rash
Neuro: AOx3, mentation seems slow
Psych: Calm
84M ESRD PD HTN HLD CAD stents BPH here with hypercarbic resp failure 2/2 Acute on Chronic HFrEF
Acute hypercarbic hypoxic respiratory failure likely secondary to fluid overload with underlying end-stage renal disease
TME 2/2 hypercarbia and acute on chronic HFrEF
BNP elevated
Blood gas with severe respiratory acidosis, since improved
Continue with BiPAP 15/6 prn and HS
Cardio eval appreciated
Peritoneal dialysis per nephrology
ECHO appreciated EF 35-40%
per spouse; has been on PD for 3 years and has been doing well.
sees cardiology from [facility]
Pulmonary following
Pulmonary is trying to get patient nocturnal BiPAP. Today patient is mentating a lot better and worked well with physical therapy. Discussed with spouse the patient at this time does not meet inpatient hospice criteria. Patient however can be
outpatient hospice or palliative.
Appears some social limitations for patient to return home (Lives with daughter and son in law). Will let CM work on disposition.
Acute on Chronic HFrEF
managed with HD
cardiology signed off
low core temp
Max hugger prn
TSH wnl
Random Cortisol non-deficient
Hypokalemia
managed with PD
Acute on chronic hyponatremia
Improving with PD
ESRD on peritoneal dialysis
been on 3 years
Follows up at [place]
Nephrology eval appreciated
hx of delirium in past
currently not agitated; if agitated then can try Risperdal
GERD
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
Coronary artery disease with history of stent
2 stents per spouse a while ago
HTN
HLD
PT/OT
DVTppx
heparin
DNR
Discussed with patient's family prognosis remains guarded though overall patient is improving at this time. Remains a candidate for hospice, though now improving so not a candidate for inpatient hospice at this time. if continue to improve then
potentially may be able to go home with palliative services, if not hospice.
I spent a total of 51 minutes with the patient or on the floor. More than 50% of this time involved counseling and coordination of care.
Anticipated Discharge: Within 24 hours
Subjective/Interval History
-
Date of Service: May 06, 2024
awake today
Objective Data
-
Labs:
Laboratory Results
05/06/24
04:47
WBC 6.5
Hgb 10.9 L
Hct 35.3 L
Plt Count 114 L
Sodium 128 L
Potassium 3.6
Chloride 93 L
Carbon Dioxide 32 H
BUN 60 H
Creatinine 5.3 H*
Glucose 126 H
Calcium 8.2 L
Vital Signs:
Vital Signs
Temp Pulse Resp BP Pulse Ox
97.3 F 64 22 152/76 98
05/06/24 07:38 05/06/24 10:00 05/06/24 10:00 05/06/24 10:00 05/06/24 10:02
I&O
05/05/24 05/06/24 05/07/24
06:59 06:59 06:59
Intake Total 510 / 510 200 / 200
Output Total 2099 / 2099 1150 / 1150
Balance -1590 / -1590 -950 / -950
--- NOTE | 2024-05-06 15:38 | PTCARENOTE ---
Assumed care of patient at beginning of this shift from previous RN. Patient Ox3 this morning but continues with periods of forgetfulness. RA POx 95%. PD as ordered. Patient's expressed concern at being unable to care for patient adequately at
home; she spoke with physician with family and will discuss goals of care tomorrow. See worklist for full assessment and vital signs.
[2024-05-06] MEDS: TOPROL XL 25 MG PO (17:18)
[2024-05-06] MEDS: PROSCAR 5 MG PO (17:19)
[2024-05-06] MEDS: FLOMAX 0.4 MG PO (17:19)
[2024-05-06] MEDS: LIPITOR 40 MG PO (20:39)
[2024-05-06] MEDS: TYLENOL 650 MG PO (20:46)
[2024-05-07] VITALS (12 sets, daily range): BP systolic 102–158; BP diastolic 59–89; BMI 23.5
[2024-05-07 03:53] LABS: Hematocrit 33.4 % (39.0-52.0); Hemoglobin 10.9 g/dL (13.0-18.0); Mean Corp Hgb Conc. 32.6 g/dL (33.0-37.0); Mean Corpuscular Volume 97.9 fL (80.0-94.0); Mean Platelet Volume 9.3 fL (7.4-10.4); Platelet Count 132 10^3/uL (130-400); Red Blood Cell Count 3.41 10^6/uL (4.70-6.10); Red Cell Dist. Width 14.5 % (11.5-14.5); White Blood Cell Count 6.2 10^3/uL (4.8-10.8)
[2024-05-07 04:28] LABS: Blood Urea Nitrogen 60 mg/dl (9-20); Calcium 8.3 mg/dl (8.4-10.2); Carbon Dioxide 31 mmol/L (22-30); Chloride 92 mmol/L (98-107); Estimated Creatinine Clearance 9 ml/min; Glucose 82 mg/dl (70-99); Potassium 3.8 mmol/L (3.5-5.1); Sodium 128 mmol/L (135-145); eGFR 10.69
--- NOTE | 2024-05-07 04:53 | PTCARENOTE ---
patient tolerated bipap for 3 hours and then removed. Patient refused to put back on for the night. O2 saturation is 96% on RA. continuing to monitor.
[2024-05-07] MEDS: PROTONIX 40 MG PO (05:31)
[2024-05-07] MEDS: RENVELA 1600 MG PO ×3 (08:14→17:02)
[2024-05-07] MEDS: HEPARIN 5000 UNITS SC ×2 (08:14→20:29)
[2024-05-07] MEDS: COZAAR 50 MG PO (08:14)
[2024-05-07] MEDS: ZYRTEC 10 MG PO (08:14)
[2024-05-07] MEDS: ASPIR LOW (ENTERIC COATED) 81 MG PO (08:14)
[2024-05-07] MEDS: COLACE 100 MG PO (08:14)
[2024-05-07] MEDS: NEPHROCAP 1 CAPSULE PO (08:14)
[2024-05-07] MEDS: GENTAMICIN 0.1% CREAM 1 APPLIC TOPICAL (08:15)
--- NOTE | 2024-05-07 09:02 | W.PN.PUL.V3 ---
Today's Communication / Plan
-
Not tolerating BiPAP
Comfort a priority
Hospice evaluation ongoing
Pulmonary will sign off-please call with questions
Assessment
-
Patient is a 84-year-old male with past medical history significant for ESRD on home peritoneal dialysis, hypertension, hyperlipidemia, CAD with stent, sinus bradycardia and BPH who presented to [facility] ED for evaluation of increased
lethargy and low SpO2 with home nurse. Family at bedside state that over past 2 days patient has been lethargic and falling asleep no matter where he was even sitting at kitchen table, he has had difficulty bearing weight and needed increased
assistance and has had noted visual hallucinations. ABG showing acute CO2 retention 7., placed on BIPAP. In review of his history, he has ECHO showing reduced function 35-40%. Family states he had had signs of dementia at home and
confusion/encephalopathy has been noted on prior admissions. We are consulted for evaluation.
Acute hypercarbic respiratory failure, now BIPAP dependant
Acute new NICM EF 35-40% with global HK and RV dysfunction
Acute volume overload, CHF overlap, proBNP >08498
Hyponatremia
Hypokalemia
Hyperglycemia
Recurrent re-admissions in the past year
Thrombocytopenia
DNR
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
Dementia, acute delirium on prior admissions/encephalopathy noted
Massive prostatomegaly
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
ESRD on PD
HTN
HLD
CAD s/p stent x 2
Sinus bradycardia
BPH
Diabetes
GERD
Chronic Anemia
Hernia repair
Plan
Respiratory status relatively stable
Supplemental oxygen as needed-attempt to wean-98% on room air
His last VBG 05/05/24-72/68/7.23
Follow VBG on occasion
BiPAP 12/6 cm continues-attempt to liberate during the daytime and continue at nighttime if tolerating-not tolerating well
Nebulizers if needed
Diuresis continues as tolerated.
Nephrology following-correspondence reviewed
Peritoneal dialysis continues per nephrology
Monitor mental status/toxic metabolic encephalopathy.
Baseline dementia according to family
DVT prophylaxis-on subcutaneous heparin
GI prophylaxis-on pantoprazole.
Nutrition
Physical therapy
Family discussions ongoing, hospice evaluation ongoing, comfort a priority,-pulmonary will sign off-please call with questions
Reviewed with nursing
Reviewed with case management on 05/06/2024-hospice decisions and comfort care have not been decided yet-if willing to take BiPAP at night then can continue and will arrange as an outpatient to help with ventilation/pCO2 reduction/mental status
However if patient decides on hospice or not tolerating BiPAP then would likely not pursue BiPAP at home
Diagnostic Data
Chest X-Ray: 05/01/24- Mild to moderate elevation of the left hemidiaphragm. Cardiomegaly. Subtle findings suggesting interstitial edema, which could be from volume overload and/or congestive heart failure. Probable minimal right pleural effusion.
04/29/24-Suspect mild CHF. Cannot rule out superimposed right lung pneumonia.
CT Scan: AP 01/08/24- Possible omental caking in left upper quadrant and therefore metastatic disease. This could further be evaluated by PET scan if indicated clinically. Moderate abdominopelvic ascites. Findings concerning for mild
postinflammatory/postinfectious change of both lower lobes. Age-indeterminate mild T12 compression fracture. Splenic calcifications suggesting prior benign granulomatous disease. Cholesterol gallstones. Benign right adrenal adenoma. Bilateral
simple renal cysts. Bilateral benign complex renal cysts. Nonobstructing renal stones. Diverticulosis. Mild extraluminal air in the abdomen probably due to the percutaneous drainage catheter. Severe prostate hypertrophy. Probable right hydrocele
Echo: 05/02/24- LV ejection fraction is 35-40%. Global hypokinesis. Enlarged right ventricular size. Mildly reduced right ventricular systolic function. Severely dilated left atrium. Dilated right atrium. Mild to moderate mitral regurgitation. Mild to
moderate aortic stenosis; peak/mean gradients 20/10 mmHg, calculated TONA is 1.2 cm2. Mild aortic regurgitation. Mild tricuspid regurgitation. Estimated pulmonary artery pressure of 45-50 mmHg. Pleural effusion present. The IVC is dilated and does
not collapse.
Subjective Data
-
Date of Service:
Date of Service: May 07, 2024
Chief Complaint: Pulmonary Follow Up and Dyspnea Follow Up
Subjective:
Alert, did not tolerate BiPAP well last night, on room air, no complaints of shortness of breath, chest congestion, productive cough, chest pain or abdominal pain
Review of Systems
General: Other ( Per HPI)
Objective Data
Data Reviewed
Vital Signs / I&O:
Vital Signs
Temp Pulse Resp BP Pulse Ox
98.3 F 90 19 123/89 96
05/07/24 03:30 05/07/24 08:00 05/07/24 08:00 05/07/24 08:00 05/07/24 08:00
Intake and Output
05/06/24 05/07/24 05/08/24
06:59 06:59 06:59
Intake Total 200 / 200 200 / 200
Output Total 1150 / 1150 500 / 500
Balance -950 / -950 -300 / -300
SaO2: 96
Nasal Cannula flow liters per minute: 2
Physical Exam
General: Respiratory Distress (n) and Comfortable
HEENT: Normocephalic
Cardiovascular: Regular Rhythm and Murmur
Respiratory: Clear, Crackles, Non-Labored Respirations, Accessory Resp Muscle Use (n) and Stridor
GI: Soft and Non Distended
Neurology: Awake, Alert and No Motor Deficits
Skin: Warm, Good Color, Cyanosis and Jaundice
Labs/Micro/Reports
Lab Data
05/07/24 03:27
05/07/24 03:27
--- NOTE | 2024-05-07 11:02 | W.PN.NEPH.PH ---
Today's Communication / Plan
-
hospice eval on going
Assessment/Plan
-
Assessment
ESRD on PD
Hyponatremia
anemia
Thrombocytopenia
Hypertension
Hyperlipidemia
Coronary artery disease with history of stent
Hyperphosphatemia
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
Hypoxia
Volume overload
Plan
continue PD as is. losing volume steadily
all 2.5% solution, 2L dwell, 4hrs dwell
BPs stable
replace k prn
hyponatremia dilutional and ESRD
noted hospice discussion on agoing
await family to reach and make decision
-
-
Date of Service: May 07, 2024
CC / HPI / ROS
-
Chief Complaint:
ESRD
History of Present Illness:
sodium stable at 128
k up to 3.8
BP stable
weights improving
PD in progress
Review of Systems:
awake, no CP/SOB at rest
apparently not tolerating BIPAP
Labs
-
Labs:
WBC 6.2 10^3/uL (4.8-10.8) 05/07/24 03:27
RBC 3.41 10^6/uL (4.70-6.10) L 05/07/24 03:27
Hgb 10.9 g/dL (13.0-18.0) L 05/07/24 03:27
Hct 33.4 % (39.0-52.0) L 05/07/24 03:27
Plt Count 132 10^3/uL (130-400) 05/07/24 03:27
Sodium 128 mmol/L (135-145) L 05/07/24 03:27
Potassium 3.8 mmol/L (3.5-5.1) 05/07/24 03:27
Chloride 92 mmol/L (98-107) L 05/07/24 03:27
Carbon Dioxide 31 mmol/L (22-30) H 05/07/24 03:27
BUN 60 mg/dl (9-20) H 05/07/24 03:27
Creatinine 5.0 mg/dL (0.7-1.3) H* 05/07/24 03:27
eGFR 10.69 05/07/24 03:27
Glucose 82 mg/dl (70-99) 05/07/24 03:27
Calcium 8.3 mg/dl (8.4-10.2) L 05/07/24 03:27
Uux-I-Zcwmmqittxe Pept > 60941 pg/ml 05/01/24 16:27
Albumin 3.4 g/dl (3.5-5.0) L 05/01/24 16:27
Physical Exam
-
Vital Signs:
Vital Signs
Temp Pulse Resp BP Pulse Ox
97.7 F 90 19 123/89 96
05/07/24 07:05 05/07/24 08:00 05/07/24 08:00 05/07/24 08:00 05/07/24 09:02
Cardiovascular:: Regular rate and rhythm
Respiratory:: Bilateral: Coarse (at bases)
Lung Excursion:: Normal
Abdomen:: Nontender and Soft
Bowel Sounds:: Normal
Extremity Edema:: None: Bilateral:
--- NOTE | 2024-05-07 11:02 | HOSPNOTE ---
Spoke with spouse last evening 05/06 and the plan is for family to come in from out of state today and then transition to comfort and if patient deteriorates will remain here with hospice if patient is stable will need to seek placement with hospice
services. We will continue to follow.
[2024-05-07] MEDS: VITAMIN D3 (cholecalciferol) 25 MCG PO (12:42)
--- NOTE | 2024-05-07 12:49 | W.PN.HOSP.TC ---
Today's Communication/Plan
-
Monitor vital signs see plan
Family to visit today and possible comfort measures versus hospice
Family is aware of discontinuing PD if goes on comfort measures or hospice
Assessment / Plan
Assessment / Plan
Physical Exam
General: no acute distress, appears comfortable
HEENT: NormoCephalic, Moist mucous membranes, Atraumatic Hard of Hearing
Respiratory: clear to auscultation b/l
Cardiac: S1/S2 and Regular Rhythm; No Murmur, Rub or Gallop
GI: Soft, Non Tender, Non Distended and Normal Bowel Sounds
Musculoskeletal: No edema
Skin: Warm and IV/Catheter Site; No Rash
Neuro: AOx3, mentation seems slow
Psych: Calm
84M ESRD PD HTN HLD CAD stents BPH here with hypercarbic resp failure 2/2 Acute on Chronic HFrEF
Acute hypercarbic hypoxic respiratory failure likely secondary to fluid overload with underlying end-stage renal disease
TME 2/2 hypercarbia and acute on chronic HFrEF
BNP elevated
Blood gas with severe respiratory acidosis, since improved
Continue with BiPAP 15/6 prn and HS; patient not tolerating BiPAP
Cardio eval appreciated
Peritoneal dialysis per nephrology
ECHO appreciated EF 35-40%
per spouse; has been on PD for 3 years and has been doing well.
sees cardiology from [facility]
Pulmonary following
Pulmonary is trying to get patient nocturnal BiPAP. However he is not tolerating. No plans for BiPAP at this time anymore. Discussed with spouse and daughter 05/06, plan for brother to visit 05/07 and depends on how patient is doing, family is
then planning for comfort measures. If patient condition deteriorates then will be admitted here on inpatient hospice. Family is having difficulty taking patient home. Ongoing efforts
Appears some social limitations for patient to return home (Lives with daughter and son in law). Will let CM work on disposition.
Acute on Chronic HFrEF
managed with HD
cardiology signed off
low core temp
Max hugger prn
TSH wnl
Random Cortisol non-deficient
Hypokalemia
managed with PD
Acute on chronic hyponatremia
Improving with PD
ESRD on peritoneal dialysis
been on 3 years
Follows up at [place]
Nephrology eval appreciated
hx of delirium in past
currently not agitated; if agitated then can try Risperdal
GERD
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
Coronary artery disease with history of stent
2 stents per spouse a while ago
HTN
HLD
PT/OT
DVTppx
heparin
DNR
Discussed with patient's family prognosis remains guarded though overall patient is improving at this time. Remains a candidate for hospice. Discussed with spouse and daughter 05/06, plan for brother to visit 05/07 and depends on how patient is
doing, family is then planning for comfort measures. If patient condition deteriorates then will be admitted here on inpatient hospice. Family is having difficulty taking patient home. Ongoing efforts
I spent a total of 51 minutes with the patient or on the floor. More than 50% of this time involved counseling and coordination of care.
Anticipated Discharge: 24 - 48 hours
Subjective/Interval History
-
Date of Service: May 07, 2024
Denies pain
Objective Data
-
Labs:
Laboratory Results
05/07/24
03:27
WBC 6.2
Hgb 10.9 L
Hct 33.4 L
Plt Count 132
Sodium 128 L
Potassium 3.8
Chloride 92 L
Carbon Dioxide 31 H
BUN 60 H
Creatinine 5.0 H*
Glucose 82
Calcium 8.3 L
Vital Signs:
Vital Signs
Temp Pulse Resp BP Pulse Ox
97.7 F 90 19 123/89 96
05/07/24 07:05 05/07/24 08:00 05/07/24 08:00 05/07/24 08:00 05/07/24 11:07
I&O
05/06/24 05/07/24 05/08/24
06:59 06:59 06:59
Intake Total 200 / 200 200 / 200
Output Total 1150 / 1150 500 / 500
Balance -950 / -950 -300 / -300
[2024-05-07] MEDS: PROSCAR 5 MG PO (18:32)
[2024-05-07] MEDS: TOPROL XL 25 MG PO (18:32)
[2024-05-07] MEDS: FLOMAX 0.4 MG PO (18:32)
[2024-05-07] MEDS: LIPITOR PO (20:29)
[2024-05-08] VITALS (11 sets, daily range): BP systolic 102–158; BP diastolic 52–76; BMI 23.6
[2024-05-08 04:24] LABS: Hematocrit 34.8 % (39.0-52.0); Mean Corp Hgb Conc. 31.6 g/dL (33.0-37.0); Mean Corpuscular Hgb 31.9 pg (27.0-31.0); Mean Corpuscular Volume 100.9 fL (80.0-94.0); Mean Platelet Volume 9.6 fL (7.4-10.4); Platelet Count 104 10^3/uL (130-400); Red Blood Cell Count 3.45 10^6/uL (4.70-6.10); Red Cell Dist. Width 14.2 % (11.5-14.5); White Blood Cell Count 6.7 10^3/uL (4.8-10.8)
[2024-05-08 04:32] LABS: Blood Urea Nitrogen 58 mg/dl (9-20); Calcium 8.3 mg/dl (8.4-10.2); Carbon Dioxide 30 mmol/L (22-30); Chloride 88 mmol/L (98-107); Estimated Creatinine Clearance 9 ml/min; Glucose 91 mg/dl (70-99); Potassium 3.7 mmol/L (3.5-5.1); Sodium 126 mmol/L (135-145); eGFR 10.95
[2024-05-08] MEDS: PROTONIX 40 MG PO (05:17)
[2024-05-08] MEDS: RENVELA 1600 MG PO ×3 (08:05→17:17)
[2024-05-08] MEDS: NEPHROCAP 1 CAPSULE PO (08:05)
[2024-05-08] MEDS: HEPARIN 5000 UNITS SC ×2 (08:06→20:23)
[2024-05-08] MEDS: ASPIR LOW (ENTERIC COATED) 81 MG PO (08:06)
[2024-05-08] MEDS: COZAAR 50 MG PO (08:06)
[2024-05-08] MEDS: GENTAMICIN 0.1% CREAM 1 APPLIC TOPICAL (08:06)
[2024-05-08] MEDS: COLACE 100 MG PO (08:06)
[2024-05-08] MEDS: ZYRTEC 10 MG PO (08:06)
[2024-05-08] MEDS: TYLENOL 650 MG PO (08:09)
--- NOTE | 2024-05-08 11:49 | W.PN.HOSP.TC ---
Today's Communication/Plan
-
Monitor vitals
See plan
Discussed with spouse today that decision needs to be made. They are aware and agree of not going on PD if goes to comfort/hospice route.
Hospice following
if accepts on hospice; if deteriorates then we will admit here on inpatient hospice otherwise outpatient hospice will be appropriate.
Assessment / Plan
Assessment / Plan
Physical Exam
General: no acute distress, appears comfortable
HEENT: NormoCephalic, Moist mucous membranes, Atraumatic Hard of Hearing
Respiratory: clear to auscultation b/l
Cardiac: S1/S2 and Regular Rhythm; No Murmur, Rub or Gallop
GI: Soft, Non Tender, Non Distended and Normal Bowel Sounds
Musculoskeletal: No edema
Skin: Warm and IV/Catheter Site; No Rash
Neuro: AOx3, mentation seems slow
Psych: Calm
84M ESRD PD HTN HLD CAD stents BPH here with hypercarbic resp failure 2/2 Acute on Chronic HFrEF
Acute hypercarbic hypoxic respiratory failure likely secondary to fluid overload with underlying end-stage renal disease
TME 2/2 hypercarbia and acute on chronic HFrEF
BNP elevated
Blood gas with severe respiratory acidosis, since improved
Continue with BiPAP 15/6 prn and HS; patient not tolerating BiPAP. Patient is now refusing BiPAP. Will discontinue. Discussed with spouse
Cardio eval appreciated
Peritoneal dialysis per nephrology
ECHO appreciated EF 35-40%
per spouse; has been on PD for 3 years and has been doing well.
sees cardiology from [facility]
Pulmonary following
Pulmonary is trying to get patient nocturnal BiPAP. However he is not tolerating. No plans for BiPAP at this time anymore.
Discussed with spouse and daughter 05/06, plan for brother to visit 05/07 and depends on how patient is doing, family is then planning for comfort measures. If patient condition deteriorates then will be admitted here on inpatient hospice. Family is
having difficulty taking patient home. Ongoing efforts
05/08; son is speaking to patient and if everyone agrees then they are aware that patient wont be getting PD and they would agree on comfort measures. if deteriorates then will admit here on inpatient hospice and if not then outpatient hospice will
be appropriate.
Appears some social limitations for patient to return home (Lives with daughter and son in law). Will let work on disposition.
Acute on Chronic HFrEF
managed with HD
cardiology signed off
Hypothermia
Max hugger prn
TSH wnl
Random Cortisol non-deficient
Hypokalemia
managed with PD
Acute on chronic hyponatremia
Improving with PD
ESRD on peritoneal dialysis
been on 3 years
Follows up at [place]
Nephrology eval appreciated
hx of delirium in past
currently not agitated; if agitated then can try Risperdal
GERD
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
Coronary artery disease with history of stent
2 stents per spouse a while ago
HTN
HLD
PT/OT
DVTppx
heparin
DNR
Discussed with patient's family prognosis remains guarded though overall patient is improving at this time. Remains a candidate for hospice. Discussed with spouse and daughter 05/06, plan for brother to visit 05/07 and depends on how patient is
doing, family is then planning for comfort measures. If patient condition deteriorates then will be admitted here on inpatient hospice. Family is having difficulty taking patient home. Ongoing efforts
05/08; discussed with spouse. Son is speaking to patient and if everyone agrees then they are aware that patient wont be getting PD and they would agree on comfort measures. if deteriorates then will admit here on inpatient hospice and if not then
outpatient hospice will be appropriate.
I spent a total of 52 minutes with the patient or on the floor. More than 50% of this time involved counseling and coordination of care.
Anticipated Discharge: Within 24 hours
Subjective/Interval History
-
Date of Service: May 08, 2024
denies chest pain
Objective Data
-
Labs:
Laboratory Results
05/08/24
03:46
WBC 6.7
Hgb 11.0 L
Hct 34.8 L
Plt Count 104 L D
Sodium 126 L
Potassium 3.7
Chloride 88 L
Carbon Dioxide 30
BUN 58 H
Creatinine 4.9 H*
Glucose 91
Calcium 8.3 L
Vital Signs:
Vital Signs
Temp Pulse Resp BP Pulse Ox
97.9 F 62 19 157/70 96
05/08/24 07:51 05/08/24 08:00 05/08/24 08:00 05/08/24 08:06 05/08/24 08:00
I&O
05/07/24 05/08/24 05/09/24
06:59 06:59 06:59
Intake Total 200 / 200
Output Total 500 / 500 1500 / 1500 60 / 60
Balance -300 / -300 -1500 / -1500 -60 / -60
[2024-05-08] MEDS: VITAMIN D3 (cholecalciferol) 25 MCG PO (12:42)
--- NOTE | 2024-05-08 12:58 | W.PN.NEPH.PH ---
Today's Communication / Plan
-
await family decision on hospice
Assessment/Plan
-
Assessment
ESRD on PD
Hyponatremia
anemia
Thrombocytopenia
Hypertension
Hyperlipidemia
Coronary artery disease with history of stent
Hyperphosphatemia
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
Hypoxia
Volume overload
Plan
continue PD as is.
all 2.5% solution, 2L dwell, 4hrs dwell
BPs stable
replace k prn
worsening hyponatremia dilutional and ESRD
noted hospice discussion on going
await family to reach and make decision
if enrolled to hospice, stop PD
-
-
Date of Service: May 08, 2024
CC / HPI / ROS
-
Chief Complaint:
ESRD
History of Present Illness:
sodium down to 126
BP stable
weights stabilized
PD in progress
Review of Systems:
awake, feels tired
no fever
Labs
-
Labs:
WBC 6.7 10^3/uL (4.8-10.8) 05/08/24 03:46
RBC 3.45 10^6/uL (4.70-6.10) L 05/08/24 03:46
Hgb 11.0 g/dL (13.0-18.0) L 05/08/24 03:46
Hct 34.8 % (39.0-52.0) L 05/08/24 03:46
Plt Count 104 10^3/uL (130-400) L D 05/08/24 03:46
Sodium 126 mmol/L (135-145) L 05/08/24 03:46
Potassium 3.7 mmol/L (3.5-5.1) 05/08/24 03:46
Chloride 88 mmol/L (98-107) L 05/08/24 03:46
Carbon Dioxide 30 mmol/L (22-30) 05/08/24 03:46
BUN 58 mg/dl (9-20) H 05/08/24 03:46
Creatinine 4.9 mg/dL (0.7-1.3) H* 05/08/24 03:46
eGFR 10.95 05/08/24 03:46
Glucose 91 mg/dl (70-99) 05/08/24 03:46
Calcium 8.3 mg/dl (8.4-10.2) L 05/08/24 03:46
Tjh-C-Ufuykkaebnx Pept > 97259 pg/ml 05/01/24 16:27
Albumin 3.4 g/dl (3.5-5.0) L 05/01/24 16:27
Physical Exam
-
Vital Signs:
Vital Signs
Temp Pulse Resp BP Pulse Ox
97.9 F 63 17 151/70 92
05/08/24 11:39 05/08/24 12:00 05/08/24 12:00 05/08/24 12:00 05/08/24 12:00
Cardiovascular:: Regular rate and rhythm
Respiratory:: Bilateral: Coarse (at bases)
Lung Excursion:: Normal
Abdomen:: Nontender and Soft
Bowel Sounds:: Normal
Extremity Edema:: None: Bilateral:
Rojas Catheter: No
--- NOTE | 2024-05-08 15:21 | HOSPNOTE ---
Spoke with family again about hospice, the family is trying to make some decisions and understands that they all need to come to a decision. I will be available tomorrow to discuss with family if they have any further questions.
--- NOTE | 2024-05-08 16:09 | CM ---
Patient with Hx ESRD on PD. Room air. Orders for BiPAP.
Hospice spoke with family today and await family's decision.
MD also discussed with today about need to make decision re; hospice/comfort care.
Plan possible hospice or comfort care only family decides.
[2024-05-08] MEDS: FLOMAX 0.4 MG PO (17:17)
[2024-05-08] MEDS: TOPROL XL 25 MG PO (17:17)
[2024-05-08] MEDS: PROSCAR 5 MG PO (17:17)
[2024-05-08] MEDS: LIPITOR 40 MG PO (20:23)
[2024-05-09] VITALS (14 sets, daily range): BP systolic 98–154; BP diastolic 53–77; PULSE 62; BMI 23.7
--- NOTE | 2024-05-09 04:28 | PTCARENOTE ---
No acute events overnight. Patient stated that he 'really wants to go home.' Emotional support provided.
[2024-05-09 04:30] LABS: Hematocrit 34.3 % (39.0-52.0); Hemoglobin 10.9 g/dL (13.0-18.0); Mean Corp Hgb Conc. 31.8 g/dL (33.0-37.0); Mean Corpuscular Hgb 31.4 pg (27.0-31.0); Mean Corpuscular Volume 98.8 fL (80.0-94.0); Mean Platelet Volume 8.9 fL (7.4-10.4); Platelet Count 103 10^3/uL (130-400); Red Blood Cell Count 3.47 10^6/uL (4.70-6.10); Red Cell Dist. Width 14.2 % (11.5-14.5); White Blood Cell Count 5.9 10^3/uL (4.8-10.8)
[2024-05-09 04:52] LABS: Blood Urea Nitrogen 55 mg/dl (9-20); Calcium 8.3 mg/dl (8.4-10.2); Carbon Dioxide 28 mmol/L (22-30); Chloride 89 mmol/L (98-107); Estimated Creatinine Clearance 10 ml/min; Glucose 83 mg/dl (70-99); Potassium 3.6 mmol/L (3.5-5.1); Sodium 123 mmol/L (135-145); eGFR 11.82
[2024-05-09] MEDS: PROTONIX 40 MG PO (05:30)
[2024-05-09] MEDS: ZYRTEC 10 MG PO (07:44)
[2024-05-09] MEDS: COLACE 100 MG PO (07:44)
[2024-05-09] MEDS: NEPHROCAP 1 CAPSULE PO (07:44)
[2024-05-09] MEDS: RENVELA 1600 MG PO ×3 (07:44→16:43)
[2024-05-09] MEDS: HEPARIN 5000 UNITS SC ×2 (07:44→20:35)
[2024-05-09] MEDS: ASPIR LOW (ENTERIC COATED) 81 MG PO (07:44)
[2024-05-09] MEDS: GENTAMICIN 0.1% CREAM 1 APPLIC TOPICAL (07:44)
[2024-05-09] MEDS: COZAAR 50 MG PO (07:44)
--- NOTE | 2024-05-09 11:01 | W.PN.NEPH.PH ---
Today's Communication / Plan
-
hospice
Assessment/Plan
-
Assessment
ESRD on PD
Hyponatremia
anemia
Thrombocytopenia
Hypertension
Hyperlipidemia
Coronary artery disease with history of stent
Hyperphosphatemia
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
Hypoxia
Volume overload
Plan
continue PD as is.
all 2.5% solution, 2L dwell, 4hrs dwell
BPs stable
for hospice on dc.
PD would stop as well
-
-
Date of Service: May 09, 2024
CC / HPI / ROS
-
Chief Complaint:
ESRD
History of Present Illness:
sodium down to 123
BP stable
weights stabilized
PD in progress
Review of Systems:
awake, feels tired
no fever
Labs
-
Labs:
WBC 5.9 10^3/uL (4.8-10.8) 05/09/24 03:54
RBC 3.47 10^6/uL (4.70-6.10) L 05/09/24 03:54
Hgb 10.9 g/dL (13.0-18.0) L 05/09/24 03:54
Hct 34.3 % (39.0-52.0) L 05/09/24 03:54
Plt Count 103 10^3/uL (130-400) L 05/09/24 03:54
Sodium 123 mmol/L (135-145) L 05/09/24 03:54
Potassium 3.6 mmol/L (3.5-5.1) 05/09/24 03:54
Chloride 89 mmol/L (98-107) L 05/09/24 03:54
Carbon Dioxide 28 mmol/L (22-30) 05/09/24 03:54
BUN 55 mg/dl (9-20) H 05/09/24 03:54
Creatinine 4.6 mg/dL (0.7-1.3) H* 05/09/24 03:54
eGFR 11.82 05/09/24 03:54
Glucose 83 mg/dl (70-99) 05/09/24 03:54
Calcium 8.3 mg/dl (8.4-10.2) L 05/09/24 03:54
Iuz-P-Djexwkelpce Pept > 90237 pg/ml 05/01/24 16:27
Albumin 3.4 g/dl (3.5-5.0) L 05/01/24 16:27
Physical Exam
-
Vital Signs:
Vital Signs
Temp Pulse Resp BP Pulse Ox
97.5 F 64 26 154/77 94
05/09/24 07:04 05/09/24 08:00 05/09/24 08:00 05/09/24 08:00 05/09/24 00:00
Cardiovascular:: Regular rate and rhythm
Respiratory:: Bilateral: Coarse
Lung Excursion:: Normal
Abdomen:: Nontender and Soft
Bowel Sounds:: Normal
Extremity Edema:: None: Bilateral:
[2024-05-09] MEDS: VITAMIN D3 (cholecalciferol) 25 MCG PO (12:49)
--- NOTE | 2024-05-09 13:46 | W.PN.HOSP.TC ---
Today's Communication/Plan
-
Monitor vital signs see plan
Patient wants to go home, family unable to take care of him at home at this time
Hospice discussion ongoing
PT/OT
PD per nephrology
transfer to [facility] level
Assessment / Plan
Assessment / Plan
Physical Exam
General: no acute distress, appears comfortable
HEENT: NormoCephalic, Moist mucous membranes, Atraumatic Hard of Hearing
Respiratory: clear to auscultation b/l
Cardiac: S1/S2 and Regular Rhythm; No Murmur, Rub or Gallop
GI: Soft, Non Tender, Non Distended and Normal Bowel Sounds
Musculoskeletal: No edema
Skin: Warm and IV/Catheter Site; No Rash
Neuro: AOx3
Psych: Calm
84M ESRD PD HTN HLD CAD stents BPH here with hypercarbic resp failure 2/2 Acute on Chronic HFrEF
Acute hypercarbic hypoxic respiratory failure likely secondary to fluid overload with underlying end-stage renal disease
TME 2/2 hypercarbia and acute on chronic HFrEF
BNP elevated
Blood gas with severe respiratory acidosis, since improved
Continue with BiPAP 15/6 prn and HS; patient not tolerating BiPAP. Patient is now refusing BiPAP. BiPAP stopped. Discussed with spouse
Cardio eval appreciated
Peritoneal dialysis per nephrology
ECHO appreciated EF 35-40%
per spouse; has been on PD for 3 years and has been doing well.
sees cardiology from [facility]
Pulmonary following
Pulmonary is trying to get patient nocturnal BiPAP. However he is not tolerating. No plans for BiPAP at this time anymore.
Discussed with spouse and daughter 05/06, plan for brother to visit 05/07 and depends on how patient is doing, family is then planning for comfort measures. If patient condition deteriorates then will be admitted here on inpatient hospice. Family is
having difficulty taking patient home. Ongoing efforts
05/08; son is speaking to patient and if everyone agrees then they are aware that patient wont be getting PD and they would agree on comfort measures. if deteriorates then will admit here on inpatient hospice and if not then outpatient hospice will
be appropriate.
05/09: And discussion with son Carlos and spouse. They are aware the family has to decide on disposition. Liane from hospice has also been following every day. Family still unable to decide if they want to pursue hospice. They are aware that PD
has to be discontinued if goes on hospice. They showed interest in patient being comfort care however patient at this time does not meet criteria for inpatient comfort care or hospice. Patient reported to me today that he wants to go home however
family is unable to take care of him at this time.
Discussed with hospice, currently patient likely is appropriate for outpatient hospice or rehab hospice if family chooses to go on hospice.
Appears some social limitations for patient to return home (Lives with daughter and son in law). Will let CM work on disposition.
Acute on Chronic HFrEF
managed with PD
cardiology signed off
Hypothermia
Max hugger prn
TSH wnl
Random Cortisol non-deficient
Hypokalemia
managed with PD
Acute on chronic hyponatremia
Improving with PD
ESRD on peritoneal dialysis
been on 3 years
Follows up at [facility]
Nephrology eval appreciated
hx of delirium in past
currently not agitated; if agitated then can try Risperdal
GERD
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
Coronary artery disease with history of stent
2 stents per spouse a while ago
HTN
HLD
PT/OT
DVTppx
heparin
DNR
Discussed with patient's family prognosis remains guarded though overall patient is improving at this time. Remains a candidate for hospice. Discussed with spouse and daughter 05/06, plan for brother to visit 05/07 and depends on how patient is
doing, family is then planning for comfort measures. If patient condition deteriorates then will be admitted here on inpatient hospice. Family is having difficulty taking patient home. Ongoing efforts
05/08; discussed with spouse. Son is speaking to patient and if everyone agrees then they are aware that patient wont be getting PD and they would agree on comfort measures. if deteriorates then will admit here on inpatient hospice and if not then
outpatient hospice will be appropriate.
05/09: And discussion with son Carlos and spouse. They are aware the family has to decide on disposition. Liane from hospice has also been following every day. Family still unable to decide if they want to pursue hospice. They are aware that PD
has to be discontinued if goes on hospice. They showed interest in patient being comfort care however patient at this time does not meet criteria for inpatient comfort care or hospice. Patient reported to me today that he wants to go home however
family is unable to take care of him at this time.
Discussed with hospice, currently patient likely is appropriate for outpatient hospice or rehab hospice if family chooses to go on hospice.
I spent a total of 51 minutes with the patient or on the floor. More than 50% of this time involved counseling and coordination of care.
Anticipated Discharge: Today
Subjective/Interval History
-
Date of Service: May 09, 2024
wants to go home
Objective Data
-
Labs:
Laboratory Results
05/09/24
03:54
WBC 5.9
Hgb 10.9 L
Hct 34.3 L
Plt Count 103 L
Sodium 123 L
Potassium 3.6
Chloride 89 L
Carbon Dioxide 28
BUN 55 H
Creatinine 4.6 H*
Glucose 83
Calcium 8.3 L
Vital Signs:
Vital Signs
Temp Pulse Resp BP Pulse Ox
97.6 F 58 22 130/58 94
05/09/24 11:00 05/09/24 12:00 05/09/24 12:00 05/09/24 12:00 05/09/24 00:00
I&O
05/08/24 05/09/24 05/10/24
06:59 06:59 06:59
Intake Total 1060 / 1060 200 / 200
Output Total 1500 / 1500 1185 / 1185
Balance -1500 / -1500 -125 / -125 200 / 200
--- NOTE | 2024-05-09 15:19 | CM ---
Patient with Hx ESRD on PD with Dx Acute hypercarbic hypoxic respiratory failure. Room air. last BiPAP 05/07. PT/OT recommend .
Spoke with Marisol PURCELL; patient was able to demonstrate he could ambulate, he might benefit from transport w/c for home.
Spoke with patient's Carla; she is aware patient is ambulatory today and was there when PT/OT saw him. agrees to take him home and states she cannot take him home until Sunday because she wants to line up a caregiver. She does not want
hospital bed or w/c at this time. On her own she asked for [facility]. She requests to help her arrange transport home.
Spoke with [facility] (cell [phone], fax [phone]); they can accept the patient again and will add Palliative Care as a priority. She is aware of the new home BiPAP through [facility]. If any changes this w/e; call [phone].
Message from Dr Bhardwaj; BiPAP can be offered at home if patient wants.
Spoke with [facility]; they will offer BiPAP at home and deliver if patient wants.
Plan CM to arrange transport home on Sun 05/11.
Plan home Sun 05/[address] [facility], [facility], with transport.
[2024-05-09] MEDS: FLOMAX 0.4 MG PO (16:43)
[2024-05-09] MEDS: PROSCAR 5 MG PO (16:43)
[2024-05-09] MEDS: TOPROL XL 25 MG PO (16:43)
--- NOTE | 2024-05-09 18:02 | PTCARENOTE ---
OOB most of the day. Appetite good. Anuric, PD as ordered - 3 cycles this shift. +formed BM today on bsc. Family here this pm
[2024-05-09] MEDS: LIPITOR 40 MG PO (22:16)
[2024-05-10] VITALS (13 sets, daily range): BP systolic 95–138; BP diastolic 50–73; BMI 24.2; BMI 22.8
--- NOTE | 2024-05-10 03:30 | PTCARENOTE ---
Received pt at change of shift. AAOx3; forgetful at times. Tolerated PD x2 this shift. Pt offers no complaints at this time. Resting in bed with call blair in reach.
[2024-05-10 04:00] LABS: Hemoglobin 11.7 g/dL (13.0-18.0); Mean Corp Hgb Conc. 31.6 g/dL (33.0-37.0); Mean Corpuscular Volume 98.1 fL (80.0-94.0); Mean Platelet Volume 10.1 fL (7.4-10.4); Platelet Count 102 10^3/uL (130-400); Red Blood Cell Count 3.77 10^6/uL (4.70-6.10); Red Cell Dist. Width 14.1 % (11.5-14.5); White Blood Cell Count 6.7 10^3/uL (4.8-10.8)
[2024-05-10 04:10] LABS: Blood Urea Nitrogen 55 mg/dl (9-20); Calcium 8.2 mg/dl (8.4-10.2); Carbon Dioxide 30 mmol/L (22-30); Chloride 87 mmol/L (98-107); Estimated Creatinine Clearance 10 ml/min; Glucose 88 mg/dl (70-99); Potassium 3.4 mmol/L (3.5-5.1); Sodium 122 mmol/L (135-145); eGFR 12.13
[2024-05-10] MEDS: PROTONIX 40 MG PO (06:09)
[2024-05-10] MEDS: HEPARIN 5000 UNITS SC ×2 (08:07→20:38)
[2024-05-10] MEDS: ASPIR LOW (ENTERIC COATED) 81 MG PO (08:07)
[2024-05-10] MEDS: NEPHROCAP 1 CAPSULE PO (08:07)
[2024-05-10] MEDS: RENVELA 1600 MG PO ×3 (08:07→17:35)
[2024-05-10] MEDS: GENTAMICIN 0.1% CREAM 1 APPLIC TOPICAL (08:08)
[2024-05-10] MEDS: COZAAR 50 MG PO (08:08)
[2024-05-10] MEDS: ZYRTEC 10 MG PO (08:08)
[2024-05-10] MEDS: COLACE 100 MG PO (08:08)
--- NOTE | 2024-05-10 08:15 | PTCARENOTE ---
Patient received from [employer] shift supervisor. Patient resting comfortably in bed. AAO, VSS. No events noted overnight. No complaints of pain at this time. Currently on Room Air. PD due this AM and remains Q4 @ 2.5% dialysate. No testing scheduled at
this time. For discharge tomorrow. Call blair in reach.
--- NOTE | 2024-05-10 10:44 | W.PN.NEPH.PH ---
Today's Communication / Plan
-
PD
Assessment/Plan
-
Assessment
ESRD on PD
Hyponatremia
anemia
Thrombocytopenia
Hypertension
Hyperlipidemia
Coronary artery disease with history of stent
Hyperphosphatemia
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
Hypoxia
Volume overload
Plan
continue PD
alt 1.5%/2.5% solution, 2L dwell, 4hrs dwell
watch BP
for hospice on dc?
PD would stop as well
-
-
Date of Service: May 10, 2024
CC / HPI / ROS
-
Chief Complaint:
ESRD
History of Present Illness:
sodium down to 122
BP stable but drifting down
weights stable
PD in progress
Review of Systems:
awake, feels tired
no fever
says he is eating...
Labs
-
Labs:
WBC 6.7 10^3/uL (4.8-10.8) 05/10/24 03:19
RBC 3.77 10^6/uL (4.70-6.10) L 05/10/24 03:19
Hgb 11.7 g/dL (13.0-18.0) L 05/10/24 03:19
Hct 37.0 % (39.0-52.0) L 05/10/24 03:19
Plt Count 102 10^3/uL (130-400) L 05/10/24 03:19
Sodium 122 mmol/L (135-145) L 05/10/24 03:19
Potassium 3.4 mmol/L (3.5-5.1) L 05/10/24 03:19
Chloride 87 mmol/L (98-107) L 05/10/24 03:19
Carbon Dioxide 30 mmol/L (22-30) 05/10/24 03:19
BUN 55 mg/dl (9-20) H 05/10/24 03:19
Creatinine 4.5 mg/dL (0.7-1.3) H* 05/10/24 03:19
eGFR 12.13 05/10/24 03:19
Glucose 88 mg/dl (70-99) 05/10/24 03:19
Calcium 8.2 mg/dl (8.4-10.2) L 05/10/24 03:19
Emm-L-Zhyqhaxhmfz Pept > 76723 pg/ml 05/01/24 16:27
Albumin 3.4 g/dl (3.5-5.0) L 05/01/24 16:27
Physical Exam
-
Vital Signs:
Vital Signs
Temp Pulse Resp BP Pulse Ox
97.5 F 65 20 109/55 96
05/10/24 07:21 05/10/24 08:08 05/10/24 06:00 05/10/24 08:08 05/10/24 10:30
Cardiovascular:: Regular rate and rhythm
Respiratory:: Bilateral: Coarse
Lung Excursion:: Normal
Abdomen:: Nontender and Soft
Bowel Sounds:: Normal
Extremity Edema:: None: Bilateral:
[2024-05-10] MEDS: VITAMIN D3 (cholecalciferol) 25 MCG PO (13:05)
--- NOTE | 2024-05-10 14:52 | W.PN.HOSP.TC ---
Today's Communication/Plan
-
Monitor vital signs
see plan
Refusing BiPAP
Continue with PD per nephrology
dc tomorrow
Assessment / Plan
Assessment / Plan
Physical Exam
General: no acute distress, appears comfortable
HEENT: NormoCephalic, Moist mucous membranes, Atraumatic Hard of Hearing
Respiratory: clear to auscultation b/l
Cardiac: S1/S2 and Regular Rhythm; No Murmur, Rub or Gallop
GI: Soft, Non Tender, Non Distended and Normal Bowel Sounds
Musculoskeletal: No edema
Skin: Warm and IV/Catheter Site; No Rash
Neuro: AOx3
Psych: Calm
84M ESRD PD HTN HLD CAD stents BPH here with hypercarbic resp failure 2/2 Acute on Chronic HFrEF
Acute hypercarbic hypoxic respiratory failure likely secondary to fluid overload with underlying end-stage renal disease
TME 2/2 hypercarbia and acute on chronic HFrEF
BNP elevated
Blood gas with severe respiratory acidosis, since improved
Continue with BiPAP 15/6 prn and HS; patient not tolerating BiPAP. Patient is now refusing BiPAP. BiPAP stopped. Discussed with spouse
Cardio eval appreciated
Peritoneal dialysis per nephrology
ECHO appreciated EF 35-40%
per spouse; has been on PD for 3 years and has been doing well.
sees cardiology from [facility]
Pulmonary following
Pulmonary is trying to get patient nocturnal BiPAP. However he is not tolerating. No plans for BiPAP at this time anymore.
Discussed with spouse and daughter 05/06, plan for brother to visit 05/07 and depends on how patient is doing, family is then planning for comfort measures. If patient condition deteriorates then will be admitted here on inpatient hospice. Family is
having difficulty taking patient home. Ongoing efforts
05/08; son is speaking to patient and if everyone agrees then they are aware that patient wont be getting PD and they would agree on comfort measures. if deteriorates then will admit here on inpatient hospice and if not then outpatient hospice will
be appropriate.
05/09: And discussion with son Carlos and spouse. They are aware the family has to decide on disposition. Liane from hospice has also been following every day. Family still unable to decide if they want to pursue hospice. They are aware that PD
has to be discontinued if goes on hospice. They showed interest in patient being comfort care however patient at this time does not meet criteria for inpatient comfort care or hospice. Patient reported to me today that he wants to go home however
family is unable to take care of him at this time.
Discussed with hospice, currently patient likely is appropriate for outpatient hospice or rehab hospice if family chooses to go on hospice.
05/10: Patient's family decided to rather go home. No hospice. Will follow-up with palliative outpatient. Does not want BiPAP. Wants to continue PD
Appears some social limitations for patient to return home (Lives with daughter and son in law). Will let CM work on disposition.
Acute on Chronic HFrEF
managed with PD
cardiology signed off
Hypothermia
Max hugger prn
TSH wnl
Random Cortisol non-deficient
Hypokalemia
managed with PD
Acute on chronic hyponatremia
Improving with PD
ESRD on peritoneal dialysis
been on 3 years
Follows up at [facility]
Nephrology eval appreciated
hx of delirium in past
currently not agitated; if agitated then can try Risperdal
GERD
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
Coronary artery disease with history of stent
2 stents per spouse a while ago
HTN
HLD
PT/OT
DVTppx
heparin
DNR
Discussed with patient's family prognosis remains guarded though overall patient is improving at this time. Remains a candidate for hospice. Discussed with spouse and daughter 05/06, plan for brother to visit 05/07 and depends on how patient is
doing, family is then planning for comfort measures. If patient condition deteriorates then will be admitted here on inpatient hospice. Family is having difficulty taking patient home. Ongoing efforts
05/08; discussed with spouse. Son is speaking to patient and if everyone agrees then they are aware that patient wont be getting PD and they would agree on comfort measures. if deteriorates then will admit here on inpatient hospice and if not then
outpatient hospice will be appropriate.
05/09: And discussion with son Carlos and spouse. They are aware the family has to decide on disposition. Liane from hospice has also been following every day. Family still unable to decide if they want to pursue hospice. They are aware that PD
has to be discontinued if goes on hospice. They showed interest in patient being comfort care however patient at this time does not meet criteria for inpatient comfort care or hospice. Patient reported to me today that he wants to go home however
family is unable to take care of him at this time.
Discussed with hospice, currently patient likely is appropriate for outpatient hospice or rehab hospice if family chooses to go on hospice.
05/10: Patient's family decided to rather go home. No hospice. Will follow-up with palliative outpatient. Does not want BiPAP. Wants to continue PD. Need time till sunday to prepare
Anticipated Discharge: Within 24 hours
Subjective/Interval History
-
Date of Service: May 10, 2024
Denies pain
Objective Data
-
Labs:
Laboratory Results
05/10/24
03:19
WBC 6.7
Hgb 11.7 L
Hct 37.0 L
Plt Count 102 L
Sodium 122 L
Potassium 3.4 L
Chloride 87 L
Carbon Dioxide 30
BUN 55 H
Creatinine 4.5 H*
Glucose 88
Calcium 8.2 L
Vital Signs:
Vital Signs
Temp Pulse Resp BP Pulse Ox
97.5 F 65 20 109/55 96
05/10/24 11:00 05/10/24 08:08 05/10/24 06:00 05/10/24 08:08 05/10/24 10:30
I&O
05/09/24 05/10/24 05/11/24
06:59 06:59 06:59
Intake Total 1060 / 1060 1200 / 1200
Output Total 1185 / 1185 600 / 600 650 / 650
Balance -125 / -125 600 / 600 -650 / -650
[2024-05-10] MEDS: TOPROL XL 25 MG PO (17:35)
[2024-05-10] MEDS: FLOMAX 0.4 MG PO (17:35)
[2024-05-10] MEDS: PROSCAR 5 MG PO (17:35)
[2024-05-10] MEDS: TYLENOL 650 MG PO (20:38)
[2024-05-11] VITALS (8 sets, daily range): BP systolic 100–153; BP diastolic 41–82; BMI 23.7
[2024-05-11] MEDS: PROTONIX 40 MG PO (04:24)
--- NOTE | 2024-05-11 05:13 | PTCARENOTE ---
Pt tolerated PD x2 this shift (see PD documentation). Pt offers no complaints at this time. Resting in bed with call blair in reach.
[2024-05-11 05:16] LABS: Blood Urea Nitrogen 53 mg/dl (9-20); Carbon Dioxide 29 mmol/L (22-30); Chloride 85 mmol/L (98-107); Estimated Creatinine Clearance 10 ml/min; Glucose 89 mg/dl (70-99); Potassium 3.4 mmol/L (3.5-5.1); Sodium 122 mmol/L (135-145); eGFR 11.82
[2024-05-11] MEDS: RENVELA 1600 MG PO (09:00)
[2024-05-11] MEDS: COZAAR 50 MG PO (09:01)
[2024-05-11] MEDS: NEPHROCAP 1 CAPSULE PO (09:02)
[2024-05-11] MEDS: COLACE 100 MG PO (09:02)
[2024-05-11] MEDS: HEPARIN 5000 UNITS SC (09:02)
[2024-05-11] MEDS: ZYRTEC 10 MG PO (09:02)
[2024-05-11] MEDS: ASPIR LOW (ENTERIC COATED) 81 MG PO (09:02)
[2024-05-11] MEDS: GENTAMICIN 0.1% CREAM 1 APPLIC TOPICAL (09:08)
--- NOTE | 2024-05-11 09:51 | W.PN.NEPH.PH ---
Today's Communication / Plan
-
PD ordered
Assessment/Plan
-
Assessment
ESRD on PD
Hyponatremia
anemia
Thrombocytopenia
Hypertension
Hyperlipidemia
Coronary artery disease with history of stent
Hyperphosphatemia
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
Hypoxia
Volume overload
Plan
continue PD
alt 1.5%/2.5% solution, 2L dwell, 4hrs dwell
watch BP
Patient to go home without hospice. Will consider palliative care then
Replete potassium
-
-
Date of Service: May 11, 2024
CC / HPI / ROS
-
Chief Complaint:
ESRD
History of Present Illness:
sodium down to 122
K low 3.4
BP stable
weights stable
PD in progress
Review of Systems:
awake, feels tired
no fever
Labs
-
Labs:
WBC 6.7 10^3/uL (4.8-10.8) 05/10/24 03:19
RBC 3.77 10^6/uL (4.70-6.10) L 05/10/24 03:19
Hgb 11.7 g/dL (13.0-18.0) L 05/10/24 03:19
Hct 37.0 % (39.0-52.0) L 05/10/24 03:19
Plt Count 102 10^3/uL (130-400) L 05/10/24 03:19
Sodium 122 mmol/L (135-145) L 05/11/24 04:01
Potassium 3.4 mmol/L (3.5-5.1) L 05/11/24 04:01
Chloride 85 mmol/L (98-107) L 05/11/24 04:01
Carbon Dioxide 29 mmol/L (22-30) 05/11/24 04:01
BUN 53 mg/dl (9-20) H 05/11/24 04:01
Creatinine 4.6 mg/dL (0.7-1.3) H* 05/11/24 04:01
eGFR 11.82 05/11/24 04:01
Glucose 89 mg/dl (70-99) 05/11/24 04:01
Calcium 8.0 mg/dl (8.4-10.2) L 05/11/24 04:01
Qno-V-Ekexeijyujc Pept > 85163 pg/ml 05/01/24 16:27
Albumin 3.4 g/dl (3.5-5.0) L 05/01/24 16:27
Physical Exam
-
Vital Signs:
Vital Signs
Temp Pulse Resp BP Pulse Ox
97.4 F 67 19 130/61 96
05/11/24 07:00 05/11/24 09:01 05/10/24 22:00 05/11/24 09:01 05/10/24 10:30
Cardiovascular:: Regular rate and rhythm
Respiratory:: Bilateral: Coarse
Lung Excursion:: Normal
Abdomen:: Nontender and Soft
Bowel Sounds:: Normal
Extremity Edema:: None: Bilateral:
--- NOTE | 2024-05-11 09:51 | W.PN.HOSP.TC ---
Today's Communication/Plan
-
Monitor vitals closely plan
Family agreeable to take patient home
Will follow-up with palliative outpatient
Discussed with nephrology, okay for discharge
time of Discharge
Time of discharge 38 minutes
Assessment / Plan
Assessment / Plan
Physical Exam
General: no acute distress, appears comfortable
HEENT: NormoCephalic, Moist mucous membranes, Atraumatic Hard of Hearing
Respiratory: clear to auscultation b/l
Cardiac: S1/S2 and Regular Rhythm; No Murmur, Rub or Gallop
GI: Soft, Non Tender, Non Distended and Normal Bowel Sounds
Musculoskeletal: No edema
Skin: Warm and IV/Catheter Site; No Rash
Neuro: AOx3
Psych: Calm
84M ESRD PD HTN HLD CAD stents BPH here with hypercarbic resp failure 2/2 Acute on Chronic HFrEF
Acute hypercarbic hypoxic respiratory failure likely secondary to fluid overload with underlying end-stage renal disease
TME 2/2 hypercarbia and acute on chronic HFrEF
BNP elevated
Blood gas with severe respiratory acidosis, since improved
Continue with BiPAP 15/6 prn and HS; patient not tolerating BiPAP. Patient is now refusing BiPAP. BiPAP stopped. Discussed with spouse
Cardio eval appreciated
Peritoneal dialysis per nephrology
ECHO appreciated EF 35-40%
per spouse; has been on PD for 3 years and has been doing well.
sees cardiology from [facility]
Pulmonary following
Pulmonary is trying to get patient nocturnal BiPAP. However he is not tolerating. No plans for BiPAP at this time anymore.
Discussed with spouse and daughter 05/06, plan for brother to visit 05/07 and depends on how patient is doing, family is then planning for comfort measures. If patient condition deteriorates then will be admitted here on inpatient hospice. Family is
having difficulty taking patient home. Ongoing efforts
05/08; son is speaking to patient and if everyone agrees then they are aware that patient wont be getting PD and they would agree on comfort measures. if deteriorates then will admit here on inpatient hospice and if not then outpatient hospice will
be appropriate.
05/09: And discussion with son Carlos and spouse. They are aware the family has to decide on disposition. Liane from hospice has also been following every day. Family still unable to decide if they want to pursue hospice. They are aware that PD
has to be discontinued if goes on hospice. They showed interest in patient being comfort care however patient at this time does not meet criteria for inpatient comfort care or hospice. Patient reported to me today that he wants to go home however
family is unable to take care of him at this time.
Discussed with hospice, currently patient likely is appropriate for outpatient hospice or rehab hospice if family chooses to go on hospice.
05/10: Patient's family decided to rather go home. No hospice. Will follow-up with palliative outpatient. Does not want BiPAP. Wants to continue PD
Appears some social limitations for patient to return home (Lives with daughter and son in law). Will let CM work on disposition.
Acute on Chronic HFrEF
managed with PD
cardiology signed off
Hypothermia
Max hugger prn
TSH wnl
Random Cortisol non-deficient
Hypokalemia
managed with PD
Acute on chronic hyponatremia
Improving with PD
ESRD on peritoneal dialysis
been on 3 years
Follows up at [facility]
Nephrology eval appreciated
hx of delirium in past
currently not agitated; if agitated then can try Risperdal
GERD
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
Coronary artery disease with history of stent
2 stents per spouse a while ago
HTN
HLD
PT/OT
DVTppx
heparin
DNR
Discussed with patient's family prognosis remains guarded though overall patient is improving at this time. Remains a candidate for hospice. Discussed with spouse and daughter 05/06, plan for brother to visit 05/07 and depends on how patient is
doing, family is then planning for comfort measures. If patient condition deteriorates then will be admitted here on inpatient hospice. Family is having difficulty taking patient home. Ongoing efforts
05/08; discussed with spouse. Son is speaking to patient and if everyone agrees then they are aware that patient wont be getting PD and they would agree on comfort measures. if deteriorates then will admit here on inpatient hospice and if not then
outpatient hospice will be appropriate.
05/09: And discussion with son Carlos and spouse. They are aware the family has to decide on disposition. Liane from hospice has also been following every day. Family still unable to decide if they want to pursue hospice. They are aware that PD
has to be discontinued if goes on hospice. They showed interest in patient being comfort care however patient at this time does not meet criteria for inpatient comfort care or hospice. Patient reported to me today that he wants to go home however
family is unable to take care of him at this time.
Discussed with hospice, currently patient likely is appropriate for outpatient hospice or rehab hospice if family chooses to go on hospice.
05/10: Patient's family decided to rather go home. No hospice. Will follow-up with palliative outpatient. Does not want BiPAP. Wants to continue PD. Need time till sunday to prepare
DC 05/11 on palliative. continue PD on dc
Anticipated Discharge: Today
Subjective/Interval History
-
Date of Service: May 11, 2024
denies pain
Objective Data
-
Labs:
Laboratory Results
05/11/24
04:01
Sodium 122 L
Potassium 3.4 L
Chloride 85 L
Carbon Dioxide 29
BUN 53 H
Creatinine 4.6 H*
Glucose 89
Calcium 8.0 L
Vital Signs:
Vital Signs
Temp Pulse Resp BP Pulse Ox
97.4 F 67 19 130/61 96
05/11/24 07:00 05/11/24 09:01 05/10/24 22:00 05/11/24 09:01 05/10/24 10:30
I&O
05/10/24 05/11/24 05/12/24
06:59 06:59 06:59
Intake Total 1200 / 1200 820 / 820
Output Total 600 / 600 1200 / 1200
Balance 600 / 600 -380 / -380
--- NOTE | 2024-05-11 09:56 | CM ---
MD indicated discharge today.
Spoke with Carla she said her and family would be transporting pt home today . Will arrive at 12:00 noon.
Reviewed IMM with she aid she agrees with discharge.
said she has all supplies at home for PD etc.
Information given to pt regarding contacting [facility] to check for waiver program for child care coordinator.
[facility] set up by prior CM.
Pt refused Bipap.
PLAN Home with [facility] fax [phone]
--- NOTE | 2024-05-11 09:56 | W.DCSUMMARY ---
Discharge Summary
Discharge Data
Date of Admission: 05/01/24
Date of Discharge: 05/11/24
-
Pending Results: No
Hospital Course
84-year-old male with history of ESRD on peritoneal dialysis, hypertension, pulm edema, CAD status post stents, BPH, delirium, cognitive impairment came to the hospital with acute hypercarbic hypoxic respiratory failure secondary to CHF exacerbation
with underlying end-stage renal disease. Patient also had toxic metabolic encephalopathy from hypercarbia and acute on chronic CHF. Patient was seen by cardiology and pulmonary throughout hospitalization. Echocardiogram was done which showed
reduced EF of 35 to 40%. Pulmonary initially recommended patient to have BiPAP which patient wore for few days however then later refused BiPAP. There was also continuous discussion with multiple specialist and family due to patient poor prognosis
and hospice was suggested. At the end family decided to pursue palliative care and wanted to continue peritoneal dialysis and did not want hospice at this time. Patient was also evaluated by physical therapy who recommended home health. Once
family was ready to take patient home, he was then discharged home with instructions to follow-up with all his physicians outpatient.
Discharge Plan
-
Patient Disposition: Home with Home Care
Discharge Diagnosis/Procedures: Acute hypercarbic hypoxic respiratory failure likely secondary to fluid overload with underlying end-stage renal disease
ESRD on peritoneal dialysis
Toxic metabolic encephalopathy secondary to hypercarbia and acute on chronic congestive heart failure
Intolerant to BiPAP
Hypothermia
Acute on chronic hyponatremia
Diet: As tolerated
Activity: With assistance and As tolerated
Driving Restrictions: No driving
Bathing Restrictions: None
Blood Work: CBC and BMP with primary care provider
Referrals:
Pasha Manzanares MD [Family Provider] - in less than 1 week
Prescriptions:
New
gentamicin 0.1 % Cream
1 applic topical DAILY Qty: 30 0RF
metoprolol succinate 25 mg Tablet Extended Release 24 Hr
25 mg PO QPM Qty: 30 0RF
Continued
aspirin 81 mg Tablet,Delayed Release (Dr/Ec)
81 mg PO DAILY
tamsulosin [Flomax] 0.4 mg Capsule
0.4 mg PO QPM
docusate sodium [Colace] 100 mg Capsule
100 mg PO DAILY
finasteride 5 mg Tablet
5 mg PO QPM
coQ10 (ubiquinol) 200 mg Capsule
200 mg PO NOON
atorvastatin [Lipitor] 40 mg Tablet
40 mg PO MOTUWETHFR@2200
sevelamer HCl 800 mg Tablet
1,600 mg PO MEALS
Shivani-Aminata 0.8 mg tablet
1 tab PO DAILY
acetaminophen 325 mg Tablet
650 mg PO Q4HPRN PRN (Reason: mild pain/PAEZ/temp> 100.4F) Qty: 30 0RF
losartan 50 mg tablet
50 mg PO DAILY
cetirizine 10 mg Tablet
10 mg PO DAILY
azelastine 137 mcg (0.1 %) spray,non-aerosol
2 spray INTRANASAL DAILYPRN PRN (Reason: allergies)
cholecalciferol (vitamin D3) [Vitamin D3] 25 mcg (1,000 unit) Tablet
25 mcg PO NOON
pantoprazole [Protonix] 40 mg tablet,delayed release (DR/EC)
40 mg PO DAILY@0600
biotin 1 mg Tablet
1 mg PO NOON
Discontinued
atenolol 25 mg tablet
25 mg PO HS
Discharge Orders:
Discharge Patient (As Directed); Ordered 05/11/24
Ordered By: Boom Bhardwaj
Discharge Date and Time
Discharge Date/Time: 05/11/24 12:25
Print Language: SAUDI ARABIAN
[2024-05-11] MEDS: KCL 40 MEQ PO (10:47)
--- NOTE | 2024-05-11 12:28 | PTCARENOTE ---
Pt d.c. to home with VN. Reviewed meds with family multiple times, spouse repeated instructions. RN answered all of her questions both over the phone before d.c. and she also called after d.c. to clarify how to get blood work. RN referrd her to the
Visiting nurse and doctor for questions about outpatient labs. Pt was d.c. after being drained of dialysate. Pt's own cap placed on PD catheter per spouse's request.
== END 2024-05-11 12:25 | disposition home health service (06) | DRG 291 ==
LOC: IMU 19:20
PROVIDERS: Internal Medicine; Nurse Practitioner Family; Physician Assistant; Registered Nurse; ADMITTING PHYSICIAN Hospitalist; ATTENDING PHYSICIAN Internal Medicine; CONSULT PHYSICIAN Internal Medicine; CONSULT PHYSICIAN Specialist; EMERGENCY PHYSICIAN Emergency Medicine; FAMILY PHYSICIAN Family Medicine; OTHER PHYSICIAN Internal Medicine
PROC: 5A09357 Assistance with Respiratory Ventilation, Less than 24 Consecutive Hours, Continuous Positive Airway Pressure (ICD-10-PCS; 2024-05-01)
DX: I13.2 Hypertensive heart and chronic kidney disease with heart failure and with stage 5 chronic kidney disease, or end stage renal disease (principal); G92.8 Other toxic encephalopathy; I50.23 Acute on chronic systolic (congestive) heart failure; J96.02 Acute respiratory failure with hypercapnia; N18.6 End stage renal disease; J96.01 Acute respiratory failure with hypoxia; E87.29 Other acidosis; Z66 Do not resuscitate; E87.1 Hypo-osmolality and hyponatremia; F03.911 Unspecified dementia, unspecified severity, with agitation; C78.6 Secondary malignant neoplasm of retroperitoneum and peritoneum; R64 Cachexia; D63.1 Anemia in chronic kidney disease; E11.22 Type 2 diabetes mellitus with diabetic chronic kidney disease; E83.39 Other disorders of phosphorus metabolism; D69.6 Thrombocytopenia, unspecified; E87.6 Hypokalemia; I42.8 Other cardiomyopathies; R00.1 Bradycardia, unspecified; G47.33 Obstructive sleep apnea (adult) (pediatric); I25.10 Atherosclerotic heart disease of native coronary artery without angina pectoris; E78.5 Hyperlipidemia, unspecified; E11.65 Type 2 diabetes mellitus with hyperglycemia; K21.9 Gastro-esophageal reflux disease without esophagitis; N40.0 Benign prostatic hyperplasia without lower urinary tract symptoms; Z99.2 Dependence on renal dialysis; Z95.5 Presence of coronary angioplasty implant and graft; Z88.2 Allergy status to sulfonamides; Z88.0 Allergy status to penicillin; Z79.82 Long term (current) use of aspirin; Z79.899 Other long term (current) drug therapy; Z78.1 Physical restraint status; Z68.22 Body mass index [BMI] 22.0-22.9, adult
CPT/HCPCS: 36600; 71045; 80048; 80053; 82533; 82805; 83605; 83735; 83880; 84443; 84484; 85025; 85027; 86850; 86900; 86901; 93005; 93307; 94660; 97116; 97163; 97167; 97530; 97535; 99285; Q9957